=== PATIENT | female | born 1940 | race Caucasian/White ===

== ENCOUNTER 2020-07-13 06:10 | Emergency (ER) | payer MEDICARE, SELFPAY ==
[2020-07-13] VITALS (14 sets, daily range): BP systolic 132–178; BP diastolic 62–83; PULSE 82–100; RESP 15–18; TEMP 37.4; O2SAT 83–99; BMI 30.2
--- NOTE | 2020-07-13 06:12 | ED.FALL ---
HPI - Fall <Anibal Black DO - Last Filed: 07/13/20 21:46> General Chief Complaint: Fall Stated Complaint: GLF Time Seen by Provider: 07/13/20 06:16 Source: patient and EMS Mode of arrival: EMS Limitations: no limitations History of Present Illness HPI Narrative: 79-year-old female nonsmoker and frequent drinker presents by EMS for evaluation of a ground level fall with head, face and hip injury. Patient takes no blood thinners, denies loss of consciousness, has full recall and has had no vomiting. She states she had had some wine this evening and was ambulating with her walker when she leaned over to grab something and toppled over striking her face. She denies any blurred vision or trouble with speech. She states she can breathe through both nostrils without difficulty. She denies any malocclusion or dental injury. She has no difficulty swallowing and denies chest pain, shortness of breath or abdominal pain. She has pain in her right hip, significant with any palpation or ambulation but denies any numbness, tingling or weakness. MD complaint: fall Onset (ago): hour(s) Fall from: standing Fall witnessed: yes, by family Place fall occurred: home Loss of consciousness: none Prolonged down time: no Symptoms prior to fall: none Context: tripped/slipped and alcohol use Location of injury: head and face Severity: moderate Quality: aching Associated symptoms (after fall): unable to walk Related Data Previous Rx's Medication Instructions Recorded tramadol 50 mg PO Q6H PRN #10 tab 07/13/20 Allergies Allergy/AdvReac Type Severity Reaction Status Date / Time No Known Drug Allergies Allergy Verified 07/13/20 06:24 Review of Systems <Anibal Black DO - Last Filed: 07/13/20 21:46> Constitutional Constitutional: Denies chills, Denies fatigue, Denies fever(s), Denies frequent falls, Denies lethargy and Denies weakness Eyes Eyes: Denies change in vision, Denies eye discharge, Denies irritation and Denies loss of vision ENT Ears, Nose, Mouth, and Throat: Denies change in voice, Denies dizziness, Denies neck pain, Denies sore throat and Denies throat swelling Cardiovascular Cardiovascular: Denies chest pain, Denies irregular heart rhythm, Denies lightheadedness, Denies palpitations, Denies dyspnea, Denies dyspnea on exertion and Denies orthopnea Respiratory Respiratory: Denies cough, Denies dyspnea, Denies dyspnea on exertion and Denies wheezing Gastrointestinal Gastrointestinal: Denies abdominal pain, Denies change in bowel habits, Denies diarrhea, Denies nausea and Denies vomiting Musculoskeletal Musculoskeletal: Reports arthralgias, Denies neck pain and Denies numbness Integumentary/Breasts Skin/Breast: Denies pruritus, Denies erythema, Denies rash, Reports unusual bruising and Reports wounds Neurologic Neurologic: Denies behavioral changes, Denies confusion, Denies dizziness, Denies frequent falls, Denies loss of vision, Denies numbness and Denies weakness Psychiatric Psychiatric: Denies anxiety, Denies behavioral changes, Denies confusion, Denies depression, Denies homicidal ideation and Denies suicidal ideation Endocrine Endocrine: Denies fatigue, Denies flushing and Denies palpitations Hematologic/Lymphatic Hematologic/Lymphatic: Denies easy bruising Allergic/Immunologic Allergic/Immunologic: Denies urticaria, Denies throat swelling and Denies wheezing Patient History <Anibal Black DO - Last Filed: 07/13/20 21:46> Social History Smoking Status: Never smoker Smoking Status: Never smoker alcohol intake frequency: 3 or more drinks per day Exam <Anibal Black DO - Last Filed: 07/13/20 21:46> Narrative Exam Narrative: GENERAL: [79] year old patient appears stated age. Well-nourished, well-developed patient, in mild distress. GCS 15 HEAD: Bruising of right forehead and right cheek. 2 cm crescent-shaped laceration on right forehead with dried blood, no active bleeding. No evidence of depressed skull fracture EYES: Pupils equal round and reactive. No hyphema Extraocular motions intact. No scleral icterus. No injection or drainage. ENT: Nose without bleeding, purulent drainage. No nasal septal hematoma. Throat without erythema, tonsillar hypertrophy or exudate. Airway patent. Nor malocclusion NECK: Trachea midline. Non tender CARDIOVASCULAR: Regular rate and rhythm without murmurs, gallops, or rubs. RESPIRATORY: Clear to auscultation. Breath sounds equal bilaterally. No wheezes, rales, or rhonchi. GASTROINTESTINAL: Abdomen soft, non-tender, nondistended. EXTREMITIES: Right hip tender to palpate, no obvious shortening or external rotation. Close, isolated and neurovascularly intact BACK: Nontender without deformity or crepitance. No flank tenderness. NEURO: AOx3. SKIN: No rash or erythema of visible areas Initial Vital Signs Initial Vital Signs: Vital Signs Temperature 99.4 F 07/13/20 06:18 Pulse Rate 98 H 07/13/20 06:18 Respiratory Rate 18 07/13/20 06:18 Blood Pressure 178/80 H 07/13/20 06:18 Pulse Oximetry 95 07/13/20 06:18 <Flakito Britton DO - Last Filed: 07/13/20 09:45> Initial Vital Signs Initial Vital Signs: Vital Signs Temperature 99.4 F 07/13/20 06:18 Pulse Rate 98 H 07/13/20 06:18 Respiratory Rate 18 07/13/20 06:18 Blood Pressure 178/80 H 07/13/20 06:18 Pulse Oximetry 95 07/13/20 06:18 Procedures <Anibal Black DO - Last Filed: 07/13/20 21:46> Laceration Repair Laceration 1: Site: face Side (If applicable): right Size (cm): 3 Description: stellate Depth: simple, single layer Local Anesthetic: lidocaine 1% and with epi Pre-repair: wound explored and irrigated extensively Skin layer closed with: nylon Size (cm): 5-0 Number of sutures: 5 Technique: simple, interrupted Course <DO Sadi Cao Last Filed: 07/13/20 21:46> Orders Ordered: Discontinued Medications Hydrocodone Bitart/Acetaminophen (Hydrocodone/Acet 5/325 Tablet) 1 tab PO NOW ONE Stop: 07/13/20 08:47 Last Admin: 07/13/20 08:56 Dose: 1 tab Documented by: DIONNE Lidocaine/Epinephrine (Lidocaine 1% W/Epi) 1 ml SUBCUT NOW ONE Stop: 07/13/20 06:17 Last Admin: 07/13/20 06:54 Dose: 1 ml Documented by: ZACHARY Ondansetron HCl (Ondansetron 4 Mg/2 Ml Inj) 4 mg IV NOW ONE Stop: 07/13/20 06:54 Last Admin: 07/13/20 06:57 Dose: Not Given Documented by: ZACHARY Vital Signs Vital signs: Vital Signs - 8 hr 07/13/20 06:18 07/13/20 06:21 07/13/20 06:30 Temperature 99.4 F Pulse Rate 98 H 99 H 98 H Respiratory Rate 18 Blood Pressure 178/80 H 148/72 H Pulse Oximetry 95 93 93 07/13/20 06:56 07/13/20 07:00 07/13/20 07:30 Temperature Pulse Rate 98 H 100 H 96 H Respiratory Rate Blood Pressure 148/72 H 145/67 H 153/67 H Pulse Oximetry 92 91 91 07/13/20 08:00 07/13/20 08:01 07/13/20 08:21 Temperature Pulse Rate 96 H 97 H 97 H Respiratory Rate Blood Pressure 144/62 H 163/71 H Pulse Oximetry 92 92 92 07/13/20 08:30 Temperature Pulse Rate 94 H Respiratory Rate Blood Pressure 132/66 Pulse Oximetry 93 <Flakito Britton DO - Last Filed: 07/13/20 09:45> Orders Ordered: Discontinued Medications Hydrocodone Bitart/Acetaminophen (Hydrocodone/Acet 5/325 Tablet) 1 tab PO NOW ONE Stop: 07/13/20 08:47 Last Admin: 07/13/20 08:56 Dose: 1 tab Documented by: DIONNE Lidocaine/Epinephrine (Lidocaine 1% W/Epi) 1 ml SUBCUT NOW ONE Stop: 07/13/20 06:17 Last Admin: 07/13/20 06:54 Dose: 1 ml Documented by: ZACHARY Ondansetron HCl (Ondansetron 4 Mg/2 Ml Inj) 4 mg IV NOW ONE Stop: 07/13/20 06:54 Last Admin: 07/13/20 06:57 Dose: Not Given Documented by: ZACHARY Vital Signs Vital signs: Vital Signs - 8 hr 07/13/20 06:18 07/13/20 06:21 07/13/20 06:30 Temperature 99.4 F Pulse Rate 98 H 99 H 98 H Respiratory Rate 18 Blood Pressure 178/80 H 148/72 H Pulse Oximetry 95 93 93 07/13/20 06:56 07/13/20 07:00 07/13/20 07:30 Temperature Pulse Rate 98 H 100 H 96 H Respiratory Rate Blood Pressure 148/72 H 145/67 H 153/67 H Pulse Oximetry 92 91 91 07/13/20 08:00 07/13/20 08:01 07/13/20 08:21 Temperature Pulse Rate 96 H 97 H 97 H Respiratory Rate Blood Pressure 144/62 H 163/71 H Pulse Oximetry 92 92 92 07/13/20 08:30 Temperature Pulse Rate 94 H Respiratory Rate Blood Pressure 132/66 Pulse Oximetry 93 MDM - Fall <Anibal Black DO - Last Filed: 07/13/20 21:46> Lab Data Result diagrams: 07/13/20 06:30 07/13/20 06:30 Labs: Lab Results 07/13/20 07/13/20 07/13/20 Range/Units 06:30 06:30 06:30 WBC 10.7 (4.5-11.0) X10^3/uL RBC 4.40 (4.0-5.2) X10^6/uL Hgb 13.9 (12.0-16.0) g/dL Hct 40.7 (36-46) % MCV 92.3 (80-100) fL MCH 31.5 (26-34) PG MCHC 34.1 (30-36) % RDW 12.9 (11.6-14.8) % Plt Count 201 (150-400) X10^3/uL Neut % (Auto) 83.5 H (50-75) % Lymph % (Auto) 8.3 L (25-40) % Elliott % (Auto) 7.9 (3-14) % Eos % (Auto) 0.1 L (2-4) % Baso % (Auto) 0.2 (0-2) % Neut # (Auto) 8900 H (9676-2112) /uL Lymph # (Auto) 900 L (8518-7088) /uL Elliott # (Auto) 800 (0-900) /uL Eos # (Auto) 0 (0-450) /uL Baso # (Auto) 0 (0-100) /uL Sodium 133 L (137-145) mmol/L Potassium 4.3 (3.4-5.1) mmol/L Chloride 98 (98-107) mmol/L Carbon Dioxide 23 (22-32) mmol/L BUN 13 (7-17) mg/dL Creatinine 0.62 (0.52-1.04) mg/dL Estimated GFR > 60.0 (>60) mL/min BUN/Creatinine Ratio 21.0 (6-22) Glucose 113 H (80-110) mg/dL Calcium 9.6 (8.4-10.2) mg/dL Ethyl Alcohol < 10 ( - 10) mg/dL <Flakito Britton, DO - Last Filed: 07/13/20 09:45> Lab Data Labs: Lab Results 07/13/20 07/13/20 07/13/20 Range/Units 06:30 06:30 06:30 WBC 10.7 (4.5-11.0) X10^3/uL RBC 4.40 (4.0-5.2) X10^6/uL Hgb 13.9 (12.0-16.0) g/dL Hct 40.7 (36-46) % MCV 92.3 (80-100) fL MCH 31.5 (26-34) PG MCHC 34.1 (30-36) % RDW 12.9 (11.6-14.8) % Plt Count 201 (150-400) X10^3/uL Neut % (Auto) 83.5 H (50-75) % Lymph % (Auto) 8.3 L (25-40) % Elliott % (Auto) 7.9 (3-14) % Eos % (Auto) 0.1 L (2-4) % Baso % (Auto) 0.2 (0-2) % Neut # (Auto) 8900 H (0525-5321) /uL Lymph # (Auto) 900 L (7154-4540) /uL Elliott # (Auto) 800 (0-900) /uL Eos # (Auto) 0 (0-450) /uL Baso # (Auto) 0 (0-100) /uL Sodium 133 L (137-145) mmol/L Potassium 4.3 (3.4-5.1) mmol/L Chloride 98 (98-107) mmol/L Carbon Dioxide 23 (22-32) mmol/L BUN 13 (7-17) mg/dL Creatinine 0.62 (0.52-1.04) mg/dL Estimated GFR > 60.0 (>60) mL/min BUN/Creatinine Ratio 21.0 (6-22) Glucose 113 H (80-110) mg/dL Calcium 9.6 (8.4-10.2) mg/dL Ethyl Alcohol < 10 ( - 10) mg/dL Imaging Data CT scan - head: Radiologist's Impression: [address] [id number] Scan ReportSigned Patient: Milka Ramirez SMR#: [id number]: 9Acct:[id number]/Sex: 79 / FDate of Service: 07/13/20Loc: EDAccession Number: [id number] Procedure: CT head/brain wo con Ordering Provider: Anibal Black D.O. PROCEDURE: CT HEAD/BRAIN WO CON INDICATIONS: fall with head injury TECHNIQUE: Noncontrast 4.5 mm thick angled axial sections acquired from the foramen magnum to the vertex, with coronal and sagittal reformats. For radiation dose reduction, the following was used: automated exposure control, adjustment of mA and/or kV according to patient size. COMPARISON: None. FINDINGS: Image quality: Degraded by patient motion artifact. CSF spaces: Basal cisterns are patent. No extra-axial fluid collections. The ventricles are symmetric in size and shape. Brain: No intracranial bleeds or masses. There is cerebral volume loss for age, with resultant ventricular and sulcal prominence. There are periventricular and deep white matter chronic small vessel ischemic changes. There is intracranial internal carotid artery and vertebral artery atherosclerosis. Skull and face: Calvarium and visualized facial bones appear intact, without suspicious lesions. Small right frontal scalp hematoma. Sinuses: Visualized sinuses and mastoids are clear. IMPRESSION: No acute intracranial disease process. Dictated by: Brittney Fitzpatrick MD, PhD on 07/13/2020 at 7:43 Approved by: Brittney Fitzpatrick MD, PhD on 07/13/2020 at 7:44 CT - cervical spine: Radiologist's Impression: Motion artifact versus odontoid fracture needs repeat study Straightening of the cervical lordotic curve. 4 mm listhesis C5-C6. Discogenic changes C5-C6 level. Extensive degenerative spondylosis CT pelvis: Radiologist's Impression: Bilateral hip joints are congruent. Anterior and posterior acetabular martinez were limited in their evaluation due to motion artifact. Suspect motion artifact since findings are bilateral and symmetric. Anterior and posterior columns preserved No evidence of avulsion injury. Old healed inferior pubic ramus fracture CT maxillofacial: Radiologist's Impression: No intraorbital injury or order fractures. No fractures of the facial bones identified. Fractures of the mandible frontal calvarium Tomeka Brewer cribriform plate could not be assessed due to motion artifact repeated buys Deformity of the nasal bones felt to be from remote injury repeat CT c spine: Radiologist's Impression: [address] [id number] Scan ReportSigned Patient: Milka Ramirez [facility]#: [id number]: [id number]:[id number]/Sex: 79 / FDate of Service: 07/13/20Loc: EDAccession Number: [id number] Procedure: CT cervical spine wo con Ordering Provider: Flakito Britton D.O. PROCEDURE: CT CERVICAL SPINE WO CON INDICATIONS: Trauma TECHNIQUE: Noncontrast 3 mm thick sections acquired from the skull base to the T4 level. Sagittal and coronal reformats were then constructed. For radiation dose reduction, the following was used: automated exposure control, adjustment of mA and/or kV according to patient size. COMPARISON: [facility], CT, CT HEAD/BRAIN WO CON, 07/13/2020, 6:22. [facility], CT, CT FACIAL BONES WO CON, 07/13/2020, 6:22. [facility], CT, CT CERVICAL SPINE WO CON, 07/13/2020, 6:22. FINDINGS: Image quality: Excellent. Bones: Previously question fracture at the base of the dens posteriorly is no longer demonstrated, consistent with motion artifact on the prior study. No fractures or dislocations. Visualized superior ribs are intact. Soft tissues: Prevertebral soft tissues are normal in thickness. No paravertebral hematomas. No apical pneumothoraces. IMPRESSION: No cervical spine fracture. Previously question abnormality at the base of the dens is no longer demonstrated, representing motion artifact on the prior examination. Dictated by: Christopher Fermin M.D. on 07/13/2020 at 8:26 Approved by: Christopher Fermin M.D. on 07/13/2020 at 8:29 MDM Narrative Medical decision making narrative: Dr britton: Received turned over from Dr. Black. Patient has had laceration has already been repaired. I discussed the care instructions and follow-up instructions regard to this. She does have a right-sided facial contusion we also discussed care instructions for this. Her initial CT scans are somewhat degraded secondary to motion artifact. The CT scan of her face does not show any defined fractures although it is degraded however the head CT does not show any associated fractures in these areas. CT scan of her pelvis does not show any fractures. She did have some difficulty standing but was able to stand and take 1 step with some discomfort. I informed her that she is going to be sore however because there were no fractures she can walk as tolerated. The CT scan of her neck initially was concerning for an odontoid fracture however repeat scan does not show this. Her cervical collar was removed. Had a discussion with her and her daughter at bedside regarding her injuries. Informed her that she is going to be sore for the next several days. They were given a health resource is coordinator card in order for the patient to find a primary provider. They were given return precautions and follow-up instructions. The both expressed understanding and agreement. Discharge Plan Departure Patient Disposition: Home Clinical Impression: Contusion of face, Acute right hip pain, Fall, Forehead laceration Instructions: DI for Eye Contusion, How to Prevent Falls Activity Restrictions/Additional Instructions: Your CT scans here in the emergency department do not show any acute fractures. The stitches that were placed in your forehead do need to be removed in 7-10 days. You can contact your primary provider or the walk-in clinic for this. I do recommend that you place ice over the right side of her face as this may help with some of the swelling. There were no fractures noted on the CT scan of your hip so you can walk with your walker as tolerated. Return to the emergency department for any new or worsening symptoms Prescriptions: New tramadol 50 mg tablet 50 mg PO Q6H PRN (Reason: pain) Qty: 10 RF: 0
--- NOTE | 2020-07-13 06:14 | DI.CT.S_ITS ---
PROCEDURE: CT PEL WO CON INDICATIONS: fall with severe pain TECHNIQUE: Noncontrast 3 mm axial sections acquired through the bony pelvis, with coronal and sagittal reformatting. COMPARISON: None. FINDINGS: Image quality: Diagnostic. Bones: Imaging of the pelvis and right hip demonstrate no evidence of acute fracture or dislocation. There are old fractures of left superior and inferior pubic bones. Soft tissues: Sigmoid diverticulosis without evidence of diverticulitis. Vascular calcifications. IMPRESSION: 1. No evidence of acute bony abnormality of the pelvis and right hip. 2. Old left pubic bone fractures. Comment: Final report is concordant with preliminary interpretation provided by [facility]. Dictated by: Roni Prince M.D. on 07/13/2020 at 8:54 Approved by: Roni Prince M.D. on 07/13/2020 at 10:03
--- NOTE | 2020-07-13 06:14 | DI.CT.S_ITS ---
PROCEDURE: CT FACIAL BONES WO CON INDICATIONS: fall with injury TECHNIQUE: Noncontrast 2.5 mm thick axial images acquired from the mandible through the frontal sinuses, with coronal and sagittal reformatting. For radiation dose reduction, the following was used: automated exposure control, adjustment of mA and/or kV according to patient size. COMPARISON: None. FINDINGS: Image quality: Patient motion artifact. Bones and teeth: Orbital martinez are intact. Sinus martinez show no fracture or deformity. Nasal bones and septum are intact. Visualized portions of the mandible demonstrate no fractures or subluxation. Zygomatic arches are intact. Pterygoid plates are intact. Visualized portions of the skull base and auditory canals are intact. Sinuses: Paranasal sinuses are aerated, without fluid levels, mucosal thickening, or mucoceles. Mastoid air cells are aerated. Soft tissues: No edema, masses, or fluid collections. No enlarged lymph nodes. No soft tissue lacerations or debris. Vascular: Visualized vascular structures appear normal in the absence of contrast. Bony vascular foramina and canals are intact. IMPRESSION: Allowing for the amount of patient motion artifact present, no displaced facial bone fractures or mandibular fractures are identified. However, if continue to have significant suspicion of fracture, consider repeat imaging. Comment: Final report is concordant with preliminary interpretation provided by [facility]. Dictated by: Roni Prince M.D. on 07/13/2020 at 10:03 Approved by: Roni Prince M.D. on 07/13/2020 at 10:05
--- NOTE | 2020-07-13 06:15 | DI.CT.S_ITS ---
PROCEDURE: CT HEAD/BRAIN WO CON INDICATIONS: fall with head injury TECHNIQUE: Noncontrast 4.5 mm thick angled axial sections acquired from the foramen magnum to the vertex, with coronal and sagittal reformats. For radiation dose reduction, the following was used: automated exposure control, adjustment of mA and/or kV according to patient size. COMPARISON: None. FINDINGS: Image quality: Degraded by patient motion artifact. CSF spaces: Basal cisterns are patent. No extra-axial fluid collections. The ventricles are symmetric in size and shape. Brain: No intracranial bleeds or masses. There is cerebral volume loss for age, with resultant ventricular and sulcal prominence. There are periventricular and deep white matter chronic small vessel ischemic changes. There is intracranial internal carotid artery and vertebral artery atherosclerosis. Skull and face: Calvarium and visualized facial bones appear intact, without suspicious lesions. Small right frontal scalp hematoma. Sinuses: Visualized sinuses and mastoids are clear. IMPRESSION: No acute intracranial disease process. Dictated by: Brittney Fitzpatrick MD, PhD on 07/13/2020 at 7:43 Approved by: Brittney Fitzpatrick MD, PhD on 07/13/2020 at 7:44
[2020-07-13 06:40] LABS: Add Manual Diff / Slide Review NO; Basophils Absolute Auto 0 /uL (0-100); Basophils Percent Auto 0.2 % (0-2); Eosinophils Absolute Auto 0 /uL (0-450); Eosinophils Percent Auto 0.1 % (2-4); Hematocrit 40.7 % (36-46); Hemoglobin 13.9 g/dL (12.0-16.0); Lymphocytes Absolute Auto 900 /uL (1100-4500); Lymphocytes Percent Auto 8.3 % (25-40); Mean Corpuscular HGB Conc 34.1 % (30-36); Mean Corpuscular Hemoglobin 31.5 PG (26-34); Mean Corpuscular Volume 92.3 fL (80-100); Monocytes Absolute Auto 800 /uL (0-900); Monocytes Percent Auto 7.9 % (3-14); Neutrophils Absolute Auto 8900 /uL (1500-7000); Neutrophils Percent Auto 83.5 % (50-75); Platelet Count 201 X10^3/uL (150-400); Red Cell Distribution Width 12.9 % (11.6-14.8); White Blood Cell Count 10.7 X10^3/uL (4.5-11.0)
--- NOTE | 2020-07-13 06:42 | DI.CT.S_ITS ---
PROCEDURE: CT CERVICAL SPINE WO CON INDICATIONS: fall with injury TECHNIQUE: Noncontrast 3 mm thick sections acquired from the skull base to the T4 level. Sagittal and coronal reformats were then constructed. For radiation dose reduction, the following was used: automated exposure control, adjustment of mA and/or kV according to patient size. COMPARISON: [facility], CT, CT CERVICAL SPINE WO CON, 07/13/2020, 8:10. FINDINGS: Image quality: Patient motion introduced significant artifact involving the C2 level. Therefore, patient returned for additional imaging. Bones: When comparing the study dated 07/13/2020 at 0622 hours to a subsequent study from 0810 hours, no acute fracture or dislocation is identified. The C2 level is cleared on the 2nd imaging set. There is severe cervical spondylitic change. There is degenerative anterolisthesis of C6 on C7 measuring 3 mm. Degenerative retrolisthesis of C5 on C6 measures 5 mm. Degenerative anterolisthesis of C4 on C5 measures 2 mm. There is multilevel cervical facet arthropathy. There are uncovertebral joint osteophytes at C3-C4, C4-C5, and C5-C6. This results in bony foraminal narrowing predominantly at C5-C6 and C4-C5. There is likely chronic canal stenosis at C5-C6. Visualized superior ribs are intact. Soft tissues: Prevertebral soft tissues are normal in thickness. No paravertebral hematomas. No apical pneumothoraces. IMPRESSION: 1. Patient motion artifact resulted in the need for additional imaging which was subsequently obtained, resulting in clearing of the C2 vertebral body for fracture. 2. No evidence of acute fracture or dislocation. 3. Severe cervical spondylitic change. Comment: Final report is concordant with preliminary interpretation provided by [facility]. Dictated by: Roni Prince M.D. on 07/13/2020 at 8:48 Approved by: Roni Prince M.D. on 07/13/2020 at 8:53
[2020-07-13 06:48] LABS: Blood Urea Nitrogen 13 mg/dL (7-17); Calcium 9.6 mg/dL (8.4-10.2); Carbon Dioxide 23 mmol/L (22-32); Chloride 98 mmol/L (98-107); Estimated Glomerular Filt Rate > 60.0 mL/min (>60); Glucose 113 mg/dL (80-110); Potassium 4.3 mmol/L (3.4-5.1); Sodium 133 mmol/L (137-145)
[2020-07-13 06:52] LABS: HEMOLYSIS 55 (0-50)
[2020-07-13] MEDS: LIDOCAINE 1% W/EPI 1 ML SUBCUT (06:54)
[2020-07-13] MEDS: ONDANSETRON 4 MG/2 ML INJ (06:55)
--- NOTE | 2020-07-13 06:59 | PC.NURSE ---
Pt c/o nausea and then vomited, remains in C-collar. Dr Black notified, pt medicated with 4mg zofran per verbal order. Suction available at bedside. Dr Black now at bedside repairing lac to forehead.
[2020-07-13 07:03] LABS: Ethanol (ETOH) < 10 mg/dL
--- NOTE | 2020-07-13 07:59 | DI.CT.S_ITS ---
PROCEDURE: CT CERVICAL SPINE WO CON INDICATIONS: Trauma TECHNIQUE: Noncontrast 3 mm thick sections acquired from the skull base to the T4 level. Sagittal and coronal reformats were then constructed. For radiation dose reduction, the following was used: automated exposure control, adjustment of mA and/or kV according to patient size. COMPARISON: [facility], CT, CT HEAD/BRAIN WO CON, 07/13/2020, 6:22. [facility], CT, CT FACIAL BONES WO CON, 07/13/2020, 6:22. [facility], CT, CT CERVICAL SPINE WO CON, 07/13/2020, 6:22. FINDINGS: Image quality: Excellent. Bones: Previously question fracture at the base of the dens posteriorly is no longer demonstrated, consistent with motion artifact on the prior study. No fractures or dislocations. Visualized superior ribs are intact. Soft tissues: Prevertebral soft tissues are normal in thickness. No paravertebral hematomas. No apical pneumothoraces. IMPRESSION: No cervical spine fracture. Previously question abnormality at the base of the dens is no longer demonstrated, representing motion artifact on the prior examination. Dictated by: Christopher Fermin M.D. on 07/13/2020 at 8:26 Approved by: Christopher Fermin M.D. on 07/13/2020 at 8:29
[2020-07-13] MEDS: HYDROCODONE/ACET 5/325 TABLET 1 TAB PO (08:56)
--- NOTE | 2020-07-13 10:02 | PC.NURSE ---
transfered self to commode and back with no difficulties using facility provided walker. states she has a walker at home.
== END 2020-07-13 10:04 | disposition home or self-care (01) ==
PROVIDERS: Emergency Medicine; Emergency Provider Emergency Medicine
DX: S01.81XA Laceration without foreign body of other part of head, initial encounter (principal); M25.551 Pain in right hip; W19.XXXA Unspecified fall, initial encounter
CPT/HCPCS: 12013; 36415; 70450; 70486; 72125; 72192; 80048; 80320; 85025; 99285; J2405

== ENCOUNTER 2020-07-14 16:42 | Observation (INO) | payer MEDICARE, SELFPAY ==
[2020-07-14] VITALS (7 sets, daily range): BP systolic 138–183; BP diastolic 70–95; PULSE 86–93; RESP 12–24; TEMP 36.8; O2SAT 91–98; BMI 28.3
[2020-07-14 18:36] LABS: Add Manual Diff / Slide Review NO; Basophils Absolute Auto 0 /uL (0-100); Basophils Percent Auto 0.3 % (0-2); Eosinophils Absolute Auto 0 /uL (0-450); Hematocrit 42.8 % (36-46); Hemoglobin 14.5 g/dL (12.0-16.0); Lymphocytes Absolute Auto 700 /uL (1100-4500); Lymphocytes Percent Auto 7.3 % (25-40); Mean Corpuscular Hemoglobin 31.8 PG (26-34); Mean Corpuscular Volume 93.8 fL (80-100); Monocytes Absolute Auto 1100 /uL (0-900); Monocytes Percent Auto 10.7 % (3-14); Neutrophils Absolute Auto 8400 /uL (1500-7000); Neutrophils Percent Auto 81.7 % (50-75); Platelet Count 175 X10^3/uL (150-400); Red Blood Cell Count 4.56 X10^6/uL (4.0-5.2); Red Cell Distribution Width 13.1 % (11.6-14.8); White Blood Cell Count 10.3 X10^3/uL (4.5-11.0)
[2020-07-14 18:48] LABS: Prothrombin Time 11.9 SECONDS (10.1-12.7)
[2020-07-14 18:50] LABS: PTT Partial Thromboplastin Tim 29 SECONDS (26.4-36.2)
--- NOTE | 2020-07-14 19:03 | ED_ITS ---
HPI - Nausea/Vomiting/Diarrhea General Chief complaint: Nausea/Vomiting/Diarrhea Stated complaint: unable to bear wt, not eating or drinking Time Seen by Provider: 07/14/20 17:56 Source: patient and EMS Mode of arrival: EMS Limitations: no limitations History of Present Illness HPI Narrative: 79-year-old female returns for evaluation of right hip. She was here few days ago after she is suffering facial injury and right hip injury after a ground level fall. She had been walking with her walker in bent forward to pick something up when she fell forward, striking her head on the ground and resulting in significant right hip pain. She had head CT, facial bones as well as a CT of the pelvis which showed no fracture. She had a forehead laceration which was repaired and she was sent home. She does live at home alone and has been unable to ambulate due to the pain. She states that the pain has become so significant that she is unable to move whatsoever. Additionally she has been having nausea and vomiting as and due to her pain she has not been eating or drinking. She is weak and fatigued and does not have support at home. Related Data Previous Rx's Medication Instructions Recorded tramadol 50 mg PO Q6H PRN #10 tab 07/13/20 Allergies Allergy/AdvReac Type Severity Reaction Status Date / Time No Known Drug Allergies Allergy Verified 07/13/20 06:24 Review of Systems Constitutional Constitutional: Denies chills, Denies fatigue, Denies fever(s), Denies frequent falls, Denies lethargy and Reports weakness Eyes Eyes: Denies change in vision, Denies eye discharge, Denies irritation and Denies loss of vision ENT Ears, Nose, Mouth, and Throat: Denies change in voice, Denies dizziness, Denies neck pain, Denies sore throat and Denies throat swelling Cardiovascular Cardiovascular: Denies chest pain, Denies irregular heart rhythm, Denies lightheadedness, Denies palpitations, Denies dyspnea, Denies dyspnea on exertion and Denies orthopnea Respiratory Respiratory: Denies cough, Denies dyspnea, Denies dyspnea on exertion and Denies wheezing Gastrointestinal Gastrointestinal: Denies abdominal pain, Denies change in bowel habits, Denies diarrhea, Reports nausea and Reports vomiting Musculoskeletal Musculoskeletal: Reports arthralgias, Denies neck pain and Denies numbness Integumentary/Breasts Skin/Breast: Denies pruritus, Denies erythema, Denies rash and Denies wounds Neurologic Neurologic: Denies behavioral changes, Denies confusion, Denies dizziness, Denies frequent falls, Denies loss of vision, Denies numbness and Reports weakness Psychiatric Psychiatric: Denies anxiety, Denies behavioral changes, Denies confusion, Denies depression, Denies homicidal ideation and Denies suicidal ideation Endocrine Endocrine: Denies fatigue, Denies flushing and Denies palpitations Hematologic/Lymphatic Hematologic/Lymphatic: Denies easy bruising Allergic/Immunologic Allergic/Immunologic: Denies urticaria, Denies throat swelling and Denies wheezing Patient History Medical History No significant past medical history Surgical History History of History of knee surgery Family History Father Stroke Mother Diabetes mellitus Heart attack Social History Smoking Status: Never smoker Smoking Status: Never smoker alcohol intake frequency: 3 or more drinks per day Alcohol type: wine Substance Use Type: does not use Exam Narrative Exam Narrative: GENERAL: [79] year old patient appears stated age. Well- nourished, well-developed patient, in mild distress. GCS 15 HEAD: Atraumatic. Normocephalic. Aging bruising on right forehead with intact laceration, wound healing appropriately. EYES: Pupils equal round and reactive. Extraocular motions intact. No scleral icterus. No injection or drainage. ENT: Dry mucous membranes Nose without bleeding, purulent drainage. Throat without erythema, tonsillar hypertrophy or exudate. Airway patent. NECK: Trachea midline. Non tender CARDIOVASCULAR: Regular rate and rhythm without murmurs, gallops, or rubs. RESPIRATORY: Clear to auscultation. Breath sounds equal bilaterally. No wheezes, rales, or rhonchi. GASTROINTESTINAL: Abdomen soft, non-tender, nondistended. EXTREMITIES: Painful passive and active range of motion of the right hip without shortening, rotation, this is closed, isolated and neurovascularly intact BACK: Nontender without deformity or crepitance. No flank tenderness. NEURO: AOx3. SKIN: Poor skin turgor No rash or erythema of visible areas Initial Vital Signs Initial Vital Signs: Vital Signs Temperature 98.2 F 07/14/20 16:48 Pulse Rate 86 07/14/20 16:48 Respiratory Rate 20 07/14/20 16:48 Blood Pressure 180/81 H 07/14/20 16:48 Pulse Oximetry 92 07/14/20 16:48 Course Orders Ordered: ED Orders 07/14/20 18:00 EKG-12 Lead Stat 07/14/20 18:22 COVID19 - ADMIT ([employer] swab/PCR) Stat Complete Blood Count AUTO DIFF Stat Partial Thromboplastin Time Stat Prothrombin Time INR Stat 07/14/20 19:09 CT head/brain wo con Stat 07/14/20 19:16 Comprehensive Metabolic Panel Stat Lipase Stat Acetaminophen (Acetaminophen 325 Mg Tablet) 975 mg PO Q8H [facility] Last Admin: 07/14/20 22:54 Dose: 975 mg Documented by: CULLEN Al Hydrox/Mg Hydrox/Simethicone (Mag Hydrox/Alum/Simeth 30 Ml Udc) 30 ml PO Q6HR PRN PRN Reason: Dyspepsia Bisacodyl (Bisacodyl 10 Mg Supp) 10 mg TX DAILY PRN PRN Reason: Constipation Calcium Carbonate (Calcium Carbonate 500 Mg Tab) 1,000 mg PO Q4HR PRN PRN Reason: Dyspepsia Docusate Sodium (Docusate 100 Mg Capsule) 100 mg PO BID [facility] Last Admin: 07/14/20 22:57 Dose: 100 mg Documented by: CULLEN Enoxaparin Sodium (Enoxaparin 40 Mg/0.4 Ml Syringe) 40 mg SUBCUT DAILY [facility] Sodium Chloride (Normal Saline 0.9%) 1,000 mls @ 100 mls/hr IV CONT [facility] Last Admin: 07/14/20 22:15 Dose: 100 mls/hr Documented by: CULLEN Ceftriaxone Sodium/Dextrose (Rocephin) 1 gm in 50 mls @ 100 mls/hr IV Q24H [facility] Last Admin: 07/15/20 00:51 Dose: 100 mls/hr Documented by: [email or web address] Meloxicam (Meloxicam 7.5 Mg Tablet) 7.5 mg PO 0800 [facility] Methocarbamol (Methocarbamol 500 Mg Tablet) 500 mg PO TID PRN PRN Reason: Muscle Spasm Naloxone HCl (Naloxone 0.4 Mg/Ml Vial) 0.2 mg IV Q2MIN PRN PRN Reason: Opiate Reversal Ondansetron HCl (Ondansetron 4 Mg/2 Ml Inj) 4 mg IV Q6HR PRN PRN Reason: Nausea And Vomiting Last Admin: 07/14/20 22:28 Dose: 4 mg Documented by: CULLEN Oxycodone HCl (Oxycodone Ir 5 Mg Tablet) 5 mg PO Q6HR PRN PRN Reason: Pain, Moderate (4-6) Last Admin: 07/14/20 22:54 Dose: 5 mg Documented by: CULLEN Discontinued Medications Pantoprazole Sodium (Pantoprazole 40 Mg Vial) 40 mg IV NOW ONE Stop: 07/14/20 22:07 Last Admin: 07/14/20 22:28 Dose: 40 mg Documented by: CULLEN Vital Signs Vital signs: Vital Signs - 8 hr 07/14/20 18:12 07/14/20 19:18 07/14/20 20:00 Pulse Rate 93 H 92 H 89 Respiratory Rate 12 18 Blood Pressure 181/95 H 146/88 H 145/76 H Pulse Oximetry 94 98 91 07/14/20 20:30 07/14/20 20:34 Pulse Rate 86 86 Respiratory Rate 24 24 Blood Pressure 143/70 H 138/76 Pulse Oximetry 92 92 MDM - Nausea/Vomiting/Diarrhea Lab Data Result diagrams: 07/14/20 18:22 07/14/20 19:16 Labs: Lab Results 07/14/20 07/14/20 07/14/20 Range/Units 18:22 18:22 18:22 WBC 10.3 (4.5-11.0) X10^3/uL RBC 4.56 (4.0-5.2) X10^6/uL Hgb 14.5 (12.0-16.0) g/dL Hct 42.8 (36-46) % MCV 93.8 (80-100) fL MCH 31.8 (26-34) PG MCHC 34.0 (30-36) % RDW 13.1 (11.6-14.8) % Plt Count 175 (150-400) X10^3/uL Neut % (Auto) 81.7 H (50-75) % Lymph % (Auto) 7.3 L (25-40) % [place] % (Auto) 10.7 (3-14) % Eos % (Auto) 0.0 L (2-4) % Baso % (Auto) 0.3 (0-2) % Neut # (Auto) 8400 H (3886-6066) /uL Lymph # (Auto) 700 L (1912-9564) /uL [place] # (Auto) 1100 H (0-900) /uL Eos # (Auto) 0 (0-450) /uL Baso # (Auto) 0 (0-100) /uL PT 11.9 (10.1-12.7) SECONDS INR 1.0 (0.9-1.3) APTT 29 (26.4-36.2) SECONDS Sodium (137-145) mmol/L Potassium (3.4-5.1) mmol/L Chloride (98-107) mmol/L Carbon Dioxide (22-32) mmol/L BUN (7-17) mg/dL Creatinine (0.52-1.04) mg/dL Estimated GFR (>60) mL/min BUN/Creatinine Ratio (6-22) Glucose (80-110) mg/dL Calcium (8.4-10.2) mg/dL Magnesium (1.6-2.3) mg/dL Total Bilirubin (0.2-1.3) mg/dL AST (14-36) IU/L ALT (<35) IU/L Alkaline Phosphatase (38-126) U/L Total Protein (6.3-8.2) g/dL Albumin (3.5-5.0) g/dL Globulin (1.7-4.1) g/dL Albumin/Globulin Ratio (1.0-2.8) Lipase (23-300) U/L SARS-CoV-2 (PCR) Negative (Negative) 07/14/20 07/14/20 Range/Units 19:16 19:16 WBC (4.5-11.0) X10^3/uL RBC (4.0-5.2) X10^6/uL Hgb (12.0-16.0) g/dL Hct (36-46) % MCV (80-100) fL MCH (26-34) PG MCHC (30-36) % RDW (11.6-14.8) % Plt Count (150-400) X10^3/uL Neut % (Auto) (50-75) % Lymph % (Auto) (25-40) % [place] % (Auto) (3-14) % Eos % (Auto) (2-4) % Baso % (Auto) (0-2) % Neut # (Auto) (5704-4243) /uL Lymph # (Auto) (5513-2659) /uL [place] # (Auto) (0-900) /uL Eos # (Auto) (0-450) /uL Baso # (Auto) (0-100) /uL PT (10.1-12.7) SECONDS INR (0.9-1.3) APTT (26.4-36.2) SECONDS Sodium 132 L (137-145) mmol/L Potassium 3.9 (3.4-5.1) mmol/L Chloride 95 L (98-107) mmol/L Carbon Dioxide 26 (22-32) mmol/L BUN 17 (7-17) mg/dL Creatinine 0.72 (0.52-1.04) mg/dL Estimated GFR > 60.0 (>60) mL/min BUN/Creatinine Ratio 23.6 H (6-22) Glucose 89 (80-110) mg/dL Calcium 9.7 (8.4-10.2) mg/dL Magnesium 2.0 (1.6-2.3) mg/dL Total Bilirubin 1.0 (0.2-1.3) mg/dL AST 41 H (14-36) IU/L ALT 39 H (<35) IU/L Alkaline Phosphatase 65 (38-126) U/L Total Protein 7.6 (6.3-8.2) g/dL Albumin 4.3 (3.5-5.0) g/dL Globulin 3.3 (1.7-4.1) g/dL Albumin/Globulin Ratio 1.3 (1.0-2.8) Lipase 35 (23-300) U/L SARS-CoV-2 (PCR) (Negative) Imaging Data CT scan - head: Radiologist's Impression: Milka Ramirez 79 F [address] [id number] Scan ReportSigned Patient: Milka Ramirez [facility]#: [id number]: 9Acct:[id number]/Sex: 79 / FDate of Service: 07/14/20Loc: EDAccession Number: [id number] Procedure: CT head/brain wo con Ordering Provider: Anibal Black D.O. PROCEDURE: CT HEAD/BRAIN WO CON INDICATIONS: recent fall, persistent vomiting TECHNIQUE: Noncontrast 4.5 mm thick angled axial sections acquired from the foramen magnum to the vertex, with coronal and sagittal reformats. For radiation dose reduction, the following was used: automated exposure control, adjustment of mA and/or kV according to patient size. COMPARISON: [facility], CT, CT HEAD/BRAIN WO CON, 07/13/2020, 6:22. FINDINGS: Image quality: Excellent. CSF spaces: Basal cisterns are patent. No extra-axial fluid collections. The ventricles are symmetric in size and shape. Brain: No intracranial bleeds or masses. There is cerebral volume loss for age, with resultant ventricular and sulcal prominence. There are periventricular and deep white matter chronic small vessel ischemic changes. There is intracranial internal carotid artery atherosclerosis. Skull and face: Calvarium and visualized facial bones appear intact, without suspicious lesions. Sinuses: Visualized sinuses and mastoids are clear. IMPRESSION: No acute intracranial process. Dictated by: Kenneth Longo M.D. on 07/14/2020 at 20:00 Approved by: Kenneth Longo M.D. on 07/14/2020 at 20:02 [facility] Narrative Medical decision making narrative: Patient returns with poor appetite, no oral intake, dry mucous membranes and poor skin turgor, significant right hip pain and inability to ambulate. Imaging demonstrates no fracture of the hip or pelvis. A repeat CT of her head to rule out possible delayed subdural or other intracranial abnormality is unremarkable. Patient requires hospitalization as she lives at home alone, is unable to ambulate due to pain and failing to thrive under her current living situation. Discharge Plan Departure Patient Disposition: Admitted as Observation Clinical Impression: Acute right hip pain, Adult failure to thrive Admit Date/Time: 07/14/20 20:53 Admit Provider: Raffi Cruz
--- NOTE | 2020-07-14 19:09 | DI.CT.S_ITS ---
PROCEDURE: CT HEAD/BRAIN WO CON INDICATIONS: recent fall, persistent vomiting TECHNIQUE: Noncontrast 4.5 mm thick angled axial sections acquired from the foramen magnum to the vertex, with coronal and sagittal reformats. For radiation dose reduction, the following was used: automated exposure control, adjustment of mA and/or kV according to patient size. COMPARISON: [facility], CT, CT HEAD/BRAIN WO CON, 07/13/2020, 6:22. FINDINGS: Image quality: Excellent. CSF spaces: Basal cisterns are patent. No extra-axial fluid collections. The ventricles are symmetric in size and shape. Brain: No intracranial bleeds or masses. There is cerebral volume loss for age, with resultant ventricular and sulcal prominence. There are periventricular and deep white matter chronic small vessel ischemic changes. There is intracranial internal carotid artery atherosclerosis. Skull and face: Calvarium and visualized facial bones appear intact, without suspicious lesions. Sinuses: Visualized sinuses and mastoids are clear. IMPRESSION: No acute intracranial process. Dictated by: Kenneth Longo M.D. on 07/14/2020 at 20:00 Approved by: Kenneth Longo M.D. on 07/14/2020 at 20:02
[2020-07-14 19:26] LABS: COVID19 - ADMIT (NP swab/PCR) Negative (Negative)
[2020-07-14 19:46] LABS: Alanine Aminotransferase 39 IU/L (<35); Albumin 4.3 g/dL (3.5-5.0); Albumin Globulin Ratio 1.3 (1.0-2.8); Alkaline Phosphatase 65 U/L (38-126); Aspartate Aminotransferase 41 IU/L (14-36); BUN Creatinine Ratio 23.6 (6-22); Blood Urea Nitrogen 17 mg/dL (7-17); Calcium 9.7 mg/dL (8.4-10.2); Carbon Dioxide 26 mmol/L (22-32); Chloride 95 mmol/L (98-107); Estimated Glomerular Filt Rate > 60.0 mL/min (>60); Globulin 3.3 g/dL (1.7-4.1); Glucose 89 mg/dL (80-110); HEMOLYSIS < 15 (0-50); Lipase 35 U/L (23-300); Potassium 3.9 mmol/L (3.4-5.1); Sodium 132 mmol/L (137-145); Total Protein 7.6 g/dL (6.3-8.2)
--- NOTE | 2020-07-14 22:08 | P.HP_ITS ---
History of Present Illness History of Present Illness Date Patient Seen: 07/14/20 Time Patient Seen: 23:08 Chief complaint: unable to bear wt, not eating or drinking Narrative: Ms. Son is an 79-year-old female with no significant past medical history in currently resides in independent living at the [facility] in [place]. The patient presents to the ER today for inability bear weight related to right hip pain. Patient has been taking tramadol for pain which has been making her nauseated. The patient has sustained a ground level fall and was seen in the emergency department on 07/13/2020 at which time she had sustained head face and right hip injuries. The patient sustained laceration and contusion to her right face which was sutured and radiographs taken at that time found no indication of fracture. The patient was discharged to home with abe blount. The patient endorses not being able to eat or drink related to her nausea secondary to her pain medication. She reports no other complaints of systemic systems of fevers or chills, headaches or dizziness, visual changes, nasal congestion or sore throat. She denies chest or chest wall pain and has had no palpitations. She denies shortness of breath cough or wheezing. She denies epigastric or abdominal pain and has had no difficulties with bowel or bladder though does have mild suprapubic discomfort. At baseline the patient ambulates with a walker. The patient does consume wine and had 1 prior to her fall. She received her 2nd COVID vaccine on 04/22/2020. Upon arrival to the ER the patient has a temperature 98.2?, heart rate of 86, blood pressure 180/81, respirations 20 saturating 92% air. A CT of the head was obtain finding no acute intracranial processes. CT of the pelvis was obtained on 07/13 following fall which found old left pubic bone fracture and sigmoid diverticulosis without diverticulitis. On lab analysis she has white count of 10.3 with elevated neutrophils at 8400 monocytes 1100. Hemoglobin is 14.5 hematocrit is 42.8. Her coagulation is within normal range. She is mildly hyponatremic with a sodium 132 and other electrolytes within normal range. She has a BUN 17 and creatinine 0.72. Her nonfasting glucose is 89. Her her transaminases are elevated with an AST of 41 ALT of 39. No interventions were undertaken while in the ER the patient is admitted to the hospitalist service for right hip pain, inability to ambulate and return to her home setting. Patient History Medical History No significant past medical history Surgical History History of History of knee surgery Family & Social History Family History Father Stroke Mother Diabetes mellitus Heart attack Tobacco & Substance use: Smoking Status Never smoker alcohol intake frequency 3 or more drinks per day Substance Use Type does not use Meds Home Medications and Allergies Home Medications Medication Instructions Recorded Confirmed Type tramadol 50 mg PO Q6H PRN #10 tab 07/13/20 07/14/20 Rx Allergies Allergy/AdvReac Type Severity Reaction Status Date / Time No Known Drug Allergies Allergy Verified 07/13/20 06:24 Review of Systems Review of Systems ROS: Yes All systems reviewed with the patient and are negative except as otherwise documented Exam Vital Signs (past 8 hours): - 07/14/20 16:48 07/14/20 18:12 07/14/20 19:18 Temperature 98.2 F Pulse Rate 86 93 H 92 H Respiratory Rate 20 12 Blood Pressure 180/81 H 181/95 H 146/88 H Pulse Oximetry 92 94 98 07/14/20 20:00 07/14/20 20:30 07/14/20 20:34 Temperature Pulse Rate 89 86 86 Respiratory Rate 18 24 24 Blood Pressure 145/76 H 143/70 H 138/76 Pulse Oximetry 91 92 92 Oxygen Delivery Method Room Air Narrative Exam Narrative: GENERAL APPEARANCE: well developed, adequately nourished elderly female in no acute distress. HEENT: Sutured laceration right forehead, right facial ecchymosis with drooping right eyelid, PERRLA, conjunctiva clear, EOMs intact without nystagmus, no zygomatic pain on palpation, no epistaxis or rhinorrhea, no malocclusion, mucous membranes are moist and pink. NECK/THYROID: neck supple, nontender to palpation, no step-offs,, no JVD, no thyromegaly, trachea midline. LYMPH NODES: no cervical or supraclavicular lymphadenopathy. SKIN: [place], warm and dry HEART: regular rate and rhythm, S1-S2, no murmur, no rubs or gallops, brisk, 1+ dorsalis pedis pulses, no edema LUNGS: clear to auscultation bilaterally, no coarseness crackles or wheezing, no cough present CHEST: Symmetrical movement, no accessory muscle use, good tidal volume, no pain on AP and lateral compression. ABDOMEN: Soft, no distention, no abdominal tenderness, no guarding or peritoneal signs, no organomegaly, suprapubic tenderness, active bowel tones. BACK: Nontender to palpation EXTREMITIES: Pain on palpation anterior right hip, Flexion to 90? on passive range of motion, mild pain on internal or external rotation, right groin pain on straight leg raise with quadriceps activation. NEUROLOGIC: AAO x4, no focal neurologic deficits, cranial nerves II-XII grossly intact, sensation intact to light touch, hearing grossly normal to speech. PSYCH: Mildly anxious, good eye contact, is cooperative with stable behavior. Objective Labs Result Diagrams: 07/14/20 18:22 07/15/20 04:40 Labs: Laboratory Results - last 24 hr 07/14/20 07/14/20 07/14/20 18:22 18:22 18:22 WBC 10.3 RBC 4.56 Hgb 14.5 Hct 42.8 MCV 93.8 MCH 31.8 MCHC 34.0 RDW 13.1 Plt Count 175 Neut % (Auto) 81.7 H Lymph % (Auto) 7.3 L [place] % (Auto) 10.7 Eos % (Auto) 0.0 L Baso % (Auto) 0.3 Neut # (Auto) 8400 H Lymph # (Auto) 700 L Cook # (Auto) 1100 H Eos # (Auto) 0 Baso # (Auto) 0 PT 11.9 INR 1.0 APTT 29 Sodium Potassium Chloride Carbon Dioxide BUN Creatinine Estimated GFR BUN/Creatinine Ratio Glucose Calcium Total Bilirubin AST ALT Alkaline Phosphatase Total Protein Albumin Globulin Albumin/Globulin Ratio Lipase SARS-CoV-2 (PCR) Negative 07/14/20 19:16 WBC RBC Hgb Hct MCV MCH MCHC RDW Plt Count Neut % (Auto) Lymph % (Auto) [place] % (Auto) Eos % (Auto) Baso % (Auto) Neut # (Auto) Lymph # (Auto) Cook # (Auto) Eos # (Auto) Baso # (Auto) PT INR APTT Sodium 132 L Potassium 3.9 Chloride 95 L Carbon Dioxide 26 BUN 17 Creatinine 0.72 Estimated GFR > 60.0 BUN/Creatinine Ratio 23.6 H Glucose 89 Calcium 9.7 Total Bilirubin 1.0 AST 41 H ALT 39 H Alkaline Phosphatase 65 Total Protein 7.6 Albumin 4.3 Globulin 3.3 Albumin/Globulin Ratio 1.3 Lipase 35 SARS-CoV-2 (PCR) Assessment & Plan Assessment & Plan narrative: This is an 79-year-old female patient with no significant prior medical history who sustained a fall on 07/13/2020 at which time she sustained head facial and right hip injuries. Imaging his found no intracranial pathology or bony fractures. The patient returns to the ER today for inability to ambulate related to severe pain treated with tramadol which made her nauseated. 1. Right groin pain, acute strain injury, present on admission, active -patient with preserved passive range of motion with minimal pain, marked pain with active movement and quadriceps activation. -ordered Tylenol 975 mg every 8 hours -ordered meloxicam 7.5 mg daily. -ordered methocarbamol 500 mg 3 times daily as needed for muscle spasms. -requested PT and OT to consult, evaluate and treat. 2. Acute dehydration, present on admission, active -patient reports nausea from tramadol and inability to eat or drink. -mild hyponatremia with increased BUN creatinine ratio of 23.6. Urine positive for 2+ ketones. -ordered normal saline 100 cc/hour. -ordered Protonix 40 mg IV x1 3. Acute cystitis, present on admission, active -patient with suprapubic discomfort on palpation. -urinalysis is positive 2+ blood, positive for nitrate and leukocyte esterases, wbc's and many bacteria. -ordered Rocephin 1 g IV daily. VTE prophylaxis: Enoxaparin IV fluid: Normal saline 100 cc/hour Diet: Clear liquid advanced as tolerated Code status: Full code, the patient designates her daughter Gricelda to be her surrogate decision maker. The patient is admitted to the hospital due to the inability to return to her home setting safely. The patient requires pain management rehydration and is admitted as observation status with expected length of stay to be less than 2 midnights. COVID-19 COVID-19 status: Negative Result date/Date tested (Pos, Neg/Pending): 07/14/20 Scores GCS [place] coma scale eye opening: Spontaneous [place] coma scale verbal response: Orientated [place] coma scale motor response: Obey commands [place] coma scale total score: 15 Quality MIPS - Admit I confirm the patient?s Advance Care Plan is present, Code status is documented, Surrogate decision maker is in patient?s record [If Yes, STOP here]: Yes
[2020-07-14] MEDS: SODIUM CHLORIDE 0.9% 1,000 ML 100 ML IV (22:15)
[2020-07-14] MEDS: ONDANSETRON 4 MG/2 ML INJ IV (22:28)
[2020-07-14] MEDS: PANTOPRAZOLE 40 MG VIAL IV (22:28)
[2020-07-14 22:40] LABS: Bilirubin Urine UA NEGATIVE (NEGATIVE); Color Urine UA YELLOW; Glucose Urine UA NEGATIVE (Negative); Ketones Urine UA 2+ (NEGATIVE); Leukocyte Esterase Urine UA 2+ (NEGATIVE); Nitrite Urine UA POSITIVE (Negative); Occult Blood Urine UA 2+ (Negative); Protein Urine UA TRACE (Negative); RBC Urine None Seen (0-5/HPF); Specific Gravity Urine UA 1.025 (1.000-1.035); Urobilinogen Urine UA 0.2 E.U./dL (0.2)
[2020-07-14 22:46] LABS: Appearance Urine UA Cloudy; pH Urine UA 5.5 (4.5-8.0)
[2020-07-14] MEDS: ACETAMINOPHEN 325 MG TABLET 975 MG PO (22:54)
[2020-07-14] MEDS: OXYCODONE IR 5 MG TABLET PO (22:54)
[2020-07-14 22:57] LABS: Bacteria Urine Many (>30); Culture Indicated Urine Specimen Cultured; Squamous Epithelial Cell Urine 1-5 /HPF (0-5/HPF); WBC Urine 30-100/HPF (0-5/HPF)
[2020-07-14] MEDS: DOCUSATE 100 MG CAPSULE PO (22:57)
[2020-07-15] MEDS: CEFTRIAXONE 1 GM/50 ML FROZ.PIGGY IV (00:51)
[2020-07-15 03:00] VITALS: BP 146/66; PULSE 78; RESP 24; TEMP 36.6; O2SAT 96
[2020-07-15 05:04] LABS: Alanine Aminotransferase 31 IU/L (<35); Albumin 3.5 g/dL (3.5-5.0); Albumin Globulin Ratio 1.3 (1.0-2.8); Alkaline Phosphatase 51 U/L (38-126); Aspartate Aminotransferase 36 IU/L (14-36); Bilirubin Total 0.7 mg/dL (0.2-1.3); Blood Urea Nitrogen 17 mg/dL (7-17); Calcium 8.8 mg/dL (8.4-10.2); Carbon Dioxide 27 mmol/L (22-32); Chloride 99 mmol/L (98-107); Estimated Glomerular Filt Rate > 60.0 mL/min (>60); Globulin 2.7 g/dL (1.7-4.1); Glucose 73 mg/dL (80-110); HEMOLYSIS 20 (0-50); Potassium 4.2 mmol/L (3.4-5.1); Sodium 133 mmol/L (137-145); Total Protein 6.2 g/dL (6.3-8.2)
[2020-07-15] MEDS: ACETAMINOPHEN 325 MG TABLET 975 MG PO ×2 (05:58→14:10)
[2020-07-15 07:20] VITALS: BP 142/70; PULSE 70; RESP 24; TEMP 37.2; O2SAT 98
[2020-07-15 07:24] VITALS: O2SAT 91; O2SAT 93
[2020-07-15 08:37] VITALS: BP 132/63; PULSE 70; RESP 24; TEMP 37.2; O2SAT 97
[2020-07-15] MEDS: ENOXAPARIN 40 MG/0.4 ML SYRINGE SUBCUT (09:16)
[2020-07-15] MEDS: DOCUSATE 100 MG CAPSULE PO (09:16)
[2020-07-15] MEDS: MELOXICAM 7.5 MG TABLET PO (09:17)
--- NOTE | 2020-07-15 09:28 | PC.NURSE ---
Pt. woke up pleasant. She asked for toast for breakfast. Diet was changed to advance as tolerated. She ate half of her wheat toast with delight.
--- NOTE | 2020-07-15 10:39 | CM.DANOTE ---
Addendum entered by SHANNA Tripp 07/15/20 12:38: ADD: SW met with pt's Dtr outside the room while OT completed the SLUMS assessment and discussed her concerns with pt's need for increased assist due to memory issues, anxiety, and some alcohol use. Dtr states that pt is fiercely independent and resistant to switching apts to Assisted side of [facility] or allowing caregiver assist. Discussed the possibility of home to Dtr's house with [facility] referral and discussed the services and frequency and Dtr very agreeable with HH but also sees the need for more LTC planning. Dtr states that pt has good LTC insurance and SW strongly encouraged her to call the LTC insurance and determine coverage for Respite stay at [facility] and/or CG in the home for additional assist. SW also encouraged Dtr to call [facility] themselves to determine if they have any options/openings for Respite etc.. Dtr very agreeable and plans to call today to gather this information and aware that these things could take days to weeks to set up and is agreeable with likely plan of d/c to her [facility] with [facility] while she is continuing to work on LTC plan. OT completed SLUMS and pt scored and met with SW and Dtr and explained the concerns with driving and memory issues. PT to eval pt after lunch today. Dtr has been calling to set pt up with either Dr. Sherman or Dr. Rivera and plans to call today to get an establish care appointment set up as SW explained the need for PCP for HH to work with pt after d/c. Dtr will call today. Plan: SW to follow after PT eval towards determining pt needs at d/c with likely plan of d/c to Dtr's house and [facility] referral while Dtr is working on LTC plan with [facility]. SHANNA Tripp Original Note: Patient is an 79 year old female who was readmit on 07/14/20 for Weakness, no appetite. Pt has MCR and AARP for insurance and her PCP is not listed. EMR was reviewed. Per MD, pt was recently at [facility] after GLF and hip pain. No fx noted on imaging and large bruising on pt's face but no surgical intervention needed and pt was able to d/c home to Dtr's house on 07/13/20. PT ordered and pending. SW met beside with pt and MD and explained role and pt confirms that she lives at [facility] and has lived there about 3-4 years since moving up from [place] to be closer to her Dtr/DPOA Gricelda in [place]. Pt denies any hx of HH but went to SNF in [place] a few years ago after a patella fx but no hx of SNF in [facility]. Pt quite independent and still drives sometimes and Dtr lives a few minutes away from [facility] and they visit often. Pt did d/c to [facility] a couple days ago and plan is to d/c to [facility] again for a few days for additional support prior to returning to her apt at [facility]. Dtr to be bedside around 1200 to help determine after PT eval and then further discussion with MD to determine if pt stable for d/c to [facility] today or tomorrow. Pt requesting SW to set up HH for discharge to increase her mobility since her fall with her FWW. SW provided the HH Choice List and no preference so [facility] referral made based on Vendor Calendar. Pt also inquiring about a list of PCP options on [facility] and unclear if pt currently established with PCP but wanting to change. If no current PCP, HH may need to start after d/c once PCP established. SW to follow up with Dtr today bedside regarding PCP needs. Plan: SW to follow after PT eval and Dtr arrival bedside towards determining if pt stable for d/c to [facility] today vs tomorrow and finalizing [facility] at d/c based on PCP needs. F2F completed but needs MD sig and [facility] referral made. SHANNA Tripp Discharge Planning/Care Management CM Discharge Assessment Start: 07/15/20 10:33 Freq: Status: Active Protocol: Document 07/15/20 10:33 BF (Rec: 07/15/20 10:39 BF [id number]) Discharge Planning Assessment Assigned Sterilization Technician SHANNA Perrin DPMAR/Assigned Designee Name Dtzachary Malone Contact Information [phone] Advance Directives? No Advance Directives on File No History Provided By Patient,Family Member,Medical Record Has Patient been admitted in last 30 Yes days? Comment Recent GLF and d/c to Dtr's house on 07/13/20 Prior Living Arrangements [facility]isted [facility] Household Members none Type of transporation used prior to Drives own vehicle admit Comment Pt still drives herself places Facility Name Admitted From: [facility] Willing to Return to Facility? Yes Independent with ADL's Yes Is patient alert and oriented? Yes Needs Assistance With Home Chores / Shopping Caregiver for Another No DME Already Rented / Owned FWW / Walker Patient/Family Preference Home with Home Health Barriers to Discharge No Discharge Plan Home with Home Health Transportation Arrangement Dtr Gricelda will be bedside later today and is available to transport at d/c Referrals Initiated Home Health If patient plan is home with home health Yes : Has signed face to face form been completed? Medicare Choice List Provided Yes SNF/HH Preference No preference, utilized Vendor Calendar Review Status In Process Please Provide Date Initial DC 07/15/20 Assessment Was Performed Next Review Type Continued Stay Review
--- NOTE | 2020-07-15 11:36 | CM.DPNOTE ---
Faxed referral packet to [facility] on 07/15/20 and received fax confirmation. Margarita Mayer CM Asst.
--- NOTE | 2020-07-15 12:27 | OT.IP.EVAL ---
Past Medical History (Last Reviewed 07/15/20 @ 02:11 by Anibal Black DO) No significant past medical history Surgical History (Last Reviewed 07/15/20 @ 02:11 by Anibal Black DO) History of History of knee surgery Occupational Therapy Inpatient Evaluation/Re-Eval M1 PT/OT-IP Prior Functional Status Start: 07/15/20 13:42 Freq: NEEDED Status: Active Protocol: Document 07/15/20 13:43 [facility] (Rec: 07/15/20 14:09 [facility] [id number]) Medical Review Prior Functional Status Communication Independent Mobility and Gait Pt states does not use a 4ww in her condo, but uses the 4WW when out. Activities of Daily Living and IADL's Pt states she is completely independent with all he ADl's, IADL's, and drives short distances to [employer]. Social History Household Members none Living Arrangements Apartment/Condo Number of Floors (Floors) One Floor Number of Stairs To Enter/Railing? No steps from the garage. Home Environment Standard Height Toilet,Walk in Shower Home Equipment Four Wheel Walker,Straight Cane,Manual Wheelchair,Grab Bars In Shower Additional Social History Comment Pt's daughter lives close by and willing to take pt home temporarily if needed. Per pt's daughter has been trying to have her mother follow through with eye appointments, getting a primary care doctor and to follow up to see physical therapy. Pt's daughter Gricelda states that pt is very independent and not wanting her to assist with her mother's needs. M2 OT-IP Current Condition Start: 07/15/20 13:42 Freq: Status: Active Protocol: Document 07/15/20 13:43 [facility] (Rec: 07/15/20 14:09 [facility] [id number]) Occupational Therapy Current Condition Current Condition Evaluation Date 07/15/20 Treatment Diagnosis GLF, decreased mobility M3 OT- IP Subjective and Pain Start: 07/15/20 13:42 Freq: Status: Active Protocol: Document 07/15/20 13:43 [facility] (Rec: 07/15/20 14:09 [facility] [id number]) OT- Subjective Occupational Therapy Visit Type Type Initial Evaluation Visit Start Time 11:25 Visit Stop Time 12:27 Total Visit Minutes 62 Occupational Therapy Visit Comments Patient Comments Pt willing to do OT eval and pt's daughter present for part of the session. Dr. Chisholm and case operator also present for part of OT session. Patient/Caregiver Goals To go home. OT Pain Assessment Pain When Pain Assessed During Mobility Pain Present Pain Present Pain Reported Location Right Groin Intensity 5 Scale Used Numeric (0 - 10) M4 OT- IP ADL's Start: 07/15/20 13:42 Freq: Status: Active Protocol: Document 07/15/20 13:43 [facility] (Rec: 07/15/20 14:09 [facility] [id number]) OT [id number] Comments OT Self-Feeding Comments NOt at meal time. OT ADL-Grooming General Evaluation Grooming Ability Standby Assistance Areas Needing Assistance Retrieving/Set-up of Grooming Items OT ADL-Oral Care General Eval Oral Care Ability Standby Assistance Areas of Assistance Retrieving/Set-Up of Items OT ADL-Dressing General Eval Lower Body Dressing Ability Standby Assistance Comments OT Dressing Comments SBA while seated at the edge of the bed. OT ADL-Toileting Comments OT Toileting Comments Pt states used the BSC earlier . OT ADL-Bathing Comments OT Bathing Comments Attempted to try to shower pt but BP increased at 199/84 while seated, nursing and doctor notified. M5 OT- IP IADL's Start: 07/15/20 13:42 Freq: Status: Active Protocol: Document 07/15/20 13:43 [facility] (Rec: 07/15/20 14:09 [facility] [id number]) OT-Instrumental Activities of Daily Living Home Safety Awareness Awareness of Need for Assistance at Home Decreased Awareness Ability to Problem Solve Emergency Able to Problem Solve Situations Home Safety Comments Pt able to answer all home safety situations with good accuracy. Medication Management Medication Management Comments Pt has decreased short term memory and would benefit from supervision. Money Management Money Management Comments Pt has decreased short term memory and would benefit from supervision. Driving Driving Concerns Identified Regarding Safety M6 OT- IP Functional Cognition Start: 07/15/20 13:42 Freq: Status: Active Protocol: Document 07/15/20 13:43 [facility] (Rec: 07/15/20 14:09 [facility] [id number]) Cognitive Factors Limiting Selfcare Function Cognitive Ability Level of Alertness Alert Patient Orientation Name,Age,Birthday,Month,Date, Year,Day of Week,Place, Situation Attention Span Ability Capable of Focused Attention, Capable of Sustained Attention Ability to Follow Commands Able to Follow Multi-Step Commands Memory Description Short Term Impaired,Working Impaired Safety Awareness Underestimates Need for Assistance Executive Function Ability Unable to Filter Distractions, Unable to Remember Details Cognitive Tests SLUMS Pt scored 17/30 on [facility] Mental Status which implies dementia. Pt not able to do 3 digit subtraction problem, not able to recall any of the 5 objects after time passed, not able to write in the numbers of the clock in correct spacing or draw the hours hands accurately after time given, and able to answer 3/4 questions right after paragraph read. Not sure if this is pt's baseline or if the GLF -laceration/ bruising on the right side of her face may also be affecting her score. Cognitive Comments Cognitive Assessment Comments Pt scored 105 seconds on Mountain Making Part B and needing 2 cues to complete the task implies moderate impairments for visual attention, task switching, speed of processing , mental flexibility, and executive functioning. It is suggested that pt does not drive at this time. OT- Vision and Hearing OT- Vision Assessment Vision History Macular Degeneration Occular Pursuits WFL Visual Convergence WFL Visual Roberts WFL Visual Spacial Neglect Right Vision Assessment Comments Pt states glasses are broken but able to see well enough to read the clock and do the Mountain Making Assessment. M7 OT- IP Mobility and Balance Start: 07/15/20 13:42 Freq: Status: Active Protocol: Document 07/15/20 13:43 [facility] (Rec: 07/15/20 14:09 [facility] [id number]) OT- Bed Mobility Assessment Rolling Type of Rolling Roll to Left Supine to Sit Supine to Sit Assist Standby Assistance Sit to Supine Sit to Supine Assist Standby Assistance OT-Transfer Assessment Sit to and From Stand Sit to and from Stand Standby Assistance Transfers Transfer Ability Standby Assistance,Contact Guard Assistance Technique Transfer Destination Bed Devices Transfer Assistive Devices Gait Belt,Front Wheeled Walker Comments Mobility Comments CGA to close SBA with FWW. Pt has heavy use of arm on the FWW. Pt a little unsteady on her feet and tends to flavor use of left leg due to pain with right hip. OT- Gait Assessment Comments Gait Ability Comments CGA to close SBA with FWW in the room. OT- Balance Assessment Sitting Balance and Reactions Static Sitting Balance Ability Normal Dynamic Sitting Balance Ability Good Standing Balance and Reactions Static Standing Balance Ability Good M8 OT- IP Objective Assessments Start: 07/15/20 13:42 Freq: Status: Active Protocol: Document 07/15/20 13:43 [facility] (Rec: 07/15/20 14:09 [facility] [id number]) OT Gross Range of Motion Upper Extremity Range of Motion Assessment Within Functional Limits OT Strength Upper Extremity Strength Assessment Within Functional Limits OT- Coordination Assessment Upper Extremity Finger to Nose Test Within Functional Limits OT-Muscle Tone Assessment Muscle Tone WNL Yes M9 OT- IP Assessment and Plan Start: 07/15/20 13:42 Freq: Status: Active Protocol: Document 07/15/20 13:43 [facility] (Rec: 07/15/20 14:09 [facility] [id number]) OT Summary Assessment and Plan Potential Rehabilitation Potential Good Analytic Complexity at Evaluation Low Summary OT Impairments Pain,Balance,Functional Mobility,Grooming,Dressing, Toileting,Bathing,Toilet Transfers,Shower Transfers, Activity Tolerance Progress Towards Goals Slow Progress due to Pain,Slow Progress due to Medical Issues,Slow Progress due to Cognition Assessment Summary Pt low complexity and here due to recent GLF. Pt main barriers are decreased short term memory, dynamic balance, and pain. Pt has decreased insight to her needs and does not feel that she has any issues with her memory. Per daughter this is pt's 3 major fall. Pt would benefit from assist at home and home health. Goals Grooming Goal Independent Dressing Goal Independent Toileting Goal Independent Bathing Goal Independent Toilet Transfer Goal Independent Shower Transfer Goal Independent Days to Meet Goals 7 Frequency of Treatment Frequency Of Treatment Once a Day Treatment Plan OT Treatment Plan ADL Training,Functional Cognition Training,Functional Mobility,Patient/Family Education,Discharge Planning Other Treatment Recommendations and Next Go over memory strategies with Treatment Focus pt. Discharge Recommendations OT Discharge Recommendations Home with Assistance,Home Health Home Equipment Needs Pt's daughter states has a shower chair for pt. Transportation Needs at Discharge Private Vehicle
--- NOTE | 2020-07-15 12:49 | PT-IP ANOTE ---
checked on pt x 2 attempts for PT eval but pt is still working with OT on both time and not available for PT eval.
[2020-07-15 12:50] VITALS: BP 183/81; PULSE 81; RESP 20; TEMP 36.6; O2SAT 93
--- NOTE | 2020-07-15 13:35 | PC.NURSE ---
Patient is alert and oriented x3, she denies pain and states that she is feeling better. Daughter is in room and they are discussing where patient will be going after getting out of the hospital. Plan sounds like she will be going to stay at her daughters house for a few days and then maybe go [facility] to [facility], which is independent living. Patient noted to have some short term memory loss. She states that she is not forgetful at all. Jodi whole left side of face is purple and bruised. She has a laceration by her forehead, and eye that is sutured. To give tylenol in about 20 minutes when she is due. Appetite is decent, patient is on ivf and tolerating well.
--- NOTE | 2020-07-15 14:29 | PT.IIE ---
Surgical History (Last Reviewed 07/15/20 @ 02:11 by Anibal Black DO) History of History of knee surgery Medical History (Last Reviewed 07/15/20 @ 02:11 by Anibal Black DO) No significant past medical history Physical Therapy Inpatient Evaluation/Re-Eval M1 PT/OT-IP Prior Functional Status Start: 07/15/20 13:42 Freq: NEEDED Status: Active Protocol: Document 07/15/20 13:43 [facility] (Rec: 07/15/20 14:09 [facility] [id number]) Medical Review Prior Functional Status Communication Independent Mobility and Gait Pt states does not use a 4ww in her condo, but uses the 4WW when out. Activities of Daily Living and IADL's Pt states she is completely independnet with all he ADl's, IADL's, and drives short distances to [place]. Social History Household Members none Living Arrangements Apartment/Condo Number of Floors (Floors) One Floor Number of Stairs To Enter/Railing? No steps form the garage. Home Environment Standard Height Toilet,Walk in Shower Home Equipment Four Wheel Walker,Straight Cane,Manual Wheelchair,Grab Bars In Shower Additional Social History Comment Pt's daughter lives close by and willing to take pt home temporarily if needed. Per daughter has been trying to have her mother follow through with eye apppointments, getting a primary care doctor and to follow up to see physical therapy. Pt's garfield [place] states that pt is very independent and not wanting her to assist her with her needs. M1 PT/OT-IP Prior Functional Status Start: 07/15/20 16:42 Freq: NEEDED Status: Active Protocol: Document 07/15/20 14:29 AB (Rec: 07/15/20 17:04 AB [email or web address]) Medical Review Prior Functional Status Medical History Reviewed Yes Communication able to make needs known Mobility and Gait pt stated that she is independent with all mobilities and ambulation without AD in her apartment and for short distance ambulation but uses a 4WW/SPC for outdoor long distance ambulation. daughter stated that they have a w/c that pt uses for really long distance mobility Activities of Daily Living and IADL's per OT notes: Pt states she is completely independnet with all he ADl's, IADL's, and drives short distances to [place]. Social History Household Members none Living Arrangements Apartment/Condo Number of Floors (Floors) One Floor Number of Stairs To Enter/Railing? pt lives at [facility] no steps to enter Home Environment Standard Height Toilet,Walk in Shower Home Equipment Four Wheel Walker,Straight Cane,Manual Wheelchair,Shower Seat with Backrest,Hand Held Shower,Grab Bars Near Toilet, Grab Bars In Shower Additional Social History Comment daughter stated that pt can stay with her for a few days but she has to go back to work ; daughter is looking into an [facility] respite care as well daughter stated that they have a standard walker M2 PT-IP Current Condition Start: 07/15/20 16:42 Freq: NEEDED Status: Active Protocol: Document 07/15/20 14:29 AB (Rec: 07/15/20 17:04 AB [email or web address]) Physical Therapy Current Condition Current Condition Evaluation Date 07/15/20 Treatment Diagnosis adult failure to thrive; weakness Onset Date 07/14/20 Precautions Other Precautions falls M3 PT-IP Subjective Start: 07/15/20 16:42 Freq: NEEDED Status: Active Protocol: Document 07/15/20 14:29 AB (Rec: 07/15/20 17:04 AB [email or web address]) Subjective Physical Therapy Visit Type Type Initial Evaluation Visit Start Time 14:29 Visit Stop Time 15:22 Total Visit Minutes 53 Number of FRUIT PITTER Visits 0 Physical Therapy Visit Comments Patient Comments pt is agreeable to do PT; daughter in room with pt Therapy Pain Assessment Pain When Pain Assessed During Mobility Pain Present Pain Present Pain Reported Location Right Groin Scale Used pain scale not stated Pain Management Techniques Elevation,Modification of Treatment,Re-positioning, Timing of Activity with Medications M4 PT-IP Mobility and Gait Start: 07/15/20 16:42 Freq: NEEDED Status: Active Protocol: Document 07/15/20 14:29 AB (Rec: 07/15/20 17:04 AB [email or web address]) PT-Bed Mobility Assessment Supine to Sit Supine to Sit Standby Assistance Sit to Supine Sit to Supine Standby Assistance PT-Transfer Assessment Sit to and From Stand Sit to and from Stand Contact Guard Assistance,1 Person Assistance,Use of Upper Extremities Equipment Transfer Assistive Device Gait Belt,Front Wheeled Walker Comments Mobility Comments pt completed supine to sit SBA and was able to sit on EOB SBA. completed sit to stand CGA and ambulated in room using FWW 45 ft with initial CGA but after a few feet, pt was only requiring SBA. pt with initial dragging gait on RLE but after 2-3 steps, was able to lift RLE up forward. pt with heavy use of UE on FWW for support. pt requested to go back to bed after ambulation and completed sit to supine SBA. positioned pt in bed. call light and table placed within reach. educated pt regarding safety. informed pt and daughter regarding equipement needs. recommending use of FWW at this time. pt and daughter agreed and stated that she will buy one from [employer]. stated that she prefers to buy than insurance to cover it at this time. recommending use of bedside commode for night time use for safety as well. daughter stated that she has several options: taking pt back home with her and do HHPT but she will not be able to be with pt for a long time since she has to go back to work; daughter is considering going to [facility] for respite care and have have PT in there; also is thinking of arranging a temporary being on the Assisted level at [facility] as a transition prior to going back to the independent section and also have HHPT. Daughter stated that they will set up a ramp for pt to use if she goes home with her and pt already has a w/c. Informed daughter that pt is ok with any of the above, as long as pt has assistance available and can call for assistance when needed and will need further PT. Daughter is in touch with nurse case manager for finalizing their options. Left pt with her daughter and Dr. Chisholm taking with the doctor. Gait Assessment Gait Gait Assistance Required: Standby Assistance,Contact Guard Assist,1 Person Assist Distance (Feet) 45 Able to Maintain Weight Bearing Status Yes During Gait Assistive Devices Assistive Device Gait Belt,Front Wheeled Walker Orthotic/Prosthetic Devices or Brace: No Gait Deviations General Gait Pattern Antalgic,Decreased Stride Length,Decreased Feet Clearance Factors Limiting Gait Function Factors Limiting Gait Function Decreased Activity Tolerance, Decreased Strength,Difficulty Following Directions,Limited Range of Motion,Pain,Poor Balance,Poor Safety Awareness PT-Balance Assessment Sitting Balance and Reactions Static Sitting Balance Ability Good Dynamic Sitting Balance Ability Good Standing Balance and Reactions Static Standing Balance Ability Fair Dynamic Standing Balance Ability Fair Device Used FWW M5 PT-IP Objective Assessments Start: 07/15/20 16:42 Freq: NEEDED Status: Active Protocol: Document 07/15/20 14:29 AB (Rec: 07/15/20 17:04 AB [email or web address]) Orientation Orientation/Cognition Level of Alertness Alert Orientation Name Language Function Ability No Deficits Noted Safety Awareness Decreased Safety Awareness Memory Description Short Term Impaired Gross Range of Motion Lower Extremity ROM Assessment Within Functional Limits Strength Lower Extremity Strength Assessment Right Impaired Hip 3+/5 Knee 4-/5 Coordination Assessment Gross Coordination Gross Coordination WNL Sensation Assessment Sensation Gross Sensation WNL Muscle Tone Muscle Tone WNL Yes M6 PT-IP Treatment Start: 07/15/20 16:42 Freq: NEEDED Status: Active Protocol: Document 07/15/20 14:29 AB (Rec: 07/15/20 17:04 AB [email or web address]) Physical Therapy Treatment Education Education Provided Safety M7 PT-IP Assessment and Plan Start: 07/15/20 16:42 Freq: NEEDED Status: Active Protocol: Document 07/15/20 14:29 AB (Rec: 07/15/20 17:04 AB [email or web address]) PT Summary Assessment and Plan Potential Rehabilitation Potential Good Status of Condition at Evaluation Stable Summary Impairments Pain,ROM,Strength,Balance, Coordination,Sensation,Tone, Cognition,Bed Mobility, Transfers,Gait,Activity Tolerance Assessment Summary pt requiring SBA to CGA with mobility using FWW. pt's daughter is very involved with pt's d/c plan and is open to all recommendations. pt and daughter are aware of safety needs and recommendations. pt will need assistance and use of FWW at this time. will also need further PT for strengthening and balance to improve mobility independence. Recommending 24/7 assist availability for safety due to pt's decrease safety awareness and will need HHPT. Goals Bed Mobility Goal Independent Transfer Goal Independent,Front Wheeled Walker Gait Goal Independent,Front Wheel Walker Gait Distance 100 Days to Meet Goals 5 Frequency of Treatment Frequency Of Treatment Once a Day Treatment Plan Physical Therapy Treatment Plan Bed Mobility Training,Transfer Training,Gait Training, Therapeutic Exercise,Balance Retraining,Discharge Planning, Hot or Cold Pack,Neuromuscular Re-ed,Coordination Retraining ,Manual Therapy Precautions Other Precautions falls Recommendations To Nursing Amount of Assist Needed 1 Person Assist Discharge Recommendations PT Discharge Recommendations Home with 24/7 Assist Available,Home Health Transportation Needs at Discharge Private Vehicle
--- NOTE | 2020-07-15 14:59 | CM.DPC ---
DCP Cont: Met with patient and patient's daughter, Gricelda. Patient most likely is to discharge home with daughter today. Daughter had various questions. Patient is [place] [facility] Secondary to falls, patient has been staying with daughter due to concerns of safety. She is currently working on increased care for patient to go over to assisted living. Discussed skilled rehab, as patient is observation, she does have the option of private pay. Cost is 12.000 up front, and 400.00 a day. She would get some P.T. through her Medicare B. Also, [facility] offers lower rate of 300.00 a day, approximately 9000 a month. Gave patient's daughter Suzanne's phone number at [facility], as well as . Daughter will be taking her mother home with her, but may be pursuing [facility]. Let her know that [facility] does have P.T. that they use on the same campus as [facility], but she would not get daily P.T. Daughter also has [facility] information as well. P: Patient most likely will DC today home with daughter, and daughter will be working on getting patient increased care through assisted living as stated above. Alia Morrow RN/Curb Attendant
[2020-07-15 16:03] VITALS: BP 167/72; PULSE 82; RESP 15; TEMP 36.2; O2SAT 93
--- NOTE | 2020-07-15 16:33 | CM.DPNOTE ---
Addendum entered by Margarita Mayer 07/15/20 17:27: Faxed order to [facility] and received fax confirmation. Margarita Mayer CM Asst. Original Note: Made appt. to establish care with [facility] for pt. on Tuesday, July 28, 2020 at 10:[address] Chisholm. I gave daughter the information on paper asking her to bring the completed new pt forms; med list or medication bottles; insurance card; and photo ID to this appt. Faxed home health referral to [facility] per [facility] on 07/15/20. Received fax confirmation. Scanned face to face to chart. Will fax order as soon a completed. Margarita Mayer CM Asst.
--- NOTE | 2020-07-15 17:33 | PC.NURSE ---
[address] Chisholm, discharge instructions reviewed with pt and daughter. Pt dressed, all belongings with daughter, VSS, PIV removed with catheter intact, pt escorted via wheelchair to private vehicle and assisted into vehicle. No further patient contact at this time
--- NOTE | 2020-07-15 18:29 | PM.DS.1 ---
History of Present Illness History of Present Illness Date Patient Seen: 07/15/20 Chief complaint: unable to bear wt, not eating or drinking Narrative: Ms. Son is an 79-year-old female with no significant past medical history in currently resides in independent living at the [facility]. The patient presents to the ER today for inability bear weight related to right hip pain. Patient has been taking tramadol for pain which has been making her nauseated. The patient has sustained a ground level fall and was seen in the emergency department on 07/13/2020 at which time she had sustained head face and right hip injuries. The patient sustained laceration and contusion to her right face which was sutured and radiographs taken at that time found no indication of fracture. The patient was discharged to home with family. The patient endorses not being able to eat or drink related to her nausea secondary to her pain medication. She reports no other complaints of systemic systems of fevers or chills, headaches or dizziness, visual changes, nasal congestion or sore throat. She denies chest or chest wall pain and has had no palpitations. She denies shortness of breath cough or wheezing. She denies epigastric or abdominal pain and has had no difficulties with bowel or bladder though does have mild suprapubic discomfort. At baseline the patient ambulates with a walker. The patient does consume wine and had 1 prior to her fall. She received her 2nd COVID vaccine on 04/22/2020. Upon arrival to the ER the patient has a temperature 98.2?, heart rate of 86, blood pressure 180/81, respirations 20 saturating 92% air. A CT of the head was obtain finding no acute intracranial processes. CT of the pelvis was obtained on 07/13 following fall which found old left pubic bone fracture and sigmoid diverticulosis without diverticulitis. On lab analysis she has white count of 10.3 with elevated neutrophils at 8400 monocytes 1100. Hemoglobin is 14.5 hematocrit is 42.8. Her coagulation is within normal range. She is mildly hyponatremic with a sodium 132 and other electrolytes within normal range. She has a BUN 17 and creatinine 0.72. Her nonfasting glucose is 89. Her her transaminases are elevated with an AST of 41 ALT of 39. No interventions were undertaken while in the ER the patient is admitted to the hospitalist service for right hip pain, inability to ambulate and return to her home setting. Discharge Providers Provider Date of admission: 07/14/20 20:53 Discharge Date: 07/15/20 Consults: 07/14/20 22:04 Consult to Occupational Therapy Evaluate & Treat Comment: Ground level fall, right hip pain Physician Instructions: Evaluate and treat Consult to Physical Therapy Evaluate & Treat Comment: Ground level fall, right hip pain Physician Instructions: Evaluate and Treat Discharge provider: Michelle Chisholm MD Summary Hospital Course Discharge Diagnosis: 1. Status post fall with right groin pain 2. Cognitive impairment 3. Acute cystitis 4. Dehydration Hospital Course: Patient was admitted to the hospital following a fall. She initially had some significant groin pain Will and was unable to ambulate. However the patient was able to get up with physical therapy and was deemed safe to go home. She was given IV hydration. She did have some pain and this was treated as well. Her daughter Gricelda who is her surrogate decision maker was in the hospital and met with both myself and case management to discuss options at discharge. The patient will be discharged home with her daughter with plans to follow-up with [facility] for a new patient appointment. Home health was written for her for outpatient PT and OT. They were given options to include assisted living at [facility] across the street. Patient was significantly improved and deemed appropriate for discharge home. Patient had no further complaints of cystitis antibiotics were discontinued and she was discharged home Exam Vital Signs (past 8 hours): - 07/15/20 12:50 07/15/20 16:03 Temperature 97.8 F 97.2 F L Pulse Rate 81 82 Respiratory Rate 20 15 Blood Pressure 183/81 H 167/72 H Pulse Oximetry 93 93 Oxygen Delivery Method Room Air Oxygen Flow Rate 0 Narrative Exam Narrative: Pleasant elderly female HEENT: Normocephalic, bruising along the right side of the face and jaw, no exudate, there is a suture in the right eye Lungs: Clear to auscultation Cardiac exam: Regular rate and rhythm normal S1 and Abdomen: Soft nontender nondistended Extremities: No edema Objective Labs Result Diagrams: 07/14/20 18:22 07/15/20 04:40 Labs: Laboratory Results - last 24 hr 07/14/20 07/14/20 07/14/20 18:22 18:22 18:22 WBC 10.3 RBC 4.56 Hgb 14.5 Hct 42.8 MCV 93.8 MCH 31.8 MCHC 34.0 RDW 13.1 Plt Count 175 Neut % (Auto) 81.7 H Lymph % (Auto) 7.3 L [place] % (Auto) 10.7 Eos % (Auto) 0.0 L Baso % (Auto) 0.3 Neut # (Auto) 8400 H Lymph # (Auto) 700 L [place] # (Auto) 1100 H Eos # (Auto) 0 Baso # (Auto) 0 PT 11.9 INR 1.0 APTT 29 Sodium Potassium Chloride Carbon Dioxide BUN Creatinine Estimated GFR BUN/Creatinine Ratio Glucose Calcium Magnesium Total Bilirubin AST ALT Alkaline Phosphatase Total Protein Albumin Globulin Albumin/Globulin Ratio Lipase Urine Color Urine Appearance Urine pH Ur Specific [place] Urine Protein Urine Glucose (UA) Urine Ketones Urine Occult Blood Urine Nitrate Urine Bilirubin Urine Urobilinogen Ur Leukocyte Esterase Urine RBC Urine WBC Ur Squamous Epith Cells Urine Bacteria Ur Culture Indicated? Nasal Screen MRSA (PCR) SARS-CoV-2 (PCR) Negative 07/14/20 07/14/20 07/14/20 19:16 19:16 22:37 WBC RBC Hgb Hct MCV MCH MCHC RDW Plt Count Neut % (Auto) Lymph % (Auto) [place] % (Auto) Eos % (Auto) Baso % (Auto) Neut # (Auto) Lymph # (Auto) [place] # (Auto) Eos # (Auto) Baso # (Auto) PT INR APTT Sodium 132 L Potassium 3.9 Chloride 95 L Carbon Dioxide 26 BUN 17 Creatinine 0.72 Estimated GFR > 60.0 BUN/Creatinine Ratio 23.6 H Glucose 89 Calcium 9.7 Magnesium 2.0 Total Bilirubin 1.0 AST 41 H ALT 39 H Alkaline Phosphatase 65 Total Protein 7.6 Albumin 4.3 Globulin 3.3 Albumin/Globulin Ratio 1.3 Lipase 35 Urine Color Yellow Urine Appearance Cloudy Urine pH 5.5 Ur Specific [place] 1.025 Urine Protein Trace H Urine Glucose (UA) Negative Urine Ketones 2+ H Urine Occult Blood 2+ H Urine Nitrate Positive H Urine Bilirubin Negative Urine Urobilinogen 0.2 Ur Leukocyte Esterase 2+ H Urine RBC None seen Urine WBC 30-100/hpf H Ur Squamous Epith Cells 1-5 /hpf Urine Bacteria Many (>30) H Ur Culture Indicated? Specimen cultured Nasal Screen MRSA (PCR) SARS-CoV-2 (PCR) 07/14/20 07/15/20 22:39 04:40 WBC RBC Hgb Hct MCV MCH MCHC RDW Plt Count Neut % (Auto) Lymph % (Auto) [place] % (Auto) Eos % (Auto) Baso % (Auto) Neut # (Auto) Lymph # (Auto) [place] # (Auto) Eos # (Auto) Baso # (Auto) PT INR APTT Sodium 133 L Potassium 4.2 Chloride 99 Carbon Dioxide 27 BUN 17 Creatinine 0.68 Estimated GFR > 60.0 BUN/Creatinine Ratio 25.0 H Glucose 73 L Calcium 8.8 Magnesium Total Bilirubin 0.7 AST 36 ALT 31 Alkaline Phosphatase 51 Total Protein 6.2 L Albumin 3.5 Globulin 2.7 Albumin/Globulin Ratio 1.3 Lipase Urine Color Urine Appearance Urine pH Ur Specific [place] Urine Protein Urine Glucose (UA) Urine Ketones Urine Occult Blood Urine Nitrate Urine Bilirubin Urine Urobilinogen Ur Leukocyte Esterase Urine RBC Urine WBC Ur Squamous Epith Cells Urine Bacteria Ur Culture Indicated? Nasal Screen MRSA (PCR) Negative for mrsa SARS-CoV-2 (PCR) PFSH Medical History No significant past medical history Surgical History History of History of knee surgery Family History Father Stroke Mother Diabetes mellitus Heart attack Social History household members: none Smoking Status: Never smoker Discharge Assessment & Plan Assessment and Plan Assessment: Status post fall Right going pain resolved Dehydration resolved Bacteria, doubt infection, no evidence of UTI Plan of Treatment: Discharge home with home Discharge Plan Discharge Plan Patient Disposition: Home Health Service Transfer to: [facility] Discharge orders & Medications Prescriptions: New acetaminophen 325 mg Tablet 975 mg PO Q8H Qty: 30 RF: 0 oxycodone 5 mg Tablet 5 mg PO Q6HR PRN (Reason: Pain, Moderate (4-6)) Qty: 15 RF: 0 lisinopril 5 mg tablet 5 mg PO DAILY Qty: 30 RF: 0 levofloxacin 250 mg tablet 250 mg PO DAILY Qty: 3 RF: 0 Continued tramadol 50 mg tablet 50 mg PO Q6H PRN (Reason: pain) Qty: 10 RF: 0 Diet/Activity/Treatments Diet: Diet as Tolerated Discharge Data Attending Provider: Raffi Cruz
--- NOTE | 2020-07-17 11:43 | PC.NURSE ---
Late entry; NS infusion initiated 07/14 at 2215, complete at 0846.
== END 2020-07-15 17:00 | disposition home health service (06) ==
LOC: ED 17:56 → AC 20:53 → ICU 22:16
PROVIDERS: Admitting Provider Nurse Practitioner Adult Health; Emergency Provider Emergency Medicine; Visit Provider Nurse Practitioner Adult Health
DX: M25.551 Pain in right hip (principal); R10.31 Right lower quadrant pain; G31.84 Mild cognitive impairment of uncertain or unknown etiology; N30.00 Acute cystitis without hematuria; E86.0 Dehydration; Z20.822 Contact with and (suspected) exposure to COVID-19; W18.30XA Fall on same level, unspecified, initial encounter
CPT/HCPCS: 36415; 36592; 70450; 80053; 81001; 83690; 83735; 85025; 85610; 85730; 87077; 87086; 87186; 87635; 87797; 93005; 94762; 96361; 96365; 96366; 96372; 96375; 97161; 97165; 97530; 99284; C9803; G0378; C9113; J1650; J2405

== ENCOUNTER 2021-09-19 16:27 | Emergency (ER) | payer MEDICARE, SELFPAY ==
[2020-07-14 21:36] VITALS: BMI 28.3
[2021-09-19] VITALS (9 sets, daily range): BP systolic 144–172; BP diastolic 71–84; PULSE 84–107; RESP 18–32; TEMP 36.3; O2SAT 94–98; BMI 22.0
--- NOTE | 2021-09-19 16:44 | ED.FALL ---
HPI - Fall General Chief Complaint: Weakness Stated Complaint: Unsteady on feet. GLF twice yesterday Time Seen by Provider: 09/19/21 16:33 Source: patient and family (Daughter) Mode of arrival: Ambulatory Limitations: no limitations History of Present Illness HPI Narrative: 81-year-old female who was brought in by her daughter for evaluation of 2 falls over the past 24 hours. Patient does live in an assisted living facility. She does have a walker that she uses however does not use it very often in her house. The patient's daughter received a call from the living facility stating that the patient called them 2 times over the past 24 hours because of falls. Patient states the 1st 1 was when she was standing up after using the restroom. She did not hit her head. There was no loss of consciousness. She reports no injury from the event. She had no chest pain no shortness of breath or palpitations nor headache or vision changes either before or after the event. Apparently the 2nd event was when she was standing up from her chair. She caught herself on her coffee table. Daughter states that when she came over to the patient's house today it appears that she is had some urinary incontinence and also stool incontinence during this time. Here in the emergency department patient states she feels fine. She is no specific complaints. Related Data Home Medications Medication Instructions Recorded Confirmed atorvastatin 10 mg tablet 10 tab PO DAILY 09/19/21 09/19/21 fluoxetine 20 mg capsule 20 cap PO DAILY 09/19/21 09/19/21 lorazepam 0.5 mg tablet 0.5 tab PO PRN PRN Anxiety 09/19/21 09/19/21 nortriptyline 10 mg capsule 10 cap PO DAILY 09/19/21 09/19/21 venlafaxine 37.5 mg 37.5 cap PO DAILY depression 09/19/21 09/19/21 capsule,extended release 24 hr Previous Rx's Medication Instructions Recorded acetaminophen 325 mg tablet 975 mg PO Q8H #30 tabs 07/15/20 lisinopril 5 mg tablet 5 mg PO DAILY #30 tabs 07/15/20 Allergies Allergy/AdvReac Type Severity Reaction Status Date / Time No Known Drug Allergies Allergy Verified 09/19/21 16:41 Review of Systems Review of Systems ROS Unobtainable: All systems reviewed & are unremarkable except as noted in HPI and below Patient History Medical History No significant past medical history Surgical History History of History of knee surgery Family History Father Stroke Mother Diabetes mellitus Heart attack Social History household members: none Smoking Status: Never smoker Smoking Status: Never smoker alcohol intake frequency: a few times a week Alcohol type: wine Substance Use Type: does not use Exam Initial Vital Signs Initial Vital Signs: Vital Signs Blood Pressure 172/77 H 09/19/21 16:36 Const General: cooperative and comfortable HENMT Head: normal to inspection and normocephalic Resp Effort & Inspection: normal respiratory effort Auscultation: clear to auscultation bilaterally Cardio Rate: regular rate Rhythm: regular rhythm GI Inspection: normal to inspection Skin General: no rashes or lesions noted Neuro General: patient alert, patient awake, patient oriented x3 and moves all extremities Speech: speech normal Motor: muscle tone normal throughout Sensory Exam: no sensory deficits noted Other: Patient was able to stand at bedside however with walking was very unsteady. Extrem Other: Full range of motion. No gross deformities. No discomfort with movement Psych Appearance: grossly normal and well kempt Scores GCS [place] coma scale eye opening: Spontaneous [place] coma scale verbal response: Orientated [place] coma scale motor response: Obey commands [place] coma scale total score: 15 Course Orders Ordered: ED Orders 09/19/21 16:42 Complete Blood Count AUTO DIFF Stat Comprehensive Metabolic Panel Stat Ethanol (ETOH) Stat Lipase Stat Troponin & CK Cardiac Panel Stat 09/19/21 16:47 Urinalysis and Microscopic Stat EKG-12 Lead Stat Sodium Chloride (Normal Saline 0.9%) 1,000 mls @ 500 mls/hr IV BOLUS ONE Stop: 09/19/21 19:34 Last Admin: 09/19/21 17:51 Dose: 500 mls/hr Documented By: JENN Vital Signs Vital signs: Vital Signs - 8 hr 09/19/21 16:41 09/19/21 16:36 09/19/21 16:37 Temperature 97.4 F L Pulse Rate 99 H 107 H Respiratory Rate 18 Blood Pressure 172/77 H 172/77 H Pulse Oximetry 97 97 Oxygen Delivery Method Room Air 09/19/21 17:00 09/19/21 17:34 Temperature Pulse Rate 101 H 99 H Respiratory Rate 27 H 21 Blood Pressure Pulse Oximetry 94 94 Oxygen Delivery Method MDM - Fall Lab Data Attestation: I reviewed the patient's lab results. Result diagrams: 09/19/21 16:42 09/19/21 16:42 Labs: Lab Results 09/19/21 09/19/21 Range/Units 16:42 16:42 WBC 7.7 (4.5-11.0) X10^3/uL RBC 4.41 (4.0-5.2) X10^6/uL Hgb 13.6 (12.0-16.0) g/dL Hct 39.7 (36-46) % MCV 89.9 (80-100) fL MCH 30.7 (26-34) PG MCHC 34.2 (30-36) % RDW 12.8 (11.6-14.8) % Plt Count 282 (150-400) X10^3/uL Neut % (Auto) 67.9 (50-75) % Lymph % (Auto) 13.4 L (25-40) % [place] % (Auto) 17.8 H (3-14) % Eos % (Auto) 0.5 L (2-4) % Baso % (Auto) 0.4 (0-2) % Neut # (Auto) 5200 (6710-6462) /uL Lymph # (Auto) 1000 L (6814-0621) /uL [place] # (Auto) 1400 H (0-900) /uL Eos # (Auto) 0 (0-450) /uL Baso # (Auto) 0 (0-100) /uL Sodium 129 L (137-145) mmol/L Potassium 4.5 (3.4-5.1) mmol/L Chloride 94 L (98-107) mmol/L Carbon Dioxide 26 (22-32) mmol/L BUN 14 (7-17) mg/dL Creatinine 0.94 (0.52-1.04) mg/dL Estimated GFR > 60 (>60) mL/min BUN/Creatinine Ratio 14.9 (6-22) Glucose 101 (80-110) mg/dL Calcium 9.2 (8.4-10.2) mg/dL Total Bilirubin 1.3 (0.2-1.3) mg/dL AST 34 (14-36) IU/L ALT 18 (<35) IU/L Alkaline Phosphatase 109 (38-126) U/L Total Creatine Kinase 187 H (30-135) U/L CK-MB (CK-2) 2.00 (<2.37) ng/mL CK-MB (CK-2) Rel Index 1.1 L (1.5-5.0) % Troponin I < 0.012 (0.01-0.034) ng/mL Total Protein 7.9 (6.3-8.2) g/dL Albumin 4.6 (3.5-5.0) g/dL Globulin 3.3 (1.7-4.1) g/dL Albumin/Globulin Ratio 1.4 (1.0-2.8) Lipase 138 (23-300) U/L Ethyl Alcohol < 10 ( - 10) mg/dL ECG Data Attestation: I personally reviewed and interpreted this ECG as follows: Interpretation: Sinus rhythm Ventricular rate 95 Normal axis Normal QRS Normal QTC No ST T wave changes MDM Narrative Medical decision making narrative: Patient is alert oriented x3. Has no localizing symptoms concerning for an acute CVA. She is no signs of trauma. Labs are unremarkable. Some concern about urinary tract infection. Care turned over to Dr. Black to follow-up with urinalysis and disposition. Discharge Plan Departure Prescriptions: No Action acetaminophen 325 mg Tablet 975 mg PO Q8H Qty: 30 0RF lisinopril 5 mg tablet 5 mg PO DAILY Qty: 30 0RF Rx Instructions: takes 10 mg daily. lorazepam 0.5 mg tablet 0.5 tab PO PRN PRN (Reason: Anxiety) Label Comments: TAKE 1 TABLET BY MOUTH EVERY 4 HOURS NEEDED FOR ANXIETY venlafaxine 37.5 mg capsule,extended release 24hr 37.5 cap PO DAILY Label Comments: TAKE 1 CAPSULE BY MOUTH ONCE DAILY nortriptyline 10 mg capsule 10 cap PO DAILY Label Comments: TAKE 1 CAPSULE BY MOUTH EVERY NIGHT AT BEDTIME atorvastatin 10 mg tablet 10 tab PO DAILY fluoxetine 20 mg capsule 20 cap PO DAILY
[2021-09-19 17:04] LABS: Add Manual Diff / Slide Review NO; Basophils Absolute Auto 0 /uL (0-100); Basophils Percent Auto 0.4 % (0-2); Eosinophils Absolute Auto 0 /uL (0-450); Eosinophils Percent Auto 0.5 % (2-4); Hematocrit 39.7 % (36-46); Hemoglobin 13.6 g/dL (12.0-16.0); Lymphocytes Absolute Auto 1000 /uL (1100-4500); Lymphocytes Percent Auto 13.4 % (25-40); Mean Corpuscular HGB Conc 34.2 % (30-36); Mean Corpuscular Hemoglobin 30.7 PG (26-34); Mean Corpuscular Volume 89.9 fL (80-100); Monocytes Absolute Auto 1400 /uL (0-900); Monocytes Percent Auto 17.8 % (3-14); Neutrophils Absolute Auto 5200 /uL (1500-7000); Neutrophils Percent Auto 67.9 % (50-75); Platelet Count 282 X10^3/uL (150-400); Red Blood Cell Count 4.41 X10^6/uL (4.0-5.2); Red Cell Distribution Width 12.8 % (11.6-14.8); White Blood Cell Count 7.7 X10^3/uL (4.5-11.0)
[2021-09-19 17:07] LABS: Alanine Aminotransferase 18 IU/L (<35); Albumin 4.6 g/dL (3.5-5.0); Albumin Globulin Ratio 1.4 (1.0-2.8); Alkaline Phosphatase 109 U/L (38-126); Aspartate Aminotransferase 34 IU/L (14-36); BUN Creatinine Ratio 14.9 (6-22); Bilirubin Total 1.3 mg/dL (0.2-1.3); Blood Urea Nitrogen 14 mg/dL (7-17); Calcium 9.2 mg/dL (8.4-10.2); Carbon Dioxide 26 mmol/L (22-32); Chloride 94 mmol/L (98-107); Creatine Kinase 187 U/L (30-135); Estimated Glomerular Filt Rate > 60 mL/min (>60); Ethanol (ETOH) < 10 mg/dL; Globulin 3.3 g/dL (1.7-4.1); Glucose 101 mg/dL (80-110); HEMOLYSIS < 15 (0-50); Lipase 138 U/L (23-300); Potassium 4.5 mmol/L (3.4-5.1); Sodium 129 mmol/L (137-145); Total Protein 7.9 g/dL (6.3-8.2)
[2021-09-19 17:18] LABS: Troponin I < 0.012 ng/mL (0.01-0.034)
[2021-09-19 17:22] LABS: CKMB % Relative Index 1.1 % (1.5-5.0)
[2021-09-19] MEDS: SODIUM CHLORIDE 0.9% 1,000 ML 500 ML IV (17:51)
[2021-09-19 18:29] LABS: Appearance Urine UA CLOUDY; Bilirubin Urine UA NEGATIVE (NEGATIVE); Color Urine UA YELLOW; Glucose Urine UA NEGATIVE (Negative); Ketones Urine UA NEGATIVE (NEGATIVE); Leukocyte Esterase Urine UA 3+ (NEGATIVE); Nitrite Urine UA POSITIVE (Negative); Occult Blood Urine UA 1+ (Negative); Protein Urine UA TRACE (Negative)
[2021-09-19 18:39] LABS: Amorphous Sediment Urine 1+; RBC Urine 1-5/HPF (0-5/HPF); Squamous Epithelial Cell Urine 0-1 /HPF (0-5/HPF); WBC Urine >100/HPF (0-5/HPF)
[2021-09-19 18:40] LABS: Bacteria Urine Many (>30); Culture Indicated Urine Specimen Cultured; Mucus Urine 1+ (Negative)
[2021-09-19] MEDS: cephALEXin 250 MG PREPACK 1 BOTTLE MISC (19:18)
== END 2021-09-19 20:30 | disposition home or self-care (01) ==
PROVIDERS: Emergency Medicine; Emergency Provider Emergency Medicine
DX: E86.0 Dehydration (principal); N39.0 Urinary tract infection, site not specified; R29.6 Repeated falls; R07.9 Chest pain, unspecified
CPT/HCPCS: 36415; 80053; 80320; 81001; 81003; 82550; 82553; 83690; 84484; 85025; 87077; 87086; 87186; 93005; 93010; 96360; 96361; 99284

== ENCOUNTER 2022-11-16 12:18 | Emergency (ER) | payer MEDICARE, SELFPAY ==
[2022-08-24 10:45] VITALS: BMI 28.3
[2022-11-16 12:26] VITALS: BP 125/65; PULSE 105; RESP 16; TEMP 36.8; O2SAT 97
[2022-11-16 13:18] LABS: Add Manual Diff / Slide Review NO; Basophils Absolute Auto 0 /uL (0-100); Basophils Percent Auto 0.3 % (0-2); Eosinophils Absolute Auto 100 /uL (0-450); Eosinophils Percent Auto 0.5 % (2-4); Hematocrit 35.5 % (36-46); Hemoglobin 11.6 g/dL (12.0-16.0); Lymphocytes Absolute Auto 500 /uL (1100-4500); Lymphocytes Percent Auto 4.5 % (25-40); Mean Corpuscular HGB Conc 32.6 % (30-36); Mean Corpuscular Hemoglobin 29.5 PG (26-34); Mean Corpuscular Volume 90.3 fL (80-100); Monocytes Absolute Auto 2300 /uL (0-900); Monocytes Percent Auto 19.2 % (3-14); Neutrophils Absolute Auto 9000 /uL (1500-7000); Neutrophils Percent Auto 75.5 % (50-75); Platelet Count 463 X10^3/uL (150-400); Red Blood Cell Count 3.93 X10^6/uL (4.0-5.2); Red Cell Distribution Width 13.2 % (11.6-14.8); White Blood Cell Count 11.9 X10^3/uL (4.5-11.0)
[2022-11-16 13:19] LABS: HEMOLYSIS < 15 (0-50)
[2022-11-16 13:26] LABS: Alanine Aminotransferase 13 IU/L (<35); Albumin 3.8 g/dL (3.5-5.0); Alkaline Phosphatase 122 U/L (38-126); Aspartate Aminotransferase 21 IU/L (14-36); BUN Creatinine Ratio 22.6 (6-22); Bilirubin Total 0.4 mg/dL (0.2-1.3); Blood Urea Nitrogen 21 mg/dL (7-17); Calcium 9.6 mg/dL (8.4-10.2); Carbon Dioxide 19 mmol/L (22-32); Chloride 97 mmol/L (98-107); Creatine Kinase 35 U/L (30-135); Estimated Glomerular Filt Rate > 60 mL/min (>60); Globulin 3.8 g/dL (1.7-4.1); Glucose 94 mg/dL (80-110); Lipase 274 U/L (23-300); Potassium 4.5 mmol/L (3.4-5.1); Sodium 131 mmol/L (137-145); Total Protein 7.6 g/dL (6.3-8.2)
--- NOTE | 2022-11-16 13:33 | ED_ITS ---
HPI - General Adult General Chief complaint: Weakness Stated complaint: disoriented/weakness/mouth pain Time Seen by Provider: 11/16/22 13:15 Source: patient and family Mode of arrival: Wheelchair History of Present Illness HPI narrative: Patient is a 82-year-old female. She lives at [facility]. She was brought in by family for initially what was described as mouth pain and weakness. When I evaluated the patient she states that last night she started have pain in her ears. A slight sore throat. No chest pain. No shortness of breath. No abdominal pain. No nausea vomiting. States she just generally does not feel very well. She does not describe any dental pain during my evaluation. No fevers. Related Data Home Medications Medication Instructions Recorded Confirmed vit C,O-Ck-krpjy-lutein-zeaxan PO 12/07/21 10/17/22 [PreserVision AREDS-2] HERB-SCIENCE B1 THAIMIN 1 drp PO QAM 08/24/22 10/17/22 Previous Rx's Medication Instructions Recorded acetaminophen 325 mg tablet 975 mg PO Q8H #30 tabs 07/15/20 lisinopril 10 mg tablet See Rx Instructions .Route 04/15/22 .COMPLEX #90 tabs venlafaxine 37.5 mg See Rx Instructions .Route 04/15/22 capsule,extended release 24 hr .COMPLEX #90 caps fluoxetine 20 mg capsule 20 mg PO DAILY #90 caps 08/22/22 nortriptyline 10 mg capsule 10 mg PO DAILY #90 caps 09/19/22 cephalexin 500 mg capsule 500 mg PO BID 7 days #14 caps 11/16/22 Allergies Allergy/AdvReac Type Severity Reaction Status Date / Time No Known Drug Allergies Allergy Verified 12/07/21 14:22 Review of Systems Constitutional Constitutional: Reports system reviewed and no additional complaints, except as documented ENT Ears, Nose, Mouth, and Throat: Reports system reviewed and no additional complaints, except as documented Cardiovascular Cardiovascular: Reports system reviewed and no additional complaints, except as documented Respiratory Respiratory: Reports system reviewed and no additional complaints, except as documented Gastrointestinal Gastrointestinal: Reports system reviewed and no additional complaints, except as documented Integumentary/Breasts Skin/Breast: Reports system reviewed and no additional complaints, except as documented Neurologic Neurologic: Reports system reviewed and no additional complaints, except as documented Hematologic/Lymphatic On Anticoagulants: No Patient History Medical History Cognitive changes No significant past medical history Surgical History History of History of knee surgery Family History Father Stroke Mother Diabetes mellitus Heart attack Social History household members: none Smoking Status: Former smoker Tobacco: How many years used: 20 alcohol intake: current substance use type: does not use Smoking Status: Former smoker tobacco type: cigarettes alcohol intake frequency: a few times a week Alcohol type: wine Substance Use Type: does not use Exam Initial Vital Signs Initial Vital Signs: Vital Signs Temperature 98.2 F 11/16/22 12:26 Pulse Rate 105 H 11/16/22 12:26 Respiratory Rate 16 11/16/22 12:26 Blood Pressure 125/65 11/16/22 12:26 Pulse Oximetry 97 11/16/22 12:26 Oxygen Delivery Method Room Air 11/16/22 12:26 Const General: cooperative, comfortable and No ill appearing HENMT Head: normal to inspection and normocephalic Ears: TM's normal bilaterally Mouth: oral mucosae normal Teeth and gingiva: dentition normal and other (No dental pain) Resp Effort & Inspection: normal respiratory effort Auscultation: clear to auscultation bilaterally Cardio Rate: regular rate Rhythm: regular rhythm GI Inspection: normal to inspection Skin General: no rashes or lesions noted Neuro General: patient alert, patient awake and moves all extremities Course Orders Ordered: ED Orders 11/16/22 12:43 EKG-12 Lead Stat 11/16/22 13:02 Complete Blood Count AUTO DIFF Stat Comprehensive Metabolic Panel Stat Lipase Stat Troponin & CK Cardiac Panel Stat 11/16/22 13:16 Covid-19 + FLU A/B + RSV - PCR Stat Strep Grp A by PCR Rapid Stat 11/16/22 14:40 Urine Culture Stat Urine Microscopic Stat Discontinued Medications Ondansetron HCl (Ondansetron 4 Mg Odt) 4 mg PO NOW PRN PRN Reason: Nausea And Vomiting Ondansetron HCl (Ondansetron 4 Mg/2 Ml Inj) 4 mg IV NOW PRN PRN Reason: Nausea And Vomiting Vital Signs Vital signs: Vital Signs - 8 hr 11/16/22 12:26 11/16/22 15:46 11/16/22 15:47 Temperature 98.2 F Pulse Rate 105 H 92 H Respiratory Rate 16 Blood Pressure 125/65 Pulse Oximetry 97 92 98 Oxygen Delivery Method Room Air 11/16/22 15:47 Temperature Pulse Rate Respiratory Rate Blood Pressure 107/64 Pulse Oximetry Oxygen Delivery Method Medical Decision Making Lab Data 11/16/22 13:02 11/16/22 13:02 Labs: Lab Results 11/16/22 11/16/22 11/16/22 Range/Units 13:02 13:02 13:16 WBC 11.9 H (4.5-11.0) X10^3/uL RBC 3.93 L (4.0-5.2) X10^6/uL Hgb 11.6 L (12.0-16.0) g/dL Hct 35.5 L (36-46) % MCV 90.3 (80-100) fL MCH 29.5 (26-34) PG MCHC 32.6 (30-36) % RDW 13.2 (11.6-14.8) % Plt Count 463 H (150-400) X10^3/uL Neut % (Auto) 75.5 H (50-75) % Lymph % (Auto) 4.5 L (25-40) % [place] % (Auto) 19.2 H (3-14) % Eos % (Auto) 0.5 L (2-4) % Baso % (Auto) 0.3 (0-2) % Neut # (Auto) 9000 H (3043-5912) /uL Lymph # (Auto) 500 L (8407-3860) /uL [place] # (Auto) 2300 H (0-900) /uL Eos # (Auto) 100 (0-450) /uL Baso # (Auto) 0 (0-100) /uL Sodium 131 L (137-145) mmol/L Potassium 4.5 (3.4-5.1) mmol/L Chloride 97 L (98-107) mmol/L Carbon Dioxide 19 L (22-32) mmol/L BUN 21 H (7-17) mg/dL Creatinine 0.93 (0.52-1.04) mg/dL Estimated GFR > 60 (>60) mL/min BUN/Creatinine Ratio 22.6 H (6-22) Glucose 94 (80-110) mg/dL Calcium 9.6 (8.4-10.2) mg/dL Total Bilirubin 0.4 (0.2-1.3) mg/dL AST 21 (14-36) IU/L ALT 13 (<35) IU/L Alkaline Phosphatase 122 (38-126) U/L Total Creatine Kinase 35 (30-135) U/L Troponin I < 0.012 (0.01-0.034) ng/mL Total Protein 7.6 (6.3-8.2) g/dL Albumin 3.8 (3.5-5.0) g/dL Globulin 3.8 (1.7-4.1) g/dL Albumin/Globulin Ratio 1.0 (1.0-2.8) Lipase 274 (23-300) U/L Urine RBC (0-5/HPF) Urine WBC (0-5/HPF) Ur Squamous Epith Cells (0-5/HPF) Urine Bacteria (None) Ur Culture Indicated? SARS-CoV-2 (PCR) (Negative) Influenza A (RT-PCR) (NEGATIVE) Influenza B (RT-PCR) (NEGATIVE) RSV (PCR) (Negative) Group A Strep (PCR) Negative (Negative) 11/16/22 11/16/22 Range/Units 13:16 14:40 WBC (4.5-11.0) X10^3/uL RBC (4.0-5.2) X10^6/uL Hgb (12.0-16.0) g/dL Hct (36-46) % MCV (80-100) fL MCH (26-34) PG MCHC (30-36) % RDW (11.6-14.8) % Plt Count (150-400) X10^3/uL Neut % (Auto) (50-75) % Lymph % (Auto) (25-40) % [place] % (Auto) (3-14) % Eos % (Auto) (2-4) % Baso % (Auto) (0-2) % Neut # (Auto) (4887-9393) /uL Lymph # (Auto) (5933-0028) /uL [place] # (Auto) (0-900) /uL Eos # (Auto) (0-450) /uL Baso # (Auto) (0-100) /uL Sodium (137-145) mmol/L Potassium (3.4-5.1) mmol/L Chloride (98-107) mmol/L Carbon Dioxide (22-32) mmol/L BUN (7-17) mg/dL Creatinine (0.52-1.04) mg/dL Estimated GFR (>60) mL/min BUN/Creatinine Ratio (6-22) Glucose (80-110) mg/dL Calcium (8.4-10.2) mg/dL Total Bilirubin (0.2-1.3) mg/dL AST (14-36) IU/L ALT (<35) IU/L Alkaline Phosphatase (38-126) U/L Total Creatine Kinase (30-135) U/L Troponin I (0.01-0.034) ng/mL Total Protein (6.3-8.2) g/dL Albumin (3.5-5.0) g/dL Globulin (1.7-4.1) g/dL Albumin/Globulin Ratio (1.0-2.8) Lipase (23-300) U/L Urine RBC 1-5/hpf (0-5/HPF) Urine WBC 10-30/hpf H (0-5/HPF) Ur Squamous Epith Cells 5-10 /hpf H (0-5/HPF) Urine Bacteria Moderate (10-30) H (None) Ur Culture Indicated? Cult not indicated SARS-CoV-2 (PCR) Negative (Negative) Influenza A (RT-PCR) Flu a negative (NEGATIVE) Influenza B (RT-PCR) Flu b negative (NEGATIVE) RSV (PCR) Negative (Negative) Group A Strep (PCR) (Negative) Urine Dip Bedside Urine Glucose Negative Bedside Urine Bilirubin - Negative Bedside Urine Ketone +++ 80 Urine Specific [place] 1.030 Bedside Urine Occult Blood +++ Bedside Urine pH 6 Bedside Urine Protein + 30 Bedside Urine Urobilinogen - Negative Bedside Urine Nitrite - Negative Bedside Urine Leukocytes ++ 125 Esterase Point of care testing: Urine Dip Bedside Urine Glucose Negative Bedside Urine Bilirubin - Negative Bedside Urine Ketone +++ 80 Urine Specific [place] 1.030 Bedside Urine Occult Blood +++ Bedside Urine pH 6 Bedside Urine Protein + 30 Bedside Urine Urobilinogen - Negative Bedside Urine Nitrite - Negative Bedside Urine Leukocytes ++ 125 Esterase MDM Narrative Medical decision making narrative: Workup here in the emergency department is very reassuring. Her family stated that initially this morning she was complaining of some dental pain but she is no dental pain on my exam today. Her COVID is negative. Her urinalysis does have bacteria and white blood cells and also leukocyte esterase and she is having some urinary frequency. She very well could be having a urinary tract infection. We will treat her with antibiotics. Urine culture is pending at the time of her discharge. No other source of infection found. No indication for admission to the hospital. Will discharge patient home with return precautions. Both patient and family expressed understanding and agreement with plan. Discharge Plan Departure Patient Disposition: Home Clinical Impression: Acute UTI Instructions: DI for Urinary Tract Infection (UTI) Activity Restrictions/Additional Instructions: I recommend you continue to take all of your medications as directed. Take the antibiotics as directed as well. Contact your primary doctor for a follow-up. Return to the emergency department for new or worsening symptoms. Prescriptions: New cephalexin 500 mg capsule 500 mg PO BID 7 Days Qty: 14 0RF No Action venlafaxine 37.5 mg capsule,extended release 24hr See Rx Instructions .ROUTE .COMPLEX Qty: 90 2RF Dose Instruction: GIVE 1 CAPSULE ORALLY ONCE A DAY (DEPRESSION) Rx Instructions: GIVE 1 CAPSULE ORALLY ONCE A DAY (DEPRESSION) lisinopril 10 mg tablet See Rx Instructions .ROUTE .COMPLEX Qty: 90 2RF Dose Instruction: GIVE 1 TABLET ORALLY ONCE A DAY Rx Instructions: GIVE 1 TABLET ORALLY ONCE A DAY fluoxetine 20 mg capsule 20 mg PO DAILY Qty: 90 1RF nortriptyline 10 mg capsule 10 mg PO DAILY Qty: 90 0RF vit C,T-Tu-wiymv-lutein-zeaxan [PreserVision AREDS-2] PO Patient Comments: provided by family otc Rx Instructions: take 1 bid HERB-SCIENCE B1 THAIMIN 6 mg drops 1 drp PO QAM Rx Instructions: 1 DROPPER (6MG) DAILY. CAN DIULE WITH WATER OR CORONA WITH PREFERRED BEVERAGE. acetaminophen 325 mg Tablet 975 mg PO Q8H Qty: 30 0RF Referrals: Angie Armas DO [Primary Care Provider] - Stand Alone Forms: Patient Portal/API
[2022-11-16 13:37] LABS: Strep Grp A by PCR Rapid Negative (Negative)
[2022-11-16 13:39] LABS: Troponin I < 0.012 ng/mL (0.01-0.034)
[2022-11-16 14:00] LABS: Influenza A - CEPHEID Flu A NEGATIVE (NEGATIVE); Influenza B - CEPHEID Flu B NEGATIVE (NEGATIVE); Respiratory Syncytial Virus Negative (Negative)
[2022-11-16 14:01] LABS: COVID-19 CEPHEID 4-PLEX PCR Negative (Negative)
[2022-11-16 15:17] LABS: Bacteria Urine Moderate (10-30); RBC Urine 1-5/HPF (0-5/HPF); Squamous Epithelial Cell Urine 5-10 /HPF (0-5/HPF); WBC Urine 10-30/HPF (0-5/HPF)
[2022-11-16 15:18] LABS: Culture Indicated Urine Cult Not Indicated
[2022-11-16 15:46] VITALS: O2SAT 92
[2022-11-16 15:47] VITALS: BP 107/64; PULSE 92; O2SAT 98
== END 2022-11-16 15:56 | disposition home or self-care (01) ==
PROVIDERS: Emergency Provider Emergency Medicine; PCP Family Medicine
DX: N39.0 Urinary tract infection, site not specified (principal); J02.9 Acute pharyngitis, unspecified; Z20.822 Contact with and (suspected) exposure to COVID-19
CPT/HCPCS: 0241U; 36415; 80053; 81003; 81015; 82550; 83690; 84484; 85025; 87077; 87086; 87186; 87651; 99283

== ENCOUNTER 2022-11-24 18:21 | Observation (INO) | payer MEDICARE, SELFPAY ==
[2022-08-24 10:45] VITALS: BMI 28.3
[2022-11-24] VITALS (15 sets, daily range): BP systolic 85–153; BP diastolic 56–71; PULSE 83–102; RESP 16–23; TEMP 36.2; O2SAT 94–98; BMI 22.1
--- NOTE | 2022-11-24 19:06 | PC.NURSE ---
Assisted pt to restroom with walker
[2022-11-24 20:03] LABS: Add Manual Diff / Slide Review NO; BUN Creatinine Ratio 21.3 (6-22); Basophils Absolute Auto 0 /uL (0-100); Basophils Percent Auto 0.3 % (0-2); Blood Urea Nitrogen 17 mg/dL (7-17); Calcium 9.7 mg/dL (8.4-10.2); Carbon Dioxide 19 mmol/L (22-32); Chloride 98 mmol/L (98-107); Eosinophils Absolute Auto 100 /uL (0-450); Eosinophils Percent Auto 0.5 % (2-4); Estimated Glomerular Filt Rate > 60 mL/min (>60); Glucose 89 mg/dL (80-110); Hematocrit 35.1 % (36-46); Hemoglobin 11.6 g/dL (12.0-16.0); Lymphocytes Absolute Auto 1000 /uL (1100-4500); Lymphocytes Percent Auto 7.4 % (25-40); Mean Corpuscular Hemoglobin 29.5 PG (26-34); Mean Corpuscular Volume 89.2 fL (80-100); Monocytes Absolute Auto 1700 /uL (0-900); Monocytes Percent Auto 11.7 % (3-14); Neutrophils Absolute Auto 11400 /uL (1500-7000); Neutrophils Percent Auto 80.1 % (50-75); Platelet Count 479 X10^3/uL (150-400); Potassium 4.6 mmol/L (3.4-5.1); Red Blood Cell Count 3.93 X10^6/uL (4.0-5.2); Red Cell Distribution Width 13.4 % (11.6-14.8); Sodium 131 mmol/L (137-145); White Blood Cell Count 14.2 X10^3/uL (4.5-11.0)
[2022-11-24 20:05] LABS: HEMOLYSIS 55 (0-50)
[2022-11-24 20:15] LABS: Troponin I < 0.012 ng/mL (0.01-0.034)
[2022-11-24] MEDS: SODIUM CHLORIDE 0.9% 1,000 ML 1000 ML IV (20:20)
--- NOTE | 2022-11-24 20:56 | ED.GENADULT ---
HPI - General Adult General Chief complaint: Weakness Stated complaint: UTI, Poss sepsis Time Seen by Provider: 11/24/22 20:46 Source: patient and family Mode of arrival: Wheelchair Limitations: no limitations History of Present Illness HPI narrative: Patient is an 82-year-old female. She was seen here in the emergency department a couple weeks ago. Was diagnosed with a urinary tract infection. Was started on Keflex. She completed the course of this medication earlier this week. Family at bedside states that she actually improved after being on that antibiotic however since she is completed the course she is become more weak at home. She normally uses a cane or a walker to get around and now she is having to use a wheelchair. They also think that she is been more confused than normal. They state that the confusion occurs more at night time and not so much during the day however today, the family states that she was having a very difficult time charging her phone which she normally is able to do. It sounds like she is very independent at baseline. During the time of my evaluation the patient states that she has no specific complaints. No abdominal pain, nausea vomiting, headache, fevers, sore throat, chest pain or shortness of breath. Related Data Home Medications Medication Instructions Recorded Confirmed vit C,T-Yn-ecoqm-lutein-zeaxan PO 12/07/21 10/17/22 [PreserVision AREDS-2] HERB-SCIENCE B1 THAIMIN 1 drp PO QAM 08/24/22 10/17/22 Previous Rx's Medication Instructions Recorded acetaminophen 325 mg tablet 975 mg PO Q8H #30 tabs 07/15/20 lisinopril 10 mg tablet See Rx Instructions .Route 04/15/22 .COMPLEX #90 tabs venlafaxine 37.5 mg See Rx Instructions .Route 04/15/22 capsule,extended release 24 hr .COMPLEX #90 caps fluoxetine 20 mg capsule 20 mg PO DAILY #90 caps 08/22/22 nortriptyline 10 mg capsule 10 mg PO DAILY #90 caps 09/19/22 Allergies Allergy/AdvReac Type Severity Reaction Status Date / Time No Known Drug Allergies Allergy Verified 11/24/22 18:33 Review of Systems Review of Systems ROS Unobtainable: All systems reviewed & are unremarkable except as noted in HPI and below Constitutional Constitutional: Reports system reviewed and no additional complaints, except as documented Patient History Medical History Cognitive changes No significant past medical history Surgical History History of History of knee surgery Family History Father Stroke Mother Diabetes mellitus Heart attack Social History household members: none Smoking Status: Former smoker Tobacco: How many years used: 20 alcohol intake: current substance use type: does not use Smoking Status: Former smoker tobacco type: cigarettes alcohol intake frequency: a few times a week Alcohol type: wine Substance Use Type: does not use Exam Initial Vital Signs Initial Vital Signs: Vital Signs Temperature 97.1 F L 11/24/22 18:30 Pulse Rate 102 H 11/24/22 18:30 Respiratory Rate 16 11/24/22 18:30 Blood Pressure 117/56 L 11/24/22 18:30 Pulse Oximetry 97 11/24/22 18:30 Oxygen Delivery Method Room Air 11/24/22 18:30 Const General: cooperative and No ill appearing HENMT Head: normal to inspection and normocephalic Resp Effort & Inspection: normal respiratory effort Auscultation: clear to auscultation bilaterally Cardio Rate: regular rate Rhythm: regular rhythm GI Inspection: normal to inspection Skin General: no rashes or lesions noted Neuro General: patient alert, patient awake and moves all extremities Speech: speech normal Extrem Other: No gross deformities Scores GCS [place] coma scale eye opening: Spontaneous [place] coma scale verbal response: Orientated [place] coma scale motor response: Obey commands [place] coma scale total score: 15 Course Orders Ordered: ED Orders 11/24/22 19:24 Basic Metabolic Panel Stat Complete Blood Count AUTO DIFF Stat Lactate (Lactic Acid) Stat Troponin I Stat 11/24/22 19:48 EKG-12 Lead Stat 11/24/22 20:15 Blood Culture Stat 11/24/22 21:14 Urinalysis and Microscopic Stat Urine Culture Stat 11/24/22 21:19 Covid-19 + FLU A/B + RSV - PCR Stat Acetaminophen (Acetaminophen 325 Mg Tablet) 650 mg PO Q6H PRN PRN Reason: Fever/Mild Pain (1-3) Al Hydrox/Mg Hydrox/Simethicone (Mag Hydrox/Alum/Simeth 30 Ml Udc) 30 ml PO Q6HR PRN PRN Reason: Dyspepsia Enoxaparin Sodium (Enoxaparin 40 Mg/0.4 Ml Syringe) 40 mg SUBCUT DAILY TAYLOR Fluoxetine HCl (Fluoxetine 20 Mg Capsule) 20 mg PO DAILY TAYLOR Sodium Chloride (Normal Saline 0.9%) 1,000 mls @ 125 mls/hr IV CONT TAYLOR Ceftriaxone Sodium 1,000 mg/ (Sodium Chloride) 100 mls @ 200 mls/hr IV Q24H TAYLOR Lisinopril (Lisinopril 10 Mg Tablet) 10 mg PO DAILY TAYLOR Naloxone HCl (Naloxone 0.4 Mg/Ml Vial) 0.2 mg IV Q2MIN PRN PRN Reason: Opiate Reversal Nortriptyline HCl (Nortriptyline 10 Mg Capsule) 10 mg PO DAILY TAYLOR Ondansetron HCl (Ondansetron 4 Mg Odt) 4 mg PO Q8HR PRN PRN Reason: Nausea And Vomiting Sennosides (Sennosides 8.6 Mg Tablet) 17.2 mg PO BEDTIME TAYLOR Venlafaxine HCl (Venlafaxine Er 37.5 Mg Cap) 37.5 mg PO DAILY TAYLOR Discontinued Medications Sodium Chloride (Normal Saline 0.9%) 1,000 mls @ 1,000 mls/hr IV BOLUS ONE Stop: 11/24/22 20:47 Last Infusion: 11/24/22 21:09 Dose: 0 mls/hr Documented By: Admin: 11/24/22 20:20 Dose: 1,000 mls/hr Documented By: SAUNDRA Ceftriaxone Sodium 1,000 mg/ (Sodium Chloride) 100 mls @ 200 mls/hr IV NOW ONE Stop: 11/24/22 22:38 Last Infusion: 11/24/22 23:29 Dose: 0 mls/hr Documented By: Admin: 11/24/22 22:52 Dose: 200 mls/hr Documented By: SAUNDRA Ceftriaxone Sodium 1,000 mg/ (Sodium Chloride) 100 mls @ 200 mls/hr IV Q24H TAYLOR Lisinopril (Lisinopril 10 Mg Tablet) 0 mg PO .COMPLEX TAYLOR Vital Signs Vital signs: Vital Signs - 8 hr 11/24/22 18:30 11/24/22 19:26 11/24/22 19:27 Temperature 97.1 F L Pulse Rate 102 H 95 H Respiratory Rate 16 Blood Pressure 117/56 L 120/57 L Pulse Oximetry 97 98 Oxygen Delivery Method Room Air Room Air 11/24/22 19:27 11/24/22 19:30 11/24/22 19:30 Temperature Pulse Rate 94 H 93 H Respiratory Rate Blood Pressure 133/64 Pulse Oximetry 98 98 Oxygen Delivery Method Room Air Room Air 11/24/22 20:02 11/24/22 20:26 11/24/22 20:26 Temperature Pulse Rate 89 Respiratory Rate Blood Pressure 113/59 L Pulse Oximetry 95 98 Oxygen Delivery Method Room Air Room Air 11/24/22 20:30 11/24/22 20:30 11/24/22 21:18 Temperature Pulse Rate 92 H Respiratory Rate Blood Pressure 120/64 Pulse Oximetry 98 97 Oxygen Delivery Method Room Air Room Air 11/24/22 21:20 11/24/22 21:20 11/24/22 21:30 Temperature Pulse Rate 101 H Respiratory Rate 22 Blood Pressure 153/71 H 122/56 L Pulse Oximetry 97 Oxygen Delivery Method Room Air 11/24/22 21:30 11/24/22 22:00 11/24/22 22:00 Temperature Pulse Rate 87 86 Respiratory Rate 22 23 Blood Pressure 110/57 L Pulse Oximetry 97 95 Oxygen Delivery Method Room Air Room Air 11/24/22 22:30 11/24/22 22:30 11/24/22 23:00 Temperature Pulse Rate 83 Respiratory Rate 19 Blood Pressure 99/58 L 85/61 L Pulse Oximetry 94 Oxygen Delivery Method Room Air 11/24/22 23:00 11/24/22 23:03 11/24/22 23:03 Temperature Pulse Rate 87 85 Respiratory Rate 20 22 Blood Pressure 116/56 L Pulse Oximetry 98 97 Oxygen Delivery Method Room Air Room Air Medical Decision Making Medical Records Medical records reviewed: Yes I reviewed the patient's medical records. Lab Data Lab results reviewed: Yes I reviewed the patient's lab results. 11/24/22 19:24 11/24/22 19:24 Labs: Lab Results 11/24/22 11/24/22 11/24/22 Range/Units 19:24 19:24 19:24 WBC 14.2 H (4.5-11.0) X10^3/uL RBC 3.93 L (4.0-5.2) X10^6/uL Hgb 11.6 L (12.0-16.0) g/dL Hct 35.1 L (36-46) % MCV 89.2 (80-100) fL MCH 29.5 (26-34) PG MCHC 33.0 (30-36) % RDW 13.4 (11.6-14.8) % Plt Count 479 H (150-400) X10^3/uL Neut % (Auto) 80.1 H (50-75) % Lymph % (Auto) 7.4 L (25-40) % [place] % (Auto) 11.7 (3-14) % Eos % (Auto) 0.5 L (2-4) % Baso % (Auto) 0.3 (0-2) % Neut # (Auto) 95483 H (0773-7635) /uL Lymph # (Auto) 1000 L (2702-2098) /uL [place] # (Auto) 1700 H (0-900) /uL Eos # (Auto) 100 (0-450) /uL Baso # (Auto) 0 (0-100) /uL Sodium 131 L (137-145) mmol/L Potassium 4.6 (3.4-5.1) mmol/L Chloride 98 (98-107) mmol/L Carbon Dioxide 19 L (22-32) mmol/L BUN 17 (7-17) mg/dL Creatinine 0.80 (0.52-1.04) mg/dL Estimated GFR > 60 (>60) mL/min BUN/Creatinine Ratio 21.3 (6-22) Glucose 89 (80-110) mg/dL Lactate 2.2 H (0.7-2.1) mmol/L Calcium 9.7 (8.4-10.2) mg/dL Troponin I < 0.012 (0.01-0.034) ng/mL Urine Color Urine Appearance Urine pH (4.5-8.0) Ur Specific [place] (1.000-1.035) Urine Protein (Negative) Urine Glucose (UA) (Negative) g/dL Urine Ketones (NEGATIVE) Urine Occult Blood (Negative) Urine Nitrate (Negative) Urine Bilirubin (NEGATIVE) Urine Urobilinogen (0.2) E.U./dL Ur Leukocyte Esterase (NEGATIVE) Urine RBC (0-5/HPF) Urine WBC (0-5/HPF) Ur Squamous Epith Cells (0-5/HPF) Urine Bacteria (None) Micro UA Comment SARS-CoV-2 (PCR) (Negative) Influenza A (RT-PCR) (NEGATIVE) Influenza B (RT-PCR) (NEGATIVE) RSV (PCR) (Negative) 11/24/22 11/24/22 11/24/22 Range/Units 21:14 21:19 22:51 WBC (4.5-11.0) X10^3/uL RBC (4.0-5.2) X10^6/uL Hgb (12.0-16.0) g/dL Hct (36-46) % MCV (80-100) fL MCH (26-34) PG MCHC (30-36) % RDW (11.6-14.8) % Plt Count (150-400) X10^3/uL Neut % (Auto) (50-75) % Lymph % (Auto) (25-40) % [place] % (Auto) (3-14) % Eos % (Auto) (2-4) % Baso % (Auto) (0-2) % Neut # (Auto) (3234-0729) /uL Lymph # (Auto) (8170-3767) /uL [place] # (Auto) (0-900) /uL Eos # (Auto) (0-450) /uL Baso # (Auto) (0-100) /uL Sodium (137-145) mmol/L Potassium (3.4-5.1) mmol/L Chloride (98-107) mmol/L Carbon Dioxide (22-32) mmol/L BUN (7-17) mg/dL Creatinine (0.52-1.04) mg/dL Estimated GFR (>60) mL/min BUN/Creatinine Ratio (6-22) Glucose (80-110) mg/dL Lactate 0.7 (0.7-2.1) mmol/L Calcium (8.4-10.2) mg/dL Troponin I (0.01-0.034) ng/mL Urine Color Yellow Urine Appearance Clear Urine pH 5.0 (4.5-8.0) Ur Specific [place] 1.010 (1.000-1.035) Urine Protein Negative (Negative) Urine Glucose (UA) Negative (Negative) g/dL Urine Ketones 1+ H (NEGATIVE) Urine Occult Blood Trace-intact (Negative) Urine Nitrate Negative (Negative) Urine Bilirubin Negative (NEGATIVE) Urine Urobilinogen 1.0 (0.2) E.U./dL Ur Leukocyte Esterase 1+ H (NEGATIVE) Urine RBC 0-1/hpf (0-5/HPF) Urine WBC 10-30/hpf H (0-5/HPF) Ur Squamous Epith Cells 1-5 /hpf (0-5/HPF) Urine Bacteria Few (2-10) H (None) Micro UA Comment * SARS-CoV-2 (PCR) Negative (Negative) Influenza A (RT-PCR) Flu a negative (NEGATIVE) Influenza B (RT-PCR) Flu b negative (NEGATIVE) RSV (PCR) Negative (Negative) ECG Data Attestation: I personally reviewed and interpreted this ECG as follows: Interpretation: Sinus rhythm Ventricular rate 92 Normal axis Normal QRS Normal QTC No ST T wave changes MDM Narrative Medical decision making narrative: Patient is not hypotensive. She does have dry mucous membranes. No fevers. Afebrile but does have leukocytosis. Urinalysis today does not have nitrite however does have bacteria and white blood cells. Review of her medical records does show that her prior urine cultures were pansensitive E coli. Patient is alert oriented x3 however it appears that earlier in the day she was somewhat confused. This is different from her baseline. She was given antibiotics. Cultures were obtained. Discussed the case with Dr Casey hospitalist on-call who will admit for further evaluation and treatment. Discussed the need for admission with the patient and family. They expressed understanding and agreement as well. Discharge Plan Departure Patient Disposition: Admitted As Inpatient Clinical Impression: Acute UTI, Acute confusion Admit Date/Time: 11/24/22 23:10 Admit Provider: Kervin Chaudhari
[2022-11-24 21:04] LABS: Lactate (Lactic Acid) 2.2 mmol/L (0.7-2.1)
[2022-11-24 21:28] LABS: Appearance Urine UA CLEAR; Bilirubin Urine UA NEGATIVE (NEGATIVE); Color Urine UA YELLOW; Glucose Urine UA NEGATIVE (Negative); Ketones Urine UA 1+ (NEGATIVE); Leukocyte Esterase Urine UA 1+ (NEGATIVE); Nitrite Urine UA NEGATIVE (Negative); Occult Blood Urine UA TRACE-INTACT (Negative); Protein Urine UA NEGATIVE (Negative)
[2022-11-24 22:07] LABS: Bacteria Urine Few (2-10); RBC Urine 0-1/HPF (0-5/HPF); Squamous Epithelial Cell Urine 1-5 /HPF (0-5/HPF); WBC Urine 10-30/HPF (0-5/HPF)
[2022-11-24 22:51] LABS: Influenza A - CEPHEID Flu A NEGATIVE (NEGATIVE); Influenza B - CEPHEID Flu B NEGATIVE (NEGATIVE); Respiratory Syncytial Virus Negative (Negative)
[2022-11-24] MEDS: cefTRIAXone 1,000 MG in SODIUM CHLORIDE 0.9% 100 ML 200 MG IV (22:52)
[2022-11-24 22:56] LABS: Reflexed Lactate in 2 Hours Y
[2022-11-24 23:01] LABS: COVID-19 CEPHEID 4-PLEX PCR Negative (Negative)
[2022-11-24 23:11] LABS: Lactate 2HR (Lactic Acid Rflx) 0.7 mmol/L (0.7-2.1)
--- NOTE | 2022-11-24 23:36 | PM.HP.1 ---
History of Present Illness History of Present Illness Date Patient Seen: 11/25/22 Chief complaint: UTI, Poss sepsis Narrative: 82 y/o with recent PMHx of recurrent UTIs, 2 visits to ED, in October and September. A day after she finished Keflex, prescribed for pansensitive E Coli 1-2 weeks ago, presented from home weak and confused. She was unable to ambulate with a cane and was in the wheelchair. No reported fever or chills, hematuria, or abdominal or flank pain. [facility] Medical History (Updated 11/25/22 @ 00:23 by Kervin Chaudhari MD) Cognitive changes Depression No significant past medical history Surgical History History of History of knee surgery Family History Father Stroke Mother Diabetes mellitus Heart attack Social History household members: none Smoking Status: Former smoker Tobacco: How many years used: 20 alcohol intake: current substance use type: does not use Meds Home Medications and Allergies Home Medications Medication Instructions Recorded Confirmed Type vit C,I-Lo-uuqxf-lutein-zeaxan 1 cap PO BID 12/07/21 11/25/22 History [PreserVision AREDS-2] lisinopril 10 mg tablet See Rx Instructions .Route 04/15/22 11/25/22 Rx .COMPLEX #90 tabs venlafaxine 37.5 mg See Rx Instructions .Route 04/15/22 11/25/22 Rx capsule,extended release 24 hr .COMPLEX #90 caps fluoxetine 20 mg capsule 20 mg PO DAILY #90 caps 08/22/22 11/25/22 Rx HERB-SCIENCE B1 THAIMIN 1 drp PO QAM 08/24/22 11/25/22 History nortriptyline 10 mg capsule 10 mg PO DAILY #90 caps 09/19/22 11/25/22 Rx Allergies Allergy/AdvReac Type Severity Reaction Status Date / Time No Known Drug Allergies Allergy Verified 11/24/22 18:33 Review of Systems Constitutional Comments: w/o fever or chills Cardiovascular Comments: w/o palpitations or chest pain Respiratory Comments: w/o shortness of breath or cough Gastrointestinal Comments: w/o abdominal or flank pain Genitourinary Comments: w/o henaturia. She denied history of incontinence until her daughter reminded her of it, apparently long-standing, requiring depends Psychiatric Comments: forgetful, confused Hematologic/Lymphatic Comments: w/o bleeding or bruising Exam Vital Signs (past 8 hours): - 11/24/22 18:30 11/24/22 19:26 11/24/22 19:27 Temperature 97.1 F L Pulse Rate 102 H 95 H Respiratory Rate 16 Blood Pressure 117/56 L 120/57 L Pulse Oximetry 97 98 Oxygen Delivery Method Room Air Room Air 11/24/22 19:27 11/24/22 19:30 11/24/22 19:30 Temperature Pulse Rate 94 H 93 H Respiratory Rate Blood Pressure 133/64 Pulse Oximetry 98 98 Oxygen Delivery Method Room Air Room Air 11/24/22 20:02 11/24/22 20:26 11/24/22 20:26 Temperature Pulse Rate 89 Respiratory Rate Blood Pressure 113/59 L Pulse Oximetry 95 98 Oxygen Delivery Method Room Air Room Air 11/24/22 20:30 11/24/22 20:30 11/24/22 21:18 Temperature Pulse Rate 92 H Respiratory Rate Blood Pressure 120/64 Pulse Oximetry 98 97 Oxygen Delivery Method Room Air Room Air 11/24/22 21:20 11/24/22 21:20 Temperature Pulse Rate 101 H Respiratory Rate 22 Blood Pressure 153/71 H Pulse Oximetry 97 Oxygen Delivery Method Room Air Oxygen Delivery Method Room Air Const Other: laying in bed in no distress, comfortable Eyes Other: prasanth, eomi Neck Other: supple, w/o swelling Resp Other: Normal respiratopry effort Cardio Other: RRR GI Other: abdomen not distended or tender Neuro Other: mild confusion, forgetfulness Psych Other: flat affect Objective Labs 11/24/22 19:24 11/24/22 19:24 Labs: Laboratory Results - last 24 hr 11/24/22 11/24/22 11/24/22 19:24 19:24 19:24 WBC 14.2 H RBC 3.93 L Hgb 11.6 L Hct 35.1 L MCV 89.2 MCH 29.5 MCHC 33.0 RDW 13.4 Plt Count 479 H Neut % (Auto) 80.1 H Lymph % (Auto) 7.4 L [place] % (Auto) 11.7 Eos % (Auto) 0.5 L Baso % (Auto) 0.3 Neut # (Auto) 38547 H Lymph # (Auto) 1000 L [place] # (Auto) 1700 H Eos # (Auto) 100 Baso # (Auto) 0 Sodium 131 L Potassium 4.6 Chloride 98 Carbon Dioxide 19 L BUN 17 Creatinine 0.80 Estimated GFR > 60 BUN/Creatinine Ratio 21.3 Glucose 89 Lactate 2.2 H Calcium 9.7 Troponin I < 0.012 Urine Color Urine Appearance Urine pH Ur Specific [place] Urine Protein Urine Glucose (UA) Urine Ketones Urine Occult Blood Urine Nitrate Urine Bilirubin Urine Urobilinogen Ur Leukocyte Esterase Urine RBC Urine WBC Ur Squamous Epith Cells Urine Bacteria Micro UA Comment SARS-CoV-2 (PCR) Influenza A (RT-PCR) Influenza B (RT-PCR) RSV (PCR) 11/24/22 11/24/22 11/24/22 21:14 21:19 22:51 WBC RBC Hgb Hct MCV MCH MCHC RDW Plt Count Neut % (Auto) Lymph % (Auto) [place] % (Auto) Eos % (Auto) Baso % (Auto) Neut # (Auto) Lymph # (Auto) [place] # (Auto) Eos # (Auto) Baso # (Auto) Sodium Potassium Chloride Carbon Dioxide BUN Creatinine Estimated GFR BUN/Creatinine Ratio Glucose Lactate 0.7 Calcium Troponin I Urine Color Yellow Urine Appearance Clear Urine pH 5.0 Ur Specific [place] 1.010 Urine Protein Negative Urine Glucose (UA) Negative Urine Ketones 1+ H Urine Occult Blood Trace-intact Urine Nitrate Negative Urine Bilirubin Negative Urine Urobilinogen 1.0 Ur Leukocyte Esterase 1+ H Urine RBC 0-1/hpf Urine WBC 10-30/hpf H Ur Squamous Epith Cells 1-5 /hpf Urine Bacteria Few (2-10) H Micro UA Comment * SARS-CoV-2 (PCR) Negative Influenza A (RT-PCR) Flu a negative Influenza B (RT-PCR) Flu b negative RSV (PCR) Negative Assessment & Plan Assessment and plan (1) Acute UTI: Status: Acute (2) Acute metabolic encephalopathy: Status: Acute (3) Hypertension: Qualifiers: Hypertension type: unspecified Qualified Code(s): I10 - Essential (primary) hypertension Status: Acute (4) Depression: Qualifiers: Active/Remission status: in full remission Depression Type: major depressive disorder Major depression recurrence: recurrent Qualified Code(s): F33.42 - Major depressive disorder, recurrent, in full remission Status: Acute Plan 1. UTI - UC pending although on abx up until 24 h ago - empiric Rocephin 2. Acute Metabolic Encephalopathy / Generalized Weakness - UTI - related 3. HTN - Lisinopril 10 mg daily 4. Depresion - Prozac 20 mg daily, Nortriptyline 10 mg daily, Effexor ER 37.5 mg daily
[2022-11-25 00:44] VITALS: BP 133/73; PULSE 81; RESP 19; TEMP 36.1; O2SAT 99
[2022-11-25 01:15] VITALS: BMI 22.1
[2022-11-25] MEDS: SODIUM CHLORIDE 0.9% 500 ML 125 ML IV (01:30)
[2022-11-25] MEDS: SODIUM CHLORIDE 0.9% 1,000 ML 125 ML IV ×2 (01:33→09:19)
[2022-11-25 04:00] VITALS: BP 114/58; PULSE 80; RESP 17; TEMP 36.1; O2SAT 97
[2022-11-25 05:16] LABS: Add Manual Diff / Slide Review NO; Basophils Absolute Auto 0 /uL (0-100); Basophils Percent Auto 0.5 % (0-2); Eosinophils Absolute Auto 100 /uL (0-450); Hematocrit 29.2 % (36-46); Hemoglobin 9.6 g/dL (12.0-16.0); Lymphocytes Absolute Auto 700 /uL (1100-4500); Lymphocytes Percent Auto 8.5 % (25-40); Mean Corpuscular HGB Conc 32.7 % (30-36); Mean Corpuscular Hemoglobin 29.4 PG (26-34); Mean Corpuscular Volume 89.8 fL (80-100); Monocytes Absolute Auto 1000 /uL (0-900); Monocytes Percent Auto 11.7 % (3-14); Neutrophils Absolute Auto 6800 /uL (1500-7000); Neutrophils Percent Auto 78.3 % (50-75); Platelet Count 368 X10^3/uL (150-400); Red Blood Cell Count 3.26 X10^6/uL (4.0-5.2); Red Cell Distribution Width 13.2 % (11.6-14.8); White Blood Cell Count 8.7 X10^3/uL (4.5-11.0)
[2022-11-25 05:19] LABS: Chloride 104 mmol/L (98-107)
[2022-11-25 05:22] LABS: BUN Creatinine Ratio 20.9 (6-22); Blood Urea Nitrogen 14 mg/dL (7-17); Calcium 7.8 mg/dL (8.4-10.2); Carbon Dioxide 21 mmol/L (22-32); Estimated Glomerular Filt Rate > 60 mL/min (>60); Glucose 76 mg/dL (80-110); HEMOLYSIS < 15 (0-50); Potassium 3.8 mmol/L (3.4-5.1); Sodium 133 mmol/L (137-145)
--- NOTE | 2022-11-25 07:37 | DI.US.S_ITS ---
PROCEDURE: US RENAL COMPLETE INDICATIONS: RECURRENT UTI TECHNIQUE: Real-time scanning was performed of the kidneys and bladder, with image documentation. COMPARISON: None. FINDINGS: Kidneys: Kidneys are normal in size. Right kidney measures 9.4 cm long; left kidney measures 8.2 cm long. Right renal cortical thickness is 1.8 cm; left renal cortical thickness is 1.9 cm. Renal cortical echotexture is normal. No hydronephrosis or nephrolithiasis. No suspicious solid mass lesions. Bladder: Pre-void bladder volume is 200 mL. Post-void residual is 116 mL. Pre-void images demonstrate no intraluminal masses or stones. On pre-void images, left ureteral jet is noted with color Doppler interrogation. Right ureteral jet is not seen. (Of note, ureteral jets may not be detectable in up to 25% of cases due to insufficient differences in specific gravity between ureteral and bladder urine). Miscellaneous: No free pelvic fluid. IMPRESSION: 1. No hydronephrosis. 2. Postvoid residual 116 cc. Dictated by: Gelacio Marcus M.D. on 11/25/2022 at 9:07 Approved by: Gelacio Marcus M.D. on 11/25/2022 at 9:09
[2022-11-25 07:57] LABS: Alanine Aminotransferase 14 IU/L (<35); Albumin 2.7 g/dL (3.5-5.0); Albumin Globulin Ratio 0.8 (1.0-2.8); Alkaline Phosphatase 82 U/L (38-126); Aspartate Aminotransferase 29 IU/L (14-36); Bilirubin Total 0.3 mg/dL (0.2-1.3); Globulin 3.2 g/dL (1.7-4.1); HEMOLYSIS < 15 (0-50); Total Protein 5.9 g/dL (6.3-8.2)
[2022-11-25 08:00] VITALS: BP 120/71; RESP 18; TEMP 37.2; O2SAT 97
[2022-11-25] MEDS: MULTIVITAMIN 1 TABLET 1 TAB PO (09:05)
[2022-11-25] MEDS: ENOXAPARIN 40 MG/0.4 ML SYRINGE SUBCUT (09:05)
[2022-11-25] MEDS: VENLAFAXINE ER 37.5 MG CAP PO (09:05)
[2022-11-25] MEDS: FOLIC ACID 1 MG TABLET PO (09:05)
[2022-11-25] MEDS: FLUoxetine 20 MG CAPSULE PO (09:05)
[2022-11-25 09:06] VITALS: BP 120/71; PULSE 94
[2022-11-25] MEDS: lisinopriL 10 MG TABLET PO (09:06)
[2022-11-25] MEDS: NORTRIPTYLINE 10 MG CAPSULE PO (09:08)
[2022-11-25] MEDS: THIAMINE 100 MG TABLET PO (09:08)
--- NOTE | 2022-11-25 09:38 | PM.HP.1 ---
History of Present Illness History of Present Illness Date Patient Seen: 11/25/22 Time Patient Seen: 09:38 Chief complaint: UTI, Poss sepsis Narrative: This is an 82 year old female, resident of [facility], with PMH of HTN, cognitive impairment, recurrent UTI, and alcohol use, recent UTI 1 week ago treated with cephalexin who presented to the ER today with confusion. She was admitted by overnight provider for acute encephalopathy. Urine showed some WBC, overall improved from previous, but admitted for antibiotics for possible recurrent infection. She has improved this morning. She reports to me that her last drink of alcohol was over 6 weeks ago now. She denies fever, chills, abdominal pain, nausea, vomiting. She has no dysuria or urinary frequency. In review of her chart, she was diagnosed with cognitive impairment by psychologist, complicated by continue EtOH use at the time. [facility] Medical History Cognitive changes Depression No significant past medical history Surgical History History of History of knee surgery Family History Father Stroke Mother Diabetes mellitus Heart attack Social History household members: none Smoking Status: Former smoker Tobacco: How many years used: 20 alcohol intake: current substance use type: does not use Meds Home Medications and Allergies Home Medications Medication Instructions Recorded Confirmed Type vit C,O-Mc-avngm-lutein-zeaxan 1 cap PO BID 12/07/21 11/25/22 History [PreserVision AREDS-2] lisinopril 10 mg tablet See Rx Instructions .Route 04/15/22 11/25/22 Rx .COMPLEX #90 tabs venlafaxine 37.5 mg See Rx Instructions .Route 04/15/22 11/25/22 Rx capsule,extended release 24 hr .COMPLEX #90 caps fluoxetine 20 mg capsule 20 mg PO DAILY #90 caps 08/22/22 11/25/22 Rx HERB-SCIENCE B1 THAIMIN 1 drp PO QAM 08/24/22 11/25/22 History nortriptyline 10 mg capsule 10 mg PO DAILY #90 caps 09/19/22 11/25/22 Rx latanoprost 0.005 % eye drops 1 drp ophthalmic (eye) BEDTIME 11/25/22 11/25/22 History Glaucoma Allergies Allergy/AdvReac Type Severity Reaction Status Date / Time No Known Drug Allergies Allergy Verified 11/24/22 18:33 Review of Systems Review of Systems Narrative: All other systems reviewed with the patient and are negative unless otherwise stated. Exam Vital Signs (past 8 hours): - 11/25/22 04:00 11/25/22 09:06 Temperature 96.9 F L Pulse Rate 80 94 H Respiratory Rate 17 Blood Pressure 114/58 L 120/71 Pulse Oximetry 97 Oxygen Flow Rate 0 Oxygen Delivery Method Room Air Oxygen Flow Rate 0 Narrative Exam Narrative: General:? Patient is well developed and well nourished, in no distress at this time. Chest:? Normal AP diameter and contour without kyphoscoliosis, no tachypnea, equal chest rise bilaterally. Lungs:? CTA b/l no wheezing rhonchi or rales. Cardio:?RRR no m/r/g. Abdomen: S NT ND. Musculoskeletal:? Muscle strength and tone are equal within normal limits, no deformity. Extremities: No edema or joint effusions. No cyanosis or clubbing. Skin:? Pale,? Warm to touch,dry and intact without rashes, ulcerations or petechiae.? Neuro:? Alert and orientated x3,? sensation to touch intact in all extremities, no gross deficits noted of cranial nerves. Psych:? Patient has a well-kept appearance, appropriate affect, mental status attitude thought context and judgment are appropriate for age. 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 Labs 11/25/22 04:52 11/25/22 04:52 Labs: Laboratory Results - last 24 hr 11/24/22 11/24/22 11/24/22 19:24 19:24 19:24 WBC 14.2 H RBC 3.93 L Hgb 11.6 L Hct 35.1 L MCV 89.2 MCH 29.5 MCHC 33.0 RDW 13.4 Plt Count 479 H Neut % (Auto) 80.1 H Lymph % (Auto) 7.4 L [place] % (Auto) 11.7 Eos % (Auto) 0.5 L Baso % (Auto) 0.3 Neut # (Auto) 73118 H Lymph # (Auto) 1000 L [place] # (Auto) 1700 H Eos # (Auto) 100 Baso # (Auto) 0 Sodium 131 L Potassium 4.6 Chloride 98 Carbon Dioxide 19 L BUN 17 Creatinine 0.80 Estimated GFR > 60 BUN/Creatinine Ratio 21.3 Glucose 89 Lactate 2.2 H Calcium 9.7 Total Bilirubin Conjugated Bilirubin Unconjugated Bilirubin AST ALT Alkaline Phosphatase Troponin I < 0.012 Total Protein Albumin Globulin Albumin/Globulin Ratio Urine Color Urine Appearance Urine pH Ur Specific Mason Urine Protein Urine Glucose (UA) Urine Ketones Urine Occult Blood Urine Nitrate Urine Bilirubin Urine Urobilinogen Ur Leukocyte Esterase Urine RBC Urine WBC Ur Squamous Epith Cells Urine Bacteria Micro UA Comment SARS-CoV-2 (PCR) Influenza A (RT-PCR) Influenza B (RT-PCR) RSV (PCR) 11/24/22 11/24/22 11/24/22 21:14 21:19 22:51 WBC RBC Hgb Hct MCV MCH MCHC RDW Plt Count Neut % (Auto) Lymph % (Auto) [place] % (Auto) Eos % (Auto) Baso % (Auto) Neut # (Auto) Lymph # (Auto) [place] # (Auto) Eos # (Auto) Baso # (Auto) Sodium Potassium Chloride Carbon Dioxide BUN Creatinine Estimated GFR BUN/Creatinine Ratio Glucose Lactate 0.7 Calcium Total Bilirubin Conjugated Bilirubin Unconjugated Bilirubin AST ALT Alkaline Phosphatase Troponin I Total Protein Albumin Globulin Albumin/Globulin Ratio Urine Color Yellow Urine Appearance Clear Urine pH 5.0 Ur Specific Mason 1.010 Urine Protein Negative Urine Glucose (UA) Negative Urine Ketones 1+ H Urine Occult Blood Trace-intact Urine Nitrate Negative Urine Bilirubin Negative Urine Urobilinogen 1.0 Ur Leukocyte Esterase 1+ H Urine RBC 0-1/hpf Urine WBC 10-30/hpf H Ur Squamous Epith Cells 1-5 /hpf Urine Bacteria Few (2-10) H Micro UA Comment * SARS-CoV-2 (PCR) Negative Influenza A (RT-PCR) Flu a negative Influenza B (RT-PCR) Flu b negative RSV (PCR) Negative 11/25/22 11/25/22 11/25/22 04:52 04:52 04:52 WBC 8.7 RBC 3.26 L Hgb 9.6 L Hct 29.2 L MCV 89.8 MCH 29.4 MCHC 32.7 RDW 13.2 Plt Count 368 Neut % (Auto) 78.3 H Lymph % (Auto) 8.5 L [place] % (Auto) 11.7 Eos % (Auto) 1.0 L Baso % (Auto) 0.5 Neut # (Auto) 6800 Lymph # (Auto) 700 L [place] # (Auto) 1000 H Eos # (Auto) 100 Baso # (Auto) 0 Sodium 133 L Potassium 3.8 Chloride 104 Carbon Dioxide 21 L BUN 14 Creatinine 0.67 Estimated GFR > 60 BUN/Creatinine Ratio 20.9 Glucose 76 L Lactate Calcium 7.8 L Total Bilirubin 0.3 Conjugated Bilirubin 0.0 Unconjugated Bilirubin 0.0 AST 29 ALT 14 Alkaline Phosphatase 82 Troponin I Total Protein 5.9 L Albumin 2.7 L Globulin 3.2 Albumin/Globulin Ratio 0.8 L Urine Color Urine Appearance Urine pH Ur Specific Mason Urine Protein Urine Glucose (UA) Urine Ketones Urine Occult Blood Urine Nitrate Urine Bilirubin Urine Urobilinogen Ur Leukocyte Esterase Urine RBC Urine WBC Ur Squamous Epith Cells Urine Bacteria Micro UA Comment SARS-CoV-2 (PCR) Influenza A (RT-PCR) Influenza B (RT-PCR) RSV (PCR) Assessment & Plan Assessment & Plan narrative: 1.Acute cystitis, possibly on chronic cystitis - started on empiric rocephin - with recurrent UTI ultrasound ordered which showed no renal pathology - If improved, consider discharge on 5 days of nitrofurantoin. Previous cephalexin should have worked. Consider evaluation for chronic cystitis with Primary care as an outpatient. With frequency of UTI, also consider chronic prophylaxis with primary care provider. 2. Acute Metabolic Encephalopathy / Generalized Weakness - likely due to UTI - Assess with PT / OT. 3. HTN - Continue Lisinopril 10 mg daily 4. Depresion - Prozac 20 mg daily, Nortriptyline 10 mg daily, Effexor ER 37.5 mg daily. Discussed with pharmacist today, and recommend medication reconciliation with PCP as she takes this chronically to see if adjustments can be made to lower risk profile with this combination. Though for this patient benefits may indeed outweigh her risk. Code: Full, surrogate is patient's daughter DVT: lovenox I have utilized all available immediate resources to obtain, update, or review the patient's current medications. Dispo: possible discharge home today if doing well with PT/OT assessments. Additional history obtained from overnight provider, case management staff. I have reviewed patient's outpatient documentation to add to her presenting history, reviewed labs, EKG and relevant imaging personally.
--- NOTE | 2022-11-25 11:36 | OT.IP.EVAL ---
Current Diagnoses Major depressive disorder, recurrent, in full remission (11/24/22) Metabolic encephalopathy (11/24/22) Essential (primary) hypertension (11/24/22) Urinary tract infection, site not specified (11/24/22) Past Medical History (Last Reviewed 11/25/22 @ 12:21 by Raffi Amor DO) Cognitive changes Depression No significant past medical history Surgical History (Last Reviewed 11/25/22 @ 12:21 by Raffi Amor DO) History of History of knee surgery Occupational Therapy Inpatient Evaluation/Re-Eval M1 PT/OT-IP Prior Functional Status Start: 11/25/22 12:13 Freq: NEEDED Status: Active Protocol: Document 11/25/22 12:13 [facility] (Rec: 11/25/22 12:46 [facility] [id number]) Medical Review Prior Functional Status Communication Independent Mobility and Gait Pt states furniture cruises in her apartment and use of 4ww when out. Activities of Daily Living and IADL's Pt states able to do all ADL's on her own and laundry per pt . Pt states has meals provided in addition to medications. Prior Functional Level (Other details) Pt now living at [facility]. Social History Household Members none Living Arrangements Assisted Living Home Equipment Front Wheel Walker,Straight Cane,Grab Bars Near Toilet, Grab Bars In Shower M2 OT-IP Current Condition Start: 11/25/22 12:13 Freq: Status: Active Protocol: Document 11/25/22 12:13 [facility] (Rec: 11/25/22 12:46 [facility] [id number]) Occupational Therapy Current Condition Current Condition Evaluation Date 11/25/22 Treatment Diagnosis UTI, acute encephalopathy Diagnosis Onset Date 11/24/22 M3 OT- IP Subjective and Pain Start: 11/25/22 12:13 Freq: Status: Active Protocol: Document 11/25/22 12:13 [facility] (Rec: 11/25/22 12:46 [facility] [id number]) OT- Subjective Occupational Therapy Visit Type Type Initial Evaluation Visit Start Time 11:36 Visit Stop Time 12:20 Total Visit Minutes 46 Occupational Therapy Visit Comments Patient Comments Pt agreed to get up. OT Pain Assessment Pain When Pain Assessed At Rest Pain Present Pain Present Reassessed M4 OT- IP ADL's Start: 11/25/22 12:13 Freq: Status: Active Protocol: Document 11/25/22 12:13 [facility] (Rec: 11/25/22 12:46 [facility] [id number]) OT [id number] General Evaluation Self-Feeding Ability Independent OT ADL-Grooming Comments OT Grooming Comments Not performed. OT ADL-Oral Care Comments Oral Care Comments Not performed OT ADL-Dressing General Eval Lower Body Dressing Ability Independent Comments OT Dressing Comments Pt able to independently kailash/ doff her socks. OT ADL-Toileting Comments OT Toileting Comments Pt states used the toilet earlier with nursing. Pt aware to be sure to wipe from front to back. Pt state aware when she needs to change out her brief if wet to help with hygiene needs. OT ADL-Bathing Comments OT Bathing Comments Pt states has a shower chair at home. M5 OT- IP IADL's Start: 11/25/22 12:13 Freq: Status: Active Protocol: Document 11/25/22 12:13 [facility] (Rec: 11/25/22 12:46 [facility] [id number]) OT-Instrumental Activities of Daily Living Deficits IADL Deficits Identified Deficits Home Safety Awareness Ability to Problem Solve Emergency Able to Problem Solve Situations Home Safety Comments Pt has a Life Alert at Home. Pt is very independent and does not like to ask for assistance. Medication Management Medication Management Caregiver Administers Money Management Money Management Comments Pt states does her own. Meal Preparation Meal Preparation Caregiver Provides Assist Case Picker Case Picker Comments Pt states has been doing her own laundry and has the 4ww to assist her with it. Driving Driving Comments Pt states drives to the grocery store on occasion.Suggested pt have assist for driving needs. M6 OT- IP Functional Cognition Start: 11/25/22 12:13 Freq: Status: Active Protocol: Document 11/25/22 12:13 [facility] (Rec: 11/25/22 12:46 [facility] [id number]) Cognitive Factors Limiting Selfcare Function Cognitive Ability Level of Alertness Alert Patient Orientation Name,Age,Birthday,Month,Date, Year,Day of Week,Place, Situation Attention Span Ability Capable of Focused Attention, Capable of Sustained Attention Ability to Follow Commands Able to Follow Multi-Step Commands Memory Description Short Term Impaired Problem Solving Ability No deficits Noted Cognitive Tests SLUMS Pt scored 17/30 on 07/15/20 and today scored 25/30 which implies mild cognitive deficits. Pt able to recall 2/ 5 objects after time passed and able to answer 3/4 questions right after paragraph read. Pt mainly having difficulty with her short term memory. Cognitive Comments Cognitive Assessment Comments Pt able to follow directions and at times a little forgetful. Pt not remembering that he talked to the hospitalist earlier. OT- Vision and Hearing OT- Hearing Assessment OT- Hearing Assessment WFL OT- Vision Assessment Vision History Macular Degeneration M7 OT- IP Mobility and Balance Start: 11/25/22 12:13 Freq: Status: Active Protocol: Document 11/25/22 12:13 [facility] (Rec: 11/25/22 12:46 [facility] [id number]) OT- Bed Mobility Assessment Supine to Sit Supine to Sit Assist Independent Sit to Supine Sit to Supine Assist Independent OT-Transfer Assessment Sit to and From Stand Sit to and from Stand Independent Transfers Transfer Ability Standby Assistance Technique Transfer Destination Bed,Chair Devices Transfer Assistive Devices Gait Belt,Front Wheeled Walker Comments Mobility Comments Pt is independent with her bed mobility needs and distant SBA with FWW , mainly just needing assist to help manage the IV pole. OT- Balance Assessment Sitting Balance and Reactions Static Sitting Balance Ability Normal Dynamic Sitting Balance Ability Good Standing Balance and Reactions Static Standing Balance Ability Good Dynamic Standing Balance Ability Good M8 OT- IP Objective Assessments Start: 11/25/22 12:13 Freq: Status: Active Protocol: Document 11/25/22 12:13 [facility] (Rec: 11/25/22 12:46 [facility] [id number]) OT Gross Range of Motion Upper Extremity Range of Motion Assessment Within Functional Limits OT Strength Upper Extremity Strength Assessment Within Functional Limits OT-Muscle Tone Assessment Muscle Tone WNL Yes M9 OT- IP Assessment and Plan Start: 11/25/22 12:13 Freq: Status: Active Protocol: Document 11/25/22 12:13 [facility] (Rec: 11/25/22 12:46 [facility] [id number]) OT Summary Assessment and Plan Potential Rehabilitation Potential Good Analytic Complexity at Evaluation Moderate Summary OT Impairments Balance,Functional Mobility, Bathing Progress Towards Goals Progressing Toward Goals Assessment Summary Pt MOD complexity and main barriers are decreased activity tolerance and dynamic balance. Pt scored 25/30 on the SLUMS which implies mild cognitive deficits, mainly trouble with her short term memory. Pt looking to go home with assist.when medically stable. Goals Self-Feeding Goal Independent Grooming Goal Independent Dressing Goal Independent Toileting Goal Independent Bathing Goal Independent Toilet Transfer Goal Independent Shower Transfer Goal Independent Days to Meet Goals 2 Frequency of Treatment Frequency Of Treatment Once a Day Treatment Plan OT Treatment Plan ADL Training,Functional Mobility,Patient/Family Education,Discharge Planning Discharge Recommendations OT Discharge Recommendations Home with Assistance Transportation Needs at Discharge Private Vehicle
[2022-11-25 12:00] VITALS: BP 133/64; PULSE 94; RESP 16; TEMP 37.2; O2SAT 97
--- NOTE | 2022-11-25 13:30 | PT.IIE ---
Current Diagnoses Major depressive disorder, recurrent, in full remission (11/24/22) Metabolic encephalopathy (11/24/22) Essential (primary) hypertension (11/24/22) Urinary tract infection, site not specified (11/24/22) Surgical History (Last Reviewed 11/25/22 @ 12:21 by Raffi Amor DO) History of History of knee surgery Medical History (Last Reviewed 11/25/22 @ 12:21 by Raffi Amor DO) Cognitive changes Depression No significant past medical history Physical Therapy Inpatient Evaluation/Re-Eval M1 PT/OT-IP Prior Functional Status Start: 11/25/22 15:51 Freq: NEEDED Status: Active Protocol: Document 11/25/22 13:30 AB (Rec: 11/25/22 16:00 [email or web address] Medical Review Prior Functional Status Medical History Reviewed Yes Communication able to make needs known Mobility and Gait pt stated that she is modified independent with all mobilities and ambulation without AD inside her apartment but uses a FWW when going out Activities of Daily Living and IADL's per OT note: Pt states able to do all ADL's on her own and laundry per pt . Pt states has meals provided in addition to medications. Social History Household Members none Living Arrangements Assisted Living Number of Stairs To Enter/Railing? pt lives at [facility] Home Environment Standard Height Toilet,Walk in Shower Home Equipment Front Wheel Walker,Shower Seat with Backrest,Hand Held Shower,Grab Bars Near Toilet, Grab Bars In Shower M2 PT-IP Current Condition Start: 11/25/22 15:51 Freq: NEEDED Status: Active Protocol: Document 11/25/22 13:30 AB (Rec: 11/25/22 16:00 AB [id number]) Physical Therapy Current Condition Current Condition Evaluation Date 11/25/22 Treatment Diagnosis UTI; difficulty in walking Onset Date 11/24/22 M3 PT-IP Subjective Start: 11/25/22 15:51 Freq: NEEDED Status: Active Protocol: Document 11/25/22 13:30 AB (Rec: 11/25/22 16:00 AB [id number]) Subjective Physical Therapy Visit Type Type Initial Evaluation Visit Start Time 13:30 Visit Stop Time 13:45 Total Visit Minutes 15 Number of TELEPHONE MAINTAINER Visits 0 Physical Therapy Visit Comments Patient Comments agreeable to do PT; stated that she is tired M4 PT-IP Mobility and Gait Start: 11/25/22 15:51 Freq: NEEDED Status: Active Protocol: Document 11/25/22 13:30 AB (Rec: 11/25/22 16:00 AB [id number]) PT-Bed Mobility Assessment Supine to Sit Supine to Sit Standby Assistance Sit to Supine Sit to Supine Standby Assistance PT-Transfer Assessment Sit to and From Stand Sit to and from Stand Standby Assistance Equipment Transfer Assistive Device Gait Belt,Front Wheeled Walker Orthotic/Prosthetic Devices or Brace: No Comments Mobility Comments pt supine in bed and stated that she is tired. agreed to do PT but wants to go back to bed afterwards. completed supine to sit SBA. able to sit on EOB SBA. completed sit to stand SBA and ambulated in room using FWW SBA ~ 40 ft. presents with slow paced gait. pt requested to go back to bed. completed sit to supine SBA. positioned pt in bed. call light and table placed within reach. Gait Assessment Gait Gait Assistance Required: Standby Assistance,1 Person Assist Distance (Feet) 40 Able to Maintain Weight Bearing Status Yes During Gait Assistive Devices Assistive Device Gait Belt,Front Wheeled Walker Orthotic/Prosthetic Devices or Brace: No Gait Deviations General Gait Pattern Decreased Stride Length, Decreased Feet Clearance Factors Limiting Gait Function Factors Limiting Gait Function Decreased Activity Tolerance, Decreased Strength,Poor Balance,Poor Safety Awareness PT-Balance Assessment Sitting Balance and Reactions Static Sitting Balance Ability Normal Dynamic Sitting Balance Ability Normal Standing Balance and Reactions Static Standing Balance Ability Good Dynamic Standing Balance Ability Fair Device Used FWW M5 PT-IP Objective Assessments Start: 11/25/22 15:51 Freq: NEEDED Status: Active Protocol: Document 11/25/22 13:30 AB (Rec: 11/25/22 16:00 AB [id number]) Orientation Orientation/Cognition Level of Alertness Alert Orientation Name,Place,Situation Language Function Ability No Deficits Noted Safety Awareness Decreased Safety Awareness Memory Description No Deficits Noted Gross Range of Motion Lower Extremity ROM Assessment Within Functional Limits Strength Lower Extremity Strength Assessment Within Functional Limits Muscle Tone Muscle Tone WNL Yes M6 PT-IP Treatment Start: 11/25/22 15:51 Freq: NEEDED Status: Active Protocol: Document 11/25/22 13:30 AB (Rec: 11/25/22 16:00 AB [id number]) Physical Therapy Treatment Education Education Provided Safety M7 PT-IP Assessment and Plan Start: 11/25/22 15:51 Freq: NEEDED Status: Active Protocol: Document 11/25/22 13:30 AB (Rec: 11/25/22 16:00 AB [id number]) PT Summary Assessment and Plan Potential Rehabilitation Potential Good Status of Condition at Evaluation Stable Summary Impairments Pain,ROM,Strength,Balance, Coordination,Sensation,Tone, Cognition,Bed Mobility, Transfers,Gait,Activity Tolerance Assessment Summary pt is an 82 y/o female and admitted for UTI. pt lives at [facility] and was independent with all mobilities prior to admission without AD inside her apartment but uses a FWW when going out. pt requiring SBA with mobility using FWW but presents with decrease activity tolerance. pt will likely progress during hospital stay and may go back to [facility] but will benefit from HHPT vs outpt PT. Goals Bed Mobility Goal Independent Transfer Goal Independent,Front Wheeled Walker Gait Goal Independent,Front Wheel Walker Gait Distance 300 Other Goals improve ambulation without AD 100 ft SBA Days to Meet Goals 10 Frequency of Treatment Frequency Of Treatment Once a Day Treatment Plan Physical Therapy Treatment Plan Bed Mobility Training,Transfer Training,Gait Training, Therapeutic Exercise,Balance Retraining,Discharge Planning, Hot or Cold Pack,Neuromuscular Re-ed,Coordination Retraining Recommendations To Nursing Amount of Assist Needed 1 Person Assist Discharge Recommendations PT Discharge Recommendations Home with Assistance,Home Health,Outpatient PT Transportation Needs at Discharge Private Vehicle
--- NOTE | 2022-11-25 14:44 | CM.DANOTE ---
Addendum entered by SHANNA Banks 11/25/22 15:09: ADD: [facility] accepts and can start care 11.29.22 Original Note: Initial DCP Assessment Note Pt is an 82 yo female, resident at [facility] in [place] , admitted by overnight provider for acute encephalopathy Dr Amor indicates in his H+P: In review of her chart, she was diagnosed with cognitive impairment by psychologist, complicated by continue EtOH use at the time. This information confirmed by daughter Gricelda during phone conversation PCP: Angie Armas Payer: [facility] MCR/[employer] Spoke w/patient briefly this morning to introduce self and role. Patient pleasant, tells this APPEALS SPECIALIST she lives at [facility] and pays for medication assistance, says she receives no help with any other ADL. Patient expects to return to [facility] with transport via daughter Gricelda Spoke then w/daughter and had lengthy conversation. Gricelda reports she has been trying to get patient to accept additional assistance and she has been resistant. Gricelda would like patient to remain at [facility] for as long as she is able. Discussed HH services, in home care services, provided Senior Resource Guide and reviewed [facility] choice list of HH agencies. Patient and daughter have no agency preference In addition, daughter explains a neuro-psychologist recent diagnosed patient with cognitive impairment with no known etiology; suspicion is alcohol related Patient denies current ETOH use, daughter says she has found empty alcohol bottles in her apt, patient is very defense when approached about this. 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 No Advance Directives on File No History Provided By Patient,Family Member,Medical Record Prior Living Arrangements Assisted Living Household Members none Type of transporation used prior to Relies on Others admit Facility Name Admitted From: [facility] Willing to Return to Facility? Yes Independent with ADL's Yes Is patient alert and oriented? No: Short term memory loss Needs Assistance With Meal Prep,Managing Medications ,Home Chores / Shopping Comment Patient requiring addtl assistance per daughter but has been resistant to accepting help Patient/Family Preference Home with Home Health Barriers to Discharge No Discharge Plan Home with Home Health Transportation Arrangement Dtr Gricelda will be bedside later today and is available to transport at d/c Referrals Initiated Home Health If patient plan is home with home health Yes : Has signed face to face form been completed? Medicare Choice List Provided Yes SNF/HH Preference None, [facility] per calendar rotation
--- NOTE | 2022-11-25 16:05 | P.DS_ITS ---
History of Present Illness History of Present Illness Date Patient Seen: 11/25/22 Time Patient Seen: 16:05 Chief complaint: UTI, Poss sepsis Narrative: This is an 82 year old female, resident of [facility], with PMH of HTN, cognitive impairment, recurrent UTI, and alcohol use, recent UTI 1 week ago treated with cephalexin who presented to the ER today with confusion. She was admitted by overnight provider for acute encephalopathy. Urine showed some WBC, overall improved from previous, but admitted for antibiotics for possible recurrent infection. She has improved this morning. She reports to me that her last drink of alcohol was over 6 weeks ago now. She denies fever, chills, abdominal pain, nausea, vomiting. She has no dysuria or urinary frequency. In review of her chart, she was diagnosed with cognitive impairment by psychologist, complicated by continue EtOH use at the time. Discharge Providers Provider Date of admission: 11/24/22 23:10 Discharge Date: 11/25/22 Primary care physician: Angie Armas DO Consults: 11/24/22 23:31 Consult to Physical Therapy Evaluate & Treat Comment: Physician Instructions: Evaluate and Treat 11/25/22 09:25 Consult to Occupational Therapy Evaluate & Treat Comment: Physician Instructions: Evaluate and treat 11/25/22 12:12 Consult to Home Health Routine Comment: Reason For Exam: Home health upon discharge Discharge provider: Raffi Amor DO Summary Hospital Course Discharge Diagnosis: 1.Acute cystitis, possibly on chronic cystitis 2. Acute Metabolic Encephalopathy / Generalized Weakness 3. HTN 4. Depression 5. Mild cognitive impairment Hospital Course: his is an 82 year old female, resident of [facility], with PMH of HTN, cognitive impairment, recurrent UTI, and alcohol use, recent UTI 1 week ago treated with cephalexin who presented to the ER today with confusion. She was admitted by overnight provider for acute encephalopathy. Urine showed some WBC, overall improved from previous, but admitted for antibiotics for possible recur rent infection. Shortly after admission she returned to her baseline mentation. She was evaluated by physical and occupational therapy and was deemend appropriate for return to [facility]. Her SLUMS score was improved from her last admission, now at 25 indicating a mild cognitive impairment (previous admission was 17). Patient reported last drink was 6 weeks ago. Renal ultrasound was obtained for recurrent UTIs but no structural etiology was found. Outpatient follow up with primary care is recommended. She may have a component of chronic cystitis, but given her rapid improvement with ceftriaxone is it possible her encephalopathy is due to another UTI. She had just completed her course of antibiotics, so another 5 days of augmentin will be sent on discharge to complete additional antibiotics at home. After discussion with pharmacists here, I also recommend reconcilliation with primary care provider for further discussion of risks and benefits of her current antidepressants (fluoxetine, venlafaxine, and notriptyline combined). Time Spent with Patient Time spent: Greater than 30 minutes Exam Vital Signs (past 8 hours): - 11/25/22 09:06 Pulse Rate 94 H Blood Pressure 120/71 Oxygen Delivery Method Room Air Oxygen Flow Rate 0 Narrative Exam Narrative: General:? Patient is well developed and well nourished, in no distress at this time. Chest:? Normal AP diameter and contour without kyphoscoliosis, no tachypnea, equal chest rise bilaterally. Lungs:? CTA b/l no wheezing rhonchi or rales. Cardio:?RRR no m/r/g. Abdomen: S NT ND. Musculoskeletal:? Muscle strength and tone are equal within normal limits, no deformity. Extremities: No edema or joint effusions. No cyanosis or clubbing. Skin:? Pale,? Warm to touch,dry and intact without rashes, ulcerations or petechiae.? Neuro:? Alert and orientated x3,? sensation to touch intact in all extremities, no gross deficits noted of cranial nerves. Psych:? Patient has a well-kept appearance, appropriate affect, mental status attitude thought context and judgment are appropriate for age. Objective Labs 11/25/22 04:52 11/25/22 04:52 Labs: Laboratory Results - last 24 hr 11/24/22 11/24/22 11/24/22 19:24 19:24 19:24 WBC 14.2 H RBC 3.93 L Hgb 11.6 L Hct 35.1 L MCV 89.2 MCH 29.5 MCHC 33.0 RDW 13.4 Plt Count 479 H Neut % (Auto) 80.1 H Lymph % (Auto) 7.4 L Taney % (Auto) 11.7 Eos % (Auto) 0.5 L Baso % (Auto) 0.3 Neut # (Auto) 85346 H Lymph # (Auto) 1000 L Taney # (Auto) 1700 H Eos # (Auto) 100 Baso # (Auto) 0 Sodium 131 L Potassium 4.6 Chloride 98 Carbon Dioxide 19 L BUN 17 Creatinine 0.80 Estimated GFR > 60 BUN/Creatinine Ratio 21.3 Glucose 89 Lactate 2.2 H Calcium 9.7 Total Bilirubin Conjugated Bilirubin Unconjugated Bilirubin AST ALT Alkaline Phosphatase Troponin I < 0.012 Total Protein Albumin Globulin Albumin/Globulin Ratio Urine Color Urine Appearance Urine pH Ur Specific [place] Urine Protein Urine Glucose (UA) Urine Ketones Urine Occult Blood Urine Nitrate Urine Bilirubin Urine Urobilinogen Ur Leukocyte Esterase Urine RBC Urine WBC Ur Squamous Epith Cells Urine Bacteria Micro UA Comment SARS-CoV-2 (PCR) Influenza A (RT-PCR) Influenza B (RT-PCR) RSV (PCR) 11/24/22 11/24/22 11/24/22 21:14 21:19 22:51 WBC RBC Hgb Hct MCV MCH MCHC RDW Plt Count Neut % (Auto) Lymph % (Auto) Taney % (Auto) Eos % (Auto) Baso % (Auto) Neut # (Auto) Lymph # (Auto) Taney # (Auto) Eos # (Auto) Baso # (Auto) Sodium Potassium Chloride Carbon Dioxide BUN Creatinine Estimated GFR BUN/Creatinine Ratio Glucose Lactate 0.7 Calcium Total Bilirubin Conjugated Bilirubin Unconjugated Bilirubin AST ALT Alkaline Phosphatase Troponin I Total Protein Albumin Globulin Albumin/Globulin Ratio Urine Color Yellow Urine Appearance Clear Urine pH 5.0 Ur Specific [place] 1.010 Urine Protein Negative Urine Glucose (UA) Negative Urine Ketones 1+ H Urine Occult Blood Trace-intact Urine Nitrate Negative Urine Bilirubin Negative Urine Urobilinogen 1.0 Ur Leukocyte Esterase 1+ H Urine RBC 0-1/hpf Urine WBC 10-30/hpf H Ur Squamous Epith Cells 1-5 /hpf Urine Bacteria Few (2-10) H Micro UA Comment * SARS-CoV-2 (PCR) Negative Influenza A (RT-PCR) Flu a negative Influenza B (RT-PCR) Flu b negative RSV (PCR) Negative 11/25/22 11/25/22 11/25/22 04:52 04:52 04:52 WBC 8.7 RBC 3.26 L Hgb 9.6 L Hct 29.2 L MCV 89.8 MCH 29.4 MCHC 32.7 RDW 13.2 Plt Count 368 Neut % (Auto) 78.3 H Lymph % (Auto) 8.5 L Taney % (Auto) 11.7 Eos % (Auto) 1.0 L Baso % (Auto) 0.5 Neut # (Auto) 6800 Lymph # (Auto) 700 L Taney # (Auto) 1000 H Eos # (Auto) 100 Baso # (Auto) 0 Sodium 133 L Potassium 3.8 Chloride 104 Carbon Dioxide 21 L BUN 14 Creatinine 0.67 Estimated GFR > 60 BUN/Creatinine Ratio 20.9 Glucose 76 L Lactate Calcium 7.8 L Total Bilirubin 0.3 Conjugated Bilirubin 0.0 Unconjugated Bilirubin 0.0 AST 29 ALT 14 Alkaline Phosphatase 82 Troponin I Total Protein 5.9 L Albumin 2.7 L Globulin 3.2 Albumin/Globulin Ratio 0.8 L Urine Color Urine Appearance Urine pH Ur Specific [place] Urine Protein Urine Glucose (UA) Urine Ketones Urine Occult Blood Urine Nitrate Urine Bilirubin Urine Urobilinogen Ur Leukocyte Esterase Urine RBC Urine WBC Ur Squamous Epith Cells Urine Bacteria Micro UA Comment SARS-CoV-2 (PCR) Influenza A (RT-PCR) Influenza B (RT-PCR) RSV (PCR) PFSH Medical History Cognitive changes Depression No significant past medical history Surgical History History of History of knee surgery Family History Father Stroke Mother Diabetes mellitus Heart attack Social History household members: none Smoking Status: Former smoker Tobacco: How many years used: 20 alcohol intake: current substance use type: does not use Discharge Plan Discharge Plan Patient Disposition: Home Health Service Provider Discharge Comment: You were admitted to the hospital with possible UTI. Your antibiotic will be changed from last time but complete another 5 days at home. You're doing great with alcohol cessation, keep at it! Please follow up with your primary care provider to discuss recurrent UTIs, ultrasound so no structural cause for these here. Discharge orders & Medications Prescriptions: New amoxicillin-pot clavulanate 875-125 mg tablet 1 tab PO BID 5 Days Qty: 10 0RF Continued venlafaxine 37.5 mg capsule,extended release 24hr See Rx Instructions .ROUTE .COMPLEX Qty: 90 2RF Dose Instruction: GIVE 1 CAPSULE ORALLY ONCE A DAY (DEPRESSION) Rx Instructions: GIVE 1 CAPSULE ORALLY ONCE A DAY (DEPRESSION) lisinopril 10 mg tablet See Rx Instructions .ROUTE .COMPLEX Qty: 90 2RF Dose Instruction: GIVE 1 TABLET ORALLY ONCE A DAY Rx Instructions: GIVE 1 TABLET ORALLY ONCE A DAY fluoxetine 20 mg capsule 20 mg PO DAILY Qty: 90 1RF nortriptyline 10 mg capsule 10 mg PO DAILY Qty: 90 0RF vit C,M-Vi-gxxvw-lutein-zeaxan [PreserVision AREDS-2] 1 cap PO BID Patient Comments: provided by family otc Rx Instructions: take 1 bid HERB-SCIENCE B1 THAIMIN 6 mg drops 1 drp PO QAM Rx Instructions: 1 DROPPER (6MG) DAILY. CAN DIULE WITH WATER OR CORONA WITH PREFERRED BEVERAGE. latanoprost 0.005 % Drops 1 drp OPHTHALMIC (EYE) BEDTIME Follow up/Referrals: Angie Armas DO [Primary Care Provider] - Diet/Activity/Treatments Diet: Diet as Tolerated and Regular Activity: As tolerated no restrictions Visit Report/Discharge Packet Instructions: DI for Urinary Tract Infection (UTI), How to Prevent Falls Stand Alone Forms: Patient Portal/API, Stroke Signs & Symptoms Discharge Data Primary Care Provider: Angie Armas
--- NOTE | 2022-11-25 18:47 | PC.NURSE ---
Day shift: This RN received report from previous RN and assumed care at 1530. Pt A&Ox4. VS WNL. Pt OOB with FWW and SBA. Discharge orders obtained. This RN went over discharge instructions with patient and patient's daughter. Education on UTIs, medication, and fall prevention discussed. Patient and patient's daughter stated understanding and all questions answered. PIV and tele d/c'ed prior to discharge. Escorted patient via wheelchair to exit. Patient has all belongings and plans to return to [facility], her assisted living home, this evening. Let daughter know about SHANNA Hood's note saying [facility] accepted patient and will start 11/29.
--- NOTE | 2022-11-26 08:34 | CM.DPC ---
Discharge Home with HH Per MD, pt was stable for discharge back to [facility] last night after previous SW shift. Referral had previously been faxed to [facility] along with [facility] and orders. faxed signed discharge summary to [facility] this morning to review for start of care this week. SHANNA Tripp
== END 2022-11-25 19:00 | disposition home health service (06) | DRG 689 ==
LOC: ED 23:11 → AC 11-25 09:47
PROVIDERS: Internal Medicine; Admitting Provider Internal Medicine; Emergency Provider Emergency Medicine; PCP Family Medicine; Referring Provider Emergency Medicine; Visit Provider Internal Medicine
DX: N30.00 Acute cystitis without hematuria (principal); G93.41 Metabolic encephalopathy; Z87.891 Personal history of nicotine dependence; R32 Unspecified urinary incontinence; I10 Essential (primary) hypertension; F33.42 Major depressive disorder, recurrent, in full remission; G31.84 Mild cognitive impairment of uncertain or unknown etiology; N30.20 Other chronic cystitis without hematuria
CPT/HCPCS: 0241U; 36415; 76770; 80048; 80076; 81001; 83605; 84484; 85025; 87040; 87086; 93005; 93010; 96361; 96365; 97161; 97166; 97530; 99284; G0378; J0696; J1650

== ENCOUNTER → 2022-12-01 12:24 | Outpatient (CLI) | payer MEDICARE, SELFPAY ==
[2022-11-25 01:15] VITALS: BMI 22.1
[2022-12-01 13:07] LABS: Appearance Urine UA CLEAR; Bilirubin Urine UA NEGATIVE (NEGATIVE); Color Urine UA YELLOW; Glucose Urine UA NEGATIVE (Negative); Ketones Urine UA 1+ (NEGATIVE); Leukocyte Esterase Urine UA TRACE (NEGATIVE); Nitrite Urine UA NEGATIVE (Negative); Occult Blood Urine UA NEGATIVE (Negative); Protein Urine UA NEGATIVE (Negative)
[2022-12-01 13:18] LABS: pH Urine UA 5.5 (4.5-8.0)
[2022-12-01 13:32] LABS: Bacteria Urine None Seen; Culture Indicated Urine Specimen Cultured; Hyaline Casts Urine 1-5/LPF; RBC Urine 0-1/HPF (0-5/HPF); Squamous Epithelial Cell Urine 5-10 /HPF (0-5/HPF); WBC Urine 5-10/HPF (0-5/HPF)
== END ==
PROVIDERS: PCP Family Medicine; Referring Provider Family Medicine; Visit Provider Family Medicine
DX: N39.0 Urinary tract infection, site not specified (principal)
CPT/HCPCS: 81001; 87086

== ENCOUNTER 2022-12-01 18:13 | Emergency (ER) | payer MEDICARE, SELFPAY ==
[2022-12-01] VITALS (10 sets, daily range): BP systolic 134–147; BP diastolic 71–80; PULSE 80–101; RESP 16–18; TEMP 36.5–36.8; O2SAT 96–99; BMI 20.9
--- NOTE | 2022-12-01 21:26 | ED_ITS ---
HPI - Headache General Chief Complaint: Headache Stated Complaint: Head pain Time Seen by Provider: 12/01/22 18:32 Mode of arrival: Wheelchair History of Present Illness HPI Narrative: 82-year-old female former smoker with history of metabolic encephalopathy, depr ession, hypertension, alcohol use, neurocognitive disorder presents with family in the chief complaint of severe headache and neck pain. She has had frequent head and neck pain for many weeks and it seems to thus far be paging a rather unclear picture. She is had no trauma or injury, has had no fever or chills and has no altered mental status. At times the pain is on the right side of her neck and the right side of her head at other times it moves to the left side, sometimes it is frontal sometimes it as squeezing. Often times there is very little provocation or palliation. She denies any blurred vision or trouble with speech. She is had no focal neurologic complaints such as numbness, tingling or weakness. She has no chest pain or shortness of breath. She was seen by her primary care provider yesterday and was having right-sided head and neck pain and given its presentation and location there were some concern about the possibility of giant cell arteritis, she was started on prednisone and already has a follow-up appointment for tomorrow. Her pain was quite good this morning and gradually worsened to in the middle of the day and included bilateral neck and bilateral portions of her head again without obvious provocation, palliation or other radiation. At time of exam she is symptom free and resting comfortably without any intervention Related Data Home Medications Medication Instructions Recorded Confirmed vit C,S-Km-fppul-lutein-zeaxan 1 cap PO BID 12/07/21 11/25/22 [PreserVision AREDS-2] latanoprost 0.005 % eye drops 1 drp ophthalmic (eye) BEDTIME 11/25/22 11/30/22 Glaucoma Previous Rx's Medication Instructions Recorded lisinopril 10 mg tablet See Rx Instructions .Route 04/15/22 .COMPLEX #90 tabs venlafaxine 37.5 mg See Rx Instructions .Route 04/15/22 capsule,extended release 24 hr .COMPLEX #90 caps fluoxetine 20 mg capsule 20 mg PO DAILY #90 caps 08/22/22 nortriptyline 10 mg capsule 10 mg PO DAILY #90 caps 09/19/22 acetaminophen 500 mg tablet 1,000 mg PO TID PRN pain #540 tabs 11/30/22 (Tylenol Extra Strength) dimethicone 2 % topical cream 1 applic topical DAILY PRN skin 11/30/22 irritation #113 grams ibuprofen 200 mg tablet (Advil) See Rx Instructions PO Q6H PRN 11/30/22 pain #720 tabs prednisone 20 mg tablet 60 mg PO DAILY #20 tabs 11/30/22 prednisone 5 mg tablet 5 mg PO DAILY #7 tabs 11/30/22 Allergies Allergy/AdvReac Type Severity Reaction Status Date / Time No Known Drug Allergies Allergy Verified 11/30/22 10:15 Review of Systems Review of Systems Narrative: GENERAL: See HPI HEENT: Denies sinus pain, ear pain, sore throat, difficulty swallowing, dizziness. RESPIRATORY: Denies dyspnea, cough, wheezing, hemoptysis, sputum. CARDIOVASCULAR: Denies chest pain, palpitations, orthopnea, edema, GASTROINTESTINAL: Denies nausea, vomiting, abdominal pain, diarrhea, constipation, melena. : Denies dysuria, frequency, incontinence, hematuria, urinary retention. MUSCULOSKELETAL: denies weakness, joint pain, or bony pain SKIN: Denies rash, skin lesions, or other NEUROLOGIC: See HPI PSYCHIATRIC: No concerning psychosocial issues. 12 point review of systems is negative except for those stated above Patient History Medical History Cognitive changes Depression No significant past medical history Surgical History History of History of knee surgery Family History Father Stroke Mother Diabetes mellitus Heart attack Social History household members: none Smoking Status: Former smoker Tobacco: How many years used: 20 alcohol intake: current substance use type: does not use Smoking Status: Former smoker tobacco type: cigarettes alcohol intake frequency: a few times a week Alcohol type: wine Substance Use Type: does not use Exam Narrative Exam Narrative: GENERAL: [82] year old patient appears stated age. Thin, frail and elderly, alert and oriented HEAD: Atraumatic. Normocephalic. Temporal wasting, no reproducible temporal pain EYES: Pupils equal round and reactive. Extraocular motions intact. No scleral icterus. No injection or drainage. ENT: Dry mucous membrane Nose without bleeding, purulent drainage. Throat without erythema, tonsillar hypertrophy or exudate. Airway patent. NECK: Trachea midline. Non tender CARDIOVASCULAR: Regular rate and rhythm without murmurs, gallops, or rubs. RESPIRATORY: Clear to auscultation. Breath sounds equal bilaterally. No wheezes, rales, or rhonchi. GASTROINTESTINAL: Abdomen soft, non-tender, nondistended. EXTREMITIES: No edema or joint tenderness. BACK: Nontender without deformity or crepitance. No flank tenderness. NEURO: AOx3. SKIN: Poor skin turgor No rash or erythema of visible areas Initial Vital Signs Initial Vital Signs: Vital Signs Temperature 98.3 F 12/01/22 18:17 Pulse Rate 101 H 12/01/22 18:17 Respiratory Rate 18 12/01/22 18:17 Blood Pressure 134/76 12/01/22 18:17 Pulse Oximetry 98 12/01/22 18:17 Oxygen Delivery Method Room Air 12/01/22 18:17 Course Orders Ordered: ED Orders 12/01/22 21:43 CT angio head and neck Stat 12/01/22 21:44 CT head/brain wo con Stat 12/01/22 21:55 C-Reactive Protein Quant Stat Complete Blood Count AUTO DIFF Stat Comprehensive Metabolic Panel Stat Erythrocyte Sedimentation Rate Stat Magnesium Stat Discontinued Medications Sodium Chloride (Normal Saline 0.9%) 1,000 mls @ 1,000 mls/hr IV BOLUS ONE Stop: 12/01/22 22:42 Vital Signs Vital signs: Vital Signs - 8 hr 12/01/22 18:17 Temperature 98.3 F Pulse Rate 101 H Respiratory Rate 18 Blood Pressure 134/76 Pulse Oximetry 98 Oxygen Delivery Method Room Air MDM - Headache Lab Data 12/01/22 21:55 12/01/22 21:55 Labs: Lab Results 12/01/22 12/01/22 12/01/22 Range/Units 21:55 21:55 21:55 WBC 8.5 (4.5-11.0) X10^3/uL RBC 3.56 L (4.0-5.2) X10^6/uL Hgb 10.4 L (12.0-16.0) g/dL Hct 31.5 L (36-46) % MCV 88.6 (80-100) fL MCH 29.3 (26-34) PG MCHC 33.1 (30-36) % RDW 13.3 (11.6-14.8) % Plt Count 485 H (150-400) X10^3/uL Neut % (Auto) 91.0 H (50-75) % Lymph % (Auto) 4.8 L (25-40) % [place] % (Auto) 3.8 (3-14) % Eos % (Auto) 0.0 L (2-4) % Baso % (Auto) 0.4 (0-2) % Neut # (Auto) 7700 H (9563-0375) /uL Lymph # (Auto) 400 L (6326-3549) /uL [place] # (Auto) 300 (0-900) /uL Eos # (Auto) 0 (0-450) /uL Baso # (Auto) 0 (0-100) /uL ESR 87 H (0-20) MM/HR Sodium 129 L (137-145) mmol/L Potassium 3.6 (3.4-5.1) mmol/L Chloride 96 L (98-107) mmol/L Carbon Dioxide 23 (22-32) mmol/L BUN 24 H (7-17) mg/dL Creatinine 1.32 H (0.52-1.04) mg/dL Estimated GFR 40 L (>60) mL/min BUN/Creatinine Ratio 18.2 (6-22) Glucose 130 H (80-110) mg/dL Calcium 9.6 (8.4-10.2) mg/dL Magnesium (1.6-2.3) mg/dL Total Bilirubin 0.2 (0.2-1.3) mg/dL AST 23 (14-36) IU/L ALT 19 (<35) IU/L Alkaline Phosphatase 94 (38-126) U/L Total Protein 6.8 (6.3-8.2) g/dL Albumin 3.1 L (3.5-5.0) g/dL Globulin 3.7 (1.7-4.1) g/dL Albumin/Globulin Ratio 0.8 L (1.0-2.8) // Range/Units 21:55 WBC (4.5-11.0) X10^3/uL RBC (4.0-5.2) X10^6/uL Hgb (12.0-16.0) g/dL Hct (36-46) % MCV (80-100) fL MCH (26-34) PG MCHC (30-36) % RDW (11.6-14.8) % Plt Count (150-400) X10^3/uL Neut % (Auto) (50-75) % Lymph % (Auto) (25-40) % [place] % (Auto) (3-14) % Eos % (Auto) (2-4) % Baso % (Auto) (0-2) % Neut # (Auto) (4063-4460) /uL Lymph # (Auto) (3104-6315) /uL [place] # (Auto) (0-900) /uL Eos # (Auto) (0-450) /uL Baso # (Auto) (0-100) /uL ESR (0-20) MM/HR Sodium (137-145) mmol/L Potassium (3.4-5.1) mmol/L Chloride (98-107) mmol/L Carbon Dioxide (22-32) mmol/L BUN (7-17) mg/dL Creatinine (0.52-1.04) mg/dL Estimated GFR (>60) mL/min BUN/Creatinine Ratio (6-22) Glucose (80-110) mg/dL Calcium (8.4-10.2) mg/dL Magnesium 1.7 (1.6-2.3) mg/dL Total Bilirubin (0.2-1.3) mg/dL AST (14-36) IU/L ALT (<35) IU/L Alkaline Phosphatase (38-126) U/L Total Protein (6.3-8.2) g/dL Albumin (3.5-5.0) g/dL Globulin (1.7-4.1) g/dL Albumin/Globulin Ratio (1.0-2.8) MDM Narrative Medical decision making narrative: CC: 82-year-old female with increasing episodes of headache and neck pain Complicating co-morbidities: Age, prior encephalopathy, hypertension Data collected from: Patient Medical records reviewed: Prior notes reviewed in our EMR Differential considered, but not limited to: Intracranial hemorrhage versus dissection versus aneurysm versus giant cell arteritis versus meningitis versus dehydration versus tension headaches versus other Exam documented above, pertinent findings include: Alert and oriented, no current pain, no focal neurologic symptoms, no meningeal signs, no reproducible temporal pain. Dry mucous membranes and poor skin turgor Lab Test results independently reviewed as above. Pertinent findings: No leukocytosis or left shift, relative anemia but at her baseline, ESR elevated at 87, sodium 129, creatinine bumped at 1.32, most recent level at 0.67 Independently reviewed EKG as above Imaging studies independently reviewed: Head CT without obvious acute intracranial abnormality, CT angiogram without evidence of stenosis, occlusion of arteries, no dissection or aneurysm Treatments: IV fluids Re-evaluations: Patient feels significantly improved after fluids Discussion: Elderly female with increasing episodes and severity of head and neck pain with multiple diagnoses considered as noted above. Very reassuring history and physical exam and patient is actually asymptomatic on my exam which is obviously reassuring. Imaging is unremarkable and highly suggestive against aneurysm, intracranial hemorrhage, dissection, mass or other. She does have dry mucous membranes and poor skin turgor with a bump in creatinine in his given f luids. No evidence of an active urinary tract infection. No meningeal signs, no indication for lumbar puncture. Giant cell arteritis considered given her occasional unilateral headache but lack of ongoing symptoms, lack of visual change would suggest this is unlikely, the cause of her elevated ESR as unclear. Etiology of her head and neck pain at this time is unremarkable and unclear, she has an appointment tomorrow and it seems reasonable to follow that plan. Disposition: see below, along with detailed discharge instructions that have been reviewed with patient as well as indications for ED re-evaluation and additional outpatient follow up Discharge Plan Departure Patient Disposition: Home Clinical Impression: Acute dehydration, Headache Instructions: DI for Dehydration -- Adult, DI for Headache Activity Restrictions/Additional Instructions: *You have been diagnosed with [ Headache, likely at least in some part today to dehydration. As we discussed your labs and imaging are otherwise reassuring and there is no evidence of bleeding in your brain, aneurysm, mass, dissection or other severe diagnosis] *What to do: *Take medications as directed *Follow up with your primary care provider tomorrow as planned.. Let them know you were seen in the Emergency Department and that we ask that you be seen in follow up *Return to ER if you should have any new, worsening or concerning symptoms, such as [ fever > 101F, neck pain or stiffness, vomiting, confusion, seizure, focal weakness, vision change, speech deficit or other concerning symptoms ] Prescriptions: No Action venlafaxine 37.5 mg capsule,extended release 24hr See Rx Instructions .ROUTE .COMPLEX Qty: 90 2RF Dose Instruction: GIVE 1 CAPSULE ORALLY ONCE A DAY (DEPRESSION) Rx Instructions: GIVE 1 CAPSULE ORALLY ONCE A DAY (DEPRESSION) lisinopril 10 mg tablet See Rx Instructions .ROUTE .COMPLEX Qty: 90 2RF Dose Instruction: GIVE 1 TABLET ORALLY ONCE A DAY Rx Instructions: GIVE 1 TABLET ORALLY ONCE A DAY fluoxetine 20 mg capsule 20 mg PO DAILY Qty: 90 1RF nortriptyline 10 mg capsule 10 mg PO DAILY Qty: 90 0RF vit C,P-Ee-vbhkh-lutein-zeaxan [PreserVision AREDS-2] 1 cap PO BID Patient Comments: provided by family otc Rx Instructions: take 1 bid prednisone 20 mg tablet 60 mg PO DAILY Qty: 20 0RF Rx Instructions: 3 tabs for first 3 days, then 2 tabs next 3 days, then 1 tab next 3 days, then 1/2 tab 4 days then switch to 5mg rx prednisone 5 mg tablet 5 mg PO DAILY Qty: 7 0RF Rx Instructions: start after finishing 10mg (1/2 tab 20mg) end of taper acetaminophen [Tylenol Extra Strength] 500 mg tablet 1,000 mg PO TID MDD 6 PRN (Reason: pain) Qty: 540 0RF ibuprofen [Advil] 200 mg tablet See Rx Instructions PO Q6H PRN (Reason: pain) Qty: 720 0RF Rx Instructions: 1 to 2 tabs orally every 6 hours PRN; dimethicone 2 % cream 1 applic topical DAILY PRN (Reason: skin irritation) Qty: 113 0RF latanoprost 0.005 % Drops 1 drp OPHTHALMIC (EYE) BEDTIME Referrals: Angie Armas DO [Primary Care Provider] - Stand Alone Forms: Patient Portal/API
--- NOTE | 2022-12-01 21:43 | DI.CT.S_ITS ---
PROCEDURE: CT ANGIO HEAD AND NECK INDICATIONS: head, neck pain, dizziness TECHNIQUE: After the administration of intravenous contrast, 1 mm thick sections acquired from the aortic arch through the [place] of [place]. 3-dimensional psbtbeg-serqwppig-hwlpqwafvn (MIP) and/or volume rendering reformats were acquired of the central intracranial vasculature and neck separately. For radiation dose reduction, the following was used: automated exposure control, adjustment of mA and/or kV according to patient size. COMPARISON: [facility], CT, CT HEAD/BRAIN WO [facility], 12/01/2022, 21:56. FINDINGS: Image quality: Diagnostic. BRAIN: CSF spaces: Basal cisterns are patent. No extra-axial fluid collections. There is moderate cerebral volume loss, with resultant ventricular and sulcal prominence. Brain: No intracranial hematoma collections, mass, or mass effect. A small focal hypodensity in the right internal capsule is consistent with sequelae of a prior lacunar infarct. There are subcortical, periventricular and deep white matter hypodensities consistent with moderate chronic small vessel ischemic changes. The shoemaker-white matter junction appears preserved. Skull and face: Calvarium and facial bones appear intact, without suspicious lesions. Orbits appear normal. Sinuses: Sinuses and mastoids are clear. HEAD CT ANGIOGRAPHY: Anterior circulation: Intracranial internal carotid arteries are normal in size and appear patent bilaterally. There is mild atherosclerotic calcification along the cavernous segments of the internal carotid arteries. The paired anterior cerebral arteries appear patent bilaterally. The anterior communicating artery also appears patent. The middle cerebral arteries appear patent bilaterally. No high-grade stenosis, occlusion, or filling defects. No cerebral aneurysms identified. Posterior circulation: Visualized portions of the vertebral arteries demonstrate are patent and join to form a patent basilar artery. There is a short bifid segment of the distal left vertebral artery. The posterior cerebral arteries appears patent bilaterally. No high-grade stenosis, occlusion, or filling defects. No cerebral aneurysms identified. NECK CT ANGIOGRAPHY: Carotid system: The great vessels demonstrate a conventional anatomy as they arise from the aortic arch. The origins of the common carotid arteries appear patent. The common carotid arteries demonstrate normal caliber and courses. The bifurcation regions are both widely patent. The internal carotid arteries demonstrate normal calibers and courses. Posterior circulation: The origins of the vertebral arteries both appear patent. The more superior extracranial portions of both vertebral arteries also demonstrate normal courses and calibers. They join to form a patent basilar artery. Soft tissues: Visualized neck soft tissues demonstrate no suspicious abnormalities. Bones: No suspicious bony lesions. Visualized cervical spine demonstrates straightening of the cervical lordosis. There is mild retrolisthesis at C5-C6 and mild anterolisthesis at C6-C7. Minimal anterolisthesis also demonstrated at C7-T1. There is multilevel degenerative disc disease and facet joint arthropathy. IMPRESSION: 1. No high-grade stenosis or occlusion of the central intracranial arteries. 2. No high-grade stenosis or occlusion of the head and neck arteries. Any quantitative measurements of stenosis were performed using NASCET criteria. Dictated by: Braydon Olmos M.D. on 12/01/2022 at 22:43 Approved by: Braydon Olmos M.D. on 12/01/2022 at 22:48
--- NOTE | 2022-12-01 21:44 | DI.CT.S_ITS ---
PROCEDURE: CT HEAD/BRAIN WO CON INDICATIONS: headache, neck pain, dizziness TECHNIQUE: Noncontrast 4.5 mm thick angled axial sections acquired from the foramen magnum to the vertex, with coronal and sagittal reformats. For radiation dose reduction, the following was used: automated exposure control, adjustment of mA and/or kV according to patient size. COMPARISON: [facility], CT, CT HEAD/BRAIN WO CON, 07/14/2020, 19:20. FINDINGS: Image quality: There is mild motion artifact. CSF spaces: Basal cisterns are patent. There is a small left choroidal fissure cyst. There is moderate cerebral volume loss, with resultant ventricular and sulcal prominence. Brain: No definite intracranial hemorrhage, mass, or mass effect. There is a hypodensity redemonstrated within the right caudate head consistent with sequelae of a prior lacunar infarct. There are subcortical, periventricular and deep white matter hypodensities consistent with moderate chronic small vessel ischemic changes. The sheomaker-white matter junction appears preserved. There is intracranial internal carotid artery atherosclerosis. Skull and face: Calvarium and visualized facial bones appear intact, without suspicious lesions. Sinuses: Visualized sinuses and mastoids are clear. IMPRESSION: 1. No definite acute intracranial abnormality. 2. Moderate chronic white matter small vessel ischemic changes and cerebral volume loss. 3. 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 Dictated by: Braydon Olmos M.D. on 12/01/2022 at 22:22 Approved by: Braydon Olmos M.D. on 12/01/2022 at 22:24
[2022-12-01] MEDS: SODIUM CHLORIDE 0.9% 1,000 ML 1000 ML IV (22:05)
[2022-12-01 22:11] LABS: Add Manual Diff / Slide Review NO; Basophils Absolute Auto 0 /uL (0-100); Basophils Percent Auto 0.4 % (0-2); Eosinophils Absolute Auto 0 /uL (0-450); Hematocrit 31.5 % (36-46); Hemoglobin 10.4 g/dL (12.0-16.0); Lymphocytes Absolute Auto 400 /uL (1100-4500); Lymphocytes Percent Auto 4.8 % (25-40); Mean Corpuscular HGB Conc 33.1 % (30-36); Mean Corpuscular Hemoglobin 29.3 PG (26-34); Mean Corpuscular Volume 88.6 fL (80-100); Monocytes Absolute Auto 300 /uL (0-900); Monocytes Percent Auto 3.8 % (3-14); Neutrophils Absolute Auto 7700 /uL (1500-7000); Platelet Count 485 X10^3/uL (150-400); Red Blood Cell Count 3.56 X10^6/uL (4.0-5.2); Red Cell Distribution Width 13.3 % (11.6-14.8); White Blood Cell Count 8.5 X10^3/uL (4.5-11.0)
[2022-12-01 22:17] LABS: Alanine Aminotransferase 19 IU/L (<35); Albumin 3.1 g/dL (3.5-5.0); Albumin Globulin Ratio 0.8 (1.0-2.8); Alkaline Phosphatase 94 U/L (38-126); Aspartate Aminotransferase 23 IU/L (14-36); BUN Creatinine Ratio 18.2 (6-22); Bilirubin Total 0.2 mg/dL (0.2-1.3); Blood Urea Nitrogen 24 mg/dL (7-17); Calcium 9.6 mg/dL (8.4-10.2); Carbon Dioxide 23 mmol/L (22-32); Chloride 96 mmol/L (98-107); Estimated Glomerular Filt Rate 40 mL/min (>60); Globulin 3.7 g/dL (1.7-4.1); Glucose 130 mg/dL (80-110); HEMOLYSIS < 15 (0-50); Magnesium 1.7 mg/dL (1.6-2.3); Potassium 3.6 mmol/L (3.4-5.1); Sodium 129 mmol/L (137-145); Total Protein 6.8 g/dL (6.3-8.2)
[2022-12-01 22:29] LABS: Erythrocyte Sedimentation Rate 87 MM/HR (0-20)
== END 2022-12-01 23:27 | disposition home or self-care (01) ==
PROVIDERS: Emergency Provider Emergency Medicine; PCP Family Medicine
DX: E86.0 Dehydration (principal); R51.9 Headache, unspecified; M54.2 Cervicalgia; N39.0 Urinary tract infection, site not specified
CPT/HCPCS: 36415; 70450; 70496; 70498; 80053; 81001; 83735; 85025; 85651; 86140; 87077; 87086; 87186; 96360; 99284; Q9967

== ENCOUNTER 2022-12-19 11:52 | Emergency (ER) | payer MEDICARE, SELFPAY ==
[2022-12-19] VITALS (16 sets, daily range): BP systolic 106–165; BP diastolic 58–76; PULSE 87–110; RESP 22–42; TEMP 36.6; O2SAT 97–100; BMI 19.1
--- NOTE | 2022-12-19 12:19 | DI.RAD.S_ITS ---
PROCEDURE: XR CHEST 1V INDICATIONS: suspected sepsis TECHNIQUE: One view of the chest was acquired. COMPARISON: None. FINDINGS: Surgical changes and devices: None. Lungs and pleura: Bibasilar atelectasis.. No pleural effusions or pneumothorax. Mediastinum: Mediastinal contours appear normal. Eventration of the right hemidiaphragm. Heart size is normal. Bones and chest wall: No suspicious bony lesions. Overlying soft tissues appear unremarkable. IMPRESSION: Bibasilar atelectasis versus consolidation. Otherwise, the lungs are clear. Dictated by: Yonatan Gallego M.D. on 12/19/2022 at 14:54 Approved by: Yonatan Gallego M.D. on 12/19/2022 at 14:55
--- NOTE | 2022-12-19 13:05 | DI.CT.S_ITS ---
PROCEDURE: CT HEAD/BRAIN WO CON INDICATIONS: Altered mental status TECHNIQUE: Noncontrast 4.5 mm thick angled axial sections acquired from the foramen magnum to the vertex, with coronal and sagittal reformats. For radiation dose reduction, the following was used: automated exposure control, adjustment of mA and/or kV according to patient size. COMPARISON: [facility], CT, CT HEAD/BRAIN WO CON, 12/01/2022, 21:56. FINDINGS: Image quality: This examination is limited by involuntary motion artifact. CSF spaces: Basal cisterns are patent. No extra-axial fluid collections. The ventricles are symmetric in size and shape. Brain: No intracranial bleeds or masses. There is cerebral volume loss for age, with resultant ventricular and sulcal prominence. There are periventricular and deep white matter chronic small vessel ischemic changes. Lacunar infarctions are seen, including involving the right head of the caudate nucleus. There is intracranial internal carotid artery atherosclerosis. Skull and face: Calvarium and visualized facial bones appear intact, without suspicious lesions. Sinuses: Visualized sinuses and mastoids are clear. IMPRESSION: Motion limited study, without an acute intracranial abnormality identified. Dictated by: Arnaud Gloria M.D. on 12/19/2022 at 12:40 Approved by: Arnaud Gloria M.D. on 12/19/2022 at 12:41
--- NOTE | 2022-12-19 13:05 | ED.GENADULT ---
HPI - General Adult General Chief complaint: Weakness Stated complaint: SOB/weakness/confusion/sent from MD Time Seen by Provider: 12/19/22 12:35 Source: patient and family Mode of arrival: Ambulatory History of Present Illness HPI narrative: Patient is an 82-year-old female. She is here with family who provided some of the HPI and review of systems. She was sent to the emergency department by her primary doctor's office for evaluation of altered mental status and weakness. Over the past several months the patient has had multiple issues with urinary tract infections. Has been treated multiple times with different types of antibiotics. He also recently had a workup and concern for giant cell arteritis. Was on prednisone for period of time. She followed up with the neuro certified social workers in health care. 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 She is currently on prednisone. She is not currently on antibiotics. Family at bedside states the last time that they talked with her was on Monday of last week. They did notice that this morning she was more weak and somewhat more confused than her baseline. Patient states she is having some blurry vision but denies headache chest pain shortness of breath abdominal pain nausea vomiting. No numbness or tingling in her upper and lower extremities. No fevers. She is not had her prednisone today. She had a routine follow-up with her primary doctor today who sent her to the emergency department. Related Data Home Medications Medication Instructions Recorded Confirmed vit C,Y-Zk-gyvtf-lutein-zeaxan 1 cap PO BID 12/07/21 12/19/22 [PreserVision AREDS-2] latanoprost 0.005 % eye drops 1 drp ophthalmic (eye) BEDTIME 11/25/22 12/19/22 Glaucoma Previous Rx's Medication Instructions Recorded lisinopril 10 mg tablet See Rx Instructions .Route 04/15/22 .COMPLEX #90 tabs venlafaxine 37.5 mg See Rx Instructions .Route 04/15/22 capsule,extended release 24 hr .COMPLEX #90 caps fluoxetine 20 mg capsule 20 mg PO DAILY #90 caps 08/22/22 acetaminophen 500 mg tablet 1,000 mg PO TID PRN pain #540 tabs 11/30/22 (Tylenol Extra Strength) dimethicone 2 % topical cream 1 applic topical DAILY PRN skin 11/30/22 irritation #113 grams ibuprofen 200 mg tablet (Advil) See Rx Instructions PO Q6H PRN 11/30/22 pain #720 tabs prednisone 5 mg tablet 5 mg PO DAILY #7 tabs 11/30/22 Magnesium Citrate (CALM) 117.5 mg PO DAILY PRN headache #16 12/02/22 oz nortriptyline 10 mg capsule 10 mg PO DAILY #90 caps 12/07/22 prednisone 20 mg tablet 60 mg PO DAILY 30 days #90 tabs 12/19/22 Allergies Allergy/AdvReac Type Severity Reaction Status Date / Time No Known Drug Allergies Allergy Verified 12/19/22 12:10 Review of Systems Review of Systems ROS Unobtainable: All systems reviewed & are unremarkable except as noted in HPI and below Patient History Medical History Cognitive changes Depression No significant past medical history Surgical History History of History of knee surgery Family History Father Stroke Mother Diabetes mellitus Heart attack Social History household members: none Smoking Status: Former smoker Tobacco: How many years used: 20 alcohol intake: current substance use type: does not use Smoking Status: Former smoker tobacco type: cigarettes alcohol intake frequency: a few times a week Alcohol type: wine Substance Use Type: does not use Exam Initial Vital Signs Initial Vital Signs: Vital Signs Temperature 97.8 F 12/19/22 12:01 Pulse Rate 107 H 12/19/22 12:01 Respiratory Rate 22 12/19/22 12:01 Blood Pressure 106/59 L 12/19/22 12:01 Pulse Oximetry 100 12/19/22 12:01 Oxygen Delivery Method Room Air 12/19/22 12:01 Const General: cooperative, comfortable and No ill appearing HENMT Head: normal to inspection Chest Chest: normal inspection of the chest Resp Effort & Inspection: normal respiratory effort Cardio Rate: regular rate Rhythm: regular rhythm GI Inspection: normal to inspection Palpation: soft Skin Other: Surgical incisions bilateral temples consistent with her biopsy. They appear well Neuro General: patient alert, patient awake, patient oriented x3 and moves all extremities Speech: speech normal Sensory Exam: no sensory deficits noted Extrem Other: No gross deformities Course Orders Ordered: ED Orders 12/19/22 12:19 XR chest 1V Stat EKG-12 Lead Stat RT Consult Eval and Treat NOW 12/19/22 12:35 Urine Culture Stat Urine Microscopic Stat 12/19/22 13:05 CT head/brain wo con Stat 12/19/22 13:15 Complete Blood Count AUTO DIFF Stat Comprehensive Metabolic Panel Stat Lactate (Lactic Acid) Stat Lipase Stat PTT Partial Thromboplastin Jose Stat Procalcitonin Stat Prothrombin Time INR Stat 12/19/22 13:40 Respiratory Panel (Film Array) Stat 12/19/22 13:52 Blood Culture Stat Ondansetron HCl (Ondansetron 4 Mg/2 Ml Inj) 4 mg IV NOW PRN PRN Reason: Nausea And Vomiting Ondansetron HCl (Ondansetron 4 Mg Odt) 4 mg SL NOW PRN PRN Reason: Nausea And Vomiting Discontinued Medications Sodium Chloride (Normal Saline 0.9%) 1,000 mls @ 500 mls/hr IV BOLUS ONE Stop: 12/19/22 15:04 Last Admin: 12/19/22 13:42 Dose: 500 mls/hr Documented By: AURELIA Vital Signs Vital signs: Vital Signs - 8 hr 12/19/22 12:01 12/19/22 12:51 12/19/22 12:51 Temperature 97.8 F Pulse Rate 107 H 102 H Respiratory Rate 22 Blood Pressure 106/59 L 106/62 Pulse Oximetry 100 98 Oxygen Delivery Method Room Air 12/19/22 13:30 12/19/22 13:31 12/19/22 13:31 Temperature Pulse Rate 101 H 102 H Respiratory Rate Blood Pressure 107/58 L Pulse Oximetry 98 98 Oxygen Delivery Method Medical Decision Making Medical Records Medical records reviewed: Yes I reviewed the patient's medical records. Lab Data Lab results reviewed: Yes I reviewed the patient's lab results. 12/19/22 13:15 12/19/22 13:15 Labs: Lab Results 12/19/22 12/19/22 12/19/22 Range/Units 12:35 13:15 13:15 WBC 10.9 (4.5-11.0) X10^3/uL RBC 3.86 L (4.0-5.2) X10^6/uL Hgb 11.3 L (12.0-16.0) g/dL Hct 34.4 L (36-46) % MCV 89.2 (80-100) fL MCH 29.2 (26-34) PG MCHC 32.7 (30-36) % RDW 14.5 (11.6-14.8) % Plt Count 294 (150-400) X10^3/uL Neut % (Auto) 78.9 H (50-75) % Lymph % (Auto) 11.1 L (25-40) % [place] % (Auto) 8.2 (3-14) % Eos % (Auto) 0.7 L (2-4) % Baso % (Auto) 1.1 (0-2) % Neut # (Auto) 8600 H (9565-3524) /uL Lymph # (Auto) 1200 (5805-2597) /uL [place] # (Auto) 900 (0-900) /uL Eos # (Auto) 100 (0-450) /uL Baso # (Auto) 100 (0-100) /uL PT 13.7 H (10.1-12.7) SECONDS INR 1.2 (0.9-1.3) APTT 32 (26-36) SECONDS Sodium (137-145) mmol/L Potassium (3.4-5.1) mmol/L Chloride (98-107) mmol/L Carbon Dioxide (22-32) mmol/L BUN (7-17) mg/dL Creatinine (0.52-1.04) mg/dL Estimated GFR (>60) mL/min BUN/Creatinine Ratio (6-22) Glucose (80-110) mg/dL Lactate (0.7-2.1) mmol/L Calcium (8.4-10.2) mg/dL Total Bilirubin (0.2-1.3) mg/dL AST (14-36) IU/L ALT (<35) IU/L Alkaline Phosphatase (38-126) U/L Total Protein (6.3-8.2) g/dL Albumin (3.5-5.0) g/dL Globulin (1.7-4.1) g/dL Albumin/Globulin Ratio (1.0-2.8) Lipase (23-300) U/L Procalcitonin (<0.5) ng/mL Urine RBC 5-10/hpf H (0-5/HPF) Urine WBC 10-30/hpf H (0-5/HPF) Ur Squamous Epith Cells 1-5 /hpf (0-5/HPF) Urine Bacteria Many (>30) H (None) Ur Culture Indicated? Specimen cultured Chlamy pneumoniae PCR (Not Detect) Adenovirus (PCR) (Not Detect) B. pertussis DNA (PCR) (Not Detecte) B.parapertussis DNA PCR (Not Detecte) Coronavirus OC43 (PCR) (Not Detect) Coronavirus HKU1 (PCR) (Not Detect) Coronavirus 229E (PCR) (Not Detect) SARS-CoV-2 (PCR) (Not Detecte) Coronavirus NL63 (PCR) (Not Detect) Human Metapneumovir PCR (Not Detect) Influenza Type A (PCR) (Not Detect) Influenza Type B (PCR) (Not Detect) M. pneumoniae (PCR) (Not Detect) Parainfluenza 1 (PCR) (Not Detect) Parainfluenza 2 (PCR) (Not Detect) Parainfluenza 3 (PCR) (Not Detect) Parainfluenza 4 (PCR) (Not Detect) RSV (PCR) (Not Detect) Entero/Rhino (PCR) (Not Detect) 12/19/22 12/19/22 12/19/22 Range/Units 13:15 13:15 13:40 WBC (4.5-11.0) X10^3/uL RBC (4.0-5.2) X10^6/uL Hgb (12.0-16.0) g/dL Hct (36-46) % MCV (80-100) fL MCH (26-34) PG MCHC (30-36) % RDW (11.6-14.8) % Plt Count (150-400) X10^3/uL Neut % (Auto) (50-75) % Lymph % (Auto) (25-40) % [place] % (Auto) (3-14) % Eos % (Auto) (2-4) % Baso % (Auto) (0-2) % Neut # (Auto) (1251-2499) /uL Lymph # (Auto) (4160-4541) /uL [place] # (Auto) (0-900) /uL Eos # (Auto) (0-450) /uL Baso # (Auto) (0-100) /uL PT (10.1-12.7) SECONDS INR (0.9-1.3) APTT (26-36) SECONDS Sodium 134 L (137-145) mmol/L Potassium 3.7 (3.4-5.1) mmol/L Chloride 101 (98-107) mmol/L Carbon Dioxide 24 (22-32) mmol/L BUN 20 H (7-17) mg/dL Creatinine 0.87 (0.52-1.04) mg/dL Estimated GFR > 60 (>60) mL/min BUN/Creatinine Ratio 23.0 H (6-22) Glucose 103 (80-110) mg/dL Lactate 2.3 H (0.7-2.1) mmol/L Calcium 9.7 (8.4-10.2) mg/dL Total Bilirubin 0.8 (0.2-1.3) mg/dL AST 20 (14-36) IU/L ALT 18 (<35) IU/L Alkaline Phosphatase 92 (38-126) U/L Total Protein 6.9 (6.3-8.2) g/dL Albumin 3.7 (3.5-5.0) g/dL Globulin 3.2 (1.7-4.1) g/dL Albumin/Globulin Ratio 1.2 (1.0-2.8) Lipase 254 (23-300) U/L Procalcitonin 0.10 (<0.5) ng/mL Urine RBC (0-5/HPF) Urine WBC (0-5/HPF) Ur Squamous Epith Cells (0-5/HPF) Urine Bacteria (None) Ur Culture Indicated? Chlamy pneumoniae PCR Not detected (Not Detect) Adenovirus (PCR) Not detected (Not Detect) B. pertussis DNA (PCR) Not detected (Not Detecte) B.parapertussis DNA PCR Not detected (Not Detecte) Coronavirus OC43 (PCR) Not detected (Not Detect) Coronavirus HKU1 (PCR) Not detected (Not Detect) Coronavirus 229E (PCR) Not detected (Not Detect) SARS-CoV-2 (PCR) Not detected (Not Detecte) Coronavirus NL63 (PCR) Not detected (Not Detect) Human Metapneumovir PCR Not detected (Not Detect) Influenza Type A (PCR) Not detected (Not Detect) Influenza Type B (PCR) Not detected (Not Detect) M. pneumoniae (PCR) Not detected (Not Detect) Parainfluenza 1 (PCR) Not detected (Not Detect) Parainfluenza 2 (PCR) Not detected (Not Detect) Parainfluenza 3 (PCR) Not detected (Not Detect) Parainfluenza 4 (PCR) Not detected (Not Detect) RSV (PCR) Not detected (Not Detect) Entero/Rhino (PCR) Not detected (Not Detect) Urine Dip Bedside Urine Glucose Negative Bedside Urine Bilirubin - Negative Bedside Urine Ketone ++ 40 Urine Specific [place] 1.015 Bedside Urine Occult Blood +++ Bedside Urine pH 6.5 Bedside Urine Protein + 30 Bedside Urine Urobilinogen - Negative Bedside Urine Nitrite - Negative Bedside Urine Leukocytes +++ 500 Esterase Point of care testing: Urine Dip Bedside Urine Glucose Negative Bedside Urine Bilirubin - Negative Bedside Urine Ketone ++ 40 Urine Specific [place] 1.015 Bedside Urine Occult Blood +++ Bedside Urine pH 6.5 Bedside Urine Protein + 30 Bedside Urine Urobilinogen - Negative Bedside Urine Nitrite - Negative Bedside Urine Leukocytes +++ [address] scan - head: Radiologist's Impression: PROCEDURE:? CT HEAD/BRAIN WO CON ? INDICATIONS:? Altered mental status ? TECHNIQUE:? Noncontrast 4.5 mm thick angled axial sections acquired from the foramen magnum to the vertex, with coronal and sagittal reformats.? For radiation dose reduction, the following was used:? automated exposure control, adjustment of mA and/or kV according to patient size.? ? COMPARISON:? [facility], CT, CT HEAD/BRAIN WO CON, 12/01/2022, 21:56. ? FINDINGS:? Image quality:? This examination is limited by involuntary motion artifact.? ? CSF spaces:? Basal cisterns are patent.? No extra-axial fluid collections.? The ventricles are symmetric in size and shape.? ? Brain:? No intracranial bleeds or masses.? There is cerebral volume loss for age, with resultant ventricular and sulcal prominence.? There are periventricular and deep white matter chronic small vessel ischemic changes.? Lacunar infarctions are seen, including involving the right head of the caudate nucleus. ? There is intracranial internal carotid artery atherosclerosis.? ? Skull and face:? Calvarium and visualized facial bones appear intact, without suspicious lesions.? ? Sinuses:? Visualized sinuses and mastoids are clear.? IMPRESSION:? Motion limited study, without an acute intracranial abnormality identified. Chest x-ray: Radiologist's Impression: PROCEDURE:? XR CHEST 1V ? INDICATIONS:? suspected sepsis ? TECHNIQUE:? One view of the chest was acquired.? ? COMPARISON:? None. ? FINDINGS:? ? Surgical changes and devices:? None.? ? Lungs and pleura:? Bibasilar atelectasis..? No pleural effusions or pneumothorax.? ? Mediastinum:? Mediastinal contours appear normal.? Eventration of the right hemidiaphragm.? Heart size is normal.? ? Bones and chest wall:? No suspicious bony lesions.? Overlying soft tissues appear unremarkable.? ? ? IMPRESSION:? Bibasilar atelectasis versus consolidation.? Otherwise, the lungs are clear. ECG Data Interpretation: Sinus rhythm Ventricular rate 99 Normal axis Normal QRS Normal QTC No ST T wave changes MDM Narrative Medical decision making narrative: Her workup here in the emergency department is very reassuring. She does have some indication of a potential urinary tract infection but no overt symptoms today. Given the amount of time that she is been on antibiotics over the past several weeks I feel prudent that we should hold on treating with antibiotics and wait for the urine culture to result. This is an an effort to try to avoid unnecessary or inappropriate antibiotics. I have low suspicion for ACS or CVA. She did feel somewhat better after fluids and she was able to walk up and down the hallway with her walker. She states that she felt fine. Her family at bedside states this is much different than what it was this morning. I do have some concern that maybe the patient has not spent a whole lot of time walking around the facility where she lives. She has her food deliver to her room. I advised her that she should try to get out more and try to get more exercise. There is no easily identifiable reversible cause of her presentation today. Will discharge patient home with return precautions. With the patient and family expressed understanding and agreement. Discharge Plan Departure Patient Disposition: Home Clinical Impression: Fatigue Instructions: DI for Fatigue Activity Restrictions/Additional Instructions: I do recommend that you continue to take all of your medications as directed. A urine culture was pending at the time of your discharge and we will contact you if we need to start any antibiotics based on this. Recommend that you keep all of your scheduled medical appointments. It is important that your up and moving around at home. Return to the emergency department for new or worsening symptoms. Prescriptions: No Action venlafaxine 37.5 mg capsule,extended release 24hr See Rx Instructions .ROUTE .COMPLEX Qty: 90 2RF Dose Instruction: GIVE 1 CAPSULE ORALLY ONCE A DAY (DEPRESSION) Rx Instructions: GIVE 1 CAPSULE ORALLY ONCE A DAY (DEPRESSION) lisinopril 10 mg tablet See Rx Instructions .ROUTE .COMPLEX Qty: 90 2RF Dose Instruction: GIVE 1 TABLET ORALLY ONCE A DAY Rx Instructions: GIVE 1 TABLET ORALLY ONCE A DAY fluoxetine 20 mg capsule 20 mg PO DAILY Qty: 90 1RF nortriptyline 10 mg capsule 10 mg PO DAILY Qty: 90 0RF vit C,T-Vo-naghz-lutein-zeaxan [PreserVision AREDS-2] 1 cap PO BID Patient Comments: provided by family otc Rx Instructions: take 1 bid prednisone 5 mg tablet 5 mg PO DAILY Qty: 7 0RF Rx Instructions: start after finishing 10mg (1/2 tab 20mg) end of taper acetaminophen [Tylenol Extra Strength] 500 mg tablet 1,000 mg PO TID MDD 6 PRN (Reason: pain) Qty: 540 0RF ibuprofen [Advil] 200 mg tablet See Rx Instructions PO Q6H PRN (Reason: pain) Qty: 720 0RF Rx Instructions: 1 to 2 tabs orally every 6 hours PRN; dimethicone 2 % cream 1 applic topical DAILY PRN (Reason: skin irritation) Qty: 113 0RF prednisone 20 mg tablet 60 mg PO DAILY 30 Days Qty: 90 2RF Magnesium Citrate (CALM) 235 mg powder 117.5 mg PO DAILY MDD 3 doses PRN (Reason: headache) Qty: 16 11RF Rx Instructions: take 1/2 scoop (117.5mg) magnesium citrate daily as needed for headache. Can repeat two more times in 24 hour period if symptoms do not resolve in 1 hour. latanoprost 0.005 % Drops 1 drp OPHTHALMIC (EYE) BEDTIME Referrals: Angie Armas DO [Primary Care Provider] - Stand Alone Forms: Patient Portal/API
[2022-12-19 13:18] LABS: Bacteria Urine Many (>30); Culture Indicated Urine Specimen Cultured; RBC Urine 5-10/HPF (0-5/HPF); Squamous Epithelial Cell Urine 1-5 /HPF (0-5/HPF); WBC Urine 10-30/HPF (0-5/HPF)
[2022-12-19 13:38] LABS: Add Manual Diff / Slide Review NO; Basophils Absolute Auto 100 /uL (0-100); Basophils Percent Auto 1.1 % (0-2); Eosinophils Absolute Auto 100 /uL (0-450); Eosinophils Percent Auto 0.7 % (2-4); Hematocrit 34.4 % (36-46); Hemoglobin 11.3 g/dL (12.0-16.0); Lymphocytes Absolute Auto 1200 /uL (1100-4500); Lymphocytes Percent Auto 11.1 % (25-40); Mean Corpuscular HGB Conc 32.7 % (30-36); Mean Corpuscular Hemoglobin 29.2 PG (26-34); Mean Corpuscular Volume 89.2 fL (80-100); Monocytes Absolute Auto 900 /uL (0-900); Monocytes Percent Auto 8.2 % (3-14); Neutrophils Absolute Auto 8600 /uL (1500-7000); Neutrophils Percent Auto 78.9 % (50-75); Platelet Count 294 X10^3/uL (150-400); Red Blood Cell Count 3.86 X10^6/uL (4.0-5.2); Red Cell Distribution Width 14.5 % (11.6-14.8); White Blood Cell Count 10.9 X10^3/uL (4.5-11.0)
[2022-12-19] MEDS: SODIUM CHLORIDE 0.9% 1,000 ML 500 ML IV (13:42)
[2022-12-19 13:51] LABS: INR 1.2 (0.9-1.3); Prothrombin Time 13.7 SECONDS (10.1-12.7)
[2022-12-19 13:53] LABS: PTT Partial Thromboplastin Tim 32 SECONDS (26-36)
[2022-12-19 13:55] LABS: Lactate (Lactic Acid) 2.3 mmol/L (0.7-2.1)
[2022-12-19 13:56] LABS: Alanine Aminotransferase 18 IU/L (<35); Albumin 3.7 g/dL (3.5-5.0); Albumin Globulin Ratio 1.2 (1.0-2.8); Alkaline Phosphatase 92 U/L (38-126); Aspartate Aminotransferase 20 IU/L (14-36); Bilirubin Total 0.8 mg/dL (0.2-1.3); Blood Urea Nitrogen 20 mg/dL (7-17); Calcium 9.7 mg/dL (8.4-10.2); Carbon Dioxide 24 mmol/L (22-32); Chloride 101 mmol/L (98-107); Estimated Glomerular Filt Rate > 60 mL/min (>60); Globulin 3.2 g/dL (1.7-4.1); Glucose 103 mg/dL (80-110); HEMOLYSIS < 15 (0-50); Lipase 254 U/L (23-300); Potassium 3.7 mmol/L (3.4-5.1); Sodium 134 mmol/L (137-145); Total Protein 6.9 g/dL (6.3-8.2)
[2022-12-19 14:38] LABS: Adenovirus Not Detected (Not Detect); B. parapertussis Not Detected (Not Detecte); Bordetella pertussis Not Detected (Not Detecte); Chlamydophila pneumoniae Not Detected (Not Detect); Coronavirus 229E Not Detected (Not Detect); Coronavirus HKU1 Not Detected (Not Detect); Coronavirus NL 63 Not Detected (Not Detect); Coronavirus OC43 Not Detected (Not Detect); Human Metapneumovirus Not Detected (Not Detect); Human Rhinovirus/Enterovirus Not Detected (Not Detect); Influenza A Not Detected (Not Detect); Influenza B Not Detected (Not Detect); Mycoplasma pneumoniae Not Detected (Not Detect); Parainfluenza Virus 1 Not Detected (Not Detect); Parainfluenza Virus 2 Not Detected (Not Detect); Parainfluenza Virus 3 Not Detected (Not Detect); Parainfluenza Virus 4 Not Detected (Not Detect); Respiratory Syncytial Virus Not Detected (Not Detect); SARS- CoV-2 Not Detected (Not Detecte)
[2022-12-19 15:32] LABS: Reflexed Lactate in 2 Hours Y
--- NOTE | 2022-12-19 15:34 | PC.NURSE ---
PIT CLERK Note - Patient ambulated with the assistance of a walker, and with no complaints of weakness, nausea, lightheadedness, and no shortness of breathe.
== END 2022-12-19 16:29 | disposition home or self-care (01) ==
PROVIDERS: Emergency Provider Emergency Medicine; PCP Family Medicine
DX: N39.0 Urinary tract infection, site not specified (principal); B96.20 Unspecified Escherichia coli [E. coli] as the cause of diseases classified elsewhere; R06.02 Shortness of breath; Z79.899 Other long term (current) drug therapy
CPT/HCPCS: 36415; 70450; 71045; 80053; 81003; 81015; 83605; 83690; 84145; 85025; 85610; 85730; 87040; 87077; 87086; 87186; 87633; 93005; 99284

== ENCOUNTER → 2022-12-27 10:02 | Outpatient (CLI) | payer MEDICARE, SELFPAY | PROVIDERS: PCP Family Medicine; Visit Provider Family Medicine | DX: N39.0 Urinary tract infection, site not specified (principal); H40.9 Unspecified glaucoma | CPT/HCPCS: 87086 ==

== ENCOUNTER → 2023-04-12 13:19 | Outpatient (CLI) | payer MEDICARE, SELFPAY ==
[2023-04-12 13:25] LABS: Urine Volume 10mL (spun)
[2023-04-12 14:38] LABS: Appearance Urine UA CLOUDY; Bilirubin Urine UA NEGATIVE (NEGATIVE); Color Urine UA YELLOW; Glucose Urine UA NEGATIVE (Negative); Ketones Urine UA NEGATIVE (NEGATIVE); Leukocyte Esterase Urine UA 3+ (NEGATIVE); Nitrite Urine UA NEGATIVE (Negative); Occult Blood Urine UA TRACE-INTACT (Negative); Protein Urine UA NEGATIVE (Negative); Urobilinogen Urine UA 0.2 E.U./dL (0.2)
[2023-04-12 14:50] LABS: RBC Urine None Seen (0-5/HPF)
[2023-04-12 14:51] LABS: Bacteria Urine Many (>30); Culture Indicated Urine Specimen Cultured; Squamous Epithelial Cell Urine 1-5 /HPF (0-5/HPF); WBC Urine 30-100/HPF (0-5/HPF)
== END ==
PROVIDERS: PCP Family Medicine; Referring Provider Family Medicine; Visit Provider Family Medicine
DX: N39.0 Urinary tract infection, site not specified (principal)
CPT/HCPCS: 81001; 87077; 87086; 87186

== ENCOUNTER → 2023-04-21 11:30 | Outpatient (CLI) | payer MEDICARE, SELFPAY ==
[2023-04-21 13:19] LABS: Appearance Urine UA CLEAR; Bilirubin Urine UA NEGATIVE (NEGATIVE); Color Urine UA YELLOW; Glucose Urine UA NEGATIVE (Negative); Ketones Urine UA TRACE (NEGATIVE); Leukocyte Esterase Urine UA NEGATIVE (NEGATIVE); Nitrite Urine UA NEGATIVE (Negative); Occult Blood Urine UA NEGATIVE (Negative); Protein Urine UA TRACE (Negative); Specific Gravity Urine UA 1.025 (1.000-1.035); Urobilinogen Urine UA 0.2 E.U./dL (0.2)
[2023-04-21 13:39] LABS: Bacteria Urine Occasional (0-1); Culture Indicated Urine Cult Not Indicated; Mucus Urine 1+ (Negative); RBC Urine 0-1/HPF (0-5/HPF); Squamous Epithelial Cell Urine 10-30 /HPF (0-5/HPF); Urine Volume 10mL (spun); WBC Urine 0-1/HPF (0-5/HPF)
== END ==
PROVIDERS: PCP Family Medicine; Referring Provider Family Medicine; Visit Provider Family Medicine
DX: N39.0 Urinary tract infection, site not specified (principal)
CPT/HCPCS: 81001

== ENCOUNTER → 2023-05-22 17:29 | Outpatient (CLI) | payer MEDICARE, SELFPAY ==
[2023-05-22 18:19] LABS: C-Reactive Protein Quant 0.6 mg/dL (<1.0)
[2023-05-22 18:21] LABS: Erythrocyte Sedimentation Rate 17 MM/HR (0-20)
== END ==
PROVIDERS: PCP Family Medicine; Referring Provider Internal Medicine Rheumatology; Visit Provider Internal Medicine Rheumatology
DX: M31.6 Other giant cell arteritis (principal); Z79.899 Other long term (current) drug therapy
CPT/HCPCS: 36415; 85651; 86140

== ENCOUNTER 2023-06-04 15:29 | Emergency (ER) | payer MEDICARE, SELFPAY ==
[2023-06-04 15:39] VITALS: BP 142/70; PULSE 114; RESP 20; TEMP 37; O2SAT 98; BMI 22.5
--- NOTE | 2023-06-04 15:56 | DI.RAD.S_ITS ---
PROCEDURE: XR CHEST 1V INDICATIONS: chest pain TECHNIQUE: One view of the chest was acquired. COMPARISON: [facility], CR, XR CHEST 1V, 12/19/2022, 12:35. FINDINGS: Surgical changes and devices: None. Lungs and pleura: Low lung volumes, but otherwise lungs are clear. No pleural effusions or pneumothorax. Mediastinum: Mediastinal contours appear normal. Heart size is normal. Bones and chest wall: No suspicious bony lesions. Overlying soft tissues appear unremarkable. IMPRESSION: Low lung volumes, but otherwise lungs are clear. Approved by: Eugenia Kessler M.D. on 06/04/2023 at 15:40
--- NOTE | 2023-06-04 16:09 | DI.CT.S_ITS ---
PROCEDURE: CT ANGIO HEAD AND NECK INDICATIONS: h/o giant cell artiritis, new headache TECHNIQUE: After the administration of intravenous contrast, 1 mm thick sections acquired from the aortic arch through the [place] of [place]. 3-dimensional iqndpgw-ojfqbaeil-qkmekeiqhl (MIP) and/or volume rendering reformats were acquired of the central intracranial vasculature and neck separately. For radiation dose reduction, the following was used: automated exposure control, adjustment of mA and/or kV according to patient size. COMPARISON: [facility], CT, CT ANGIO HEAD AND NECK, 12/01/2022, 21:56. FINDINGS: Image quality: Diagnostic. BRAIN: The ventricular system and cortical sulci demonstrate atrophy, consistent for the patient's stated age. There are areas of hypodensity within the periventricular and subcortical white matter. There is no acute intra-or extra axial fluid collection. No acute hemorrhage, mass lesion or midline shift. Brainstem is unremarkable. Globes are symmetrical. Sinuses are aerated. Osseous structures are intact. HEAD CT ANGIOGRAPHY: Anterior circulation: Intracranial internal carotid arteries are normal in size and flow. The flow within the paired anterior cerebral arteries is normal and symmetric. The flow within the middle cerebral arteries is normal and symmetric. The anterior communicating artery is seen. No aneurysms are seen. Posterior circulation: Slight right vertebral artery dominance. Visualized portions of the vertebral arteries demonstrate normal caliber, and join to form a normal appearing basilar artery. Flow within the posterior cerebral arteries is normal and symmetric. No aneurysms are seen. 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 The origins of the common carotid arteries appear patent. The common carotid arteries demonstrate normal caliber and courses. The bifurcation regions are both widely patent. The internal carotid arteries demonstrate normal calibers and courses. Posterior circulation: The origins of the vertebral arteries both appear widely patent. The more superior extracranial portions of both vertebral arteries also demonstrate normal courses and calibers. They join to form a normal appearing basilar artery. Soft tissues: Visualized neck soft tissues demonstrate no suspicious abnormalities. Bones: No suspicious bony lesions. Visualized cervical spine appears normally aligned. IMPRESSION: 1. No acute intracranial process. 2. Moderate atrophy and chronic microvascular ischemic changes. 3. No areas of hemodynamically significant stenosis, vascular occlusion or aneurysmal dilation within the anterior circulation. 4. No areas of hemodynamically significant stenosis, vascular occlusion or aneurysmal dilation within the neck vasculature. Any quantitative measurements of stenosis were performed using NASCET criteria. Dictated by: Jena Babin M.D. on 06/04/2023 at 17:06 Approved by: Jena Babin M.D. on 06/04/2023 at 17:11
--- NOTE | 2023-06-04 16:14 | ED_ITS ---
HPI - Neck Pain/Injury General Chief Complaint: Neck Pain/Injury Stated Complaint: states giant cell artiritis/headache/post surg Time Seen by Provider: 06/04/23 15:47 Mode of arrival: Ambulatory History of Present Illness HPI Narrative: 82-year-old female with history of giant cell arteritis on prednisone presents from her assisted living facility for right-sided neck pain. Patient states she was recently diagnosed with breast cancer and is planning to undergo surgery in 4 days. She has been tapering from her daily 40 mg of prednisone in his currently on 10 mg prednisone daily. She states that she has gradually over the last week had worsening pain in her right neck and head. She states that these with the exact same symptoms that she experienced when she was 1st diagnosed with giant cell arteritis. 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 Pain not relieved with tramadol. Related Data Home Medications Medication Instructions Recorded Confirmed prednisone 10 mg tablet 10 mg PO DAILY 06/07/23 06/09/23 Previous Rx's Medication Instructions Recorded acetaminophen 500 mg tablet 1,000 mg (2 x 500 mg) PO TID PRN 11/30/22 (Tylenol Extra Strength) pain #540 tabs ibuprofen 200 mg tablet (Advil) See Rx Instructions PO Q6H PRN 11/30/22 pain #720 tabs Magnesium Citrate (CALM) 117.5 mg PO DAILY PRN headache #16 12/02/22 oz lisinopril 10 mg tablet See Rx Instructions .Route 01/10/23 .COMPLEX #90 tabs venlafaxine 37.5 mg See Rx Instructions .Route 01/10/23 capsule,extended release 24 hr .COMPLEX #90 caps fluoxetine 20 mg capsule 20 mg PO DAILY #90 caps 02/21/23 lidocaine 5 % topical ointment 1 applic topical DAILY PRN pain 04/21/23 #30 grams latanoprost 0.005 % eye drops 1 drp EYE-BOTH QPM #7.5 mL 05/03/23 methenamine hippurate 1 gram 1 g PO BID #180 tabs 05/17/23 tablet (Hiprex) nortriptyline 10 mg capsule 10 mg PO DAILY #90 caps 06/07/23 vit C 250 mg-vit E 90 mg-zinc 40 1 cap PO BID #60 caps 06/07/23 mg-copper 1 hh-wswqrq-ycbhlv capsule (PreserVision AREDS-2) tramadol 50 mg tablet 50 mg PO Q6H PRN pain #5 tabs 06/08/23 Allergies Allergy/AdvReac Type Severity Reaction Status Date / Time No Known Drug Allergies Allergy Verified 06/09/23 12:59 Review of Systems Review of Systems Narrative: Negative except as noted above Patient History Medical History On prednisone therapy Depression Cognitive changes No significant past medical history Surgical History History of knee surgery History of Family History Father Stroke Mother Diabetes mellitus Heart attack Social History marital status: unknown household members: none housing: assisted living facility occupational status: previously employed Smoking Status: Former smoker Tobacco: How many years used: 20 alcohol intake: former substance use type: does not use Smoking Status: Former smoker tobacco type: cigarettes alcohol intake frequency: a few times a week Alcohol type: wine Substance Use Type: does not use Exam Initial Vital Signs Initial Vital Signs: Vital Signs Temperature 98.6 F 06/04/23 15:39 Pulse Rate 114 H 06/04/23 15:39 Respiratory Rate 20 06/04/23 15:39 Blood Pressure 142/70 H 06/04/23 15:39 Pulse Oximetry 98 06/04/23 15:39 Oxygen Delivery Method Room Air 06/04/23 15:39 Const: Awake, alert, no acute distress, nontoxic appearing Cardiac: regular rate, regular rhythm RESP: unlabored, clear bilaterally, no wheezing GI: Soft, nontender, nondistended, no rebound, no guarding MSK: Atraumatic, full range of motion, pulses equal Skin: Warm, Dry, intact, no rashes Neuro: AO x3, CN II-XII grossly intact, moves all extremities Course Orders Ordered: Discontinued Medications Etomidate (Etomidate 2 Mg/Ml 10 Ml Vial) 10 mg IV NOW ONE Stop: 06/04/23 17:18 Last Admin: 06/04/23 17:03 Dose: Not Given Documented By: FRANK Prednisone (Prednisone 20 Mg Tablet) 40 mg PO NOW ONE Stop: 06/04/23 17:23 Last Admin: 06/04/23 17:32 Dose: Not Given Documented By: SB Prednisone (Prednisone 20 Mg Tablet) 30 mg PO NOW ONE Stop: 06/04/23 17:31 Last Admin: 06/04/23 17:39 Dose: 30 mg Documented By: TC Vital Signs Vital signs: Vital Signs - 8 hr 06/04/23 15:39 Temperature 98.6 F Pulse Rate 114 H Respiratory Rate 20 Blood Pressure 142/70 H Pulse Oximetry 98 Oxygen Delivery Method Room Air MDM - Neck Pain/Injury Lab Data 06/04/23 16:06 06/04/23 16:06 Labs: Lab Results 06/04/23 Range/Units 16:06 WBC 8.5 (4.5-11.0) X10^3/uL RBC 3.99 L (4.0-5.2) X10^6/uL Hgb 11.9 L (12.0-16.0) g/dL Hct 35.8 L (36-46) % MCV 89.9 (80-100) fL MCH 29.9 (26-34) PG MCHC 33.3 (30-36) % RDW 16.2 H (11.6-14.8) % Plt Count 238 (150-400) X10^3/uL Neut % (Auto) 84.3 H (50-75) % Lymph % (Auto) 6.8 L (25-40) % Grimes % (Auto) 8.6 (3-14) % Eos % (Auto) 0.1 L (2-4) % Baso % (Auto) 0.2 (0-2) % Neut # (Auto) 7200 H (5120-1255) /uL Lymph # (Auto) 600 L (8415-4285) /uL Grimes # (Auto) 700 (0-900) /uL Eos # (Auto) 0 (0-450) /uL Baso # (Auto) 0 (0-100) /uL ESR 36 H (0-20) MM/HR PT 10.7 (9.4-12.5) SECONDS INR 0.9 (0.9-1.3) APTT 29 (25.1-36.5) SECONDS Sodium 135 L (137-145) mmol/L Potassium 4.8 (3.4-5.1) mmol/L Chloride 104 (98-107) mmol/L Carbon Dioxide 24 (22-32) mmol/L BUN 30 H (7-17) mg/dL Creatinine 0.93 (0.52-1.04) mg/dL Estimated GFR > 60 (>60) mL/min BUN/Creatinine Ratio 32.3 H (6-22) Glucose 124 H (80-110) mg/dL Calcium 9.4 (8.4-10.2) mg/dL Magnesium 1.9 (1.6-2.3) mg/dL Total Bilirubin 0.5 (0.2-1.3) mg/dL AST 25 (14-36) IU/L ALT 26 (<35) IU/L Alkaline Phosphatase 94 (38-126) U/L Total Creatine Kinase < 20 L (30-135) U/L Troponin I < 0.012 (0.01-0.034) ng/mL C-Reactive Protein 0.7 (<1.0) mg/dL Total Protein 7.0 (6.3-8.2) g/dL Albumin 4.1 (3.5-5.0) g/dL Globulin 2.9 (1.7-4.1) g/dL Albumin/Globulin Ratio 1.4 (1.0-2.8) Lipase 287 (23-300) U/L Imaging Data CT scan - head: Radiologist's Impression: PROCEDURE: CT ANGIO HEAD AND NECK INDICATIONS: h/o giant cell artiritis, new headache TECHNIQUE: After the administration of intravenous contrast, 1 mm thick sections acquired from the aortic arch through the [place] of [place]. 3-dimensional oygcyfh-uefiroyqg-arhyxlhpjg (MIP) and/or volume rendering reformats were acquired of the central intracranial vasculature and neck separately. For radiation dose reduction, the following was used: automated exposure control, adjustment of mA and/or kV according to patient size. COMPARISON: [facility], CT, CT ANGIO HEAD AND NECK, 12/01/2022, 21:56. FINDINGS: Image quality: Diagnostic. BRAIN: The ventricular system and cortical sulci demonstrate atrophy, consistent for the patient's stated age. There are areas of hypodensity within the periventricular and subcortical white matter. There is no acute intra-or extra axial fluid collection. No acute hemorrhage, mass lesion or midline shift. Brainstem is unremarkable. Globes are symmetrical. Sinuses are aerated. Osseous structures are intact. HEAD CT ANGIOGRAPHY: Anterior circulation: Intracranial internal carotid arteries are normal in size and flow. The flow within the paired anterior cerebral arteries is normal and symmetric. The flow within the middle cerebral arteries is normal and symmetric. The anterior communicating artery is seen. No aneurysms are seen. Posterior circulation: Slight right vertebral artery dominance. Visualized portions of the vertebral arteries demonstrate normal caliber, and join to form a normal appearing basilar artery. Flow within the posterior cerebral arteries is normal and symmetric. No aneurysms are seen. 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 The origins of the common carotid arteries appear patent. The common carotid arteries demonstrate normal caliber and courses. The bifurcation regions are both widely patent. The internal carotid arteries demonstrate normal calibers and courses. Posterior circulation: The origins of the vertebral arteries both appear widely patent. The more superior extracranial portions of both vertebral arteries also demonstrate normal courses and calibers. They join to form a normal appearing basilar artery. Soft tissues: Visualized neck soft tissues demonstrate no suspicious abnormalities. Bones: No suspicious bony lesions. Visualized cervical spine appears normally aligned. IMPRESSION: 1. No acute intracranial process. 2. Moderate atrophy and chronic microvascular ischemic changes. 3. No areas of hemodynamically significant stenosis, vascular occlusion or aneurysmal dilation within the anterior circulation. 4. No areas of hemodynamically significant stenosis, vascular occlusion or aneurysmal dilation within the neck vasculature. Any quantitative measurements of stenosis were performed using NASCET criteria. Dictated by: Jena Babin M.D. on 06/04/2023 at 17:06 Approved by: Jena Babin M.D. on 06/04/2023 at 17:11 [facility] Narrative Medical decision making narrative: Patient presenting for right-sided neck pain similar to when she was diagnosed with giant cell arteritis and lost vision in her right eye. CT angio of the head and neck reviewed, no significant stenosis seen. Laboratory work reviewed. Discussed case with on-call retail assistant store manager at patient's [facility] Dr. Harding, who recommended increasing the prednisone up from 10 mg daily to 40 mg daily and following up within the week for evaluation in person. I discussed recommendations with family at bedside and also recommended notifying the surgeon who is going to perform her mastectomy of her increase in prednisone. Family states that they will make sure to contact the rheumatology clinic tomorrow for their follow up appointment. Patient has received 10 mg of prednisone today, 30 mg additional prednisone provided here in the emergency department so that patient's total dose today is 40 mg. ED return precautions discussed at bedside. Patient expressed understanding of the plan and is in agreement at this time. All questions answered at the time of discharge. Discharge Plan Departure Patient Disposition: Home Clinical Impression: Giant cell arteritis Instructions: Giant Cell Arteritis Activity Restrictions/Additional Instructions: After discussion with your retail assistant store manager today they recommend that you go back to 40 mg of prednisone today and tomorrow (06/05/23). Your 40 mg dose of prednisone was given today in the emergency department. After tomorrow please call the rheumatology office to let them know your symptoms and to see if you need to continue on 40 mg daily or if you may start to taper your dose again. Call your surgeon's office and let him know that you are having to go back up on the prednisone. Prescriptions: No Action venlafaxine 37.5 mg capsule,extended release 24hr See Rx Instructions .ROUTE .COMPLEX Qty: 90 2RF Dose Instruction: GIVE 1 CAPSULE ORALLY ONCE A DAY (DEPRESSION) Rx Instructions: GIVE 1 CAPSULE ORALLY ONCE A DAY (DEPRESSION) lisinopril 10 mg tablet See Rx Instructions .ROUTE .COMPLEX Qty: 90 2RF Dose Instruction: GIVE 1 TABLET ORALLY ONCE A DAY Rx Instructions: GIVE 1 TABLET ORALLY ONCE A DAY fluoxetine 20 mg capsule 20 mg PO DAILY Qty: 90 1RF latanoprost 0.005 % drops 1 drp EYE-BOTH QPM Qty: 7.5 3RF methenamine hippurate [Hiprex] 1 gram tablet 1 g PO BID Qty: 180 0RF PreserVision AREDS-2 250-90-40-1 mg capsule 1 cap PO BID Qty: 60 5RF nortriptyline 10 mg capsule 10 mg PO DAILY Qty: 90 0RF acetaminophen [Tylenol Extra Strength] 500 mg tablet 1,000 mg PO TID MDD 6 PRN (Reason: pain) Qty: 540 0RF ibuprofen [Advil] 200 mg tablet See Rx Instructions PO Q6H PRN (Reason: pain) Qty: 720 0RF Rx Instructions: 1 to 2 tabs orally every 6 hours PRN; lidocaine 5 % ointment 1 applic topical DAILY PRN (Reason: pain) Qty: 30 0RF Rx Instructions: use at least 10 minutes prior to biopsy Magnesium Citrate (CALM) 235 mg powder 117.5 mg PO DAILY MDD 3 doses PRN (Reason: headache) Qty: 16 11RF Rx Instructions: take 1/2 scoop (117.5mg) magnesium citrate daily as needed for headache. Can repeat two more times in 24 hour period if symptoms do not resolve in 1 hour. prednisone 10 mg tablet 10 mg PO DAILY tramadol 50 mg tablet 50 mg PO Q6H PRN (Reason: pain) Qty: 5 0RF Referrals: Chucho Pardo MD [Physician] - Angie Armas DO [Primary Care Provider] - Stand Alone Forms: Patient Portal/API
[2023-06-04 16:22] LABS: INR 0.9 (0.9-1.3); Prothrombin Time 10.7 SECONDS (9.4-12.5)
[2023-06-04 16:25] LABS: PTT Partial Thromboplastin Tim 29 SECONDS (25.1-36.5)
[2023-06-04 16:31] LABS: Alanine Aminotransferase 26 IU/L (<35); Albumin 4.1 g/dL (3.5-5.0); Albumin Globulin Ratio 1.4 (1.0-2.8); Alkaline Phosphatase 94 U/L (38-126); Aspartate Aminotransferase 25 IU/L (14-36); BUN Creatinine Ratio 32.3 (6-22); Bilirubin Total 0.5 mg/dL (0.2-1.3); Blood Urea Nitrogen 30 mg/dL (7-17); Calcium 9.4 mg/dL (8.4-10.2); Carbon Dioxide 24 mmol/L (22-32); Chloride 104 mmol/L (98-107); Creatine Kinase < 20 U/L (30-135); Estimated Glomerular Filt Rate > 60 mL/min (>60); Globulin 2.9 g/dL (1.7-4.1); Glucose 124 mg/dL (80-110); HEMOLYSIS < 15 (0-50); Lipase 287 U/L (23-300); Magnesium 1.9 mg/dL (1.6-2.3); Potassium 4.8 mmol/L (3.4-5.1); Sodium 135 mmol/L (137-145)
[2023-06-04 16:32] LABS: C-Reactive Protein Quant 0.7 mg/dL (<1.0)
[2023-06-04 16:37] LABS: Add Manual Diff / Slide Review NO; Basophils Absolute Auto 0 /uL (0-100); Basophils Percent Auto 0.2 % (0-2); Eosinophils Absolute Auto 0 /uL (0-450); Eosinophils Percent Auto 0.1 % (2-4); Hematocrit 35.8 % (36-46); Hemoglobin 11.9 g/dL (12.0-16.0); Lymphocytes Absolute Auto 600 /uL (1100-4500); Lymphocytes Percent Auto 6.8 % (25-40); Mean Corpuscular HGB Conc 33.3 % (30-36); Mean Corpuscular Hemoglobin 29.9 PG (26-34); Mean Corpuscular Volume 89.9 fL (80-100); Monocytes Absolute Auto 700 /uL (0-900); Monocytes Percent Auto 8.6 % (3-14); Neutrophils Absolute Auto 7200 /uL (1500-7000); Neutrophils Percent Auto 84.3 % (50-75); Platelet Count 238 X10^3/uL (150-400); Red Blood Cell Count 3.99 X10^6/uL (4.0-5.2); Red Cell Distribution Width 16.2 % (11.6-14.8); White Blood Cell Count 8.5 X10^3/uL (4.5-11.0)
[2023-06-04 16:40] VITALS: PULSE 107; RESP 34
[2023-06-04 16:41] LABS: Troponin I < 0.012 ng/mL (0.01-0.034)
[2023-06-04 16:42] VITALS: BP 122/56; PULSE 106; RESP 23; O2SAT 95
[2023-06-04 16:55] LABS: Erythrocyte Sedimentation Rate 36 MM/HR (0-20)
[2023-06-04 17:00] VITALS: BP 134/68; PULSE 106; RESP 23; O2SAT 94
[2023-06-04 17:30] VITALS: BP 131/63; PULSE 102; RESP 20; O2SAT 95
[2023-06-04] MEDS: predniSONE 20 MG TABLET 30 MG PO (17:39)
[2023-06-04 17:48] VITALS: BP 131/63; PULSE 105; RESP 25; TEMP 36.9; O2SAT 96
== END 2023-06-04 17:50 | disposition home or self-care (01) ==
PROVIDERS: Emergency Provider Emergency Medicine; PCP Family Medicine
DX: M31.6 Other giant cell arteritis (principal); R07.9 Chest pain, unspecified; R51.9 Headache, unspecified
CPT/HCPCS: 36415; 70496; 70498; 71045; 80053; 82550; 83690; 83735; 84484; 85025; 85610; 85651; 85730; 86140; 99284; Q9967

== ENCOUNTER 2023-06-07 07:28 | Day surgery (SDC) | payer MEDICARE, SELFPAY ==
[2023-06-06 08:51] VITALS: BMI 23.2
--- NOTE | 2023-06-06 15:25 | PM.PREOP ---
Pre-operative Note Interval Note History & Physical reviewed/Exam performed by Physician: Yes Changes to H&P: No H&P completed within 30 days and has changed as indicated here:: 82F with breast cancer here for left mastectomy
[2023-06-07] VITALS (19 sets, daily range): BP systolic 90–132; BP diastolic 46–81; PULSE 100–122; RESP 15–23; TEMP 36–36.9; O2SAT 94–98; BMI 21.9
--- NOTE | 2023-06-07 | PATH_ITS ---
[facility] Accession Number: [id number] No. of containers..01 Tissue . 01 Material submitted: . breast - LEFT BREAST . 01 Diagnosis: A. LEFT BREAST, SIMPLE MASTECTOMY: Invasive mucinous carcinoma, grade 2 of 3 (Emilee combined histologic grade, total score 6/9), with the following features: 1. Tumor size (invasive component): 1.8 cm by microscopic measurement. 2. Nuclear pleomorphism: Intermediate. (2/3) 3. Mitotic rate: Low. (1/3) 4. Tubular differentiation: Little or none. (3/3) 5. Ductal carcinoma in situ: Not definitively identified. 6. Calcifications: Present in association with benign ducts and media of blood vessels. 7. Lymphatic invasion: Not identified. 8. Resection margins: - Invasive carcinoma: Negative, more than 2 mm from all margins. 9. Prognostic markers (performed on prior biopsy specimen, [address], case #[id number], collection date: 05/03/2023), and reported as follows: - Estrogen receptor: Positive. - Progesterone receptor: Positive. - HER2 by FISH studies: Negative for gene amplification. 10. Regional lymph nodes: Not performed or identified within the specimen. 11. Additional findings: - Skin and nipple are evaluated and are within normal limits. - Skeletal muscle and/or chest wall are not present. - Biopsy clip/biopsy site changes are present. 12. Preoperative therapy: None known. 13. If additional ancillary studies are required, the optimal tissue block of tumor is A9. 14. Pathologic stage: pT1c pNX MRV 06/14/2023 1625 Local . 01 Electronically signed: . Maria E Chirinos MD, Pathologist NPI- [id number] . 01 Gross description: . Received: In formalin, labeled with the patient's name, , and left breast mastectomy. Specimen: An oriented left simple mastectomy. Weight: 761 grams. Measurement: 13.1 cm from superior to inferior; 24.6 cm from medial to lateral; and 4.2 cm from anterior to posterior. Skin ellipse: Present. A painter to erythematous ellipse of skin measuring 20.2 x 12.7 cm. Nipple/areola: A 0.9 x 0.8 cm diameter everted nipple within a 2.4 x 1.8 cm diameter areola. A slightly pale, wrinkled, curvilinear presumed scar measures 3.5 cm in length located 1.3 cm inferomedial to the nipple and 2.6 cm from the nearest inferior skin margin. Axillary tail: Not identified. Margins: The skin ellipse is oriented by the surgeon with a short suture superior and a long suture lateral, per the requisition, and the posterior surface is covered by fascia. The anterior soft tissue margins are grossly unremarkable. The anterior superior margin is inked blue, the anterior inferior margin is inked green, and the posterior margin is inked black. Sliced: From medial to lateral into 27 slices. Lesion: One lesion identified. Description: An ill-defined, firm to gelatinous, hemorrhagic mass. Size: 2.5 x 2.1 x 1.5 cm. A coil biopsy clip was found within gel within slice 9. Slices involved: 9-10, upper inner quadrant. Distance to margins: 1.8 cm from the anterior superior margin and greater than 3 cm from all remaining margins. Other: Possible additional biopsy site changes are identified centrally and retroareolar; however, no mass is identified. The remaining cut surfaces are yellow to white fibroadipose tissue with dense white fibrous tissue occupying approximately 10% of the cut surface with no additional lesions identified. Fixation: The specimen was removed on 06/07/2023, time not provided. Cold ischemic time cannot be calculated. Total fixation time is approximately 65 hours. [employer]fed Press Operator sections are submitted as follows: A1: Nipple. A2: Presumed scar adjacent to areola. A3: Slice 7, no lesion. A4: Slice 8, no lesion. A5: Slice 9, biopsy site and lesion to anterior superior margin. A6: Posterior margin from slice 9 nearest the lesion. A7: Anterior superior and superior skin margins nearest the lesion. A8-A9: Composite entire lesion slice 10. A10: Rep slice 10 to include area adjacent to lesion, as well as blue and black-inked margins. A11: Slice 11 to include parenchyma and rep blue and black margins. A12: Slice 12, possible retroareolar biopsy site changes. A13: Rep lower inner quadrant. A14: Rep lower outer quadrant. A15: Rep upper outer quadrant. ([id number]) Additional sections are submitted as follows: A16-A17: Additional rep slice 8, no lesion. A18-A19: Additional rep slice 9, with possible lesion or biopsy site changes. A20-A21: Additional slice 9, no identified lesion. A22-A23: Additional slice 11, no lesion. ([id number]) /MRV 06/13/2023 1558 Local . 01 Pathologist provided ICD-10: C50.812 . 01 CPT . 917791 Specimen Comment: A courtesy copy of this report has been sent to [phone] Performed at: 01 [facility] [address] [place] [address], [place], [place] [id number] MD Braydon Acevedo MD Phone: [phone]
--- NOTE | 2023-06-07 | DI.MG.S_ITS ---
SPECIMEN: 06/07/2023 CLINICAL: Left breast specimen. No prior exams were available for correlation. Left breast lumpectomy specimen contains the two biopsy clips. IMPRESSION: SPECIMEN Left breast lumpectomy specimen contains the two biopsy clips. This exam was interpreted at Station ID: [id number]. Gelacio Marcus M.D. slc/:06/07/2023 09:59:38
[2023-06-07] MEDS: LACTATED RINGERS 1,000 ML 21 ML IV (08:01)
[2023-06-07] MEDS: HYDROCORTISONE 100 MG/2 ML VIAL IV (08:04)
[2023-06-07] MEDS: CEFAZOLIN 2 GM/100 ML PREMIX 100 ML IV (08:52)
[2023-06-07] MEDS: ACETAMINOPHEN IV 1,000 MG/100 ML VIAL 400 MG IV (09:05)
[2023-06-07] MEDS: BUPIVACAINE 0.25% (PF) 30 ML, EPINEPHrine 0.15 MG INJ (09:18)
--- NOTE | 2023-06-07 09:26 | SUR.OPER ---
Supine on padded OR bed, head on pillow, arms secured on padded arm boards at <90 degrees abduction, legs uncrossed,pillow under knees, safety belt at thighs.
--- NOTE | 2023-06-07 10:29 | PM.OP.1 ---
Operative Date/Time/Diagnoses Date of procedure: 06/07/23 Time of procedure: 10:29 Pre-op diagnosis: Left breast cancer Post-op diagnosis: same Procedure & Clinicians Procedure: Left simple mastectomy Same procedure as scheduled: Yes Indications: Milka Ramirez is an 82-year-old woman PMH giant cell arteritis on chronic corticosteroids with a 1.5 cm hormone receptor positive HER2 negative tumor intermediate grade and no pathological lymphadenopathy on exam. Following discussion with the patient and family she elects to proceed with a simple left mastectomy without sentinel lymph node biopsy Surgeon: Chucho aPrdo Casting Machine Service Operator: Maciel Cooley Anesthesia Type: General Operative Notes Findings: Clip within the specimen is noted on radiographic imaging per my read Specimen(s): other (Left breast) Estimated Blood Loss (mL): 50 Procedure in detail: Patient was brought to the operating room placed supine on the table. Bilateral lower extremity compression devices were applied. She received 2 g of Ancef prior to skin incision. She was intubated with an endotracheal tube. She was then prepped and draped in sterile fashion. Time-out was performed. An elliptical incision on the left breast around the nipple areola complex was made with the knife. The subcutaneous tissue was divided with electrocautery. Skin flaps were raised to separate the breast tissue from the skin along the subdermal plexus. The dissection was extended superior to the clavicle, medial to the sternum, inferior the the inframamary fold and lateral to the anterior border of the latisimus dorsi. Next the breast tissue was from the underlying pectoralis fascia. The breast was passed off the field marked short stitch superior long stitch lateral. The skin flaps were of adequate thickness and viable. A 19 Hungarian Patrick drain was placed into the cavity and secured. The wound was copiously irrigated and homeostasis was ensured. The mastectomy was closed with 2 0 Vicryl for the subcutaneous tissue and the skin was closed with 4 0 Monocryl followed by the application of Dermabond. Patient tolerated procedure well she emerged from anesthesia was extubated and transferred to recovery room in stable condition. Complications: none Post-operative Condition: stable Disposition: same day surgery
--- NOTE | 2023-06-07 11:37 | SUR.PHASEI ---
Pt transferred to floor by Berry CLEMENTS with belongings bag and walker.
[2023-06-07] MEDS: IBUPROFEN 600 MG TABLET PO (13:28)
[2023-06-07] MEDS: HYDROCORTISONE 100 MG/2 ML VIAL 50 MG IV ×2 (13:29→22:10)
--- NOTE | 2023-06-07 14:40 | PT.IIE ---
Current Diagnoses Malignant neoplasm of unspecified site of unspecified female breast (06/07/23) Surgery Performed Operation Date: 06/07/23 08:45 Actual Procedures p LEFT Mastectomy(Left) - Chucho Pardo MD Surgical History (Last Reviewed 05/18/23 @ 14:55 by Chucho Pardo MD) History of History of knee surgery Medical History (Last Updated 06/06/23 @ 08:52 by Sobeida Penny RN) Cognitive changes Depression No significant past medical history On prednisone therapy Physical Therapy Inpatient Evaluation/Re-Eval M1 PT/OT-IP Prior Functional Status Start: 06/07/23 15:59 Freq: NEEDED Status: Active Protocol: Document 06/07/23 14:40 AB (Rec: 06/07/23 16:14 AB [id number]) Medical Review Prior Functional Status Medical History Reviewed Yes Communication able to make needs known; DAVIE Mobility and Gait pt stated that she was modified independent with all mobilities and ambulation without AD when ambulate in the intermediate facility but uses her 4WW when she goes outdoors Social History Household Members none Living Arrangements Fpc Facility Number of Stairs To Enter/Railing? pt lives at [facility] and stated that she can ask for assistance if needed and that her daughter lives close by and can come in to assist her if needed. Home Environment Standard Height Toilet,Walk in Shower Home Equipment Four Wheel Walker,Shower Seat with Backrest,Hand Held Shower ,Grab Bars Near Toilet,Grab Bars In Shower M2 PT-IP Current Condition Start: 06/07/23 15:59 Freq: NEEDED Status: Active Protocol: Document 06/07/23 14:40 AB (Rec: 06/07/23 16:14 AB [id number]) Physical Therapy Current Condition Current Condition Evaluation Date 06/07/23 Treatment Diagnosis s/p L mastectomy; difficulty in walking Onset Date 06/06/23 M3 PT-IP Subjective Start: 06/07/23 15:59 Freq: NEEDED Status: Active Protocol: Document 06/07/23 14:40 AB (Rec: 06/07/23 16:14 AB [id number]) Subjective Physical Therapy Visit Type Type Initial Evaluation Visit Start Time 14:40 Visit Stop Time 15:20 Number of STATE SUPERINTENDENT OF SCHOOLS Visits 0 Physical Therapy Visit Comments Patient Comments agreeble to do PT Therapy Pain Assessment Pain When Pain Assessed At Rest Pain Present Pain Present Pain Reported Location Left Breast Intensity 7 Scale Used Numeric (0 - 10) Pain Management Techniques Distraction,Modification of Treatment,Re-positioning, Timing of Activity with Medications M4 PT-IP Mobility and Gait Start: 06/07/23 15:59 Freq: NEEDED Status: Active Protocol: Document 06/07/23 14:40 AB (Rec: 06/07/23 16:14 AB [id number]) PT-Bed Mobility Assessment Supine to Sit Supine to Sit Standby Assistance Sit to Supine Sit to Supine Minimal Assistance PT-Transfer Assessment Sit to and From Stand Sit to and from Stand Minimal Assistance,1 Person Assistance,Use of Upper Extremities Equipment Transfer Assistive Device Gait Belt Orthotic/Prosthetic Devices or Brace: No Transfer Ability Level of Assist Moderate Assistance,Maximum Assistance,1 Person Assistance ,Use of Upper Extremities Comments Mobility Comments pt supine in bed and agreeable to do PT. c/o nausea. BP in supine: 114/58. obtained PLOF and home set up from pt. educated pt regarding precautions s/p mastectomy. post-op handout provided. pt completed supine to sit SBA. able to sit on EOB SBA. c/o lightheadedness. BP: 124/61. pt stated that she does not think she will be able to walk but agreed to stand. completed sit to stand min A and instructed to take side steps towards HOB and completed ~ 4 steps mod to max A and max cues without AD. increase lateral trunk lean to the L. pt completed sit to supine min A and cues. positioned pt in bed. call light and table placed within reach. Gait Assessment Gait Gait Assistance Required: Moderate Assistance,Maximum Assistance,1 Person Assist Distance (Feet) 2 Able to Maintain Weight Bearing Status Yes During Gait Assistive Devices Assistive Device None,Gait Belt Orthotic/Prosthetic Devices or Brace: No Gait Deviations General Gait Pattern Lateral Trunk Lean Factors Limiting Gait Function Factors Limiting Gait Function Decreased Activity Tolerance, Decreased Strength,Difficulty Following Directions,Limited Range of Motion,Pain,Poor Balance,Poor Safety Awareness Comments Gait Comments able to take side steps towards HOB mod to max A without AD PT-Balance Assessment Sitting Balance and Reactions Static Sitting Balance Ability Good Dynamic Sitting Balance Ability Good Standing Balance and Reactions Static Standing Balance Ability Poor Dynamic Standing Balance Ability Poor Device Used without AD M5 PT-IP Objective Assessments Start: 06/07/23 15:59 Freq: NEEDED Status: Active Protocol: Document 06/07/23 14:40 AB (Rec: 06/07/23 16:14 AB [id number]) Orientation Orientation/Cognition Level of Alertness Alert Orientation Name,Place,Situation Language Function Ability Hard of Hearing Safety Awareness Decreased Safety Awareness Memory Description No Deficits Noted Gross Range of Motion Lower Extremity ROM Assessment Within Functional Limits Strength Lower Extremity Strength Assessment Within Functional Limits Muscle Tone Muscle Tone WNL Yes M6 PT-IP Treatment Start: 06/07/23 15:59 Freq: NEEDED Status: Active Protocol: Document 06/07/23 14:40 AB (Rec: 06/07/23 16:14 AB [id number]) Physical Therapy Treatment Education Education Provided Precautions,Weight Bearing Status,Post-Op Packet,Safety M7 PT-IP Assessment and Plan Start: 06/07/23 15:59 Freq: NEEDED Status: Active Protocol: Document 06/07/23 14:40 AB (Rec: 06/07/23 16:14 AB [id number]) PT Summary Assessment and Plan Potential Rehabilitation Potential Fair Status of Condition at Evaluation Evolving Summary Impairments Pain,ROM,Strength,Balance, Coordination,Sensation,Tone, Cognition,Bed Mobility, Transfers,Gait,Activity Tolerance Assessment Summary pt is an 82 y/o F s/p L mastectomy POD 0. pt unable to tolerate much activity with c /o nausea and lightheadedness. pt was only able to take side steps towards HOB mod to max A without AD. pt lives at [facility]. d/c plan depending on progress but at this time, pt will require 24/ 7 assist and may require SNF rehab. will continue to assess progress and determine safe d/c plan. Goals Bed Mobility Goal Independent Transfer Goal Independent,Front Wheeled Walker,Four Wheeled Walker Gait Goal Independent,Front Wheel Walker ,Four Wheel Walker Gait Distance 250 Other Goals improve transfers and ambulation without AD/LRAD 300 ft mod I Days to Meet Goals 10 Frequency of Treatment Frequency Of Treatment Once a Day Treatment Plan Physical Therapy Treatment Plan Bed Mobility Training,Transfer Training,Gait Training, Therapeutic Exercise,Balance Retraining,Post Op Education, Discharge Planning,Hot or Cold Pack,Neuromuscular Re-ed, Coordination Retraining,Manual Therapy Precautions Other Precautions s/p L sided mastectomy precautions Recommendations To Nursing Amount of Assist Needed 1 Person Assist Discharge Recommendations PT Discharge Recommendations Home with 24/7 Assist Available,Home Health,SNF Rehab,Home vs SNF Transportation Needs at Discharge Private Vehicle,Wheelchair/ Cabulance
--- NOTE | 2023-06-07 15:07 | PC.NURSE ---
Pt to room 215 via bed from PACU. Pt oriented to room, call light, bed controls, and tv controls. Pt up to br with sba to void. Denies pain, nausea, or shortness of breath. Pt agrees to call for assistance as needed and to not get up without help. SCD's on and running, bed alarm on for safety.
[2023-06-07] MEDS: OXYCODONE IR 5 MG TABLET PO (17:11)
[2023-06-07] MEDS: ACETAMINOPHEN 325 MG TABLET 650 MG PO (18:45)
--- NOTE | 2023-06-07 20:16 | PC.NURSE ---
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 RN called oncall provider Dr Estrella. New orders for 0.25 Dilaudid Q2 hr PRN, and continues pulse ox monitor. VS taken Pt was asymptomatic hypotensive 90/47 (61) HR 102. Dr Estrella notified, and new order to increase LR from 21 to 75 mls/hr continues.
[2023-06-07] MEDS: HYDROMORPHONE 0.5 MG INJ 0.25 MG IV (20:28)
[2023-06-08] VITALS (9 sets, daily range): BP systolic 100–121; BP diastolic 53–75; PULSE 63–90; RESP 16–18; TEMP 36.1–37; O2SAT 95–100
[2023-06-08] MEDS: HYDROCORTISONE 100 MG/2 ML VIAL 50 MG IV (06:08)
[2023-06-08] MEDS: ACETAMINOPHEN 325 MG TABLET 650 MG PO (07:54)
[2023-06-08] MEDS: IBUPROFEN 600 MG TABLET PO (07:55)
[2023-06-08] MEDS: NORTRIPTYLINE 10 MG CAPSULE PO (08:39)
[2023-06-08] MEDS: lisinopriL 10 MG TABLET PO (08:39)
[2023-06-08] MEDS: VENLAFAXINE ER 37.5 MG CAP PO (08:39)
[2023-06-08] MEDS: FLUoxetine 20 MG CAPSULE PO (08:39)
[2023-06-08] MEDS: ENOXAPARIN 40 MG/0.4 ML SYRINGE SUBCUT (08:40)
--- NOTE | 2023-06-08 09:34 | CM.DANOTE ---
Addendum entered by Talya Almeida RADIOLOGY TRANSCRIPTIONIST 06/08/23 14:50: From RN, concerned about pt being able to manage drain indep over weekend. RADIOLOGY TRANSCRIPTIONIST spoke with Claire at [facility]- do not have staff for over the weekend needs. Able to assist with drain Monday. RADIOLOGY TRANSCRIPTIONIST faxed dc packet/unsigned med list to Claire at [facility]. RADIOLOGY TRANSCRIPTIONIST coordinated with surgeon- placed unsigned copy of med list in folder outside of room. Surgeon agreed to sign after clinic so we can fax them to [facility] tomorrow. RADIOLOGY TRANSCRIPTIONIST spoke with Maci at [facility]. SOC is planned for tomorrow/Monday. Need a signed dc summary as well. RADIOLOGY TRANSCRIPTIONIST emailed available dc information. RADIOLOGY TRANSCRIPTIONIST met with pt and dtr in room. RADIOLOGY TRANSCRIPTIONIST answered questions about increasing exterminator care/that orders can be done with PCP. Dtr expressed worries considering pt has turned down assistance before. RADIOLOGY TRANSCRIPTIONIST highlighted that is her choice if she wishes we cannot make her accept services. Dtr expressed understanding. Pt/dtr report that pt's son will be here over the weekend to assist in managing the drain until it is removed Monday. Plan: pt to dc home to [facility] with dtr to support. Claire RN at [facility] will assist with drain management tomorrow. Pt son will assist with drain management over the weekend. [facility] will follow SOC Monday. CM team will send [facility] signed med list/dc summary tomorrow and will send [facility] dc summary tomorrow. SL Addendum entered by SHANNA Hernandez 06/08/23 11:04: BECKY Avila kindly agreed to send new ref. information to Maci at [facility]. No H&P currently, [place] [facility] [place] Surgery note from 2.29 to see if that would cover the necessary information in place of an H&P. Maci reports SOC could be Monday. RADIOLOGY TRANSCRIPTIONIST completed f2f and order. BECKY Avila scanned f2f into chart. RADIOLOGY TRANSCRIPTIONIST spoke with Claire at [facility]. Confirmed can take her back today, would need meds and dc sum information. RADIOLOGY TRANSCRIPTIONIST agreed to fax as soon as available (f [phone]) EJ Original Note: DCP Assessment Note Pt is an 82yo F here following left mastectomy with Dr. Pardo on 06.07.23. PCP Angie Armas. Payer [facility] and self pay RADIOLOGY TRANSCRIPTIONIST reviewed EMR. Per previous DCP Assessment in Nov 2022, pt lives in [facility] and is mostly indep with ADLs. Gets assistance with medication. Per chart review, previous concerns about alcohol use/memory loss. Per chart review, dc home with [facility]. Per surgeon, anticipate dc home today with HH. RADIOLOGY TRANSCRIPTIONIST lvm with Claire at [facility]. Per Maci at [facility], could accept pt back with their care. RADIOLOGY TRANSCRIPTIONIST met with pt in room. Pt resting in bed. A/O and chatty. Pt confirms living in [facility], mostly indep but occasionally gets meal prep/home chore assistance. Dtr/ELLY Gricelda lives in [place], plan for ride home. Reports things are going well at [facility]. Preference is to start up with [facility] again. Mobilizes without DME in home but has a walker for when leaves facility. Deny other CM needs. Plan: anticipate dc home today with dtr to transport and [facility] to follow for PT/RN. CM team will follow closely for additional CM needs. SHANNA Hernandez Discharge Planning/Care Management Advanced directive, confirm from FAMILY Start: 06/07/23 11:41 Freq: Q24H Status: Active Protocol: Document 06/07/23 11:52 CM (Rec: 06/07/23 12:31 CM [id number]) Co-signed By Landen Horner RN Advance Directive, confirm on record Time 12:30 Person contacted pt Copy received No CM Discharge Assessment Start: 06/08/23 09:31 Freq: Status: Active Protocol: Document 06/08/23 09:31 SL (Rec: 06/08/23 09:34 SL [id number]) Discharge Planning Assessment Assigned Reel Blade Bender Furnace Tender SHANNA Shin DPOA/Assigned Designee Name Gricelda, norbert Contact Information [phone] Advance Directives? Yes Advance Directives on File No History Provided By Patient,Family Member,Medical Record Prior Living Arrangements Residential Facility Comment [facility] Household Members none Facility Name Admitted From: [facility] Willing to Return to Facility? Yes Independent with ADL's Yes Is patient alert and oriented? Yes Needs Assistance With Meal Prep,Managing Medications ,Home Chores / Shopping Comment occationally get assistance with meal prep or home chores Patient/Family Preference Home with Home Health Comment Hx of [facility] Barriers to Discharge No Discharge Plan Home with Home Health Transportation Arrangement Dtr Gricelda will be bedside later today and is available to transport at d/c Referrals Initiated Home Health If patient plan is home with home health Yes : Has signed face to face form been completed? SNF/HH Preference [facility] Whiteboard Updated in Patient Room with Yes name and ext. # of Reel Blade Bender Furnace Tender Review Status In Process Next Review Type Continued Stay Review Pre-Anesthesia Assessment Start: 06/06/23 08:51 Freq: Status: Active Protocol: Document 06/06/23 08:51 CAB (Rec: 06/06/23 10:55 CAB [id number]) Pre-Anesthesia Assessment Patient Information Reviewed Via Chart Review Primary Care Provider Angie Armas Seen Specialist in Last 12 Months Yes Specialist Seen Other Comment [facility] -Perioperative instr r/t prednisone in chart Primary Language Singaporean Preferred Language Singaporean Med Specialist Required No Height 160.02 cm Weight 59.421 kg Body Mass Index (BMI) 23.2 Barriers to Learning Memory Anesthesia Review Requested Yes: PAC courtesy re: Rheumatology preoperative hyrdrocortisone recommendation 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 No Urinary Catheter Present No Hx Urinary Self Catheterization No Diabetes No Patient No Lactating No Received a COVID vaccine? Yes Marital Status Lives With none Current Living Arrangements Residential Facility Patient Discharge Plan Description Return Home Do You Have Any Spiritual Beliefs That No May Affect Your HC Choices? Do You Have Any Cultural Practices That No May Affect Your HC Choices? Emergency Contact Name Gricelda Malone Emergency Contact Advance Directives? No Advance Directives on File No Power of Nursing Home Manager Yes Power of Nursing Home Manager Name Gricelda Malone Power of Nursing Home Manager
--- NOTE | 2023-06-08 09:58 | PT-IP ANOTE ---
Pt refused to work with PT this morning due to feeling nauseous. PT will check on pt later this morning.
[2023-06-08] MEDS: ONDANSETRON 4 MG/2 ML INJ IV (10:10)
--- NOTE | 2023-06-08 12:38 | PT.IPTN ---
Current Diagnoses Malignant neoplasm of unspecified site of unspecified female breast (06/07/23) Surgery Performed Operation Date: 06/07/23 08:45 Actual Procedures p LEFT Mastectomy(Left) - Chucho Pardo MD Physical Therapy Treatment Note M2 PT-IP Current Condition Start: 06/07/23 15:59 Freq: NEEDED Status: Active Protocol: Document 06/07/23 14:40 AB (Rec: 06/07/23 16:14 AB [id number]) Physical Therapy Current Condition Current Condition Evaluation Date 06/07/23 Treatment Diagnosis s/p L mastectomy; difficulty in walking Onset Date 06/06/23 M3 PT-IP Subjective Start: 06/07/23 15:59 Freq: NEEDED Status: Active Protocol: Document 06/08/23 12:54 TS (Rec: 06/08/23 13:02 TS [id number]) Subjective Physical Therapy Visit Type Type Treatment Note Visit Start Time 12:38 Visit Stop Time 12:54 Number of CANE FEEDER Visits 1 Physical Therapy Visit Comments Patient Comments Pt found resting in bed, daughter in room, Pt reports pain in chest with mobility, is agreeable to PT. Therapy Pain Assessment Pain When Pain Assessed At Rest Pain Present Pain Present Pain Reported M4 PT-IP Mobility and Gait Start: 06/07/23 15:59 Freq: NEEDED Status: Active Protocol: Document 06/08/23 12:54 TS (Rec: 06/08/23 13:02 TS [id number]) PT-Bed Mobility Assessment Supine to Sit Supine to Sit Independent Sit to Supine Sit to Supine Independent Scooting Scooting to Edge of Bed Independent Scooting Up and Down in Bed Independent PT-Transfer Assessment Sit to and From Stand Sit to and from Stand Standby Assistance Equipment Transfer Assistive Device Gait Belt,4 Wheeled Walker Orthotic/Prosthetic Devices or Brace: No Comments Mobility Comments Supine to sit Ind with BUE support. STS with 4WW SBA, pt has good standing balance with no retorleaning. She ambulated ~100' SBA with 4WW, pain c/o pain in chest and requested back to bed. Sit to supine into bed Ind, pt scooted to HOB Ind with cues for sequencing. She performed SLR, Hip ABD and bridge x5. Pt was left in bed, all needs met. Gait Assessment Gait Gait Assistance Required: Standby Assistance Distance (Feet) 100 Able to Maintain Weight Bearing Status Yes During Gait Assistive Devices Assistive Device Gait Belt,4 Wheeled Walker Orthotic/Prosthetic Devices or Brace: No Factors Limiting Gait Function Factors Limiting Gait Function Decreased Activity Tolerance, Decreased Strength,Limited Range of Motion,Pain,Poor Balance,Poor Safety Awareness Comments Gait Comments See mobility comments PT-Balance Assessment Sitting Balance and Reactions Static Sitting Balance Ability Good Dynamic Sitting Balance Ability Good Standing Balance and Reactions Static Standing Balance Ability Good Dynamic Standing Balance Ability Good Device Used 4WW M5 PT-IP Objective Assessments Start: 06/07/23 15:59 Freq: NEEDED Status: Active Protocol: Document 06/07/23 14:40 AB (Rec: 06/07/23 16:14 AB [id number]) Orientation Orientation/Cognition Level of Alertness Alert Orientation Name,Place,Situation Language Function Ability Hard of Hearing Safety Awareness Decreased Safety Awareness Memory Description No Deficits Noted Gross Range of Motion Lower Extremity ROM Assessment Within Functional Limits Strength Lower Extremity Strength Assessment Within Functional Limits Muscle Tone Muscle Tone WNL Yes M6 PT-IP Treatment Start: 06/07/23 15:59 Freq: NEEDED Status: Active Protocol: Document 06/08/23 12:54 TS (Rec: 06/08/23 13:02 TS [id number]) Physical Therapy Treatment Education Education Provided Precautions,Weight Bearing Status,Post-Op Packet,Safety M7 PT-IP Assessment and Plan Start: 06/07/23 15:59 Freq: NEEDED Status: Active Protocol: Document 06/08/23 12:54 TS (Rec: 06/08/23 13:02 TS [id number]) PT Summary Assessment and Plan Potential Rehabilitation Potential Fair Summary Impairments Pain,ROM,Strength,Balance, Coordination,Sensation,Tone, Cognition,Bed Mobility, Transfers,Gait,Activity Tolerance Progress Towards Goals Progressing Toward Goals Assessment Summary Milka is making good progress with her mobility. She is Ind for all bed mobility. She progressed her gait to ~100' SBa with 4WW, due to chest pain she requested back to bed . She performed ther ex of SLR , Hip ABD and bridges x5, pt tolerated well. PT is recommending pt return home with assist and HHPT. Goals Bed Mobility Goal Independent Transfer Goal Independent,Front Wheeled Walker,Four Wheeled Walker Gait Goal Independent,Front Wheel Walker ,Four Wheel Walker Gait Distance 250 Other Goals improve transfers and ambulation without AD/LRAD 300 ft mod I Days to Meet Goals 10 Frequency of Treatment Frequency Of Treatment Once a Day Treatment Plan Physical Therapy Treatment Plan Bed Mobility Training,Transfer Training,Gait Training, Therapeutic Exercise,Balance Retraining,Post Op Education, Discharge Planning,Hot or Cold Pack,Neuromuscular Re-ed, Coordination Retraining,Manual Therapy Precautions Other Precautions s/p L sided mastectomy precautions Recommendations To Nursing Amount of Assist Needed Standby Assistance Discharge Recommendations PT Discharge Recommendations Home with Assistance,Home Health Transportation Needs at Discharge Private Vehicle
--- NOTE | 2023-06-08 12:42 | OT.IPNOTE ---
Attempted to see pt for OT services x3 today. Pt nauseated the first two attempts then eating at last attempt. Will hold today and continue to follow.
--- NOTE | 2023-06-08 13:39 | PC.NURSE ---
Pt is dressed and ready for discharge home with Daughter Gricelda. IV has been removed. Pt and daughter have been instructed in drain management and a handout was provided. Went over d/c instructions with Pt and Daughter-discussed d/c meds, time of last dose, reviewed stroke education, no lifting greater than 10 lbs for at least 6 weeks with her left arm, showering, s/s of infection, drinking plenty of fluids to prevent constipation or dehydration, taking it slow when getting up from bed or chair especially if taking narcotics, and follow up appointment. Pt and Daughter denied further questions and will be taken out via w/c by CHUTE TENDER to POV with Daughter and all belongings.
== END 2023-06-08 13:44 | disposition home or self-care (01) ==
LOC: OR 07:29 → AC 07:29
PROVIDERS: PCP Family Medicine; Referring Provider Surgery; Visit Provider Surgery
PROC: 0HTU0ZZ Resection of Left Breast, Open Approach (ICD-10-PCS; CPT 19303; principal; 2023-06-07 08:45)
DX: C50.212 Malignant neoplasm of upper-inner quadrant of left female breast (principal); Z17.0 Estrogen receptor positive status [ER+]
CPT/HCPCS: 19303; 76098; 82962; 94762; 97162; 97530; J0136; J0171; J0690; J1170; J1650; J1720; J2405; J2704; J3010

== ENCOUNTER 2023-06-09 12:38 | Inpatient (IN) | payer MEDICARE, SELFPAY ==
[2023-06-07 11:32] VITALS: BMI 21.9
[2023-06-09] VITALS (16 sets, daily range): BP systolic 98–155; BP diastolic 55–78; PULSE 97–123; RESP 20–34; TEMP 35.7–36.6; O2SAT 84–98; BMI 21.4; BMI 24.7
--- NOTE | 2023-06-09 13:15 | DI.RAD.S_ITS ---
PROCEDURE: XR CHEST 1V INDICATIONS: suspected sepsis TECHNIQUE: One view of the chest was acquired. COMPARISON: [facility], CR, XR CHEST 1V, 06/04/2023, 16:05. [facility], CR, XR CHEST 1V, 12/19/2022, 12:35. FINDINGS: Surgical changes and devices: Presume mastectomy changes and chest tube over the left lower lung.. Lungs and pleura: Lungs are normal considering reduced inspiratory volume. No pleural effusions or pneumothorax. Mediastinum: Mediastinal contours appear normal. Heart size is normal. Bones and chest wall: No suspicious bony lesions. Overlying soft tissues appear unremarkable. IMPRESSION: No acute cardiopulmonary abnormality is seen except for postoperative changes noted above.. Dictated by: Anthony Urbina M.D. on 06/09/2023 at 13:44 Approved by: Anthony Urbina M.D. on 06/09/2023 at 13:46
--- NOTE | 2023-06-09 13:31 | CM.DPNOTE ---
Addendum entered by SHANNA Tripp 06/09/23 15:51: ADD: SW spoke to Claire RN at [facility] and she confirms that pt technically is on the Assisted Living side but is quite independent at baseline and gets med assist and meals. They are not able to manage her drain and wound care which is why family and [facility] would be providing assist with this. BF Original Note: SW received a call from Surgeon Dr. Pardo as pt in his office for her post-op f/u appointment and she just discharged home to [facility] [place] yesterday 06/08/23 with [facility] referral made. Dr. Pardo has concerns that pt has decompensated in her mobility and weakness and family now feels that [facility] cannot currently manage her needs and interested in SNF. Dr. Pardo feels SNF placement needed and not medical need for admission to the hospital. JOLYNN reviewed pt's demographics and her [facility] MCR does not require 3 night qualifying stay as an Inpt Status at the hospital for SNF but would need to auth SNF after reviewing pt's medical information and PT/OT notes. Insurance will likely not give a response today and if family does not feel they can manage her at her independent apt then she may need to go to the ED for the ED ARMAMENT REPAIRER to assist with securing SNF. JOLYNN updated ED ARMAMENT REPAIRER and encouraged him to call [facility] admissions as they accept [facility] MCR and request they review her recent hospital admission yesterday towards determining if they would be willing to submit for [facility] auth as today is Monday before the weekend. If no medical reason to admit pt, then SNF can be worked on from the ED. JOLYNN updated Hospitalist. SHANNA Tripp
[2023-06-09 14:18] LABS: Add Manual Diff / Slide Review NO; Basophils Absolute Auto 100 /uL (0-100); Basophils Percent Auto 0.4 % (0-2); Eosinophils Absolute Auto 100 /uL (0-450); Eosinophils Percent Auto 0.4 % (2-4); Hematocrit 32.3 % (36-46); Hemoglobin 10.5 g/dL (12.0-16.0); Lymphocytes Absolute Auto 700 /uL (1100-4500); Lymphocytes Percent Auto 4.9 % (25-40); Mean Corpuscular HGB Conc 32.4 % (30-36); Mean Corpuscular Hemoglobin 29.7 PG (26-34); Mean Corpuscular Volume 91.6 fL (80-100); Monocytes Absolute Auto 1000 /uL (0-900); Monocytes Percent Auto 7.7 % (3-14); Neutrophils Absolute Auto 11500 /uL (1500-7000); Neutrophils Percent Auto 86.6 % (50-75); Platelet Count 207 X10^3/uL (150-400); Red Blood Cell Count 3.52 X10^6/uL (4.0-5.2); Red Cell Distribution Width 16.2 % (11.6-14.8); White Blood Cell Count 13.2 X10^3/uL (4.5-11.0)
[2023-06-09 14:29] LABS: INR 0.9 (0.9-1.3); Prothrombin Time 10.3 SECONDS (9.4-12.5)
--- NOTE | 2023-06-09 14:31 | CM.SWNOTE ---
ED SAWMILL RELIEF WORKER Note Pt is a 82 y/o female who presents to the ED at the recommendation of her surgeon. Pt was recently d/c from hospital after having a left mastectomy on 06/06. Pt presents w/ SOB and dizziness. This SAWMILL RELIEF WORKER was contacted by Care management to inform SAWMILL RELIEF WORKER about potential pt needing SNF. SAWMILL RELIEF WORKER contacted [facility] to start the process and have them review pt. SAWMILL RELIEF WORKER was informed that they would not have an answer until the morning from insurance. SAWMILL RELIEF WORKER was informed to wait and see if pt will be admitted before proceeding further. [facility] closes at 3 pm. SAWMILL RELIEF WORKER met w/ pt. Pt was lying in bed awake A/Ox4. Pt's daughter and daughters were both present at bedside. Pt's daughter informed SAWMILL RELIEF WORKER that her mom has short term memory loss and this increases w/ anxiety. Pt's son is flying into town and was planning to stay w/ pt while she recovers but will be staying locally to visit. Pt's family expressed concern over [facility] not having a nurse onsite during the weekends and that pt has had 5 UTI's since October. . [facility] is able to provide med management for pt as well as meal services. Pt reports that she is independent w/ ADLs at baseline. Pt reports that she has the option for help w/ showers but that she does not need the assistance. Pt reports that she uses a walker at baseline and was brought in by wheelchair today. Pt stated that she is able to drive. Pt's family corrected her stating that she has not drove in over a month but that she does still own a car. Pt's daughter has a medical POA but will be leaving to be w/ another family member who is ill. Pt would be okay w/ her son Amador taking over Medical POA duties. Pt does not have a DNR and would like full measures be taken to resuscitate if needed. Plan: Pt to be further evaluated by ED provider for possible admission. SHANNA Padilla
[2023-06-09 14:32] LABS: PTT Partial Thromboplastin Tim 25 SECONDS (25.1-36.5)
[2023-06-09 14:33] LABS: Lactate (Lactic Acid) 3.7 mmol/L (0.7-2.1)
[2023-06-09 14:34] LABS: Alanine Aminotransferase 19 IU/L (<35); Albumin 3.7 g/dL (3.5-5.0); Albumin Globulin Ratio 1.2 (1.0-2.8); Alkaline Phosphatase 88 U/L (38-126); Aspartate Aminotransferase 25 IU/L (14-36); BUN Creatinine Ratio 27.8 (6-22); Bilirubin Total 0.6 mg/dL (0.2-1.3); Blood Urea Nitrogen 30 mg/dL (7-17); Calcium 9.5 mg/dL (8.4-10.2); Carbon Dioxide 26 mmol/L (22-32); Chloride 106 mmol/L (98-107); Estimated Glomerular Filt Rate 51 mL/min (>60); Glucose 112 mg/dL (80-110); HEMOLYSIS 16 (0-50); Lipase 205 U/L (23-300); Potassium 4.9 mmol/L (3.4-5.1); Sodium 138 mmol/L (137-145); Total Protein 6.7 g/dL (6.3-8.2)
[2023-06-09] MEDS: TRAMADOL 50 MG TABLET PO ×2 (14:44→21:18)
[2023-06-09 14:46] LABS: NT-proBNP (BNP-Adult 18+) 503 pg/mL (<450); Troponin I < 0.012 ng/mL (0.01-0.034)
[2023-06-09 14:50] LABS: Procalcitonin 0.15 ng/mL (<0.5)
[2023-06-09] MEDS: SODIUM CHLORIDE 0.9% 1,000 ML 1000 ML IV (15:17)
--- NOTE | 2023-06-09 15:25 | ED_ITS ---
HPI - General Adult General Chief complaint: Weakness Stated complaint: post op problems, sob, weakness Time Seen by Provider: 06/09/23 14:17 Source: patient and family Mode of arrival: Wheelchair History of Present Illness HPI narrative: 82-year-old female with history of depression, hypertension, no cognitive disorder, prior alcohol use, giant cell arteritis, with invasive ductal carcinoma of the left breast with mastectomy on June 06. Patient reported feeling dizzy, short of breath and weak earlier today. She states she feels improved while seated in the bed. She did see Dr. Pardo her general surgeon who noted she would some issues with her sutures and had the area Re stapled, drain is still in place and was redressed. This was today. Patient was encouraged to come to ED to be evaluated. Has had persistent pain at the site of her mastectomy but states improved when she takes tramadol. Denies fevers or chills. Denies any right-sided chest pain, no shortness of breath currently. She denies any cough cold or congestion. No syncope or lightheadedness. Denies any nausea or vomiting, denies any diarrhea or constipation, denies any urinary symptoms. Denies any swelling in extremities. Patient former smoker, alcohol a few times monthly, no recreational drugs. Currently living in assisted living. Her primary care is Dr. Armas. Dr. Pardo is her general surgeon. She is accompanied by her son and [id number]. Related Data Home Medications Medication Instructions Recorded Confirmed prednisone 20 mg tablet 40 mg PO DAILY 04/21/23 06/09/23 prednisone 10 mg tablet 10 mg PO DAILY 06/07/23 06/09/23 Previous Rx's Medication Instructions Recorded acetaminophen 500 mg tablet 1,000 mg (2 x 500 mg) PO TID PRN 11/30/22 (Tylenol Extra Strength) pain #540 tabs dimethicone 2 % topical cream 1 applic topical DAILY PRN skin 11/30/22 irritation #113 grams ibuprofen 200 mg tablet (Advil) See Rx Instructions PO Q6H PRN 11/30/22 pain #720 tabs Magnesium Citrate (CALM) 117.5 mg PO DAILY PRN headache #16 12/02/22 oz lisinopril 10 mg tablet See Rx Instructions .Route 01/10/23 .COMPLEX #90 tabs venlafaxine 37.5 mg See Rx Instructions .Route 01/10/23 capsule,extended release 24 hr .COMPLEX #90 caps fluoxetine 20 mg capsule 20 mg PO DAILY #90 caps 02/21/23 lidocaine 5 % topical ointment 1 applic topical DAILY PRN pain 04/21/23 #30 grams latanoprost 0.005 % eye drops 1 drp EYE-BOTH QPM #7.5 mL 05/03/23 methenamine hippurate 1 gram 1 g PO BID #180 tabs 05/17/23 tablet (Hiprex) nortriptyline 10 mg capsule 10 mg PO DAILY #90 caps 06/07/23 vit C 250 mg-vit E 90 mg-zinc 40 1 cap PO BID #60 caps 06/07/23 mg-copper 1 [id number] capsule (PreserVision AREDS-2) tramadol 50 mg tablet 50 mg PO Q6H PRN pain #5 tabs 06/08/23 Allergies Allergy/AdvReac Type Severity Reaction Status Date / Time No Known Drug Allergies Allergy Verified 06/09/23 12:59 Review of Systems Review of Systems ROS Unobtainable: All systems reviewed & are unremarkable except as noted in HPI and below Patient History Medical History On prednisone therapy Depression Cognitive changes No significant past medical history Surgical History History of knee surgery History of Family History Father Stroke Mother Diabetes mellitus Heart attack Social History marital status: unknown household members: none housing: assisted living facility occupational status: previously employed Smoking Status: Former smoker Tobacco: How many years used: 20 alcohol intake: former substance use type: does not use Smoking Status: Former smoker tobacco type: cigarettes alcohol intake frequency: a few times a month Alcohol type: wine Substance Use Type: does not use Exam Narrative Exam Narrative: GENERAL: Alert and oriented x three, elderly appearing female in mild distress HEENT: Head normocephalic, atraumatic, EOMI, pupils reactive, face symmetric, moist mucous membranes NECK: Supple, full range of motion CARDIOVASCULAR: Regular rate and rhythm without murmurs, rubs or gallops. No edema bilateral lower extremities. No JVD. RESPIRATORY: Breath sounds equal bilaterally, no wheezes rales or rhonchi. No tachypnea or accessory muscle use. ABDOMEN: Soft, nontender. Normoactive bowel sounds all 4 quadrants. No guarding or rebound, rigidity, no mass : No CVA tenderness EXTREMITIES: Normal range of motion, no clubbing or edema. Neurovascularly intact NEUROLOGICAL: Cranial nerves II through XII grossly intact. Moving all extremities SKIN: Warm, dry, no petechiae, patient has drain on the left lower chest draining serosanguineous fluid without any erythema. Patient has a recent dressing placed just today by her surgeon after having her wound Re stapled and was asked not to have it removed. There is no surrounding erythema or swelling. There is a small amount of ecchymosis about 3 cm below but without any fullness or signs of hematoma. Patient's pain is well-controlled with palpation. Initial Vital Signs Initial Vital Signs: Vital Signs Temperature 96.9 F L 06/09/23 12:51 Pulse Rate 109 H 06/09/23 12:51 Respiratory Rate 20 06/09/23 12:51 Blood Pressure 108/59 L 06/09/23 12:51 Pulse Oximetry 96 06/09/23 12:51 Oxygen Delivery Method Room Air 06/09/23 12:51 Course Orders Ordered: ED Orders 06/09/23 13:15 XR chest 1V Stat RT Consult Eval and Treat NOW 06/09/23 14:06 Complete Blood Count AUTO DIFF Stat Comprehensive Metabolic Panel Stat Lactate (Lactic Acid) Stat Lipase Stat NT-proBNP (BNP-Adult 18+) Stat PTT Partial Thromboplastin Jose Stat Procalcitonin Stat Prothrombin Time INR Stat Troponin I Stat 06/09/23 14:11 Consult to FOOTWEAR SALES LEADER - [employer] Stat 06/09/23 14:40 Blood Culture Stat 06/09/23 15:33 CT angio chest PE protocol Stat 06/09/23 15:37 EKG-12 Lead Stat Acetaminophen (Acetaminophen 325 Mg Tablet) 650 mg PO Q6H PRN PRN Reason: Fever/Mild Pain (1-3) Albuterol/Ipratropium (Albuterol/Ipratropium 3 Ml Ampul) 3 ml INH [id number] PRN PRN Reason: shortness of breath/wheezing Fluoxetine HCl (Fluoxetine 20 Mg Capsule) 20 mg PO DAILY [facility] Heparin Sodium (Porcine) (Heparin 5,000 Unit/Ml Vial) 5,000 unit SUBCUT BID [facility] Lisinopril (Lisinopril 10 Mg Tablet) 10 mg PO DAILY [facility] Melatonin (Melatonin 3 Mg Tablet) 6 mg PO BEDTIME PRN PRN Reason: Insomnia Naloxone HCl (Naloxone 0.4 Mg/Ml Vial) 0.2 mg IV Q2MIN PRN PRN Reason: Opiate Reversal Nortriptyline HCl (Nortriptyline 10 Mg Capsule) 10 mg PO DAILY [facility] Ondansetron HCl (Ondansetron 4 Mg/2 Ml Inj) 4 mg IV NOW PRN PRN Reason: Nausea And Vomiting Ondansetron HCl (Ondansetron 4 Mg Odt) 4 mg SL NOW PRN PRN Reason: Nausea And Vomiting Ondansetron HCl (Ondansetron 4 Mg/2 Ml Inj) 4 mg IV Q4HR PRN PRN Reason: Nausea And Vomiting Polyethylene Glycol (Polyethylene Glycol 3350 17 Gm Powd.Pack) 17 gm PO DAILY PRN PRN Reason: Constipation Prednisone (Prednisone 20 Mg Tablet) 40 mg PO DAILY [facility] Stop: 06/13/23 09:01 Last Admin: 06/09/23 18:34 Dose: 40 mg Documented By: ABRAM Sennosides (Sennosides 8.6 Mg Tablet) 8.6 mg PO BID PRN PRN Reason: Constipation Tramadol HCl (Tramadol 50 Mg Tablet) 50 mg PO Q6H PRN PRN Reason: pain Venlafaxine HCl (Venlafaxine Er 37.5 Mg Cap) 37.5 mg PO DAILY [facility] Discontinued Medications Sodium Chloride (Normal Saline 0.9%) 1,000 mls @ 1,000 mls/hr IV BOLUS ONE Stop: 06/09/23 16:09 Last Admin: 06/09/23 15:17 Dose: 1,000 mls/hr Documented By: FRANK Oxycodone HCl (Oxycodone Ir 5 Mg Tablet) 5 mg PO Q4HR PRN PRN Reason: Pain, Moderate (4-6) Tramadol HCl (Tramadol 50 Mg Tablet) 50 mg PO NOW ONE Stop: 06/09/23 14:18 Last Admin: 06/09/23 14:44 Dose: 50 mg Documented By: SHEELA Vital Signs Vital signs: Vital Signs - 8 hr 06/09/23 12:51 06/09/23 13:50 06/09/23 13:57 Temperature 96.9 F L Pulse Rate 109 H 114 H 111 H Respiratory Rate 20 32 H 26 H Blood Pressure 108/59 L Pulse Oximetry 96 88 L 94 Oxygen Delivery Method Room Air Room Air Oxygen Flow Rate 06/09/23 14:00 06/09/23 14:00 06/09/23 14:30 Temperature Pulse Rate 107 H 101 H Respiratory Rate 24 24 Blood Pressure 129/70 Pulse Oximetry 95 94 Oxygen Delivery Method Oxygen Flow Rate 06/09/23 14:30 06/09/23 15:00 06/09/23 15:00 Temperature Pulse Rate 102 H Respiratory Rate 33 H Blood Pressure 118/65 112/65 Pulse Oximetry 92 Oxygen Delivery Method Room Air Oxygen Flow Rate 06/09/23 15:30 06/09/23 15:30 06/09/23 15:41 Temperature 97.9 F Pulse Rate 101 H 108 H Respiratory Rate 24 Blood Pressure 114/63 155/78 H Pulse Oximetry 94 98 Oxygen Delivery Method Oxygen Flow Rate 0 06/09/23 16:00 06/09/23 16:00 06/09/23 16:50 Temperature Pulse Rate 97 H 123 H Respiratory Rate Blood Pressure 121/58 L Pulse Oximetry 95 84 L Oxygen Delivery Method Oxygen Flow Rate 06/09/23 17:00 06/09/23 17:00 Temperature Pulse Rate 104 H Respiratory Rate 25 H Blood Pressure 98/60 Pulse Oximetry 92 Oxygen Delivery Method Room Air Oxygen Flow Rate Medical Decision Making Lab Data 06/09/23 14:06 06/09/23 14:06 Labs: Lab Results 06/09/23 06/09/23 Range/Units 14:06 16:07 WBC 13.2 H (4.5-11.0) X10^3/uL RBC 3.52 L (4.0-5.2) X10^6/uL Hgb 10.5 L (12.0-16.0) g/dL Hct 32.3 L (36-46) % MCV 91.6 (80-100) fL MCH 29.7 (26-34) PG MCHC 32.4 (30-36) % RDW 16.2 H (11.6-14.8) % Plt Count 207 (150-400) X10^3/uL Neut % (Auto) 86.6 H (50-75) % Lymph % (Auto) 4.9 L (25-40) % [place] % (Auto) 7.7 (3-14) % Eos % (Auto) 0.4 L (2-4) % Baso % (Auto) 0.4 (0-2) % Neut # (Auto) 59486 H (5967-7285) /uL Lymph # (Auto) 700 L (8809-6314) /uL [place] # (Auto) 1000 H (0-900) /uL Eos # (Auto) 100 (0-450) /uL Baso # (Auto) 100 (0-100) /uL PT 10.3 (9.4-12.5) SECONDS INR 0.9 (0.9-1.3) APTT 25 L (25.1-36.5) SECONDS Sodium 138 (137-145) mmol/L Potassium 4.9 (3.4-5.1) mmol/L Chloride 106 (98-107) mmol/L Carbon Dioxide 26 (22-32) mmol/L BUN 30 H (7-17) mg/dL Creatinine 1.08 H (0.52-1.04) mg/dL Estimated GFR 51 L (>60) mL/min BUN/Creatinine Ratio 27.8 H (6-22) Glucose 112 H (80-110) mg/dL Lactate 3.7 H 3.2 H (0.7-2.1) mmol/L Calcium 9.5 (8.4-10.2) mg/dL Total Bilirubin 0.6 (0.2-1.3) mg/dL AST 25 (14-36) IU/L ALT 19 (<35) IU/L Alkaline Phosphatase 88 (38-126) U/L Troponin I < 0.012 (0.01-0.034) ng/mL NT-Pro-B Natriuret Pep 503 H (<450) pg/mL Total Protein 6.7 (6.3-8.2) g/dL Albumin 3.7 (3.5-5.0) g/dL Globulin 3.0 (1.7-4.1) g/dL Albumin/Globulin Ratio 1.2 (1.0-2.8) Lipase 205 (23-300) U/L Procalcitonin 0.15 (<0.5) ng/mL Urine Dip Bedside Urine Glucose Negative Bedside Urine Bilirubin - Negative Bedside Urine Ketone - Negative Urine Specific [place] 1.025 Bedside Urine Occult Blood - Negative Bedside Urine pH 5.5 Bedside Urine Protein - Negative Bedside Urine Urobilinogen - Negative Bedside Urine Nitrite - Negative Bedside Urine Leukocytes - Negative Esterase Point of care testing: Urine Dip Bedside Urine Glucose Negative Bedside Urine Bilirubin - Negative Bedside Urine Ketone - Negative Urine Specific [place] 1.025 Bedside Urine Occult Blood - Negative Bedside Urine pH 5.5 Bedside Urine Protein - Negative Bedside Urine Urobilinogen - Negative Bedside Urine Nitrite - Negative Bedside Urine Leukocytes - Negative Esterase Imaging Data Chest x-ray: Radiologist's Impression: [address] [id number] XRay Report Signed Patient: Milak Ramirez MR#: [id number] : 1940 Acct:[id number] Age/Sex: 82 / F Date of Service: 06/09/23 Loc: ED Accession Number: [id number] Procedure: XR chest 1V Ordering Provider: Karla Quan D.O. PROCEDURE: XR CHEST 1V INDICATIONS: suspected sepsis TECHNIQUE: One view of the chest was acquired. COMPARISON: [facility], CR, XR CHEST 1V, 06/04/2023, 16:05. [facility], CR, XR CHEST 1V, 12/19/2022, 12:35. FINDINGS: Surgical changes and devices: Presume mastectomy changes and chest tube over the left lower lung.. Lungs and pleura: Lungs are normal considering reduced inspiratory volume. No pleural effusions or pneumothorax. Mediastinum: Mediastinal contours appear normal. Heart size is normal. Bones and chest wall: No suspicious bony lesions. Overlying soft tissues appear unremarkable. IMPRESSION: No acute cardiopulmonary abnormality is seen except for postoperative changes noted above.. Dictated by: Anthony Urbina M.D. on 06/09/2023 at 13:44 Approved by: Anthony Urbina M.D. on 06/09/2023 at 13:46 CT scan - chest: Radiologist's Impression: [address] [address] [address] Scan Report Signed Patient: Milka Ramirez MR#: [id number] : 1940 Acct:[id number] Age/Sex: 82 / F Date of Service: 06/09/23 Loc: ED Accession Number: [id number] Procedure: CT angio chest PE protocol Ordering Provider: Karla Quan D.O. PROCEDURE: CT ANGIO CHEST PE PROTOCOL INDICATIONS: s/p mastectomy 06/06, felt short of breath TECHNIQUE: After the administration of intravenous contrast, 2 mm thick sections acquired from the pulmonary apices to the posterior costophrenic angles. 3-dimensional maximum intensity projection (MIP) coronal and sagittal reformats were then acquired through the thorax. For radiation dose reduction, the following was used: automated exposure control, adjustment of mA and/or kV according to patient size. COMPARISON: [facility], CR, XR CHEST 1V, 12/19/2022, 12:35. [facility], CR, XR CHEST 1V, 06/04/2023, 16:05. FINDINGS: Image quality: Diagnostic. Pulmonary arteries: Pulmonary arteries are normal in size, and demonstrate no intraluminal filling defects to suggest central pulmonary embolism. Lower Neck: No enlarged lymph nodes. Thyroid: No thyroid nodules which require sonographic follow up, per consensus guidelines. Axillae: No enlarged lymph nodes. Chest Wall: Recent left mastectomy with subcutaneous gas. Bones: Increased sclerosis of the T10 vertebral body, with vertebral body height loss. Lungs and Pleura: No pneumothorax or pleural effusions. A few solid pulmonary micro nodules. Heart: Heart size is enlarged. No pericardial effusion. Mild coronary calcifications for age. Thoracic Vessels: No aortic aneurysm. Mediastinum and Kayla: No enlarged lymph nodes. Esophagus: No wall thickening. No hiatal hernia. Upper Abdomen: Visualized upper abdomen solid organs and bowel loops appear normal. IMPRESSION: No pulmonary embolus. No acute cardiopulmonary process. Increased sclerosis of the T10 vertebral body, with vertebral body height loss. Findings are concerning for pathologic fracture versus subacute compression deformity. Recent mastectomy with subcutaneous gas, as expected. Dictated by: Henry Valdovinos M.D. on 06/09/2023 at 16:06 Approved by: Henry Valdovinos M.D. on 06/09/2023 at 16:10 ECG Data Attestation: I personally reviewed and interpreted this ECG as follows: Prior ECG tracings: available for review Interpretation: Sinus rhythm rate of 100 NM 126 QRS is 64 QTC of 420. No acute ST elevation or depression. Patient has priors from 12/19/22 which appear similar. MDM Narrative Medical decision making narrative: This is an 82-year-old female who presents with complaint of feeling short of breath and weak 2 days postoperative from left mastectomy for invasive ductal carcinoma. Patient slightly tachycardic hypotensive temp 96.9?, respirations in the 20s 96% room air. Patient is alert, appropriate overall well-appearing. She had have a dose of tramadol here in the department she states that was very helpful. She also saw surgery today had her alexandra redone in her left chest and has a bandage over this but has a only a small hematoma underneath. No signs of infection at the site. Drainage is with serosanguineous fluid. Labs white count of 13.2, hemoglobin 10, platelets of 207, predominance of neutrophils. Coags are negative at 0.9 creatinine is 1.08 was 0.93 on June 03, sodium 138 potassium of 4 9, chloride of 106 CO2 of 26 with a BUN of 30, lactate 3.7 with a troponin of less than 0.012, BNP of 503 and a protocol of 0.15. Chest x-ray is negative for acute change EKG shows sinus rhythm without any acute changes. Patient has blood cultures pending. She is slightly tachycardic Typically hypoxic but complaining of shortness of breath with recent surgery CT angio obtained shows no pulmonary emboli or acute cardiopulmonary process increased sclerosis T10 vertebral body with height loss findings concerning for pathologic fracture versus subacute compression deformity. Recent mastectomy with subcutaneous gas as expected. Patient was ambulated here in the department, patient states that she felt well but dropped to 84% room air and heart rate went to the 120s, patient was able to ambulate to the bathroom. No obvious clear source of her symptoms. She has not wheezy, she does not have significant respiratory distress. PE scan is negative. You appear to have pneumonia or infection at this time. She is anemic but not significantly changed from priors. She does not appear to be fluid overloaded by labs, imaging or exam Dr. Salgado hospitalist who accepts for observation. Discharge Plan Departure Patient Disposition: Admitted as Observation Clinical Impression: Hypoxia Admit Date/Time: 06/09/23 17:00 Admit Provider: Dameon Salgado
--- NOTE | 2023-06-09 15:33 | DI.CT.S_ITS ---
PROCEDURE: CT ANGIO CHEST PE PROTOCOL INDICATIONS: s/p mastectomy 06/06, felt short of breath TECHNIQUE: After the administration of intravenous contrast, 2 mm thick sections acquired from the pulmonary apices to the posterior costophrenic angles. 3-dimensional maximum intensity projection (MIP) coronal and sagittal reformats were then acquired through the thorax. For radiation dose reduction, the following was used: automated exposure control, adjustment of mA and/or kV according to patient size. COMPARISON: [facility], CR, XR CHEST 1V, 12/19/2022, 12:35. [facility], CR, XR CHEST 1V, 06/04/2023, 16:05. FINDINGS: Image quality: Diagnostic. Pulmonary arteries: Pulmonary arteries are normal in size, and demonstrate no intraluminal filling defects to suggest central pulmonary embolism. Lower Neck: No enlarged lymph nodes. Thyroid: No thyroid nodules which require sonographic follow up, per consensus guidelines. Axillae: No enlarged lymph nodes. Chest Wall: Recent left mastectomy with subcutaneous gas. Bones: Increased sclerosis of the T10 vertebral body, with vertebral body height loss. Lungs and Pleura: No pneumothorax or pleural effusions. A few solid pulmonary micro nodules. Heart: Heart size is enlarged. No pericardial effusion. Mild coronary calcifications for age. Thoracic Vessels: No aortic aneurysm. Mediastinum and Kayla: No enlarged lymph nodes. Esophagus: No wall thickening. No hiatal hernia. Upper Abdomen: Visualized upper abdomen solid organs and bowel loops appear normal. IMPRESSION: No pulmonary embolus. No acute cardiopulmonary process. Increased sclerosis of the T10 vertebral body, with vertebral body height loss. Findings are concerning for pathologic fracture versus subacute compression deformity. Recent mastectomy with subcutaneous gas, as expected. Dictated by: Henry Valdovinos M.D. on 06/09/2023 at 16:06 Approved by: Henry Valdovinos M.D. on 06/09/2023 at 16:10
[2023-06-09 15:49] LABS: Reflexed Lactate in 2 Hours Y
[2023-06-09 16:29] LABS: Lactate 2HR (Lactic Acid Rflx) 3.2 mmol/L (0.7-2.1)
--- NOTE | 2023-06-09 17:11 | PC.NURSE ---
water provided, family updated. IVF reattached and bolus continued
[2023-06-09] MEDS: predniSONE 20 MG TABLET 40 MG PO (18:34)
--- NOTE | 2023-06-09 18:49 | PM.HP.1 ---
History of Present Illness History of Present Illness Date Patient Seen: 06/09/23 Chief complaint: post op problems, sob, weakness Narrative: Milka Ramirez is an 82yo F with PMH of invasive ductal carcinoma s/p L mastectomy on 06/06, giant cell arteritis on chronic prednisone, former smoker, depression, and HTN who presents with weakness and SOB. Patient just was discharged from [facility] on 06/06 after her mastectomy, then developed worsening weakness, dyspnea and wheezing. She is a former smoker but has no history of COPD. In the ED patient found to be hypoxic with exertion to 84% so put on 2L O2. CTA chest and CXR were normal. Patient states she is not sure why she is hypoxic. She did smoke for 20 years but quit several years ago. She denies SOB at rest. No CP, NV, abd pain or diarrhea. PFSH Medical History On prednisone therapy Depression Cognitive changes No significant past medical history Surgical History History of knee surgery History of Family History Father Stroke Mother Diabetes mellitus Heart attack Social History marital status: unknown household members: none housing: assisted living facility occupational status: previously employed Smoking Status: Former smoker Tobacco: How many years used: 20 alcohol intake: former substance use type: does not use Meds Home Medications and Allergies Home Medications Medication Instructions Recorded Confirmed Type acetaminophen 500 mg tablet 1,000 mg (2 x 500 mg) PO TID PRN 11/30/22 06/09/23 Rx (Tylenol Extra Strength) pain #540 tabs dimethicone 2 % topical cream 1 applic topical DAILY PRN skin 11/30/22 06/09/23 Rx irritation #113 grams ibuprofen 200 mg tablet (Advil) See Rx Instructions PO Q6H PRN 11/30/22 06/09/23 Rx pain #720 tabs Magnesium Citrate (CALM) 117.5 mg PO DAILY PRN headache #16 12/02/22 06/09/23 Rx oz lisinopril 10 mg tablet See Rx Instructions .Route 01/10/23 06/09/23 Rx .COMPLEX #90 tabs venlafaxine 37.5 mg See Rx Instructions .Route 01/10/23 06/09/23 Rx capsule,extended release 24 hr .COMPLEX #90 caps fluoxetine 20 mg capsule 20 mg PO DAILY #90 caps 02/21/23 06/09/23 Rx lidocaine 5 % topical ointment 1 applic topical DAILY PRN pain 04/21/23 06/09/23 Rx #30 grams prednisone 20 mg tablet 40 mg PO DAILY 04/21/23 06/09/23 History latanoprost 0.005 % eye drops 1 drp EYE-BOTH QPM #7.5 mL 05/03/23 06/09/23 Rx methenamine hippurate 1 gram 1 g PO BID #180 tabs 05/17/23 06/09/23 Rx tablet (Hiprex) nortriptyline 10 mg capsule 10 mg PO DAILY #90 caps 06/07/23 06/09/23 Rx prednisone 10 mg tablet 10 mg PO DAILY 06/07/23 06/09/23 History vit C 250 mg-vit E 90 mg-zinc 40 1 cap PO BID #60 caps 06/07/23 06/09/23 Rx mg-copper 1 [id number] capsule (PreserVision AREDS-2) tramadol 50 mg tablet 50 mg PO Q6H PRN pain #5 tabs 06/08/23 06/09/23 Rx Allergies Allergy/AdvReac Type Severity Reaction Status Date / Time No Known Drug Allergies Allergy Verified 06/09/23 12:59 Review of Systems Review of Systems Narrative: All other systems reviewed with the patient and are negative unless otherwise stated. Exam Vital Signs (past 8 hours): - 06/09/23 12:51 06/09/23 13:50 06/09/23 13:57 Temperature 96.9 F L Pulse Rate 109 H 114 H 111 H Respiratory Rate 20 32 H 26 H Blood Pressure 108/59 L Pulse Oximetry 96 88 L 94 Oxygen Delivery Method Room Air Room Air Oxygen Flow Rate 06/09/23 14:00 06/09/23 14:00 06/09/23 14:30 Temperature Pulse Rate 107 H 101 H Respiratory Rate 24 24 Blood Pressure 129/70 Pulse Oximetry 95 94 Oxygen Delivery Method Oxygen Flow Rate 06/09/23 14:30 06/09/23 15:00 06/09/23 15:00 Temperature Pulse Rate 102 H Respiratory Rate 33 H Blood Pressure 118/65 112/65 Pulse Oximetry 92 Oxygen Delivery Method Room Air Oxygen Flow Rate 06/09/23 15:30 06/09/23 15:30 06/09/23 15:41 Temperature 97.9 F Pulse Rate 101 H 108 H Respiratory Rate 24 Blood Pressure 114/63 155/78 H Pulse Oximetry 94 98 Oxygen Delivery Method Oxygen Flow Rate 0 06/09/23 16:00 06/09/23 16:00 06/09/23 16:50 Temperature Pulse Rate 97 H 123 H Respiratory Rate Blood Pressure 121/58 L Pulse Oximetry 95 84 L Oxygen Delivery Method Oxygen Flow Rate 06/09/23 17:00 06/09/23 17:00 06/09/23 17:30 Temperature Pulse Rate 104 H 102 H Respiratory Rate 25 H 34 H Blood Pressure 98/60 Pulse Oximetry 92 Oxygen Delivery Method Room Air Oxygen Flow Rate 06/09/23 18:00 06/09/23 18:06 06/09/23 18:07 Temperature Pulse Rate 105 H 102 H Respiratory Rate 28 H 34 H Blood Pressure 119/65 Pulse Oximetry Oxygen Delivery Method Oxygen Flow Rate Oxygen Delivery Method Room Air Oxygen Flow Rate 0 Narrative Exam Narrative: GEN: no acute distress HEENT: moist mucous membranes, PERRL NECK: trachea midline, no JVD CV: regular rate and rhythm, no murmurs PULM: faint wheeze, minimal crackles at bases ABD: soft, nontender, nondistended, no organomegaly EXT: warm and well perfused with no edema NEURO: awake, alert, oriented, no focal deficits Objective Labs 06/09/23 14:06 06/09/23 14:06 Labs: Laboratory Results - last 24 hr 06/09/23 06/09/23 14:06 16:07 WBC 13.2 H RBC 3.52 L Hgb 10.5 L Hct 32.3 L MCV 91.6 MCH 29.7 MCHC 32.4 RDW 16.2 H Plt Count 207 Neut % (Auto) 86.6 H Lymph % (Auto) 4.9 L [place] % (Auto) 7.7 Eos % (Auto) 0.4 L Baso % (Auto) 0.4 Neut # (Auto) 09483 H Lymph # (Auto) 700 L [place] # (Auto) 1000 H Eos # (Auto) 100 Baso # (Auto) 100 PT 10.3 INR 0.9 APTT 25 L Sodium 138 Potassium 4.9 Chloride 106 Carbon Dioxide 26 BUN 30 H Creatinine 1.08 H Estimated GFR 51 L BUN/Creatinine Ratio 27.8 H Glucose 112 H Lactate 3.7 H 3.2 H Calcium 9.5 Total Bilirubin 0.6 AST 25 ALT 19 Alkaline Phosphatase 88 Troponin I < 0.012 NT-Pro-B Natriuret Pep 503 H Total Protein 6.7 Albumin 3.7 Globulin 3.0 Albumin/Globulin Ratio 1.2 Lipase 205 Procalcitonin 0.15 Assessment & Plan Assessment & Plan narrative: # acute hypoxic respiratory failure -no evidence of pneumonia, pulmonary embolism or pulmonary edema on chest x-ray and CTA chest -suspect possible COPD exacerbation as patient is a former smoker (20 years) and per daughter she had some wheezing -continue prednisone 40 mg daily -duo nebs as needed -check viral panel -check echo to look for pulm HTN as possible cause of hypoxia -home O2 eval as patient will likely need oxygen with exertion # lactic acidemia -LA 3.2 on admission -IVF and trend # breast invasive ductal carcinoma s/p mastectomy -underwent mastectomy on 06/[address] Pardo -tramadol PRN # giant cell arteritis -continue prednisone, was weaning down slowly # HTN -continue lisinopril # depression -continue prozac and effexor Code status is full code. DVT prophylaxis with heparin subcutaneous. Proxy is daughter Gricelda. I have reviewed home meds and used all available resources to reconcile the home meds. Case discussed with ED physician/APC and patient will be admitted to the hospitalist service for further workup and management. This patient will be admitted as observation and will require less than 2 midnights of hospital time to treat hypoxia.
--- NOTE | 2023-06-09 18:51 | PC.NURSE ---
Patient arrives from ED at 1815 this evening. She is A&OX4, ambulates to the BR to void with FWW and SBA, noted SOB but at rest 98% on RA RR 24, and HR 108. SBP slightly hypertensive, she denies pain. FINA to L chest draining moderate clear serosanguineous fluid. She denies any open sores other than her incision which is c/d/i to L chest. She is placed on continuous pulse ox, bed alarm, call light in reach, admission assessment completed. Continuous monitoring. She is able to eat 75% of dinner. Her skin is very thin and fragile, dry and peeling, with multiple bruises scattered.
[2023-06-09 20:03] LABS: Influenza A - CEPHEID Flu A NEGATIVE (NEGATIVE); Influenza B - CEPHEID Flu B NEGATIVE (NEGATIVE); Respiratory Syncytial Virus Negative (Negative)
[2023-06-09 20:07] LABS: COVID-19 CEPHEID 4-PLEX PCR Negative (Negative)
[2023-06-09] MEDS: HEPARIN 5,000 UNIT/ML VIAL 5000 UNIT SUBCUT (21:18)
[2023-06-10] VITALS (10 sets, daily range): BP systolic 96–131; BP diastolic 52–76; PULSE 84–101; RESP 17–20; TEMP 35.9–36.4; O2SAT 93–98
[2023-06-10 05:33] LABS: Add Manual Diff / Slide Review NO; Basophils Absolute Auto 0 /uL (0-100); Basophils Percent Auto 0.2 % (0-2); Eosinophils Absolute Auto 0 /uL (0-450); Hemoglobin 8.6 g/dL (12.0-16.0); Lymphocytes Absolute Auto 300 /uL (1100-4500); Mean Corpuscular HGB Conc 32.9 % (30-36); Mean Corpuscular Hemoglobin 29.9 PG (26-34); Mean Corpuscular Volume 90.7 fL (80-100); Monocytes Absolute Auto 200 /uL (0-900); Monocytes Percent Auto 3.6 % (3-14); Neutrophils Absolute Auto 5400 /uL (1500-7000); Neutrophils Percent Auto 91.2 % (50-75); Platelet Count 163 X10^3/uL (150-400); Red Blood Cell Count 2.87 X10^6/uL (4.0-5.2); Red Cell Distribution Width 16.2 % (11.6-14.8)
[2023-06-10 05:50] LABS: Blood Urea Nitrogen 24 mg/dL (7-17); Calcium 8.5 mg/dL (8.4-10.2); Carbon Dioxide 29 mmol/L (22-32); Chloride 105 mmol/L (98-107); Estimated Glomerular Filt Rate > 60 mL/min (>60); Glucose 128 mg/dL (80-110); HEMOLYSIS < 15 (0-50); Potassium 5.3 mmol/L (3.4-5.1); Sodium 134 mmol/L (137-145)
--- NOTE | 2023-06-10 08:48 | DI.ECHO.S_ITS ---
[place] +---------+ [facility] +---------+ : : [address] : : : : [id number] : : : : Phone: [phone]+ Echocardiogram Report + + :Name: IRENE GALDAMEZ Study Date: 06/10/2023 Height: 62 in : :[facility] ReadingLocation: Weight: 117 lb : : Gender: Female BSA: 1.5 m2 : :: 1940 Age: 82 yrs BP: 131/76 mmHg: :Reason For Study: SOB : : Performed By: Hiwot Myrick : :Referring: ALVARADO BUTLER A : + + Interpretation Summary 1. This is a technically difficult study secondary to limited views. 2. In limited views, the left ventricular contractility appears to be grossly normal. Estimated ejection fraction is greater than 55%. No obvious segmental wall motion abnormalities are appreciated. 3. In limited views, the right ventricular contractility appears to be grossly normal. 4. There is suggestion that the right ventricle may be mildly enlarged. All other cardiac chambers appears to be grossly normal in size. 5. No obvious valvular abnormalities are appreciated in limited views. Limited color-flow Doppler had no obvious regurgitation. 6. No obvious intracardiac masses nor thrombi appreciated. 7. No obvious intracardiac shunts noted. 8. There appears to be a circumferential pericardial effusion without obvious signs of tamponade on 2D imaging. No Doppler interrogation was performed at the tricuspid nor mitral inflows. Procedure: A two-dimensional transthoracic echocardiogram with color flow and Doppler was performed. The study quality was technically limited. There is no prior echocardiogram noted for this patient. The heart rate ranged between 102-104 bpm during the study. Left Ventricle: The left ventricle is grossly normal size. The left ventricular ejection fraction is grossly normal. Diastolic function could not be accurately assessed due to unobtainable data. Right Ventricle: Borderline right ventricular enlargement. Atria: The left atrial size is normal. Right atrial size is normal. The interatrial septum grossly appears intact with no obvious evidence for an atrial septal defect. Mitral Valve: The mitral valve is grossly normal. Aortic Valve: The aortic valve is not well visualized. The aortic valve is grossly normal. Tricuspid Valve: The tricuspid valve is not well visualized, but is grossly normal. Pulmonic Valve: The pulmonic valve is not well visualized. Pericardium/ Pleura Pericardial effusion versus pericardial fat pad. There is no pleural effusion. MMode/2D Measurements & Calculations LVIDd: 3.2 cm LVIDs: 1.5 cm FS: 53.6 % LV fernandez. diameter/BSA (cm/m^2): 2.1 LV sys. diameter/BSA (cm/m^2): 0.99 Reading Physician:
[2023-06-10] MEDS: predniSONE 20 MG TABLET 40 MG PO (09:34)
[2023-06-10] MEDS: NORTRIPTYLINE 10 MG CAPSULE PO (09:34)
[2023-06-10] MEDS: HEPARIN 5,000 UNIT/ML VIAL 5000 UNIT SUBCUT ×2 (09:34→20:18)
[2023-06-10] MEDS: FLUoxetine 20 MG CAPSULE PO (09:35)
[2023-06-10] MEDS: lisinopriL 10 MG TABLET PO (09:35)
[2023-06-10] MEDS: VENLAFAXINE ER 37.5 MG CAP PO (09:35)
--- NOTE | 2023-06-10 10:50 | PT.IIE ---
Surgical History (Last Reviewed 06/10/23 @ 13:59 by Be Romero MD) History of History of knee surgery Medical History (Last Reviewed 06/10/23 @ 13:59 by Be Romero MD) Cognitive changes Depression No significant past medical history On prednisone therapy Physical Therapy Inpatient Evaluation/Re-Eval M1 PT/OT-IP Prior Functional Status Start: 06/10/23 14:05 Freq: NEEDED Status: Active Protocol: Document 06/10/23 10:50 AB (Rec: 06/10/23 14:30 AB [id number]) Medical Review Prior Functional Status Medical History Reviewed Yes Communication able to make needs known; with slight confusion Mobility and Gait pt stated that she was modified independent with all mobilities and ambulates without AD indoors but uses a 4WW outdoors Social History Household Members none Living Arrangements Assisted Living Number of Stairs To Enter/Railing? pt lives at [facility] Environment Standard Height Toilet,Walk in Shower Home Equipment Four Wheel Walker,Shower Seat with Backrest,Hand Held Shower ,Grab Bars Near Toilet,Grab Bars In Shower Additional Social History Comment pt stated that she has access to a call button for assistance; also stated that her daughter comes in to assist her if needed M2 PT-IP Current Condition Start: 06/10/23 14:05 Freq: NEEDED Status: Active Protocol: Document 06/10/23 10:50 AB (Rec: 06/10/23 14:30 AB [id number]) Physical Therapy Current Condition Current Condition Evaluation Date 06/10/23 Treatment Diagnosis hypoxia; difficulty in walking Onset Date 06/09/23 M3 PT-IP Subjective Start: 06/10/23 14:05 Freq: NEEDED Status: Active Protocol: Document 06/10/23 10:50 AB (Rec: 06/10/23 14:30 AB [id number]) Subjective Physical Therapy Visit Type Type Initial Evaluation Visit Start Time 10:50 Visit Stop Time 11:35 Number of LIGHT RAIL SIGNAL TECHNICIAN Visits 45 Physical Therapy Visit Comments Patient Comments agreeable to do PT Therapy Pain Assessment Pain Present Pain Present Denied Pain M4 PT-IP Mobility and Gait Start: 06/10/23 14:05 Freq: NEEDED Status: Active Protocol: Document 06/10/23 10:50 AB (Rec: 06/10/23 14:30 AB [id number]) PT-Bed Mobility Assessment Supine to Sit Supine to Sit Standby Assistance PT-Transfer Assessment Sit to and From Stand Sit to and from Stand Contact Guard Assistance,1 Person Assistance,Use of Upper Extremities Equipment Transfer Assistive Device Small Based Quad Cane,Front Wheeled Walker,4 Wheeled Walker Orthotic/Prosthetic Devices or Brace: No Transfers Transfer Destination Chair Transfer Technique ambulated Transfer Ability Level of Assist Contact Guard Assistance,1 Person Assistance,Use of Upper Extremities Comments Mobility Comments pt supine in bed. agreeable to do PT. obtained PLOF and home set from pt. pt was just admtted 06/07/23 s/p L mastectomy and d/c'd back to [facility] 06/08/23. reviewed precautions with pt and pt understood. O2 sat with .5L/min O2 98-99% but decrease to ~ 90-91% at RA. pt completed supine to sit SBA but requiring several attempts and needing increase time to complete. pt able to sit on EOB SBA. O2 sat wtih activity with .5L/min O2 decreases to 88% but recovered to 92-93% in ~ 10 sec. cued for deep breathing. pt able to sit on EOB SBA. completed sit to stand CGA and ambulated in room using FWW CGA ~ 20 ft . pt sat on the chair. Assessed ambulation using 4WW and completed ~ 30 ft CGA. pt agreed to stay up on the chair. positioned pt on the chair. call light and table placed within reach. Gait Assessment Gait Gait Assistance Required: Contact Guard Assist Distance (Feet) 30 Able to Maintain Weight Bearing Status Yes During Gait Assistive Devices Assistive Device Gait Belt,Front Wheeled Walker ,4 Wheeled Walker Orthotic/Prosthetic Devices or Brace: No Gait Deviations General Gait Pattern Decreased Stride Length, Decreased Feet Clearance Factors Limiting Gait Function Factors Limiting Gait Function Decreased Activity Tolerance, Decreased Strength,Difficulty Following Directions,Poor Balance,Poor Safety Awareness PT-Balance Assessment Sitting Balance and Reactions Static Sitting Balance Ability Normal Dynamic Sitting Balance Ability Good Standing Balance and Reactions Static Standing Balance Ability Good Dynamic Standing Balance Ability Fair Device Used 4WW M5 PT-IP Objective Assessments Start: 06/10/23 14:05 Freq: NEEDED Status: Active Protocol: Document 06/10/23 10:50 AB (Rec: 06/10/23 14:30 AB [id number]) Orientation Orientation/Cognition Level of Alertness Alert Language Function Ability Hard of Hearing Safety Awareness Decreased Safety Awareness Memory Description No Deficits Noted Comments with slight confusion Gross Range of Motion Lower Extremity ROM Assessment Within Functional Limits Strength Lower Extremity Strength Assessment Within Functional Limits Coordination Assessment Gross Coordination Gross Coordination WNL Muscle Tone Muscle Tone WNL Yes M6 PT-IP Treatment Start: 06/10/23 14:05 Freq: NEEDED Status: Active Protocol: Document 06/10/23 10:50 AB (Rec: 06/10/23 14:30 AB [id number]) Physical Therapy Treatment Education Education Provided Safety M7 PT-IP Assessment and Plan Start: 06/10/23 14:05 Freq: NEEDED Status: Active Protocol: Document 06/10/23 10:50 AB (Rec: 06/10/23 14:30 AB [id number]) PT Summary Assessment and Plan Potential Rehabilitation Potential Fair Status of Condition at Evaluation Evolving Summary Impairments Pain,ROM,Strength,Balance, Coordination,Cognition,Bed Mobility,Transfers,Gait, Activity Tolerance Assessment Summary pt is an 82 y/o F who presented to the ED with c/o dyspnea and weakness. pt was just admitted 06/07/23- here in the hospital for L mastectomy. pt admitted for hypoxia. pt requiring CGA with mobility using 4WW. pt with slight confusion and will need assistance at home. pt lives at [facility] and pt stated that she can ask for assistance if needed and family can be available to assist. pt will benefit from HHPT. Goals Bed Mobility Goal Independent Transfer Goal Independent,Four Wheeled Walker Gait Goal Independent,Four Wheel Walker Gait Distance 200 Other Goals improve ambulation without AD 300 ft mod I Days to Meet Goals 10 Frequency of Treatment Frequency Of Treatment Once a Day Treatment Plan Physical Therapy Treatment Plan Bed Mobility Training,Transfer Training,Gait Training, Therapeutic Exercise,Balance Retraining,Post Op Education, Discharge Planning,Hot or Cold Pack,Neuromuscular Re-ed, Coordination Retraining,Manual Therapy Precautions Other Precautions L mastectomy precaution Recommendations To Nursing Amount of Assist Needed 1 Person Assist Discharge Recommendations PT Discharge Recommendations Home with Assistance,Home Health Transportation Needs at Discharge Private Vehicle
--- NOTE | 2023-06-10 11:14 | PC.NURSE ---
Pt arousable, follows commands, offers no c/o. restful. FINA patent and intact.
--- NOTE | 2023-06-10 13:59 | P.PN_ITS ---
Subjective Subjective Interval history: She is doing okay today. She is still on a small amount of oxygen but denies dyspnea. She denies any pain or confusion. She is extremely weak. Exam Vital Signs (past 8 hours): - 06/10/23 06:00 06/10/23 07:39 06/10/23 08:00 Temperature 96.7 F L 97.5 F L Pulse Rate 84 90 Respiratory Rate 17 20 Blood Pressure 115/67 131/76 Pulse Oximetry 98 98 98 Oxygen Delivery Method Nasal Cannula Oxygen Flow Rate 1 0.5 0.5 Fraction of Inspired Oxygen 23 06/10/23 09:35 06/10/23 11:00 Temperature 97.4 F L Pulse Rate 90 93 H Respiratory Rate 20 Blood Pressure 131/76 117/67 Pulse Oximetry 97 Oxygen Delivery Method Oxygen Flow Rate 0 Fraction of Inspired Oxygen Fraction of Inspired Oxygen 23 SaO2/FiO2 Ratio 426 Oxygen Delivery Method Nasal Cannula Oxygen Flow Rate 0 Narrative Exam Narrative: NAD, alert and oriented. Fluent speech. Lungs are clear, normal rate and effort. Heart is regular, no murmur gallop or rub. Abdomen is soft, non distended. Extremities are free of edema. Objective Labs 06/10/23 05:14 06/10/23 05:14 Labs: Laboratory Results - last 24 hr 06/09/23 06/09/23 06/09/23 14:06 16:07 18:37 WBC 13.2 H RBC 3.52 L Hgb 10.5 L Hct 32.3 L MCV 91.6 MCH 29.7 MCHC 32.4 RDW 16.2 H Plt Count 207 Neut % (Auto) 86.6 H Lymph % (Auto) 4.9 L [place] % (Auto) 7.7 Eos % (Auto) 0.4 L Baso % (Auto) 0.4 Neut # (Auto) 65600 H Lymph # (Auto) 700 L [place] # (Auto) 1000 H Eos # (Auto) 100 Baso # (Auto) 100 PT 10.3 INR 0.9 APTT 25 L Sodium 138 Potassium 4.9 Chloride 106 Carbon Dioxide 26 BUN 30 H Creatinine 1.08 H Estimated GFR 51 L BUN/Creatinine Ratio 27.8 H Glucose 112 H Lactate 3.7 H 3.2 H Calcium 9.5 Total Bilirubin 0.6 AST 25 ALT 19 Alkaline Phosphatase 88 Troponin I < 0.012 NT-Pro-B Natriuret Pep 503 H Total Protein 6.7 Albumin 3.7 Globulin 3.0 Albumin/Globulin Ratio 1.2 Lipase 205 Procalcitonin 0.15 SARS-CoV-2 (PCR) Negative Influenza A (RT-PCR) Flu a negative Influenza B (RT-PCR) Flu b negative RSV (PCR) Negative 06/10/23 05:14 WBC 6.0 D RBC 2.87 L Hgb 8.6 L Hct 26.0 L MCV 90.7 MCH 29.9 MCHC 32.9 RDW 16.2 H Plt Count 163 Neut % (Auto) 91.2 H Lymph % (Auto) 5.0 L [place] % (Auto) 3.6 Eos % (Auto) 0.0 L Baso % (Auto) 0.2 Neut # (Auto) 5400 Lymph # (Auto) 300 L [place] # (Auto) 200 Eos # (Auto) 0 Baso # (Auto) 0 PT INR APTT Sodium 134 L Potassium 5.3 H Chloride 105 Carbon Dioxide 29 BUN 24 H Creatinine 0.80 Estimated GFR > 60 BUN/Creatinine Ratio 30.0 H Glucose 128 H Lactate Calcium 8.5 Total Bilirubin AST ALT Alkaline Phosphatase Troponin I NT-Pro-B Natriuret Pep Total Protein Albumin Globulin Albumin/Globulin Ratio Lipase Procalcitonin SARS-CoV-2 (PCR) Influenza A (RT-PCR) Influenza B (RT-PCR) RSV (PCR) [facility]LY [facility] Medical History On prednisone therapy Depression Cognitive changes No significant past medical history Surgical History History of knee surgery History of Family History Father Stroke Mother Diabetes mellitus Heart attack Social History marital status: unknown household members: none housing: assisted living facility occupational status: previously employed Smoking Status: Former smoker Tobacco: How many years used: 20 alcohol intake: former substance use type: does not use Assessment & Plan Assessment & Plan narrative: 1. Acute hypoxic respiratory failure, present on admission and active. -no evidence of pneumonia, pulmonary embolism or pulmonary edema on chest x-ray and CTA chest -suspect possible COPD exacerbation as patient is a former smoker (20 years) and per daughter she had some wheezing -continue prednisone 40 mg daily -duo nebs as needed -negative viral panel -check echo to look for pulm HTN as possible cause of hypoxia, complete with results pending. -home O2 eval as patient will likely need oxygen with exertion 2. Lactic acidemia, present on admission and improving. -LA 3.2 on admission -IVF and trend 3. Breast invasive ductal carcinoma s/p mastectomy with some wound dehiscence, present on admission and active. -underwent mastectomy on 06/[address] Pardo -tramadol PRN 4. Giant cell arteritis, present on admission and active. -continue prednisone, was weaning down slowly 5. HTN, present on admission and active. -continue lisinopril 6. Depression, present on admission and stable. -continue prozac and effexor Code status is full code. DVT prophylaxis with heparin subcutaneous. Proxy is daughter Gricelda. This patient will be admitted as observation and will require less than 2 midnights of hospital time to treat hypoxia. DISPO: [facility] facility for rehabilitation efforts.
[2023-06-10 15:05] LABS: Lactate (Lactic Acid) 3.8 mmol/L (0.7-2.1)
[2023-06-10 16:24] LABS: Reflexed Lactate in 2 Hours Y
[2023-06-10 17:07] LABS: Lactate 2HR (Lactic Acid Rflx) 3.2 mmol/L (0.7-2.1)
[2023-06-10] MEDS: SODIUM CHLORIDE 0.9% 1,000 ML 100 ML IV (17:15)
[2023-06-10] MEDS: MELATONIN 3 MG TABLET 6 MG PO (20:18)
[2023-06-10] MEDS: TRAMADOL 50 MG TABLET PO (20:24)
[2023-06-10 22:26] LABS: Lactate (Lactic Acid) 1.8 mmol/L (0.7-2.1)
[2023-06-11] VITALS (7 sets, daily range): BP systolic 109–124; BP diastolic 58–79; PULSE 88–108; RESP 16–20; TEMP 36.1–37.2; O2SAT 94–96
[2023-06-11] MEDS: SODIUM CHLORIDE 0.9% 1,000 ML 100 ML IV (02:40)
[2023-06-11 05:40] LABS: Add Manual Diff / Slide Review NO; Basophils Absolute Auto 0 /uL (0-100); Basophils Percent Auto 0.2 % (0-2); Eosinophils Absolute Auto 0 /uL (0-450); Eosinophils Percent Auto 0.4 % (2-4); Hematocrit 24.9 % (36-46); Hemoglobin 8.1 g/dL (12.0-16.0); Lymphocytes Absolute Auto 700 /uL (1100-4500); Lymphocytes Percent Auto 12.4 % (25-40); Mean Corpuscular HGB Conc 32.6 % (30-36); Monocytes Absolute Auto 600 /uL (0-900); Monocytes Percent Auto 10.7 % (3-14); Neutrophils Absolute Auto 4400 /uL (1500-7000); Neutrophils Percent Auto 76.3 % (50-75); Platelet Count 167 X10^3/uL (150-400); Red Blood Cell Count 2.71 X10^6/uL (4.0-5.2); Red Cell Distribution Width 16.5 % (11.6-14.8); White Blood Cell Count 5.8 X10^3/uL (4.5-11.0)
[2023-06-11 05:52] LABS: BUN Creatinine Ratio 27.8 (6-22); Blood Urea Nitrogen 22 mg/dL (7-17); Calcium 8.6 mg/dL (8.4-10.2); Carbon Dioxide 27 mmol/L (22-32); Chloride 108 mmol/L (98-107); Estimated Glomerular Filt Rate > 60 mL/min (>60); Glucose 157 mg/dL (80-110); HEMOLYSIS < 15 (0-50); Potassium 4.2 mmol/L (3.4-5.1); Sodium 136 mmol/L (137-145)
[2023-06-11] MEDS: HEPARIN 5,000 UNIT/ML VIAL 5000 UNIT SUBCUT (09:29)
[2023-06-11] MEDS: TRAMADOL 50 MG TABLET PO ×2 (09:29→17:52)
[2023-06-11] MEDS: lisinopriL 10 MG TABLET PO (09:31)
[2023-06-11] MEDS: NORTRIPTYLINE 10 MG CAPSULE PO (09:32)
[2023-06-11] MEDS: predniSONE 20 MG TABLET 40 MG PO (09:32)
[2023-06-11] MEDS: FLUoxetine 20 MG CAPSULE PO (09:33)
[2023-06-11] MEDS: VENLAFAXINE ER 37.5 MG CAP PO (09:36)
[2023-06-11] MEDS: ACETAMINOPHEN 325 MG TABLET 650 MG PO ×2 (09:36→17:52)
--- NOTE | 2023-06-11 11:45 | PT-IP ANOTE ---
Attempted to see pt at 11:45, pt was sleeping and woke easily however reported feeling very tired and weak today and asked to keep sleeping. Pt did express she feels she needs SNF at this time and is too weak to go home.
--- NOTE | 2023-06-11 14:10 | P.PN_ITS ---
Subjective Subjective Interval history: She was still weak and tired. She does feel better than yesterday. She received IV fluids overnight. She denies any dyspnea, chest pain, or abdominal pain. She is inpatient status after external review. The patient is currently awaiting for shelter facility placement for rehabilitation efforts. She is recovering from a left mastectomy. Exam Vital Signs (past 8 hours): - 06/11/23 08:00 06/11/23 08:15 06/11/23 08:39 Temperature 98.1 F Pulse Rate 88 Respiratory Rate 20 Blood Pressure 124/76 Pulse Oximetry 95 95 Oxygen Delivery Method Room Air Nasal Cannula Oxygen Flow Rate 0 0.5 06/11/23 12:30 Temperature 97.8 F Pulse Rate 93 H Respiratory Rate 16 Blood Pressure 124/79 Pulse Oximetry 94 Oxygen Delivery Method Oxygen Flow Rate 0 Fraction of Inspired Oxygen 23 SaO2/FiO2 Ratio 426 Oxygen Delivery Method Nasal Cannula Oxygen Flow Rate 0 Narrative Exam Narrative: Quite fatigued but no distress. Chronically ill in appearance. Neck is supple. Lungs are clear with normal rate and effort. Heart is regular. No murmur. Abdomen is distended but nontender. Extremities are free of edema. Skin is otherwise free of rash or lesions. Objective Labs 06/11/23 05:02 06/11/23 05:02 Labs: Laboratory Results - last 24 hr 06/10/23 06/10/23 06/10/23 14:45 16:50 22:08 WBC RBC Hgb Hct MCV MCH MCHC RDW Plt Count Neut % (Auto) Lymph % (Auto) [place] % (Auto) Eos % (Auto) Baso % (Auto) Neut # (Auto) Lymph # (Auto) [place] # (Auto) Eos # (Auto) Baso # (Auto) Sodium Potassium Chloride Carbon Dioxide BUN Creatinine Estimated GFR BUN/Creatinine Ratio Glucose Lactate 3.8 H 3.2 H 1.8 Calcium 06/11/23 05:02 WBC 5.8 RBC 2.71 L Hgb 8.1 L Hct 24.9 L MCV 92.0 MCH 30.0 MCHC 32.6 RDW 16.5 H Plt Count 167 Neut % (Auto) 76.3 H Lymph % (Auto) 12.4 L [place] % (Auto) 10.7 Eos % (Auto) 0.4 L Baso % (Auto) 0.2 Neut # (Auto) 4400 Lymph # (Auto) 700 L [place] # (Auto) 600 Eos # (Auto) 0 Baso # (Auto) 0 Sodium 136 L Potassium 4.2 Chloride 108 H Carbon Dioxide 27 BUN 22 H Creatinine 0.79 Estimated GFR > 60 BUN/Creatinine Ratio 27.8 H Glucose 157 H Lactate Calcium 8.6 PFSH Medical History On prednisone therapy Depression Cognitive changes No significant past medical history Surgical History History of knee surgery History of Family History Father Stroke Mother Diabetes mellitus Heart attack Social History marital status: unknown household members: none housing: assisted living facility occupational status: previously employed Smoking Status: Former smoker Tobacco: How many years used: 20 alcohol intake: former substance use type: does not use Assessment & Plan Assessment & Plan narrative: 1. Acute hypoxic respiratory failure, present on admission and active. -no evidence of pneumonia, pulmonary embolism or pulmonary edema on chest x-ray and CTA chest -suspect possible COPD exacerbation as patient is a former smoker (20 years) and per daughter she had some wheezing -continue prednisone 40 mg daily -duo nebs as needed -negative viral panel -postoperative atelectasis and general weakness may be the cause of her hypoxia. 2. Lactic acidemia, present on admission and resolved. -LA 3.2 on admission -this resolved with hydration on June 09. 3. Breast invasive ductal carcinoma s/p mastectomy with some wound dehiscence, present on admission and active. -underwent mastectomy on 06/[address] Pardo -tramadol PRN -she has a FINA drain in place and did have slight opening of the skin in the lateral aspect of her incision which was reinforced by Dr. Pardo. 4. Giant cell arteritis, present on admission and active. -continue prednisone, was weaning down slowly 5. HTN, present on admission and active. -continue lisinopril efforts. 6. Depression, present on admission and stable. -continue prozac and effexor 7. General debilitation, present on admission and active. -postoperative debilitation, requires rehabilitation Code status is full code. DVT prophylaxis with heparin subcutaneous. Proxy is daughter Gricelda. DISPO[facility]. Likely 06/11. Inpatient status.
--- NOTE | 2023-06-11 15:01 | CM.DPNOTE ---
DCP note EASEMENT MAN reviewed EMR. Per August at [facility], auth pending. Need new PN that reports on echo results and new PT note that reflects need for SNF placement. Per August at [facility], with pt's insurance an auth answer is known pretty quickly after submitting for auth. Per PT note, pt refused PT this morning. EASEMENT MAN attempted to meet with pt in room, pt sleeping and allowed to rest. Plan: CM team will encourage PT/OT to work with pt first thing Monday to attempt SNF placement auth. Hopeful for dc to [facility] Monday afternoon vs . CM team will follow closely. SHANNA Hernandez
[2023-06-11] MEDS: SODIUM CHLORIDE 0.9% FLUSH 10 ML IV (20:28)
--- NOTE | 2023-06-11 23:26 | PC.NURSE ---
Patient is alert and oriented although off on day of week/day of month by 1 day. Breath sounds CTA with RA sat of 94%; continuous oximetry in place. HRR but tachycardic with rate of 108. Denied nausea. BT present and reports having had BM earlier today. Denied dysuria with urination. Is able to turn herself in bed but is assisted out of bed with SBA + walker related to weakness. Aquacel dressing to left chest is intact with shadow drainage noted. FINA is intact and compressed; drainage is serosanguinous. Bruising noted on all extremities including large ecchymotic area on left medial upper arm; heparin held after discussion with coordinator, Milka. Noted to have skin tear within bruised area on left UE so tegaderm applied. Skin is very fragile. Is wearing bilateral calf SCD's. Denied pain. Fall risk score is high and bed alarm is activated.
[2023-06-12 03:00] VITALS: BP 126/71; PULSE 97; RESP 19; TEMP 36.6; O2SAT 96
[2023-06-12 05:07] LABS: Add Manual Diff / Slide Review NO; Basophils Absolute Auto 0 /uL (0-100); Basophils Percent Auto 0.1 % (0-2); Eosinophils Absolute Auto 0 /uL (0-450); Eosinophils Percent Auto 0.2 % (2-4); Hematocrit 24.1 % (36-46); Hemoglobin 8.1 g/dL (12.0-16.0); Lymphocytes Absolute Auto 900 /uL (1100-4500); Lymphocytes Percent Auto 10.2 % (25-40); Mean Corpuscular HGB Conc 33.8 % (30-36); Mean Corpuscular Hemoglobin 30.7 PG (26-34); Mean Corpuscular Volume 90.9 fL (80-100); Monocytes Absolute Auto 1100 /uL (0-900); Monocytes Percent Auto 12.9 % (3-14); Neutrophils Absolute Auto 6700 /uL (1500-7000); Neutrophils Percent Auto 76.6 % (50-75); Platelet Count 180 X10^3/uL (150-400); Red Blood Cell Count 2.64 X10^6/uL (4.0-5.2); Red Cell Distribution Width 15.8 % (11.6-14.8); White Blood Cell Count 8.7 X10^3/uL (4.5-11.0)
[2023-06-12 05:26] LABS: BUN Creatinine Ratio 32.1 (6-22); Blood Urea Nitrogen 25 mg/dL (7-17); Calcium 8.7 mg/dL (8.4-10.2); Carbon Dioxide 28 mmol/L (22-32); Chloride 110 mmol/L (98-107); Estimated Glomerular Filt Rate > 60 mL/min (>60); Glucose 80 mg/dL (80-110); HEMOLYSIS < 15 (0-50); Potassium 4.1 mmol/L (3.4-5.1); Sodium 138 mmol/L (137-145)
[2023-06-12 07:00] VITALS: BP 128/70; PULSE 97; RESP 18; TEMP 36.3; O2SAT 96
[2023-06-12 09:06] VITALS: BP 128/70; PULSE 97
[2023-06-12] MEDS: lisinopriL 10 MG TABLET PO (09:06)
[2023-06-12] MEDS: VENLAFAXINE ER 37.5 MG CAP PO (09:06)
[2023-06-12] MEDS: FLUoxetine 20 MG CAPSULE PO (09:06)
[2023-06-12] MEDS: NORTRIPTYLINE 10 MG CAPSULE PO (09:06)
[2023-06-12] MEDS: predniSONE 20 MG TABLET 40 MG PO (09:06)
[2023-06-12] MEDS: HEPARIN 5,000 UNIT/ML VIAL 5000 UNIT SUBCUT (09:06)
[2023-06-12] MEDS: SODIUM CHLORIDE 0.9% FLUSH 10 ML IV (09:07)
--- NOTE | 2023-06-12 09:07 | PT.IPTN ---
Physical Therapy Treatment Note M2 PT-IP Current Condition Start: 06/10/23 14:05 Freq: NEEDED Status: Active Protocol: Document 06/10/23 10:50 AB (Rec: 06/10/23 14:30 AB [id number]) Physical Therapy Current Condition Current Condition Evaluation Date 06/10/23 Treatment Diagnosis hypoxia; difficulty in walking Onset Date 06/09/23 M3 PT-IP Subjective Start: 06/10/23 14:05 Freq: NEEDED Status: Active Protocol: Document 06/12/23 08:16 MB (Rec: 06/12/23 09:06 MB [id number]) Subjective Physical Therapy Visit Type Type Treatment Note Visit Start Time 08:16 Visit Stop Time 08:39 Number of ASPHALT PAVING SUPERINTENDENT Visits 0 Physical Therapy Visit Comments Patient Comments Pt is agreeable to PT. Pt presents with some confusion and has trouble answering some questions. She is A&O to person, some place like a hospital or rehab center, month, date and year but not why she is in the hospital and she cannot report how she was mobilizing post-op mastectomy Therapy Pain Assessment Pain When Pain Assessed At Rest Pain Present Pain Present Denied Pain M4 PT-IP Mobility and Gait Start: 06/10/23 14:05 Freq: NEEDED Status: Active Protocol: Document 06/12/23 08:16 MB (Rec: 06/12/23 09:06 MB [id number]) PT-Bed Mobility Assessment Supine to Sit Supine to Sit Standby Assistance,Head of Bed Elevated,Bedrails Scooting Scooting to Edge of Bed Standby Assistance PT-Transfer Assessment Sit to and From Stand Sit to and from Stand Contact Guard Assistance,1 Person Assistance,Use of Upper Extremities Equipment Transfer Assistive Device Front Wheeled Walker Orthotic/Prosthetic Devices or Brace: No Transfers Transfer Destination Chair Transfer Technique ambulated Transfer Ability Level of Assist Contact Guard Assistance Comments Mobility Comments Pt's O2 sats are 92-95% at rest in hook lying and decrease to 86-88% with short mobility and she does fatigue easily and does not have severe MILLER. Sats remain no higher than 88% with short mobility with the RW: pt reports some discomfort in left pec area once up and unsure if capacitor repairer for walker or use of walker is the reason or not d/t pt is a poor historian and communicator. Can con't to work on LRAD including SBQC right hand or rollator that would take more pressure off LUE Gait Assessment Gait Gait Assistance Required: Contact Guard Assist Distance (Feet) 15 Able to Maintain Weight Bearing Status Yes During Gait Assistive Devices Assistive Device Gait Belt,Front Wheeled Walker ,4 Wheeled Walker Orthotic/Prosthetic Devices or Brace: No Gait Deviations General Gait Pattern Decreased Stride Length, Decreased Feet Clearance Factors Limiting Gait Function Factors Limiting Gait Function Decreased Activity Tolerance, Decreased Strength,Difficulty Following Directions,Poor Balance,Poor Safety Awareness Comments Gait Comments See comments above PT-Balance Assessment Sitting Balance and Reactions Static Sitting Balance Ability Normal Dynamic Sitting Balance Ability Good Standing Balance and Reactions Static Standing Balance Ability Good Dynamic Standing Balance Ability Fair Device Used RW M5 PT-IP Objective Assessments Start: 06/10/23 14:05 Freq: NEEDED Status: Active Protocol: Document 06/10/23 10:50 AB (Rec: 06/10/23 14:30 AB [id number]) Orientation Orientation/Cognition Level of Alertness Alert Language Function Ability Hard of Hearing Safety Awareness Decreased Safety Awareness Memory Description No Deficits Noted Comments with slight confusion Gross Range of Motion Lower Extremity ROM Assessment Within Functional Limits Strength Lower Extremity Strength Assessment Within Functional Limits Coordination Assessment Gross Coordination Gross Coordination WNL Muscle Tone Muscle Tone WNL Yes M6 PT-IP Treatment Start: 06/10/23 14:05 Freq: NEEDED Status: Active Protocol: Document 06/12/23 08:16 MB (Rec: 06/12/23 09:06 MB [id number]) Physical Therapy Treatment Education Education Provided Safety Other Treatments Other Treatment Performed Ed pt in being gentle with LUE and also in breathing once sitting up in chair M7 PT-IP Assessment and Plan Start: 06/10/23 14:05 Freq: NEEDED Status: Active Protocol: Document 06/12/23 08:16 MB (Rec: 06/12/23 09:06 MB [id number]) PT Summary Assessment and Plan Potential Rehabilitation Potential Fair Status of Condition at Evaluation Evolving Summary Impairments Pain,ROM,Strength,Balance, Coordination,Cognition,Bed Mobility,Transfers,Gait, Activity Tolerance Progress Towards Goals Slow Progress due to Activity Tolerance,Slow Progress - Other Assessment Summary Pt's O2 sats are 92-95% at rest in hook lying and decrease to 86-88% with short mobility and she does fatigue easily and does not have severe MILLER. Sats remain no higher than 88% with short mobility with the RW: pt reports some discomfort in left pec area once up and unsure if capacitor repairer for walker or use of walker is the reason or not d/t pt is a poor historian and communicator. Can con't to work on LRAD including SBQC right hand or rollator to decrease LUE pressure. PT communicates with nsg and SW about benefits of having respiratory checking O2 sats with mobility before d/c to SNF in case she needs O2 for mobility for rehabilitation and activity increase. Goals Bed Mobility Goal Independent Transfer Goal Independent,Four Wheeled Walker Gait Goal Independent,Four Wheel Walker Gait Distance 200 Other Goals improve ambulation without AD 300 ft mod I Days to Meet Goals 5 Frequency of Treatment Frequency Of Treatment Once a Day Treatment Plan Physical Therapy Treatment Plan Bed Mobility Training,Transfer Training,Gait Training, Therapeutic Exercise,Balance Retraining,Post Op Education, Discharge Planning,Hot or Cold Pack,Neuromuscular Re-ed, Coordination Retraining,Manual Therapy Precautions Other Precautions L mastectomy precaution Recommendations To Nursing Amount of Assist Needed 1 Person Assist Discharge Recommendations PT Discharge Recommendations SNF Rehab Transportation Needs at Discharge Private Vehicle,Wheelchair/ Cabulance
[2023-06-12 09:30] VITALS: O2SAT 95
[2023-06-12 11:00] VITALS: BP 114/61; PULSE 98; RESP 20; TEMP 37.1; O2SAT 93
--- NOTE | 2023-06-12 11:21 | CM.DPNOTE ---
Addendum entered by Talya Almeida, SHANNA 06/12/23 14:14: QUARRY SUPERVISOR DIMENSION STONE received notice from Rosa that pt's PASRR was not correct. QUARRY SUPERVISOR [employer] completed a new one, emailed Rosa a copy, and placed updated PASRR in chart. Pt updated on 330pm pickup. Pt in verbal agreement. SL Addendum entered by Talya Juan Pablo, SHANNA 06/12/23 13:33: Rosa from reports can take pt at 330pm today. Provider/RN/SENIOR CLINICAL DATA COORDINATOR updated. CC Margarita kindly agreed to send PASRR and signed med list to Rosa at . Place med list in chart. QUARRY SUPERVISOR [employer]ONE spoke with son to update him- son in agreement. Plan: dc to [facility] today 330pm. CM team will continue to follow as needed. EJ Original Note: DCP Note QUARRY SUPERVISOR [employer]ION STONE reviewed EMR. per Rosa at [facility], got SNF auth. Transport time pending. Per PT, pt needs O2 upon ambulation. Hospitalist aware and will place RT order. QUARRY SUPERVISOR [employer] STONE completed PASRR. QUARRY SUPERVISOR [employer]ONE met with pt and son Luis Miguel (p [phone]) and DIL in room. Excited and agreeable to go to [facility] today. Son will assist in transporting pt's things and assist with intake ppwk. QUARRY SUPERVISOR [employer]ION STONE answered questions to best of ability. Plan: dc to [facility], time pending. CM team will continue to follow closely. SHANNA Hernandez
--- NOTE | 2023-06-12 12:39 | P.DS_ITS ---
History of Present Illness History of Present Illness Chief complaint: post op problems, sob, weakness Narrative: Milka Ramirez is an 82yo F with PMH of invasive ductal carcinoma s/p L mastectomy on 06/06, giant cell arteritis on chronic prednisone, former smoker, depression, and HTN who presents with weakness and SOB. Patient just was discharged from [facility] on 06/06 after her mastectomy, then developed worsening weakness, dyspnea and wheezing. She is a former smoker but has no history of COPD. In the ED patient found to be hypoxic with exertion to 84% so put on 2L O2. CTA chest and CXR were normal. Patient states she is not sure why she is hypoxic. She did smoke for 20 years but quit several years ago. She denies SOB at rest. No CP, NV, abd pain or diarrhea. Discharge Providers Provider Date of admission: 06/09/23 17:00 Discharge Date: 06/12/23 Primary care physician: Angie Armas DO Consults: 06/09/23 14:11 Consult to WEDDING PHOTOGRAPHER - Hotbed Transfer Operator Stat Comment: 06/09/23 17:39 Consult to Occupational Therapy Evaluate & Treat Comment: Physician Instructions: Evaluate and treat Consult to Physical Therapy Evaluate & Treat Comment: Physician Instructions: Evaluate and Treat Discharge provider: Dameon Salgado DO Summary Hospital Course Discharge Diagnosis: 1. Acute hypoxic respiratory failure, present on admission and active. -no evidence of pneumonia, pulmonary embolism or pulmonary edema on chest x-ray and CTA chest -suspect possible COPD exacerbation as patient is a former smoker (20 years) and per daughter she had some wheezing -continue prednisone 40 mg daily, finished course -duo nebs as needed -negative viral panel -postoperative atelectasis and general weakness may be the cause of her hypoxia. -weaned off O2, satting 91% with RT when ambulating 2. Lactic acidemia, present on admission and resolved. -LA 3.2 on admission -this resolved with hydration on June 09. 3. Breast invasive ductal carcinoma s/p mastectomy with some wound dehiscence, present on admission and active. -underwent mastectomy on 06/[address] Pardo -tramadol PRN -she has a FINA drain in place and did have slight opening of the skin in the lateral aspect of her incision which was reinforced by Dr. Pardo. 4. Giant cell arteritis, present on admission and active. -continue prednisone, was weaning down slowly 5. HTN, present on admission and active. -continue lisinopril efforts. 6. Depression, present on admission and stable. -continue prozac and effexor 7. General debilitation, present on admission and active. -postoperative debilitation, requires rehabilitation Hospital Course: Admitted for weakness and hypoxia. Given supp O2 and prednisone for possible COPD exac vs atelectasis postop. PT rec SNF and patient discharged to [facility] after 2 days. Exam Vital Signs (past 8 hours): - 06/12/23 07:00 06/12/23 09:06 06/12/23 09:30 Temperature 97.3 F L Pulse Rate 97 H 97 H Respiratory Rate 18 Blood Pressure 128/70 128/70 Pulse Oximetry 96 95 Oxygen Delivery Method Room Air Oxygen Flow Rate 0 06/12/23 11:00 Temperature 98.7 F Pulse Rate 98 H Respiratory Rate 20 Blood Pressure 114/61 Pulse Oximetry 93 Oxygen Delivery Method Oxygen Flow Rate 0 Fraction of Inspired Oxygen 23 SaO2/FiO2 Ratio 426 Oxygen Delivery Method Room Air Oxygen Flow Rate 0 Narrative Exam Narrative: Quite fatigued but no distress. Chronically ill in appearance. Neck is supple. Lungs are clear with normal rate and effort. Heart is regular. No murmur. Abdomen is distended but nontender. Extremities are free of edema. Skin is otherwise free of rash or lesions. Objective Labs 06/12/23 04:37 06/12/23 04:37 Labs: Laboratory Results - last 24 hr 06/12/23 04:37 WBC 8.7 RBC 2.64 L Hgb 8.1 L Hct 24.1 L MCV 90.9 MCH 30.7 MCHC 33.8 RDW 15.8 H Plt Count 180 Neut % (Auto) 76.6 H Lymph % (Auto) 10.2 L [place] % (Auto) 12.9 Eos % (Auto) 0.2 L Baso % (Auto) 0.1 Neut # (Auto) 6700 Lymph # (Auto) 900 L [place] # (Auto) 1100 H Eos # (Auto) 0 Baso # (Auto) 0 Sodium 138 Potassium 4.1 Chloride 110 H Carbon Dioxide 28 BUN 25 H Creatinine 0.78 Estimated GFR > 60 BUN/Creatinine Ratio 32.1 H Glucose 80 Calcium 8.7 PFSH Medical History On prednisone therapy Depression Cognitive changes No significant past medical history Surgical History History of knee surgery History of Family History Father Stroke Mother Diabetes mellitus Heart attack Social History marital status: unknown household members: none housing: assisted living facility occupational status: previously employed Smoking Status: Former smoker Tobacco: How many years used: 20 alcohol intake: former substance use type: does not use Discharge Plan Discharge Plan Patient Disposition: Home Discharge orders & Medications Prescriptions: Continued venlafaxine 37.5 mg capsule,extended release 24hr See Rx Instructions .ROUTE .COMPLEX Qty: 90 2RF Dose Instruction: GIVE 1 CAPSULE ORALLY ONCE A DAY (DEPRESSION) Rx Instructions: GIVE 1 CAPSULE ORALLY ONCE A DAY (DEPRESSION) lisinopril 10 mg tablet See Rx Instructions .ROUTE .COMPLEX Qty: 90 2RF Dose Instruction: GIVE 1 TABLET ORALLY ONCE A DAY Rx Instructions: GIVE 1 TABLET ORALLY ONCE A DAY fluoxetine 20 mg capsule 20 mg PO DAILY Qty: 90 1RF latanoprost 0.005 % drops 1 drp EYE-BOTH QPM Qty: 7.5 3RF methenamine hippurate [Hiprex] 1 gram tablet 1 g PO BID Qty: 180 0RF PreserVision AREDS-2 250-90-40-1 mg capsule 1 cap PO BID Qty: 60 5RF nortriptyline 10 mg capsule 10 mg PO DAILY Qty: 90 0RF acetaminophen [Tylenol Extra Strength] 500 mg tablet 1,000 mg PO TID MDD 6 PRN (Reason: pain) Qty: 540 0RF ibuprofen [Advil] 200 mg tablet See Rx Instructions PO Q6H PRN (Reason: pain) Qty: 720 0RF Rx Instructions: 1 to 2 tabs orally every 6 hours PRN; lidocaine 5 % ointment 1 applic topical DAILY PRN (Reason: pain) Qty: 30 0RF Rx Instructions: use at least 10 minutes prior to biopsy Magnesium Citrate (CALM) 235 mg powder 117.5 mg PO DAILY MDD 3 doses PRN (Reason: headache) Qty: 16 11RF Rx Instructions: take 1/2 scoop (117.5mg) magnesium citrate daily as needed for headache. Can repeat two more times in 24 hour period if symptoms do not resolve in 1 hour. prednisone 10 mg tablet 10 mg PO DAILY tramadol 50 mg tablet 50 mg PO Q6H PRN (Reason: pain) Qty: 5 0RF Follow up/Referrals: Chucho Pardo MD [Physician] - Angie Armas DO [Primary Care Provider] - 2 Weeks Visit Report/Discharge Packet Stand Alone Forms: Patient Portal/API, Stroke Signs & Symptoms Discharge Data Primary Care Provider: Angie Armas
== END 2023-06-12 16:00 | DRG 981 ==
LOC: ED 17:00 → AC 17:30
PROVIDERS: Hospitalist; Admitting Provider Student in an Organized Health Care Education/Training Program; Emergency Provider Emergency Medicine; PCP Family Medicine; Referring Provider Emergency Medicine; Visit Provider Student in an Organized Health Care Education/Training Program
DX: J95.89 Other postprocedural complications and disorders of respiratory system, not elsewhere classified (principal); J96.01 Acute respiratory failure with hypoxia; J98.11 Atelectasis; J44.1 Chronic obstructive pulmonary disease with (acute) exacerbation; E87.20 Acidosis, unspecified; T81.31XA Disruption of external operation (surgical) wound, not elsewhere classified, initial encounter; M31.6 Other giant cell arteritis; I10 Essential (primary) hypertension; C50.912 Malignant neoplasm of unspecified site of left female breast; F32.A Depression, unspecified; Z17.0 Estrogen receptor positive status [ER+]; Z87.891 Personal history of nicotine dependence; Z79.52 Long term (current) use of systemic steroids
CPT/HCPCS: 0241U; 19303; 36415; 71045; 71275; 76098; 80048; 80053; 81003; 82962; 83605; 83690; 83880; 84145; 84484; 85025; 85610; 85730; 87040; 93005; 93306; 94762; 97116; 97162; 97530; 99285; J0136; J0171; J0690; J1170; J1644; J1650; J1720; J2405; J2704; J3010; Q9967

== ENCOUNTER 2023-06-27 10:39 | Emergency (ER) | payer MEDICARE, SELFPAY ==
[2023-06-09 18:42] VITALS: BMI 24.7
[2023-06-27] VITALS (34 sets, daily range): BP systolic 93–133; BP diastolic 51–68; PULSE 73–111; RESP 18–41; TEMP 36.6; O2SAT 86–98; BMI 23.8
--- NOTE | 2023-06-27 10:51 | DI.RAD.S_ITS ---
PROCEDURE: XR CHEST 1V INDICATIONS: suspected sepsis TECHNIQUE: One view of the chest was acquired. COMPARISON: [facility], CR, XR CHEST 1V, 06/09/2023, 13:35. FINDINGS: Surgical changes and devices: None. Lungs and pleura: Blunting of the left costophrenic angle. Mediastinum: Mediastinal contours appear normal. Heart size is prominent. Bones and chest wall: No suspicious bony lesions. Overlying soft tissues appear unremarkable. IMPRESSION: Left costophrenic angle blunting possibly related to small effusion. Dictated by: Jena Babin M.D. on 06/27/2023 at 11:43 Approved by: Jena Babin M.D. on 06/27/2023 at 11:45
[2023-06-27 11:19] LABS: Add Manual Diff / Slide Review NO; Basophils Absolute Auto 100 /uL (0-100); Basophils Percent Auto 0.6 % (0-2); Eosinophils Absolute Auto 100 /uL (0-450); Eosinophils Percent Auto 0.8 % (2-4); Hematocrit 34.3 % (36-46); Lymphocytes Absolute Auto 1700 /uL (1100-4500); Lymphocytes Percent Auto 12.5 % (25-40); Mean Corpuscular HGB Conc 32.1 % (30-36); Mean Corpuscular Hemoglobin 29.5 PG (26-34); Mean Corpuscular Volume 91.7 fL (80-100); Monocytes Absolute Auto 1700 /uL (0-900); Monocytes Percent Auto 12.2 % (3-14); Neutrophils Absolute Auto 10000 /uL (1500-7000); Neutrophils Percent Auto 73.9 % (50-75); Platelet Count 246 X10^3/uL (150-400); Red Blood Cell Count 3.74 X10^6/uL (4.0-5.2); Red Cell Distribution Width 15.7 % (11.6-14.8); White Blood Cell Count 13.6 X10^3/uL (4.5-11.0)
--- NOTE | 2023-06-27 11:23 | ED_ITS ---
HPI - SOB/Dyspnea General Chief Complaint: Shortness of Breath/Dyspnea Stated Complaint: oxygen levels down hr high poss fluid in lungs Time Seen by Provider: 06/27/23 11:12 Source: patient and family Mode of arrival: Wheelchair Limitations: no limitations History of Present Illness HPI Narrative: Patient brought here by family from home for shortness of breath. 86% room air. Feeling better on nasal cannula. Patient was admitted here and discharged to [facility] rehabilitation for suspected COPD exacerbation hypoxia end of last month. She was weaned off oxygen before going home yesterday. 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 He has been doing well with that. Shortness of breath started today. However patient states she thinks may have started yesterday. No weight gain or fluid retention. Denies any chest pain. Related Data Home Medications Medication Instructions Recorded Confirmed prednisone 10 mg tablet 10 mg PO DAILY 06/07/23 06/23/23 metoprolol tartrate 25 mg tablet 12.5 mg PO BID 06/23/23 06/23/23 Previous Rx's Medication Instructions Recorded acetaminophen 500 mg tablet 1,000 mg (2 x 500 mg) PO TID PRN 11/30/22 (Tylenol Extra Strength) pain #540 tabs ibuprofen 200 mg tablet (Advil) See Rx Instructions PO Q6H PRN 11/30/22 pain #720 tabs Magnesium Citrate (CALM) 117.5 mg PO DAILY PRN headache #16 12/02/22 oz lisinopril 10 mg tablet See Rx Instructions .Route 01/10/23 .COMPLEX #90 tabs venlafaxine 37.5 mg See Rx Instructions .Route 01/10/23 capsule,extended release 24 hr .COMPLEX #90 caps fluoxetine 20 mg capsule 20 mg PO DAILY #90 caps 02/21/23 lidocaine 5 % topical ointment 1 applic topical DAILY PRN pain 04/21/23 #30 grams latanoprost 0.005 % eye drops 1 drp EYE-BOTH QPM #7.5 mL 05/03/23 methenamine hippurate 1 gram 1 g PO BID #180 tabs 05/17/23 tablet (Hiprex) nortriptyline 10 mg capsule 10 mg PO DAILY #90 caps 06/07/23 vit C 250 mg-vit E 90 mg-zinc 40 1 cap PO BID #60 caps 06/07/23 mg-copper 1 yu-viklrs-vyepin capsule (PreserVision AREDS-2) tramadol 50 mg tablet 50 mg PO Q6H PRN pain #5 tabs 06/12/23 Allergies Allergy/AdvReac Type Severity Reaction Status Date / Time No Known Drug Allergies Allergy Verified 06/23/23 09:29 Review of Systems Review of Systems Narrative: GENERAL: negative chills, fatigue, malaise, fever, sweats. HEENT: negative sinus pain, ear pain, sore throat RESPIRATORY: Positive dyspnea, negative cough CARDIOVASCULAR: negative chest pain, palpitations GASTROINTESTINAL: negative nausea, vomiting, abdominal pain : negative dysuria, frequency, hematuria MUSCULOSKELETAL: negative muscle or bony pain SKIN: negative rash, skin lesions NEUROLOGIC: negative weakness, numbness Patient History Medical History On prednisone therapy Depression Cognitive changes No significant past medical history Surgical History History of knee surgery History of Family History Father Stroke Mother Diabetes mellitus Heart attack Social History marital status: unknown household members: none housing: assisted living facility occupational status: previously employed Smoking Status: Former smoker Tobacco: How many years used: 20 alcohol intake: former substance use type: does not use Smoking Status: Former smoker tobacco type: cigarettes alcohol intake frequency: a few times a month Alcohol type: wine Substance Use Type: does not use Exam Narrative Exam Narrative: GENERAL: in no distress, not toxic not dyspneic HEAD: Normocephalic. EYES: Pupils equal round ENT: Mucous membranes moist. NECK: Trachea midline. CARDIOVASCULAR: Regular rate and rhythm RESPIRATORY: Clear to auscultation. Breath sounds equal bilaterally. No wheezes, rales, or rhonchi. GASTROINTESTINAL: Abdomen soft, non-tender EXTREMITIES: No gross deformities. BACK: No flank tenderness. NEURO: AOx4. SKIN: Warm and dry PSYCH: Not anxious, is cooperative Initial Vital Signs Initial Vital Signs: Vital Signs Pulse Rate 111 H 06/27/23 10:47 Blood Pressure 104/56 L 06/27/23 10:47 Course Orders Ordered: Discontinued Medications Heparin Sodium (Porcine) (Heparin 5,000 Unit/Ml Vial) 5,000 unit 80 unit/kg (5000 unit) IV NOW ONE Stop: 06/27/23 12:35 Last Admin: 06/27/23 13:08 Dose: 5,000 unit Documented By: AVEL Sodium Chloride (Normal Saline 0.9%) 500 mls @ 1,000 mls/hr IV BOLUS ONE Stop: 06/27/23 11:52 Last Infusion: 06/27/23 13:24 Dose: Infused Documented By: Admin: 06/27/23 12:04 Dose: 1,000 mls/hr Documented By: JENN Heparin Sodium/Dextrose (Heparin Drip) 25,000 unit in 500 mls @ 21.228 mls/hr IV CONT TAYLOR; Protocol Last Titration: 06/27/23 18:17 Dose: 18 units/kg/hr, 21.228 mls/hr Documented By: JENN Co-signed By: AVEL Admin: 06/27/23 13:11 Dose: 18 units/kg/hr, 21.228 mls/hr Documented By: AVEL Co-signed By: ARACELY Ondansetron HCl (Ondansetron 4 Mg/2 Ml Inj) 4 mg IV NOW PRN PRN Reason: Nausea And Vomiting Ondansetron HCl (Ondansetron 4 Mg Odt) 4 mg SL NOW PRN PRN Reason: Nausea And Vomiting Vital Signs Vital signs: Vital Signs - 8 hr 06/27/23 10:47 06/27/23 10:47 06/27/23 10:52 Temperature 97.8 F Pulse Rate 111 H 90 Respiratory Rate 18 Blood Pressure 104/56 L 104/56 L Pulse Oximetry 86 L Oxygen Delivery Method Room Air Oxygen Flow Rate 06/27/23 11:00 06/27/23 11:00 06/27/23 11:15 Temperature Pulse Rate 85 82 Respiratory Rate 26 H 24 Blood Pressure 100/54 L Pulse Oximetry 95 93 Oxygen Delivery Method Oxygen Flow Rate 06/27/23 11:30 06/27/23 11:31 06/27/23 11:31 Temperature Pulse Rate 90 92 H Respiratory Rate 30 H 30 H Blood Pressure 93/51 L Pulse Oximetry 92 92 Oxygen Delivery Method Oxygen Flow Rate 06/27/23 11:45 06/27/23 11:58 06/27/23 11:58 Temperature Pulse Rate 90 79 Respiratory Rate 26 H 32 H Blood Pressure 130/59 L Pulse Oximetry 92 88 L Oxygen Delivery Method Oxygen Flow Rate 06/27/23 12:00 06/27/23 12:00 06/27/23 12:15 Temperature Pulse Rate 79 75 Respiratory Rate 25 H 24 Blood Pressure 117/58 L Pulse Oximetry 89 L 96 Oxygen Delivery Method Nasal Cannula Oxygen Flow Rate 2 06/27/23 12:30 06/27/23 12:30 06/27/23 12:45 Temperature Pulse Rate 73 76 Respiratory Rate 25 H 27 H Blood Pressure 106/57 L Pulse Oximetry 93 Oxygen Delivery Method Oxygen Flow Rate 2 MDM - SOB/Dyspnea Lab Data 06/27/23 11:10 06/27/23 11:10 Labs: Lab Results 06/27/23 06/27/23 06/27/23 Range/Units 11:10 11:47 13:10 WBC 13.6 H (4.5-11.0) X10^3/uL RBC 3.74 L (4.0-5.2) X10^6/uL Hgb 11.0 L (12.0-16.0) g/dL Hct 34.3 L (36-46) % MCV 91.7 (80-100) fL MCH 29.5 (26-34) PG MCHC 32.1 (30-36) % RDW 15.7 H (11.6-14.8) % Plt Count 246 (150-400) X10^3/uL Neut % (Auto) 73.9 (50-75) % Lymph % (Auto) 12.5 L (25-40) % [place] % (Auto) 12.2 (3-14) % Eos % (Auto) 0.8 L (2-4) % Baso % (Auto) 0.6 (0-2) % Neut # (Auto) 34460 H (6778-5908) /uL Lymph # (Auto) 1700 (7482-7661) /uL [place] # (Auto) 1700 H (0-900) /uL Eos # (Auto) 100 (0-450) /uL Baso # (Auto) 100 (0-100) /uL PT 11.2 (9.4-12.5) SECONDS INR 1.0 (0.9-1.3) APTT 31 (25.1-36.5) SECONDS Sodium 138 (137-145) mmol/L Potassium 4.0 (3.4-5.1) mmol/L Chloride 104 (98-107) mmol/L Carbon Dioxide 28 (22-32) mmol/L BUN 30 H (7-17) mg/dL Creatinine 1.02 (0.52-1.04) mg/dL Estimated GFR 54 L (>60) mL/min BUN/Creatinine Ratio 29.4 H (6-22) Glucose 96 (80-110) mg/dL Lactate 2.9 H 1.8 (0.7-2.1) mmol/L Calcium 9.8 (8.4-10.2) mg/dL Total Bilirubin 0.5 (0.2-1.3) mg/dL AST 21 (14-36) IU/L ALT 19 (<35) IU/L Alkaline Phosphatase 121 (38-126) U/L Total Creatine Kinase 32 (30-135) U/L Troponin I 0.056 H 0.049 H (0.01-0.034) ng/mL NT-Pro-B Natriuret Pep 1050 H (<450) pg/mL Total Protein 6.6 (6.3-8.2) g/dL Albumin 3.8 (3.5-5.0) g/dL Globulin 2.8 (1.7-4.1) g/dL Albumin/Globulin Ratio 1.4 (1.0-2.8) Lipase 209 (23-300) U/L Procalcitonin 0.09 (<0.5) ng/mL Urine RBC (0-5/HPF) Urine WBC (0-5/HPF) Ur Squamous Epith Cells (0-5/HPF) Urine Bacteria (None) Ur Culture Indicated? Vol Urine Centrifuged Chlamy pneumoniae PCR Not detected (Not Detect) Adenovirus (PCR) Not detected (Not Detect) B.parapertussis DNA PCR Not detected (Not Detecte) Coronavirus OC43 (PCR) Not detected (Not Detect) Coronavirus HKU1 (PCR) Not detected (Not Detect) Coronavirus 229E (PCR) Not detected (Not Detect) SARS-CoV-2 (PCR) Not detected (Not Detecte) Coronavirus NL63 (PCR) Not detected (Not Detect) Human Metapneumovir PCR Not detected (Not Detect) Influenza Type A (PCR) Not detected (Not Detect) Influenza Type B (PCR) Not detected (Not Detect) M. pneumoniae (PCR) Not detected (Not Detect) Parainfluenza 1 (PCR) Not detected (Not Detect) Parainfluenza 2 (PCR) Not detected (Not Detect) Parainfluenza 3 (PCR) Not detected (Not Detect) Parainfluenza 4 (PCR) Not detected (Not Detect) RSV (PCR) Not detected (Not Detect) Entero/Rhino (PCR) Not detected (Not Detect) 06/27/23 Range/Units 13:21 WBC (4.5-11.0) X10^3/uL RBC (4.0-5.2) X10^6/uL Hgb (12.0-16.0) g/dL Hct (36-46) % MCV (80-100) fL MCH (26-34) PG MCHC (30-36) % RDW (11.6-14.8) % Plt Count (150-400) X10^3/uL Neut % (Auto) (50-75) % Lymph % (Auto) (25-40) % [place] % (Auto) (3-14) % Eos % (Auto) (2-4) % Baso % (Auto) (0-2) % Neut # (Auto) (7366-4968) /uL Lymph # (Auto) (3205-0742) /uL [place] # (Auto) (0-900) /uL Eos # (Auto) (0-450) /uL Baso # (Auto) (0-100) /uL PT (9.4-12.5) SECONDS INR (0.9-1.3) APTT (25.1-36.5) SECONDS Sodium (137-145) mmol/L Potassium (3.4-5.1) mmol/L Chloride (98-107) mmol/L Carbon Dioxide (22-32) mmol/L BUN (7-17) mg/dL Creatinine (0.52-1.04) mg/dL Estimated GFR (>60) mL/min BUN/Creatinine Ratio (6-22) Glucose (80-110) mg/dL Lactate (0.7-2.1) mmol/L Calcium (8.4-10.2) mg/dL Total Bilirubin (0.2-1.3) mg/dL AST (14-36) IU/L ALT (<35) IU/L Alkaline Phosphatase (38-126) U/L Total Creatine Kinase (30-135) U/L Troponin I (0.01-0.034) ng/mL NT-Pro-B Natriuret Pep (<450) pg/mL Total Protein (6.3-8.2) g/dL Albumin (3.5-5.0) g/dL Globulin (1.7-4.1) g/dL Albumin/Globulin Ratio (1.0-2.8) Lipase (23-300) U/L Procalcitonin (<0.5) ng/mL Urine RBC None seen (0-5/HPF) Urine WBC 30-100/hpf H (0-5/HPF) Ur Squamous Epith Cells 5-10 /hpf H (0-5/HPF) Urine Bacteria Many (>30) H (None) Ur Culture Indicated? Specimen cultured Vol Urine Centrifuged 10ml (spun) Chlamy pneumoniae PCR (Not Detect) Adenovirus (PCR) (Not Detect) B.parapertussis DNA PCR (Not Detecte) Coronavirus OC43 (PCR) (Not Detect) Coronavirus HKU1 (PCR) (Not Detect) Coronavirus 229E (PCR) (Not Detect) SARS-CoV-2 (PCR) (Not Detecte) Coronavirus NL63 (PCR) (Not Detect) Human Metapneumovir PCR (Not Detect) Influenza Type A (PCR) (Not Detect) Influenza Type B (PCR) (Not Detect) M. pneumoniae (PCR) (Not Detect) Parainfluenza 1 (PCR) (Not Detect) Parainfluenza 2 (PCR) (Not Detect) Parainfluenza 3 (PCR) (Not Detect) Parainfluenza 4 (PCR) (Not Detect) RSV (PCR) (Not Detect) Entero/Rhino (PCR) (Not Detect) Urine Dip Bedside Urine Glucose Negative Bedside Urine Bilirubin - Negative Bedside Urine Ketone - Negative Urine Specific [place] 1.015 Bedside Urine Occult Blood +/- Bedside Urine pH 6.0 Bedside Urine Protein + 30 Bedside Urine Urobilinogen - Negative Bedside Urine Nitrite - Negative Bedside Urine Leukocytes + [address] scan - chest: Radiologist's Impression: [address] [address] [address] Scan Report Signed Patient: Milka Galdamez MR#: [id number] : 1940 Acct:[id number] Age/Sex: 82 / F Date of Service: 06/27/23 Loc: ED Accession Number: [id number] Procedure: CT angio chest PE protocol Ordering Provider: Tamir Gramajo MD PROCEDURE: CT ANGIO CHEST PE PROTOCOL INDICATIONS: dyspnea TECHNIQUE: After the administration of intravenous contrast, 2 mm thick sections acquired from the pulmonary apices to the posterior costophrenic angles. 3-dimensional maximum intensity projection (MIP) coronal and sagittal reformats were then acquired through the thorax. For radiation dose reduction, the following was used: automated exposure control, adjustment of mA and/or kV according to patient size. COMPARISON: [facility], CT, CT ANGIO CHEST PE PROTOCOL, 06/09/2023, 15:46. FINDINGS: Image quality: Diagnostic. Pulmonary arteries: Pulmonary arteries are normal in size. Thrombus is identified in the main pulmonary artery with extension into the right main pulmonary artery. Thrombus is identified in the segmental branches extending into the right upper, and middle lobes. There is a very small degree of clot burden extending into the proximal left main pulmonary artery. This is new compared to 06/09/2023. Lower Neck: No enlarged lymph nodes. Thyroid: No thyroid nodules which require sonographic follow up, per consensus guidelines. Axillae: No enlarged lymph nodes. Chest Wall: Unremarkable. Bones: Unremarkable. Lungs and Pleura: No pneumothorax or pleural effusions. Unchanged punctate lateral right upper lobe nodule. Dependent changes are present bilaterally. Heart: Heart size is mildly prominent. No right heart strain. No pericardial effusion. Thoracic Vessels: No aortic aneurysm. Mediastinum and Kayla: No enlarged lymph nodes. Esophagus: No wall thickening. Mild hiatal hernia. Upper Abdomen: Visualized upper abdomen solid organs and bowel loops appear normal. IMPRESSION: Saddle embolus with greatest degree of clot burden in the right main in and segmental pulmonary arteries. No heart strain on current exam. The above findings were discussed with Dr. Tamir Gramajo on 06/27/2023 at 12:28 p.m.. Dictated by: Jena Babin M.D. on 06/27/2023 at 12:16 Approved by: Jena Babin M.D. on 06/27/2023 at 12:29 Chest x-ray: Radiologist's Impression: [address] [address] XRay Report Signed Patient: Milka Galdamez MR#: [id number] : 1940 Acct:[id number] Age/Sex: 82 / F Date of Service: 06/27/23 Loc: ED Accession Number: [id number] Procedure: XR chest 1V Ordering Provider: Fatou Johnson D.O. PROCEDURE: XR CHEST 1V INDICATIONS: suspected sepsis TECHNIQUE: One view of the chest was acquired. COMPARISON: [facility], , XR CHEST 1V, 06/09/2023, 13:35. FINDINGS: Surgical changes and devices: None. Lungs and pleura: Blunting of the left costophrenic angle. Mediastinum: Mediastinal contours appear normal. Heart size is prominent. Bones and chest wall: No suspicious bony lesions. Overlying soft tissues appear unremarkable. IMPRESSION: Left costophrenic angle blunting possibly related to small effusion. Dictated by: Jena Babin M.D. on 06/27/2023 at 11:43 Approved by: Jena Babin M.D. on 06/27/2023 at 11:45 Echocardiogram: Radiologist's Impression: [address] [address] Echocardiography Report Signed Patient: Milka Galdamez MR#: [id number] : 1940 Acct:[id number] Age/Sex: 82 / F Date of Service: 06/27/23 Loc: ED Accession Number: [id number] Procedure: EC echo doppler complete Ordering Provider: Tamir Gramajo MD [place] +---------+ [facility] +---------+ : : [address] : : : [place], [place] : : : : [id number] : : : : Phone: [phone] Echocardiogram Report + + :Name: MILKA GALDAMEZ Study Date: 06/27/2023 Height: 62 in : :[facility] ReadingLocation: Weight: 130 lb : : Gender: Female BSA: 1.6 m2 : :: 1940 Age: 82 yrs BP: 125/58 mmHg: :Reason For Study: SHORTNES OF BREATH : :Ordering Physician: ROX, : :TAMIR Performed By: Michelle Chapin : :Referring: TAMIR GRAMAJO : + + Interpretation Summary 1) Normal left ventricular thickness, size, wall motion, and systolic function (EF 55-60%). 2) Normal right ventricular size with mildly reduced function. 3) No significant valvular abnormalities. 4) The right ventricular systolic pressure is estimated to be at least 50 mmHg based on an estimated right atrial pressure of 3 mm Hg. 5) Compared to the Echo done 06/10/2023, the current study is of better quality and showed pulmonary hypertension. Procedure: A two-dimensional transthoracic echocardiogram with color flow and Doppler was performed. The study quality was technically difficult. Comparison is made with the echocardiogram of 06/10/2023. The patient was in sinus rhythm with heart rates between 79-84 bpm during the exam. Left Ventricle: The left ventricle is normal in size and wall thickness. The ejection fraction is estimated to be 55-60%. Left ventricular systolic function appears normal without focal wall motion abnormalities. Right Ventricle: The right ventricle is normal size. Right ventricular systolic function is mildly reduced. Atria: The left atrial size is normal. Right atrial size is normal. There is no Doppler evidence for an interatrial shunt. Mitral Valve: The mitral valve is normal in structure and function. There is no mitral regurgitation noted. Aortic Valve: The aortic valve is trileaflet. The aortic valve is slightly calcified. The aortic valve opens well. There is no aortic valve stenosis. No aortic regurgitation is present. Tricuspid Valve: The tricuspid valve is normal in structure and function. There is mild tricuspid regurgitation. The right ventricular systolic pressure is estimated to be at least 50 mmHg based on an estimated right atrial pressure of 3 mm Hg. Pulmonic Valve: The pulmonic valve is not well seen, but is grossly normal. There is mild pulmonic regurgitation. Great Vessels: The aortic root is normal size. The dimensions of the ascending aorta are normal. The IVC is of normal diameter and collapses greater than 50% with a sniff. This suggests a low right atrial pressure of 3 mm Hg. Pericardium/ Pleura There is no pericardial effusion. There is no pleural effusion. MMode/2D Measurements & Calculations LVIDd: 3.7 cm LVOT diam: 2.0 cm LVIDs: 2.5 cm Ao root diam: 2.8 cm FS: 31.9 % asc Aorta Diam: 2.8 cm IVSd: 0.90 cm LVPWd: 0.98 cm LV fernandez. diameter/BSA (cm/m^2): 2.3 LV sys. diameter/BSA (cm/m^2): 1.6 LA A2 area: 11.4 cm2 RA long axis: 5.5 cm LA A4 area: 11.6 cm2 RA area: 11.8 cm2 LA length (vol): 4.7 cm RA vol: 21.4 ml LA vol: 24.0 ml RA : 13.4 ml/m2 LA vol index: 15.1 ml/m2 IVC diam: 1.6 cm RVD1 (basal): 3.4 cm RVD2 (mid): 2.9 cm TAPSE: 1.2 cm Doppler Measurements & Calculations Ao V2 max: 96.6 cm/sec LVOT Max Hardik: 62.4 cm/sec Ao V2 mean: 69.9 cm/sec LV V1 max P.6 mmHg Ao max P.7 mmHg LV V1 VTI: 13.5 cm Ao mean P.1 mmHg SREEKANTH(I,D): 2.1 cm2 Ao V2 VTI: 19.7 cm SREEKANTH(V,D): 1.9 cm2 sev ratio: 0.69 SREEKANTH indexed to BSA (cm^2/m^2): 1.3 MV E max hardik: 69.5 cm/sec TR max hardik: 341.4 cm/sec MV A max hardik: 65.4 cm/sec TR max P.6 mmHg MV E/A: 1.1 PA V2 max: 81.9 cm/sec Med Peak E' Hardik: 7.5 cm/sec PA V2 mean: 56.8 cm/sec E/E' med: 9.3 PA mean P.4 mmHg Lat Peak E' Hardik: 6.4 cm/sec PA pr(Accel): 51.6 mmHg E/E' lat: 10.8 E/e' average: 10.1 MV dec time: 0.20 sec SV(LVOT): 40.4 ml Reading Physician:03:47 PM [facility] Narrative Medical decision making narrative: Patient brought here by family from home for shortness of breath. 86% room air. Feeling better on nasal cannula. Patient was admitted here and discharged to [facility] rehabilitation for suspected COPD exacerbation hypoxia end of last month. She was weaned off oxygen before going home yesterday. 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 He has been doing well with that. Shortness of breath started today. However patient states she thinks may have started yesterday. No weight gain or fluid retention. Denies any chest pain. After history and exam CBC CMP troponin BNP EKG CT chest PE chest x-ray nasal cannula respiratory panel [facility] Medical records reviewed: Discharge summary from last month Differential considered: Includes but not limited to COPD pulmonary embolism CHF pulmonary effusion Lab Test results independently reviewed as above. Pertinent findings: WBC 13.6 hemoglobin 11 PT 11.2 INR 1.0 PTT 31 Independently reviewed EKG sinus rhythm rate [address] elevation or depression Imaging studies independently reviewed: CT chest positive saddle embolus Chest x-ray left costophrenic angle blunting Consultations: 12:[address] Light, radiologist, recommends echocardiogram and Doppler of both legs to determine for Interventional Radiology 12:45 p.m., s/w dr rubio, cardiology, no cardiology intervention indicated this time. Agrees with treatment plan with heparin. Enzymes likely due to saddle embolus and not coronary event 1:00 p.m.. Spoke with [facility] Interventional Radiology, dr baxter, she does not recommend interventional radiology at this time given clinical presentation and radiographic study results. No right heart strain 3:00 p.m.. Spoke with [facility] ICU, dr scott, she does not recommend interventional radiology or removal of clot/thrombectomy at this time given clinical presentation and radiographic results no right heart strain 4:[address] Alisia Wilcox and dr keller, they agree, Dr. Keller will accept patient for admission. Treatments: Heparin/normal saline Re-evaluations: 1:00 p.m.. Reviewed with patient and family results and need for transfer. May need Interventional Radiology/thrombectomy They do agree and understand Discussion: Appropriate for transfer for interventional radiology services we do not have here. Heparin has been started. Patient stable at this time. No distress. Diagnosis: Saddle embolus Critical Care Time Critical Care Time Attestation: Critical Care Time 35 minutes: Critical care time is separate from other billable procedures. This critical care time includes consultation with family and other consulting doctors, review of records, and interpretation of data from labs, EKGs, imaging, etc. Discharge Plan Departure Patient Disposition: [facility] Clinical Impression: Acute saddle pulmonary embolus Qualifiers: Acute cor pulmonale presence: unspecified Qualified Code(s): I26.92 - Saddle embolus of pulmonary artery without acute cor pulmonale Prescriptions: No Action venlafaxine 37.5 mg capsule,extended release 24hr See Rx Instructions .ROUTE .COMPLEX Qty: 90 2RF Dose Instruction: GIVE 1 CAPSULE ORALLY ONCE A DAY (DEPRESSION) Rx Instructions: GIVE 1 CAPSULE ORALLY ONCE A DAY (DEPRESSION) lisinopril 10 mg tablet See Rx Instructions .ROUTE .COMPLEX Qty: 90 2RF Dose Instruction: GIVE 1 TABLET ORALLY ONCE A DAY Rx Instructions: GIVE 1 TABLET ORALLY ONCE A DAY fluoxetine 20 mg capsule 20 mg PO DAILY Qty: 90 1RF latanoprost 0.005 % drops 1 drp EYE-BOTH QPM Qty: 7.5 3RF methenamine hippurate [Hiprex] 1 gram tablet 1 g PO BID Qty: 180 0RF PreserVision AREDS-2 250-90-40-1 mg capsule 1 cap PO BID Qty: 60 5RF nortriptyline 10 mg capsule 10 mg PO DAILY Qty: 90 0RF acetaminophen [Tylenol Extra Strength] 500 mg tablet 1,000 mg PO TID MDD 6 PRN (Reason: pain) Qty: 540 0RF ibuprofen [Advil] 200 mg tablet See Rx Instructions PO Q6H PRN (Reason: pain) Qty: 720 0RF Rx Instructions: 1 to 2 tabs orally every 6 hours PRN; lidocaine 5 % ointment 1 applic topical DAILY PRN (Reason: pain) Qty: 30 0RF Rx Instructions: use at least 10 minutes prior to biopsy Magnesium Citrate (CALM) 235 mg powder 117.5 mg PO DAILY MDD 3 doses PRN (Reason: headache) Qty: 16 11RF Rx Instructions: take 1/2 scoop (117.5mg) magnesium citrate daily as needed for headache. Can repeat two more times in 24 hour period if symptoms do not resolve in 1 hour. metoprolol tartrate 25 mg tablet 12.5 mg PO BID prednisone 10 mg tablet 10 mg PO DAILY tramadol 50 mg tablet 50 mg PO Q6H PRN (Reason: pain) Qty: 5 0RF Referrals: Angie Armas DO [Primary Care Provider] -
[2023-06-27 11:28] LABS: Prothrombin Time 11.2 SECONDS (9.4-12.5)
[2023-06-27 11:31] LABS: PTT Partial Thromboplastin Tim 31 SECONDS (25.1-36.5)
[2023-06-27 11:36] LABS: Lactate (Lactic Acid) 2.9 mmol/L (0.7-2.1)
[2023-06-27 11:37] LABS: Alanine Aminotransferase 19 IU/L (<35); Albumin 3.8 g/dL (3.5-5.0); Albumin Globulin Ratio 1.4 (1.0-2.8); Alkaline Phosphatase 121 U/L (38-126); Aspartate Aminotransferase 21 IU/L (14-36); BUN Creatinine Ratio 29.4 (6-22); Bilirubin Total 0.5 mg/dL (0.2-1.3); Blood Urea Nitrogen 30 mg/dL (7-17); Calcium 9.8 mg/dL (8.4-10.2); Carbon Dioxide 28 mmol/L (22-32); Chloride 104 mmol/L (98-107); Estimated Glomerular Filt Rate 54 mL/min (>60); Globulin 2.8 g/dL (1.7-4.1); Glucose 96 mg/dL (80-110); HEMOLYSIS < 15 (0-50); Lipase 209 U/L (23-300); Sodium 138 mmol/L (137-145); Total Protein 6.6 g/dL (6.3-8.2)
[2023-06-27 11:38] LABS: Creatine Kinase 32 U/L (30-135)
[2023-06-27 11:49] LABS: NT-proBNP (BNP-Adult 18+) 1050 pg/mL (<450); Troponin I 0.056 ng/mL (0.01-0.034)
[2023-06-27 11:53] LABS: Procalcitonin 0.09 ng/mL (<0.5)
--- NOTE | 2023-06-27 11:56 | DI.CT.S_ITS ---
PROCEDURE: CT ANGIO CHEST PE PROTOCOL INDICATIONS: dyspnea TECHNIQUE: After the administration of intravenous contrast, 2 mm thick sections acquired from the pulmonary apices to the posterior costophrenic angles. 3-dimensional maximum intensity projection (MIP) coronal and sagittal reformats were then acquired through the thorax. For radiation dose reduction, the following was used: automated exposure control, adjustment of mA and/or kV according to patient size. COMPARISON: [facility], CT, CT ANGIO CHEST PE PROTOCOL, 06/09/2023, 15:46. FINDINGS: Image quality: Diagnostic. Pulmonary arteries: Pulmonary arteries are normal in size. Thrombus is identified in the main pulmonary artery with extension into the right main pulmonary artery. Thrombus is identified in the segmental branches extending into the right upper, and middle lobes. There is a very small degree of clot burden extending into the proximal left main pulmonary artery. This is new compared to 06/09/2023. Lower Neck: No enlarged lymph nodes. Thyroid: No thyroid nodules which require sonographic follow up, per consensus guidelines. Axillae: No enlarged lymph nodes. Chest Wall: Unremarkable. Bones: Unremarkable. Lungs and Pleura: No pneumothorax or pleural effusions. Unchanged punctate lateral right upper lobe nodule. Dependent changes are present bilaterally. Heart: Heart size is mildly prominent. No right heart strain. No pericardial effusion. Thoracic Vessels: No aortic aneurysm. Mediastinum and Kayla: No enlarged lymph nodes. Esophagus: No wall thickening. Mild hiatal hernia. Upper Abdomen: Visualized upper abdomen solid organs and bowel loops appear normal. IMPRESSION: Saddle embolus with greatest degree of clot burden in the right main in and segmental pulmonary arteries. No heart strain on current exam. The above findings were discussed with Dr. Lauro Nelson on 06/27/2023 at 12:28 p.m.. Dictated by: Jena Babin M.D. on 06/27/2023 at 12:16 Approved by: Jena Babin M.D. on 06/27/2023 at 12:29
[2023-06-27] MEDS: SODIUM CHLORIDE 0.9% 500 ML 1000 ML IV (12:04)
--- NOTE | 2023-06-27 12:32 | DI.US.S_ITS ---
PROCEDURE: US PERIPH VENOUS LOW EXTREM BI INDICATIONS: soa TECHNIQUE: Real-time imaging, as well as color and pulse Doppler interrogation, were performed of the deep veins of both legs from the inguinal ligament to the popliteal fossa, with documentation of the visualized calf veins. COMPARISON: None. FINDINGS: Right: There is occlusive thrombus within the mid to distal superficial vein extending to the popliteal vein. Calf veins are not well visualized. Left: The common femoral, femoral, popliteal, and the visualized calf veins are normally compressible, and free of intraluminal thrombus. Color and pulse Doppler demonstrate normal phasic intravascular flow. There is normal augmentation response to distal compression maneuver. IMPRESSION: Positive deep venous thrombosis in the right superficial vein extending to the popliteal vein. Dictated by: Jena Babin M.D. on 06/27/2023 at 13:47 Approved by: Jena Babin M.D. on 06/27/2023 at 13:48
--- NOTE | 2023-06-27 12:32 | DI.ECHO.S_ITS ---
[place] +---------+ : : [address] : : : : [id number] : : : : Phone: [phone] Echocardiogram Report + + :Name: IRENE GALDAMEZ Study Date: 06/27/2023 Height: 62 in : :[facility] ReadingLocation: Weight: 130 lb : : Gender: Female BSA: 1.6 m2 : :: 1940 Age: 82 yrs BP: 125/58 mmHg: :Reason For Study: SHORTNES OF BREATH : :Ordering Physician: ROX, : :TAMIR Performed By: Michelle Chapin : :Referring: TAMIR GRAMAJO : + + Interpretation Summary 1) Normal left ventricular thickness, size, wall motion, and systolic function (EF 55-60%). 2) Normal right ventricular size with mildly reduced function. 3) No significant valvular abnormalities. 4) The right ventricular systolic pressure is estimated to be at least 50 mmHg based on an estimated right atrial pressure of 3 mm Hg. 5) Compared to the Echo done 06/10/2023, the current study is of better quality and showed pulmonary hypertension. Procedure: A two-dimensional transthoracic echocardiogram with color flow and Doppler was performed. The study quality was technically difficult. Comparison is made with the echocardiogram of 06/10/2023. The patient was in sinus rhythm with heart rates between 79-84 bpm during the exam. Left Ventricle: The left ventricle is normal in size and wall thickness. The ejection fraction is estimated to be 55-60%. Left ventricular systolic function appears normal without focal wall motion abnormalities. Right Ventricle: The right ventricle is normal size. Right ventricular systolic function is mildly reduced. Atria: The left atrial size is normal. Right atrial size is normal. There is no Doppler evidence for an interatrial shunt. Mitral Valve: The mitral valve is normal in structure and function. There is no mitral regurgitation noted. Aortic Valve: The aortic valve is trileaflet. The aortic valve is slightly calcified. The aortic valve opens well. There is no aortic valve stenosis. No aortic regurgitation is present. Tricuspid Valve: The tricuspid valve is normal in structure and function. There is mild tricuspid regurgitation. The right ventricular systolic pressure is estimated to be at least 50 mmHg based on an estimated right atrial pressure of 3 mm Hg. Pulmonic Valve: The pulmonic valve is not well seen, but is grossly normal. There is mild pulmonic regurgitation. Great Vessels: The aortic root is normal size. The dimensions of the ascending aorta are normal. The IVC is of normal diameter and collapses greater than 50% with a sniff. This suggests a low right atrial pressure of 3 mm Hg. Pericardium/ Pleura There is no pericardial effusion. There is no pleural effusion. MMode/2D Measurements & Calculations LVIDd: 3.7 cm LVOT diam: 2.0 cm LVIDs: 2.5 cm Ao root diam: 2.8 cm FS: 31.9 % asc Aorta Diam: 2.8 cm IVSd: 0.90 cm LVPWd: 0.98 cm LV fernandez. diameter/BSA (cm/m^2): 2.3 LV sys. diameter/BSA (cm/m^2): 1.6 LA A2 area: 11.4 cm2 RA long axis: 5.5 cm LA A4 area: 11.6 cm2 RA area: 11.8 cm2 LA length (vol): 4.7 cm RA vol: 21.4 ml LA vol: 24.0 ml RA : 13.4 ml/m2 LA vol index: 15.1 ml/m2 IVC diam: 1.6 cm RVD1 (basal): 3.4 cm RVD2 (mid): 2.9 cm TAPSE: 1.2 cm Doppler Measurements & Calculations Ao V2 max: 96.6 cm/sec LVOT Max Hardik: 62.4 cm/sec Ao V2 mean: 69.9 cm/sec LV V1 max P.6 mmHg Ao max P.7 mmHg LV V1 VTI: 13.5 cm Ao mean P.1 mmHg SREEKANTH(I,D): 2.1 cm2 Ao V2 VTI: 19.7 cm SREEKANTH(V,D): 1.9 cm2 sev ratio: 0.69 SREEKANTH indexed to BSA (cm^2/m^2): 1.3 MV E max hardik: 69.5 cm/sec TR max hardik: 341.4 cm/sec MV A max hardik: 65.4 cm/sec TR max P.6 mmHg MV E/A: 1.1 PA V2 max: 81.9 cm/sec Med Peak E' Hardik: 7.5 cm/sec PA V2 mean: 56.8 cm/sec E/E' med: 9.3 PA mean P.4 mmHg Lat Peak E' Hardik: 6.4 cm/sec PA pr(Accel): 51.6 mmHg E/E' lat: 10.8 E/e' average: 10.1 MV dec time: 0.20 sec SV(LVOT): 40.4 ml Reading Physician:03:47 PM
[2023-06-27 12:45] LABS: Adenovirus Not Detected (Not Detect); B. parapertussis Not Detected (Not Detecte); Bordetella pertussis Not Detected (Not Detect); Chlamydophila pneumoniae Not Detected (Not Detect); Coronavirus 229E Not Detected (Not Detect); Coronavirus HKU1 Not Detected (Not Detect); Coronavirus NL 63 Not Detected (Not Detect); Coronavirus OC43 Not Detected (Not Detect); Human Metapneumovirus Not Detected (Not Detect); Human Rhinovirus/Enterovirus Not Detected (Not Detect); Influenza A Not Detected (Not Detect); Influenza B Not Detected (Not Detect); Mycoplasma pneumoniae Not Detected (Not Detect); Parainfluenza Virus 1 Not Detected (Not Detect); Parainfluenza Virus 2 Not Detected (Not Detect); Parainfluenza Virus 3 Not Detected (Not Detect); Parainfluenza Virus 4 Not Detected (Not Detect); Respiratory Syncytial Virus Not Detected (Not Detect); SARS- CoV-2 Not Detected (Not Detecte)
[2023-06-27 12:50] LABS: Reflexed Lactate in 2 Hours Y
[2023-06-27] MEDS: HEPARIN 5,000 UNIT/ML VIAL 5000 UNIT IV (13:08)
[2023-06-27] MEDS: HEPARIN DRIP 25,000 UNIT/500 ML IV.SOLN 21.228 UNIT IV (13:11)
[2023-06-27 13:31] LABS: Lactate 2HR (Lactic Acid Rflx) 1.8 mmol/L (0.7-2.1)
[2023-06-27 13:43] LABS: Troponin I 0.049 ng/mL (0.01-0.034)
[2023-06-27 13:51] LABS: Urine Volume 10mL (spun)
[2023-06-27 13:52] LABS: Bacteria Urine Many (>30); Culture Indicated Urine Specimen Cultured; RBC Urine None Seen (0-5/HPF); Squamous Epithelial Cell Urine 5-10 /HPF (0-5/HPF); WBC Urine 30-100/HPF (0-5/HPF)
--- NOTE | 2023-06-27 18:18 | PC.NURSE ---
Patient leaving with heparin infusing.
== END 2023-06-27 18:18 | disposition short-term general hospital (02) ==
PROVIDERS: Emergency Medicine; Emergency Provider Emergency Medicine; PCP Family Medicine
DX: I26.92 Saddle embolus of pulmonary artery without acute cor pulmonale (principal)
CPT/HCPCS: 36415; 71045; 71275; 80053; 81003; 81015; 82550; 83605; 83690; 83880; 84145; 84484; 85025; 85610; 85730; 87040; 87077; 87086; 87186; 87633; 93005; 93010; 93306; 93970; 96365; 96366; 96376; 99285; 99291; J1644; Q9967

== ENCOUNTER → 2023-07-17 14:35 | Outpatient (CLI) | payer MEDICARE, SELFPAY ==
[2023-06-09 18:42] VITALS: BMI 24.7
== END ==
PROVIDERS: PCP Family Medicine; Visit Provider Urology
DX: N39.0 Urinary tract infection, site not specified (principal)
CPT/HCPCS: 87086

== ENCOUNTER 2023-07-18 14:18 | Emergency (ER) | payer MEDICARE, SELFPAY ==
[2023-06-09 18:42] VITALS: BMI 24.7
[2023-07-18 14:31] VITALS: BP 149/84; PULSE 83; RESP 18; TEMP 36.6; O2SAT 94; BMI 22.8
--- NOTE | 2023-07-18 14:34 | DI.RAD.S_ITS ---
PROCEDURE: XR CHEST 1V INDICATIONS: Shortness of breath TECHNIQUE: One view of the chest was acquired. COMPARISON: [facility], CR, XR CHEST 1V, 06/27/2023, 10:54. [facility], CR, XR CHEST 1V, 06/09/2023, 13:35. FINDINGS: Surgical changes and devices: None. Lungs and pleura: Low lung volumes. Ettb-gx-jsdxxnce bibasilar opacities. Possible left pleural effusion. Mediastinum: Cardiomediastinal contours are unchanged. Borderline cardiomegaly. Bones and chest wall: Degenerative findings. IMPRESSION: Limited single view radiograph with low lung volumes. Nvyk-cw-porcgdsr bibasilar opacities may represent atelectasis versus early airspace disease. Possible left pleural effusion. Consider future imaging surveillance to assess for resolution. Dictated by: Phuc Crowder M.D. on 07/18/2023 at 15:13 Approved by: Phuc Crowder M.D. on 07/18/2023 at 15:14
--- NOTE | 2023-07-18 14:45 | PC.NURSE ---
This RN to bedside to speak with pt and pts family for assessment. Questions about the pt and pts condition, care plan and situation answered. Pt and pts family verbalize understanding the plan of care and testing to be conducted.
[2023-07-18 15:01] LABS: Add Manual Diff / Slide Review NO; Basophils Absolute Auto 0 /uL (0-100); Basophils Percent Auto 0.3 % (0-2); Eosinophils Absolute Auto 0 /uL (0-450); Eosinophils Percent Auto 0.2 % (2-4); Hematocrit 36.9 % (36-46); Hemoglobin 11.9 g/dL (12.0-16.0); Lymphocytes Absolute Auto 600 /uL (1100-4500); Lymphocytes Percent Auto 5.2 % (25-40); Mean Corpuscular HGB Conc 32.1 % (30-36); Mean Corpuscular Hemoglobin 29.1 PG (26-34); Mean Corpuscular Volume 90.7 fL (80-100); Monocytes Absolute Auto 600 /uL (0-900); Monocytes Percent Auto 4.8 % (3-14); Neutrophils Absolute Auto 10900 /uL (1500-7000); Neutrophils Percent Auto 89.5 % (50-75); Platelet Count 334 X10^3/uL (150-400); Red Blood Cell Count 4.07 X10^6/uL (4.0-5.2); Red Cell Distribution Width 15.4 % (11.6-14.8); White Blood Cell Count 12.1 X10^3/uL (4.5-11.0)
[2023-07-18 15:04] LABS: INR 1.8 (0.9-1.3); Prothrombin Time 21.3 SECONDS (9.4-12.5)
[2023-07-18 15:11] LABS: Alanine Aminotransferase 22 IU/L (<35); Albumin 4.6 g/dL (3.5-5.0); Albumin Globulin Ratio 1.6 (1.0-2.8); Alkaline Phosphatase 87 U/L (38-126); Aspartate Aminotransferase 40 IU/L (14-36); BUN Creatinine Ratio 18.2 (6-22); Bilirubin Total 0.5 mg/dL (0.2-1.3); Blood Urea Nitrogen 28 mg/dL (7-17); Calcium 9.8 mg/dL (8.4-10.2); Carbon Dioxide 22 mmol/L (22-32); Chloride 101 mmol/L (98-107); Estimated Glomerular Filt Rate 33 mL/min (>60); Globulin 2.8 g/dL (1.7-4.1); Glucose 135 mg/dL (80-110); HEMOLYSIS 33 (0-50); Potassium 4.8 mmol/L (3.4-5.1); Sodium 135 mmol/L (137-145); Total Protein 7.4 g/dL (6.3-8.2)
[2023-07-18 15:13] LABS: Lactate (Lactic Acid) 5.2 mmol/L (0.7-2.1)
[2023-07-18 15:23] LABS: NT-proBNP (BNP-Adult 18+) 336 pg/mL (<450); Troponin I < 0.012 ng/mL (0.01-0.034)
[2023-07-18 16:32] LABS: Reflexed Lactate in 2 Hours Y
[2023-07-18 16:41] LABS: Lactate 2HR (Lactic Acid Rflx) 3.3 mmol/L (0.7-2.1)
--- NOTE | 2023-07-18 17:33 | DI.CT.S_ITS ---
PROCEDURE: CT ANGIO CHEST PE PROTOCOL INDICATIONS: recent saddle PE, short of breath TECHNIQUE: After the administration of intravenous contrast, 2 mm thick sections acquired from the pulmonary apices to the posterior costophrenic angles. 3-dimensional maximum intensity projection (MIP) coronal and sagittal reformats were then acquired through the thorax. For radiation dose reduction, the following was used: automated exposure control, adjustment of mA and/or kV according to patient size. COMPARISON: [facility], CT, CT ANGIO CHEST PE PROTOCOL, 06/27/2023, 11:46. [facility], CR, XR CHEST 1V, 07/18/2023, 14:34. [facility], CT, CT ANGIO CHEST PE PROTOCOL, 06/09/2023, 15:46. FINDINGS: Image quality: Diagnostic. Pulmonary arteries: There is a mild burden of pulmonary embolism seen on the right, including within the distal right main pulmonary artery. The burden of pulmonary embolism is clearly improved compared to the recent prior CT. Lower Neck: No enlarged lymph nodes. Thyroid: No thyroid nodules which require sonographic follow up, per consensus guidelines. Axillae: No enlarged lymph nodes. Chest Wall: Unremarkable. Bones: Multiple levels of anterior wedge deformity are seen, including at T7, T8, T9, T11, and T12. Lungs and Pleura: No pneumothorax or pleural effusions. No consolidation or suspicious nodules. Mild dependent atelectasis can be seen. Mild subpleural fibrotic change is seen. Heart: Heart size is normal. No pericardial effusion. Thoracic Vessels: No aortic aneurysm. Mediastinum and Kayla: No enlarged lymph nodes. Esophagus: No wall thickening. There is a moderate hiatal hernia. Upper Abdomen: Visualized upper abdomen solid organs and bowel loops appear normal. IMPRESSION: There is a mild burden of right-sided pulmonary embolism seen, which is clearly improved compared to the recent prior CT. No acute cardiopulmonary process. Multiple levels of thoracic spine compression deformity are seen, which are progressed compared to the recent priors. Additional findings: Pulmonary subpleural fibrotic change Moderate hiatal hernia Dictated by: Arnaud Gloria M.D. on 07/18/2023 at 18:25 Approved by: Arnaud Gloria M.D. on 07/18/2023 at 18:29
[2023-07-18] MEDS: SODIUM CHLORIDE 0.9% 1,000 ML 1000 ML IV (17:49)
[2023-07-18 18:52] LABS: Lactate (Lactic Acid) 2.8 mmol/L (0.7-2.1)
[2023-07-18 19:05] LABS: Troponin I < 0.012 ng/mL (0.01-0.034)
--- NOTE | 2023-07-18 19:32 | PC.NURSE ---
Pt report given to Hortensia CLEMENTS.
--- NOTE | 2023-07-18 19:41 | ED_ITS ---
HPI - General Adult General Chief complaint: Shortness of Breath/Dyspnea Stated complaint: SOB/dizzy Time Seen by Provider: 07/18/23 17:33 Source: patient and EMS Mode of arrival: EMS History of Present Illness HPI narrative: Patient is an 82-year-old female. Has a recent diagnosis of a saddle pulmonary embolism. [facility] within the past 48 hours. Had home health come over today and patient was complaining of being short of breath. There was some concern about decreased breath sounds and decreased oxygen saturations. She was on anticoagulation. She has not on home oxygen. She denies chest pain. At the time of my evaluation she states she is feeling much better. No lower extremity swelling. Related Data Home Medications Medication Instructions Recorded Confirmed metoprolol tartrate 25 mg tablet 12.5 mg PO BID 06/23/23 06/23/23 apixaban 5 mg tablet 5 mg PO BID 07/17/23 07/17/23 omeprazole 20 mg capsule,delayed 20 mg PO DAILY 07/17/23 07/17/23 release Previous Rx's Medication Instructions Recorded venlafaxine 37.5 mg See Rx Instructions .Route 01/10/23 capsule,extended release 24 hr .COMPLEX #90 caps latanoprost 0.005 % eye drops 1 drp EYE-BOTH QPM #7.5 mL 05/03/23 methenamine hippurate 1 gram 1 g PO BID #180 tabs 05/17/23 tablet (Hiprex) nortriptyline 10 mg capsule 10 mg PO DAILY #90 caps 06/07/23 tramadol 50 mg tablet 50 mg PO Q6H PRN pain #5 tabs 06/12/23 sulfamethoxazole 800 1 tab PO BID #30 tabs 07/17/23 mg-trimethoprim 160 mg tablet (Bactrim DS) albuterol sulfate 90 mcg/actuation 2 puff inhalation Q6H PRN 07/18/23 aerosol inhaler shortness of breath or wheezing #8.5 grams Allergies Allergy/AdvReac Type Severity Reaction Status Date / Time No Known Drug Allergies Allergy Verified 06/23/23 09:29 Review of Systems Review of Systems ROS Unobtainable: All systems reviewed & are unremarkable except as noted in HPI and below Patient History Medical History On prednisone therapy Depression Cognitive changes No significant past medical history Surgical History History of knee surgery History of Family History Father Stroke Mother Diabetes mellitus Heart attack Social History marital status: unknown household members: none housing: assisted living facility occupational status: previously employed Smoking Status: Former smoker Tobacco: How many years used: 20 alcohol intake: former substance use type: does not use Smoking Status: Former smoker tobacco type: cigarettes alcohol intake frequency: a few times a month Alcohol type: wine Substance Use Type: does not use Exam Initial Vital Signs Initial Vital Signs: Vital Signs Temperature 97.9 F 07/18/23 14:31 Pulse Rate 83 07/18/23 14:31 Respiratory Rate 18 07/18/23 14:31 Blood Pressure 149/84 H 07/18/23 14:31 Pulse Oximetry 94 07/18/23 14:31 Oxygen Delivery Method Room Air 07/18/23 14:31 HENMT Head: normal to inspection and normocephalic Resp Effort & Inspection: normal respiratory effort Auscultation: clear to auscultation bilaterally Cardio Rate: regular rate Rhythm: regular rhythm GI Inspection: normal to inspection and non-distended Palpation: soft and No tender Skin General: no rashes or lesions noted Neuro General: patient alert, patient awake, patient oriented x3 and moves all extremities Extrem General: No edema Course Orders Ordered: ED Orders 07/18/23 17:33 CT angio chest PE protocol Stat 07/18/23 18:26 Lactate (Lactic Acid) Stat 07/18/23 18:35 Trop I [Troponin I] Stat Discontinued Medications Sodium Chloride (Normal Saline 0.9%) 1,000 mls @ 1,000 mls/hr IV BOLUS ONE Stop: 07/18/23 18:32 Last Infusion: 07/18/23 20:45 Dose: Infused Documented By: Admin: 07/18/23 17:49 Dose: 1,000 mls/hr Documented By: MARVIN Vital Signs Vital signs: Vital Signs - 8 hr 07/18/23 20:42 Pulse Rate 80 Respiratory Rate 18 Blood Pressure 137/70 Pulse Oximetry 93 Oxygen Delivery Method Room Air Medical Decision Making Medical Records Medical records reviewed: Yes I reviewed the patient's medical records. Lab Data Lab results reviewed: Yes I reviewed the patient's lab results. 07/18/23 14:04 07/18/23 14:04 Labs: Lab Results 07/18/23 07/18/23 07/18/23 Range/Units 14:04 16:10 18:26 WBC 12.1 H (4.5-11.0) X10^3/uL RBC 4.07 (4.0-5.2) X10^6/uL Hgb 11.9 L (12.0-16.0) g/dL Hct 36.9 (36-46) % MCV 90.7 (80-100) fL MCH 29.1 (26-34) PG MCHC 32.1 (30-36) % RDW 15.4 H (11.6-14.8) % Plt Count 334 (150-400) X10^3/uL Neut % (Auto) 89.5 H (50-75) % Lymph % (Auto) 5.2 L (25-40) % [place] % (Auto) 4.8 (3-14) % Eos % (Auto) 0.2 L (2-4) % Baso % (Auto) 0.3 (0-2) % Neut # (Auto) 24341 H (8242-1581) /uL Lymph # (Auto) 600 L (1065-4487) /uL [place] # (Auto) 600 (0-900) /uL Eos # (Auto) 0 (0-450) /uL Baso # (Auto) 0 (0-100) /uL PT 21.3 H (9.4-12.5) SECONDS INR 1.8 H (0.9-1.3) Sodium 135 L (137-145) mmol/L Potassium 4.8 (3.4-5.1) mmol/L Chloride 101 (98-107) mmol/L Carbon Dioxide 22 (22-32) mmol/L BUN 28 H (7-17) mg/dL Creatinine 1.54 H (0.52-1.04) mg/dL Estimated GFR 33 L (>60) mL/min BUN/Creatinine Ratio 18.2 (6-22) Glucose 135 H (80-110) mg/dL Lactate 5.2 H* 3.3 H 2.8 H (0.7-2.1) mmol/L Calcium 9.8 (8.4-10.2) mg/dL Total Bilirubin 0.5 (0.2-1.3) mg/dL AST 40 H (14-36) IU/L ALT 22 (<35) IU/L Alkaline Phosphatase 87 (38-126) U/L Troponin I < 0.012 (0.01-0.034) ng/mL NT-Pro-B Natriuret Pep 336 (<450) pg/mL Total Protein 7.4 (6.3-8.2) g/dL Albumin 4.6 (3.5-5.0) g/dL Globulin 2.8 (1.7-4.1) g/dL Albumin/Globulin Ratio 1.6 (1.0-2.8) // Range/Units 18:35 WBC (4.5-11.0) X10^3/uL RBC (4.0-5.2) X10^6/uL Hgb (12.0-16.0) g/dL Hct (36-46) % MCV (80-100) fL MCH (26-34) PG MCHC (30-36) % RDW (11.6-14.8) % Plt Count (150-400) X10^3/uL Neut % (Auto) (50-75) % Lymph % (Auto) (25-40) % [place] % (Auto) (3-14) % Eos % (Auto) (2-4) % Baso % (Auto) (0-2) % Neut # (Auto) (2036-7373) /uL Lymph # (Auto) (8534-2691) /uL [place] # (Auto) (0-900) /uL Eos # (Auto) (0-450) /uL Baso # (Auto) (0-100) /uL PT (9.4-12.5) SECONDS INR (0.9-1.3) Sodium (137-145) mmol/L Potassium (3.4-5.1) mmol/L Chloride (98-107) mmol/L Carbon Dioxide (22-32) mmol/L BUN (7-17) mg/dL Creatinine (0.52-1.04) mg/dL Estimated GFR (>60) mL/min BUN/Creatinine Ratio (6-22) Glucose (80-110) mg/dL Lactate (0.7-2.1) mmol/L Calcium (8.4-10.2) mg/dL Total Bilirubin (0.2-1.3) mg/dL AST (14-36) IU/L ALT (<35) IU/L Alkaline Phosphatase (38-126) U/L Troponin I < 0.012 (0.01-0.034) ng/mL NT-Pro-B Natriuret Pep (<450) pg/mL Total Protein (6.3-8.2) g/dL Albumin (3.5-5.0) g/dL Globulin (1.7-4.1) g/dL Albumin/Globulin Ratio (1.0-2.8) Imaging Data Chest x-ray: Radiologist's Impression: PROCEDURE: XR CHEST 1V INDICATIONS: Shortness of breath TECHNIQUE: One view of the chest was acquired. COMPARISON: [facility], CR, XR CHEST 1V, 06/27/2023, 10:54. [facility], CR, XR CHEST 1V, 06/09/2023, 13:35. FINDINGS: Surgical changes and devices: None. Lungs and pleura: Low lung volumes. Pgna-uq-bdwnftnl bibasilar opacities. Possible left pleural effusion. Mediastinum: Cardiomediastinal contours are unchanged. Borderline cardiomegaly. Bones and chest wall: Degenerative findings. IMPRESSION: Limited single view radiograph with low lung volumes. Neda-fz-sbavygsl bibasilar opacities may represent atelectasis versus early airspace disease. Possible left pleural effusion. Consider future imaging surveillance to assess for resolution. CT scan - chest: Radiologist's Impression: PROCEDURE: CT ANGIO CHEST PE PROTOCOL INDICATIONS: recent saddle PE, short of breath TECHNIQUE: After the administration of intravenous contrast, 2 mm thick sections acquired from the pulmonary apices to the posterior costophrenic angles. 3-dimensional maximum intensity projection (MIP) coronal and sagittal reformats were then acquired through the thorax. For radiation dose reduction, the following was used: automated exposure control, adjustment of mA and/or kV according to patient size. COMPARISON: [facility], CT, CT ANGIO CHEST PE PROTOCOL, 06/27/2023, 11:46. [facility], CR, XR CHEST 1V, 07/18/2023, 14:34. [facility], CT, CT ANGIO CHEST PE PROTOCOL, 06/09/2023, 15:46. FINDINGS: Image quality: Diagnostic. Pulmonary arteries: There is a mild burden of pulmonary embolism seen on the right, including within the distal right main pulmonary artery. The burden of pulmonary embolism is clearly improved compared to the recent prior CT. Lower Neck: No enlarged lymph nodes. Thyroid: No thyroid nodules which require sonographic follow up, per consensus guidelines. Axillae: No enlarged lymph nodes. Chest Wall: Unremarkable. Bones: Multiple levels of anterior wedge deformity are seen, including at T7, T8, T9, T11, and T12. Lungs and Pleura: No pneumothorax or pleural effusions. No consolidation or suspicious nodules. Mild dependent atelectasis can be seen. Mild subpleural fibrotic change is seen. Heart: Heart size is normal. No pericardial effusion. Thoracic Vessels: No aortic aneurysm. Mediastinum and Kayla: No enlarged lymph nodes. Esophagus: No wall thickening. There is a moderate hiatal hernia. Upper Abdomen: Visualized upper abdomen solid organs and bowel loops appear normal. IMPRESSION: There is a mild burden of right-sided pulmonary embolism seen, which is clearly improved compared to the recent prior CT. No acute cardiopulmonary process. Multiple levels of thoracic spine compression deformity are seen, which are progressed compared to the recent priors. Additional findings: Pulmonary subpleural fibrotic change Moderate hiatal hernia ECG Data Attestation: I personally reviewed and interpreted this ECG as follows: Interpretation: Sinus rhythm Ventricular rate 87 Normal axis Normal QRS Nonspecific ST T wave changes MDM Narrative Medical decision making narrative: Patient was able to ambulate here in the emergency department without becoming hypoxic. The CT scan of the chest x-ray shows improvement of the clot burden although there is still a clot present. She was on anticoagulation for this. She was not requiring oxygen. There was no signs of pneumonia. She was not in acute heart failure. Low suspicion that this is ACS. No indication to change any of his current medications. This could very well just be deconditioning because she has been in the hospital quite a bit recently and also in a [facility] facility. Patient does not require home oxygen currently. Patient and family were given return precautions. They expressed understanding and agreement. Discharge Plan Departure Patient Disposition: Home Clinical Impression: Shortness of breath Instructions: How to Manage Shortness of Breath Activity Restrictions/Additional Instructions: You can go back to [facility]. Continue to take all of your medications as directed. Contact your primary care doctor for a follow-up. Return to the emergency department for new or worsening symptoms. Prescriptions: New albuterol sulfate 90 mcg/actuation HFA aerosol inhaler 2 puff inhalation Q6H PRN (Reason: shortness of breath or wheezing) Qty: 8.5 0RF No Action venlafaxine 37.5 mg capsule,extended release 24hr See Rx Instructions .ROUTE .COMPLEX Qty: 90 2RF Dose Instruction: GIVE 1 CAPSULE ORALLY ONCE A DAY (DEPRESSION) Rx Instructions: GIVE 1 CAPSULE ORALLY ONCE A DAY (DEPRESSION) latanoprost 0.005 % drops 1 drp EYE-BOTH QPM Qty: 7.5 3RF methenamine hippurate [Hiprex] 1 gram tablet 1 g PO BID Qty: 180 0RF nortriptyline 10 mg capsule 10 mg PO DAILY Qty: 90 0RF metoprolol tartrate 25 mg tablet 12.5 mg PO BID tramadol 50 mg tablet 50 mg PO Q6H PRN (Reason: pain) Qty: 5 0RF apixaban 5 mg tablet 5 mg PO BID omeprazole 20 mg capsule,delayed release(DR/EC) 20 mg PO DAILY sulfamethoxazole-trimethoprim [Bactrim DS] 800-160 mg tablet 1 tab PO BID Qty: 30 0RF Rx Instructions: Patient to hold the methenamine while on this medication Referrals: Angie Armas DO [Primary Care Provider] - Stand Alone Forms: Patient Portal/API
[2023-07-18 20:17] LABS: Reflexed Lactate in 2 Hours Y
[2023-07-18 20:42] VITALS: BP 137/70; PULSE 80; RESP 18; O2SAT 93
== END 2023-07-18 20:49 | disposition home or self-care (01) ==
PROVIDERS: Emergency Medicine; Emergency Provider Emergency Medicine; PCP Family Medicine
DX: R06.02 Shortness of breath (principal); Z79.01 Long term (current) use of anticoagulants
CPT/HCPCS: 71045; 71275; 80053; 83605; 83880; 84484; 85025; 85610; 93005; 96360; 96361; 99284; Q9967

== ENCOUNTER → 2023-08-01 11:19 | Outpatient (CLI) | payer MEDICARE, SELFPAY ==
[2023-06-09 18:42] VITALS: BMI 24.7
--- NOTE | 2023-08-01 11:20 | DI.RAD.S_ITS ---
PROCEDURE: XR DEXA AXIAL SKELETON INDICATIONS: OSTEOPENIA OF LUMBAR SPINE COMPARISON: None. FINDINGS: Lumbar Spine: Bone mineral density 1.068 g/cm2, T score 0.2, normal. Left Hip: Bone mineral density 0.75 a g/cm2, T score -1.5, osteopenia. Left Femoral Neck: Bone mineral density 0.0497 g/cm2, T score -3.2, osteoporosis. Right Hip: Bone mineral density 0.705 g/cm2, T score -1.9, osteopenia. Right Femoral Neck: Bone mineral density 0.466 g/cm2, T score -3.4, osteoporosis. (T score greater or equal to -1.0 to: NORMAL) (T score from -1.1 to -2.4: OSTEOPENIA) (T score less than or equal to -2.5: OSTEOPOROSIS) IMPRESSION: 1. Based on WHO criteria, the patient has osteoporosis. Follow-up guidelines as follows: Osteoporosis: Consider a repeat DEXA and Vertebral Fracture Assessment (VFA) exam in 2 years or sooner if medically necessary, to reassess this patient's status. Osteopenia: Consider a repeat DEXA in 2-3 years to reassess this patient's status, or if there is a new clinical indication. Normal: Consider a repeat DEXA in 5 years or sooner, or if there is a new clinical indication. Dictated by: Elif Beatty M.D. on 08/01/2023 at 16:47 Approved by: Elif Beatty M.D. on 08/01/2023 at 16:49
== END ==
LOC: RAD 11:19
PROVIDERS: PCP Family Medicine; Referring Provider Internal Medicine Hematology & Oncology; Visit Provider Internal Medicine Hematology & Oncology
DX: M81.0 Age-related osteoporosis without current pathological fracture (principal)
CPT/HCPCS: 77080

== ENCOUNTER → 2023-08-01 11:20 | Outpatient (CLI) | payer MEDICARE, SELFPAY ==
[2023-06-09 18:42] VITALS: BMI 24.7
--- NOTE | 2023-08-01 11:21 | DI.CT.S_ITS ---
PROCEDURE: CT IVP A/P W/WO INDICATIONS: RECURRENT E COLI UTI TECHNIQUE: Optional 5 mm thick noncontrast images acquired from the diaphragm to the symphysis pubis. After the administration of intravenous contrast, 5 mm thick images acquired from the diaphragm to the symphysis pubis after a 10-minute delay. 2 mm thick coronal and sagittal reformats were then performed of the kidneys and ureters. For radiation dose reduction, the following was used: automated exposure control, adjustment of mA and/or kV according to patient size. COMPARISON: None. FINDINGS: Image quality: Diagnostic. Kidneys and Ureters: Mild bilateral renal cortical thinning. No hydronephrosis or intrarenal calcifications. There are parapelvic cysts and subcentimeter cortical cysts, left more so than right. No solid renal mass. Opacified calices are normal without filling defects. Ureters are normal in course and caliber without calcifications. Bladder: Minor perivesicular inflammation along the serosal surface. Partially distended urinary bladder. No intraluminal filling defects or calcifications. OTHER: Lower chest: Mild cardiomegaly and moderate pericardial fat. Mild bibasilar reticulation and scar formation. Moderate-sized hiatal hernia. Liver: Left lobe hepatic cyst. No solid enhancing mass. Gallbladder: No wall thickening or calcified stones. Biliary ducts: No biliary dilation. Pancreas: Slightly diminutive pancreas with several small cysts in the neck and body. There is subtle decreased attenuation in the tail. Questionable ductal calcification measuring 5 mm near the pancreatic head. No peripancreatic inflammation. Spleen: Size is within normal limits. Adrenal Glands: No adrenal nodules. Stomach and Bowel: Stomach and small bowel loops are normal caliber. Moderate diverticulosis of the proximal sigmoid colon. Normal to slightly increased quantity of solid colonic stool. No wall thickening. Normal appendix. Peritoneum: No abnormal intraperitoneal fluid. No free air. Ventral Wall: No hernia. Abdominal Nodes: No retroperitoneal or mesenteric adenopathy by size criteria. Vessels: The abdominal aorta, IVC, and portal vein are of normal caliber. PELVIS: Pelvic Organs: Anteverted uterus with dystrophic myometrial calcifications. Normal CT appearance to residual ovarian tissue. No suspicious adnexal masses. Pelvic Nodes: No enlarged lymph nodes. Miscellaneous: Small bilateral fat containing inguinal hernias. Bones: Several lower thoracic and L1 compression fracture. Multilevel degenerative disc change. Prior bilateral inferior pubic rami fractures. Moderate bilateral femoroacetabular joint degeneration. IMPRESSION: Slight perivesicular serosal surface fat stranding of the urinary bladder is nonspecific in may indicate inflammation/cystitis, infectious or reactive. The upper urinary tract is negative for stones or suspicious mass. Subtle decreased pancreatic tail attenuation and several small pancreatic cysts. If not previously evaluated, contrast-enhanced MR imaging the pancreas for further evaluation is recommended. Dictated by: Lara Bowers M.D. on 08/01/2023 at 13:59 Approved by: Lara Bowers M.D. on 08/01/2023 at 14:14
== END ==
LOC: CT 11:21
PROVIDERS: PCP Family Medicine; Referring Provider Urology; Visit Provider Urology
DX: N39.0 Urinary tract infection, site not specified (principal); M81.0 Age-related osteoporosis without current pathological fracture; K76.89 Other specified diseases of liver; K86.2 Cyst of pancreas; K57.30 Diverticulosis of large intestine without perforation or abscess without bleeding; K40.20 Bilateral inguinal hernia, without obstruction or gangrene, not specified as recurrent; M48.55XA Collapsed vertebra, not elsewhere classified, thoracolumbar region, initial encounter for fracture
CPT/HCPCS: 74178; 77080; Q9967

== ENCOUNTER → 2023-08-09 13:45 | Outpatient (CLI) | payer MEDICARE, SELFPAY ==
[2023-06-09 18:42] VITALS: BMI 24.7
== END ==
PROVIDERS: PCP Family Medicine; Visit Provider Urology
DX: N39.0 Urinary tract infection, site not specified (principal); N95.2 Postmenopausal atrophic vaginitis
CPT/HCPCS: 51798; 52000; 81002; 87077; 87086; 87186

== ENCOUNTER → 2023-08-17 15:39 | Outpatient (CLI) | payer MEDICARE, SELFPAY ==
[2023-06-09 18:42] VITALS: BMI 24.7
[2023-08-17 18:53] LABS: BUN Creatinine Ratio 22.1 (6-22); Blood Urea Nitrogen 23 mg/dL (7-17); Calcium 8.8 mg/dL (8.4-10.2); Carbon Dioxide 22 mmol/L (22-32); Chloride 105 mmol/L (98-107); Estimated Glomerular Filt Rate 53 mL/min (>60); Glucose 151 mg/dL (80-110); HEMOLYSIS < 15 (0-50); Potassium 4.4 mmol/L (3.4-5.1); Sodium 136 mmol/L (137-145)
[2023-08-17 19:26] LABS: C-Reactive Protein Quant < 0.5 mg/dL (<1.0)
[2023-08-17 19:51] LABS: Erythrocyte Sedimentation Rate 15 MM/HR (0-20)
== END ==
LOC: LAB 15:41
PROVIDERS: Urology; PCP Family Medicine; Referring Provider Internal Medicine Rheumatology; Visit Provider Internal Medicine Rheumatology
DX: I26.99 Other pulmonary embolism without acute cor pulmonale (principal); M31.6 Other giant cell arteritis; Z79.899 Other long term (current) drug therapy; N39.0 Urinary tract infection, site not specified
CPT/HCPCS: 36415; 80048; 85651; 86140

== ENCOUNTER → 2023-09-05 14:25 | Outpatient (CLI) | payer MEDICARE, SELFPAY ==
[2023-06-09 18:42] VITALS: BMI 24.7
[2023-09-05 17:40] LABS: Influenza A - CEPHEID Flu A NEGATIVE (NEGATIVE); Influenza B - CEPHEID Flu B NEGATIVE (NEGATIVE); Respiratory Syncytial Virus Negative (Negative)
[2023-09-05 17:46] LABS: COVID-19 CEPHEID 4-PLEX PCR Negative (Negative)
== END ==
PROVIDERS: PCP Family Medicine; Visit Provider Family Medicine
DX: R19.7 Diarrhea, unspecified (principal); Z20.822 Contact with and (suspected) exposure to COVID-19
CPT/HCPCS: 0241U

== ENCOUNTER → 2023-09-12 14:24 | Outpatient (CLI) | payer MEDICARE, SELFPAY ==
[2023-06-09 18:42] VITALS: BMI 24.7
[2023-09-12 15:24] LABS: C-Reactive Protein Quant < 0.5 mg/dL (<1.0)
[2023-09-12 15:36] LABS: Erythrocyte Sedimentation Rate 13 MM/HR (0-20)
== END ==
PROVIDERS: PCP Family Medicine; Referring Provider Internal Medicine Rheumatology; Visit Provider Internal Medicine Rheumatology
DX: M31.6 Other giant cell arteritis (principal); I26.99 Other pulmonary embolism without acute cor pulmonale; Z79.899 Other long term (current) drug therapy
CPT/HCPCS: 36415; 85651; 86140

== ENCOUNTER 2023-10-17 19:00 | Emergency (ER) | payer MEDICARE, SELFPAY ==
[2023-06-09 18:42] VITALS: BMI 24.7
[2023-10-17 19:11] VITALS: BP 122/67; PULSE 91; RESP 24; TEMP 36.9; O2SAT 95; BMI 23.8
--- NOTE | 2023-10-17 20:57 | EKG_ITS ---
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
--- NOTE | 2023-10-17 20:57 | DI.RAD.S_ITS ---
PROCEDURE: XR CHEST 1V INDICATIONS: lower extremity edema, poss pulm edema TECHNIQUE: One view of the chest was acquired. COMPARISON: [facility], CR, XR CHEST 1V, 07/18/2023, 14:34. [facility], CR, XR CHEST 1V, 06/27/2023, 10:54. FINDINGS: Surgical changes and devices: None. Lungs and pleura: Low lung volumes are seen bilaterally with atelectasis at the left lung base. A consolidation is not excluded. No pleural effusion or pneumothorax. Mediastinum: Mediastinal contours appear normal. Heart size is normal. Bones and chest wall: No suspicious bony lesions. Overlying soft tissues appear unremarkable. IMPRESSION: Bilateral low lung volumes with bibasilar atelectasis versus less likely consolidation. Approved by: Humberto Snow M.D. on 10/17/2023 at 23:00
--- NOTE | 2023-10-17 21:01 | ED.EXTPRO ---
HPI - Extremity Problem General Chief complaint: Extremity Problem,Nontraumatic Stated complaint: adema ankles/crackling in chest/hx pulmon embolism Time Seen by Provider: 10/17/23 20:01 Source: family Mode of arrival: Wheelchair History of Present Illness HPI Narrative: 83-year-old female with history of giant cell arteritis on chronic prednisone, pulmonary embolism on Eliquis, breast CA s/p mastectomy on 06/07/23 presents for bilateral lower extremity swelling and ?crackling in her chest?. Family at bedside state that they went to visit the patient today and noticed some bruising on her lower left leg that seemed different than the usual bruising she gets from her prednisone. They took her to the walk-in clinic, where they heard crackling in her lungs, and referred her to the ER for evaluation. Patient denies any acute complaints at this time, she states she feels otherwise fine and denies shortness of breath or chest pain. She states she has been compliant with her Eliquis since her diagnosis of pulmonary embolism in June 2023. She states that she has never taken Lasix or seen a heart doctor. Related Data Home Medications Medication Instructions Recorded Confirmed acetaminophen 325 mg capsule 325 mg PO ONCE PRN 08/09/23 10/17/23 prednisone 5 mg tablet 5 mg PO DAILY 08/09/23 10/17/23 vitamins A,C,U-bvsu-gpgefc 1 cap PO BID 08/18/23 10/17/23 [PreserVision AREDS] tamoxifen 10 mg tablet 20 mg PO DAILY 09/05/23 10/17/23 calcium acetate(phosphat bind) 667 667 mg PO DAILY 10/17/23 10/17/23 mg tablet estradiol 0.01% (0.1 mg/gram) vaginal 10/17/23 10/17/23 vaginal cream prednisone 1 mg tablet mg PO 10/17/23 10/17/23 tamoxifen 20 mg tablet 20 mg PO DAILY 10/17/23 10/17/23 Previous Rx's Medication Instructions Recorded albuterol sulfate 90 mcg/actuation 2 puff inhalation Q6H PRN 07/18/23 aerosol inhaler shortness of breath or wheezing #8.5 grams apixaban 5 mg tablet 5 mg PO BID #180 tabs 08/04/23 vitamins A,C,P-yxrm-luttuw 4,296 1 cap PO QAM AND QPM #180 caps 09/12/23 mcg-226 mg-90 mg capsule (PreserVision AREDS) latanoprost 0.005 % eye drops 1 drp EYE-BOTH QPM #7.5 mL 09/26/23 methenamine hippurate 1 gram 1 g PO BID #180 tabs 09/27/23 tablet (Hiprex) omeprazole 20 mg capsule,delayed 20 mg PO DAILY #90 caps 09/27/23 release loperamide 2 mg capsule (Imodium 2 mg PO Q12H PRN loose stool #30 10/04/23 A-D) caps metoprolol tartrate 25 mg tablet 12.5 mg (1/2 x 25 mg) PO BID #30 10/04/23 tabs nortriptyline 10 mg capsule 10 mg PO DAILY #90 caps 10/04/23 venlafaxine 37.5 mg See Rx Instructions .Route 10/12/23 capsule,extended release 24 hr .COMPLEX #90 caps furosemide 20 mg tablet 20 mg PO DAILY #14 tabs 10/17/23 Allergies Allergy/AdvReac Type Severity Reaction Status Date / Time No Known Drug Allergies Allergy Verified 10/18/23 07:50 Patient History Medical History On prednisone therapy Depression Cognitive changes No significant past medical history Surgical History History of knee surgery History of Family History Father Stroke Mother Diabetes mellitus Heart attack Social History marital status: unknown household members: none housing: assisted living facility occupational status: previously employed Smoking Status: Former smoker Tobacco: How many years used: 20 alcohol intake: former substance use type: does not use Smoking Status: Former smoker tobacco type: cigarettes alcohol intake frequency: a few times a month Alcohol type: wine Substance Use Type: does not use Exam Initial Vital Signs Initial Vital Signs: Vital Signs Temperature 98.5 F 10/17/23 19:11 Pulse Rate 91 H 10/17/23 19:11 Respiratory Rate 24 10/17/23 19:11 Blood Pressure 122/67 10/17/23 19:11 Pulse Oximetry 95 07/30/24 19:11 Oxygen Delivery Method Room Air 10/17/23 19:11 Const: Awake, alert, frail, no acute distress Cardiac: regular rate, regular rhythm RESP: Speaking in complete sentences without dyspnea, faint bibasilar inspiratory crackles, faint end expiratory wheeze MSK: 2+ pitting edema to knees bilaterally, full range of motion, pulses palpable bilaterally Skin: Warm, Dry, intact, scattered bruising over bilateral lower extremities Neuro: AO x3, CN II-XII grossly intact, moves all extremities Course Orders Ordered: ED Orders 10/17/23 19:25 BNP [NT-proBNP (BNP-Adult 18+)] Stat CBC Auto Diff [Complete Blood Count AUTO DIFF] Stat CMP [Comprehensive Metabolic Panel] Stat PT [Prothrombin Time INR] Stat Troponin & CK Cardiac Panel Stat 10/17/23 20:57 Chest [XR chest 1V] Stat EKG-12 Lead Stat Vital Signs Vital signs: Vital Signs - 8 hr 10/17/23 19:11 Temperature 98.5 F Pulse Rate 91 H Respiratory Rate 24 Blood Pressure 122/67 Pulse Oximetry 95 Oxygen Delivery Method Room Air MDM - Extremity (Nontraumatic) Lab Data 10/17/23 19:25 10/17/23 19:25 Labs: Lab Results 10/17/23 Range/Units 19:25 WBC 8.7 (4.5-11.0) X10^3/uL RBC 4.09 (4.0-5.2) X10^6/uL Hgb 11.6 L (12.0-16.0) g/dL Hct 35.4 L (36-46) % MCV 86.5 (80-100) fL MCH 28.5 (26-34) PG MCHC 32.9 (30-36) % RDW 15.0 H (11.6-14.8) % Plt Count 205 (150-400) X10^3/uL Neut % (Auto) 82.8 H (50-75) % Lymph % (Auto) 9.6 L (25-40) % Faulk % (Auto) 6.9 (3-14) % Eos % (Auto) 0.3 L (2-4) % Baso % (Auto) 0.4 (0-2) % Neut # (Auto) 7200 H (9310-8989) /uL Lymph # (Auto) 800 L (6380-4742) /uL Faulk # (Auto) 600 (0-900) /uL Eos # (Auto) 0 (0-450) /uL Baso # (Auto) 0 (0-100) /uL PT 15.5 H (9.4-12.5) SECONDS INR 1.3 (0.9-1.3) Sodium 138 (137-145) mmol/L Potassium 4.6 (3.4-5.1) mmol/L Chloride 105 (98-107) mmol/L Carbon Dioxide 29 (22-32) mmol/L BUN 22 H (7-17) mg/dL Creatinine 0.95 (0.52-1.04) mg/dL Estimated GFR 59 L (>60) mL/min BUN/Creatinine Ratio 23.2 H (6-22) Glucose 130 H (80-110) mg/dL Calcium 9.6 (8.4-10.2) mg/dL Total Bilirubin 0.4 (0.2-1.3) mg/dL AST 30 (14-36) IU/L ALT 21 (<35) IU/L Alkaline Phosphatase 63 (38-126) U/L Total Creatine Kinase 46 (30-135) U/L Troponin I < 0.012 (0.01-0.034) ng/mL NT-Pro-B Natriuret Pep 266 (<450) pg/mL Total Protein 6.6 (6.3-8.2) g/dL Albumin 3.7 (3.5-5.0) g/dL Globulin 2.9 (1.7-4.1) g/dL Albumin/Globulin Ratio 1.3 (1.0-2.8) Imaging Data Chest x-ray: Radiologist's Impression: PROCEDURE: XR CHEST 1V INDICATIONS: lower extremity edema, poss pulm edema TECHNIQUE: One view of the chest was acquired. COMPARISON: [facility], CR, XR CHEST 1V, 07/18/2023, 14:34. [facility], CR, XR CHEST 1V, 06/27/2023, 10:54. FINDINGS: Surgical changes and devices: None. Lungs and pleura: Low lung volumes are seen bilaterally with atelectasis at the left lung base. A consolidation is not excluded. No pleural effusion or pneumothorax. Mediastinum: Mediastinal contours appear normal. Heart size is normal. Bones and chest wall: No suspicious bony lesions. Overlying soft tissues appear unremarkable. IMPRESSION: Bilateral low lung volumes with bibasilar atelectasis versus less likely consolidation. Approved by: Humberto Snow M.D. on 10/17/2023 at 23:00 ECG Data Interpretation: Normal sinus rhythm at 84 beats per minute, normal NV, QTC 430, no ST T wave changes MDM Narrative Medical decision making narrative: Nontoxic appearing patient with new lower extremity swelling and crackles in her lungs. Saturating well on room air, speaking in complete sentences without dyspnea. Patient does have edema bilaterally, some bruising noted. Family is concerned about DVT or PE, however swelling is symmetric, she was not short of breath and saturating well on room air. Patient has been compliant with Eliquis, PE provoked from cancer and recent surgery/hospitalization. Family also advised on the increased risk of bruising on blood thinning medication such as Eliquis. Laboratory work shows WBC count 8.7, hemoglobin 11.6, platelets 205, sodium 138, potassium 4.6, creatinine 0.95, troponin undetectable, BNP 266. Chest x-ray shows no acute process, cardiomegaly stable, possibly mildly atelectasis versus infiltrates at the bases, suspect more atelectasis with lack of fever or respiratory complaints. Patient and family counseled on all lab and imaging findings. Suspect this may be edema, may possibly be early congestive heart failure given the patient's cardiomegaly on previous chest x-rays and new edema, however BNP is not elevated. Patient to be started on low-dose furosemide. Family counseled on the importance of cardiology follow up in a referral was provided. They state that they will follow up with the patient's primary care physician as well. Discharge Plan Departure Patient Disposition: Home Clinical Impression: Swelling of both lower extremities Instructions: DI for Peripheral Edema -- Bilateral Activity Restrictions/Additional Instructions: Take 20mg of lasix daily for 1 week. If you continue to experience leg swelling you may continue to take 20mg lasix daily for another week. I recommend following up with Cardiology. A referral has been provided. Prescriptions: New furosemide 20 mg tablet 20 mg PO DAILY Qty: 14 0RF No Action prednisone 1 mg tablet PO tamoxifen 20 mg tablet 20 mg PO DAILY calcium acetate(phosphat bind) 667 mg tablet 667 mg PO DAILY estradiol 0.01 % (0.1 mg/gram) cream vaginal apixaban 5 mg tablet 5 mg PO BID Qty: 180 1RF vitamins A,C,N-pbde-kiauij [PreserVision AREDS] 1 cap PO BID PreserVision AREDS 4,296 mcg-226 mg-90 mg capsule 1 cap PO QAM AND QPM Qty: 180 3RF latanoprost 0.005 % drops 1 drp EYE-BOTH QPM Qty: 7.5 3RF methenamine hippurate [Hiprex] 1 gram tablet 1 g PO BID Qty: 180 0RF omeprazole 20 mg capsule,delayed release(DR/EC) 20 mg PO DAILY Qty: 90 2RF loperamide [Imodium A-D] 2 mg capsule 2 mg PO Q12H PRN (Reason: loose stool) Qty: 30 6RF metoprolol tartrate 25 mg tablet 12.5 mg PO BID Qty: 30 6RF nortriptyline 10 mg capsule 10 mg PO DAILY Qty: 90 1RF venlafaxine 37.5 mg capsule,extended release 24hr See Rx Instructions .ROUTE .COMPLEX Qty: 90 2RF Dose Instruction: GIVE 1 CAPSULE ORALLY ONCE A DAY (DEPRESSION) Rx Instructions: GIVE 1 CAPSULE ORALLY ONCE A DAY (DEPRESSION) tamoxifen 10 mg tablet 20 mg PO DAILY albuterol sulfate 90 mcg/actuation HFA aerosol inhaler 2 puff inhalation Q6H PRN (Reason: shortness of breath or wheezing) Qty: 8.5 0RF prednisone 5 mg tablet 5 mg PO DAILY acetaminophen 325 mg capsule 325 mg PO ONCE PRN Referrals: Dave Nguyen MD [Physician] - Angie Armas DO [Primary Care Provider] - Stand Alone Forms: Patient Portal/API
[2023-10-17 21:06] LABS: Add Manual Diff / Slide Review NO; Basophils Absolute Auto 0 /uL (0-100); Basophils Percent Auto 0.4 % (0-2); Eosinophils Absolute Auto 0 /uL (0-450); Eosinophils Percent Auto 0.3 % (2-4); Hematocrit 35.4 % (36-46); Hemoglobin 11.6 g/dL (12.0-16.0); Lymphocytes Absolute Auto 800 /uL (1100-4500); Lymphocytes Percent Auto 9.6 % (25-40); Mean Corpuscular HGB Conc 32.9 % (30-36); Mean Corpuscular Hemoglobin 28.5 PG (26-34); Mean Corpuscular Volume 86.5 fL (80-100); Monocytes Absolute Auto 600 /uL (0-900); Monocytes Percent Auto 6.9 % (3-14); Neutrophils Absolute Auto 7200 /uL (1500-7000); Neutrophils Percent Auto 82.8 % (50-75); Platelet Count 205 X10^3/uL (150-400); Red Blood Cell Count 4.09 X10^6/uL (4.0-5.2); White Blood Cell Count 8.7 X10^3/uL (4.5-11.0)
[2023-10-17 21:10] LABS: Alanine Aminotransferase 21 IU/L (<35); Albumin 3.7 g/dL (3.5-5.0); Albumin Globulin Ratio 1.3 (1.0-2.8); Alkaline Phosphatase 63 U/L (38-126); Aspartate Aminotransferase 30 IU/L (14-36); BUN Creatinine Ratio 23.2 (6-22); Bilirubin Total 0.4 mg/dL (0.2-1.3); Blood Urea Nitrogen 22 mg/dL (7-17); Calcium 9.6 mg/dL (8.4-10.2); Carbon Dioxide 29 mmol/L (22-32); Chloride 105 mmol/L (98-107); Creatine Kinase 46 U/L (30-135); Estimated Glomerular Filt Rate 59 mL/min (>60); Globulin 2.9 g/dL (1.7-4.1); Glucose 130 mg/dL (80-110); HEMOLYSIS < 15 (0-50); INR 1.3 (0.9-1.3); Potassium 4.6 mmol/L (3.4-5.1); Prothrombin Time 15.5 SECONDS (9.4-12.5); Sodium 138 mmol/L (137-145); Total Protein 6.6 g/dL (6.3-8.2)
[2023-10-17 21:14] VITALS: PULSE 83; RESP 29; O2SAT 93
[2023-10-17 21:21] LABS: NT-proBNP (BNP-Adult 18+) 266 pg/mL (<450); Troponin I < 0.012 ng/mL (0.01-0.034)
[2023-10-17 21:30] VITALS: PULSE 82; RESP 36; O2SAT 94
[2023-10-17 22:00] VITALS: PULSE 82; RESP 32; O2SAT 94
[2023-10-17 22:30] VITALS: PULSE 83; RESP 35; O2SAT 95
[2023-10-17 23:00] VITALS: PULSE 99; RESP 26; O2SAT 95
== END 2023-10-17 23:26 | disposition home or self-care (01) ==
PROVIDERS: Emergency Provider Emergency Medicine; PCP Family Medicine
DX: R60.0 Localized edema (principal); R07.9 Chest pain, unspecified; R79.89 Other specified abnormal findings of blood chemistry
CPT/HCPCS: 36415; 71045; 80053; 82550; 83880; 84484; 85025; 85610; 93005; 99283; 99284

== ENCOUNTER → 2023-10-21 11:49 | Outpatient (CLI) | payer MEDICARE, SELFPAY ==
[2023-06-09 18:42] VITALS: BMI 24.7
[2023-10-21 12:26] LABS: Erythrocyte Sedimentation Rate 10 MM/HR (0-20)
[2023-10-21 14:06] LABS: C-Reactive Protein Quant < 0.5 mg/dL (<1.0)
== END ==
PROVIDERS: PCP Family Medicine; Referring Provider Internal Medicine Rheumatology; Visit Provider Internal Medicine Rheumatology
DX: M31.6 Other giant cell arteritis (principal); Z79.899 Other long term (current) drug therapy; I26.99 Other pulmonary embolism without acute cor pulmonale
CPT/HCPCS: 36415; 85651; 86140

== ENCOUNTER → 2023-10-26 12:10 | Outpatient (CLI) | payer MEDICARE, SELFPAY ==
[2023-10-25 14:20] VITALS: BMI 24.7
--- NOTE | 2023-10-26 12:13 | DI.RAD.S_ITS ---
PROCEDURE: XR CHEST 2V INDICATIONS: r/o pneumonia, interval update atelectasis TECHNIQUE: 2 views of the chest were acquired. COMPARISON: [facility], CR, XR CHEST 1V, 10/17/2023, 22:03. FINDINGS: Surgical changes and devices: None. Lungs and pleura: Lungs show hypoaeration of the lung bases. This has progressed in the left lung base from the study of 10/17/2023 and may represent developing pneumonia. No pleural effusion or pneumothorax. Mediastinum: Heart is slightly enlarged. There is tortuosity in the aorta. Moderate-sized hiatal hernia is present. Bones and chest wall: In the main thoracolumbar region impression injury noted. This is somewhat sclerotic. 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 IMPRESSION: Increasing lower lung airspace disease which may represent developing pneumonia or atelectasis. Compression fracture in the thoracolumbar region. Cannot exclude a sclerotic lesion in the spine. Asymmetry of the breasts suggesting previous mastectomy on the left. Hiatal hernia. Dictated by: Javier Brock M.D. on 10/26/2023 at 16:32 Approved by: Javier Brock M.D. on 10/26/2023 at 16:39
== END ==
PROVIDERS: PCP Family Medicine; Referring Provider Family Medicine; Visit Provider Family Medicine
DX: J98.11 Atelectasis (principal); N63.20 Unspecified lump in the left breast, unspecified quadrant; K44.9 Diaphragmatic hernia without obstruction or gangrene; M48.55XA Collapsed vertebra, not elsewhere classified, thoracolumbar region, initial encounter for fracture
CPT/HCPCS: 71046

== ENCOUNTER → 2023-11-03 17:33 | Outpatient (CLI) | payer MEDICARE, SELFPAY ==
[2023-10-25 14:20] VITALS: BMI 24.7
[2023-11-03 18:06] LABS: Alanine Aminotransferase 42 IU/L (<35); Albumin 4.1 g/dL (3.5-5.0); Albumin Globulin Ratio 1.3 (1.0-2.8); Alkaline Phosphatase 64 U/L (38-126); Aspartate Aminotransferase 39 IU/L (14-36); BUN Creatinine Ratio 19.9 (6-22); Bilirubin Total 0.5 mg/dL (0.2-1.3); Blood Urea Nitrogen 28 mg/dL (7-17); Calcium 9.6 mg/dL (8.4-10.2); Carbon Dioxide 28 mmol/L (22-32); Chloride 98 mmol/L (98-107); Estimated Glomerular Filt Rate 37 mL/min (>60); Globulin 3.1 g/dL (1.7-4.1); Glucose 156 mg/dL (80-110); HEMOLYSIS < 15 (0-50); Potassium 3.8 mmol/L (3.4-5.1); Sodium 138 mmol/L (137-145); Total Protein 7.2 g/dL (6.3-8.2)
[2023-11-03 18:11] LABS: Erythrocyte Sedimentation Rate 10 MM/HR (0-20)
[2023-11-03 18:19] LABS: Appearance Urine UA CLEAR; Bilirubin Urine UA NEGATIVE (NEGATIVE); Color Urine UA YELLOW; Glucose Urine UA NEGATIVE (Negative); Ketones Urine UA NEGATIVE (NEGATIVE); Leukocyte Esterase Urine UA 2+ (NEGATIVE); Nitrite Urine UA NEGATIVE (Negative); Occult Blood Urine UA 2+ (Negative); Protein Urine UA 2+ (Negative); Urobilinogen Urine UA 0.2 E.U./dL (0.2)
[2023-11-03 18:31] LABS: pH Urine UA 5.5 (4.5-8.0)
[2023-11-03 18:42] LABS: C-Reactive Protein Quant < 0.5 mg/dL (<1.0)
[2023-11-03 18:47] LABS: Bacteria Urine Moderate (10-30); RBC Urine 0-1/HPF (0-5/HPF); Squamous Epithelial Cell Urine 5-10 /HPF (0-5/HPF); Urine Volume 10mL (spun); WBC Urine >100/HPF (0-5/HPF)
[2023-11-03 18:48] LABS: Culture Indicated Urine Specimen Cultured; Hyaline Casts Urine 0-1/LPF
== END ==
LOC: LAB 17:34
PROVIDERS: PCP Family Medicine; Referring Provider Internal Medicine Rheumatology; Visit Provider Internal Medicine Rheumatology
DX: M31.6 Other giant cell arteritis (principal); Z79.899 Other long term (current) drug therapy; N39.0 Urinary tract infection, site not specified
CPT/HCPCS: 36415; 80053; 81001; 85651; 86140; 87086

== ENCOUNTER → 2023-12-18 13:26 | Outpatient (CLI) | payer MEDICARE, SELFPAY ==
[2023-12-18 12:02] VITALS: BMI 24.7
[2023-12-18 14:59] LABS: Appearance Urine UA CLOUDY; Bilirubin Urine UA NEGATIVE (NEGATIVE); Color Urine UA YELLOW; Glucose Urine UA NEGATIVE (Negative); Ketones Urine UA NEGATIVE (NEGATIVE); Leukocyte Esterase Urine UA 3+ (NEGATIVE); Nitrite Urine UA NEGATIVE (Negative); Occult Blood Urine UA 1+ (Negative); Protein Urine UA 2+ (Negative); Urobilinogen Urine UA 0.2 E.U./dL (0.2)
[2023-12-18 15:12] LABS: Amorphous Sediment Urine 1+; Bacteria Urine Many (>30); Culture Indicated Urine Specimen Cultured; RBC Urine 1-5/HPF (0-5/HPF); Squamous Epithelial Cell Urine 5-10 /HPF (0-5/HPF); Urine Volume 10mL (spun); WBC Urine 10-30/HPF (0-5/HPF)
== END ==
PROVIDERS: PCP Family Medicine; Referring Provider Family Medicine; Visit Provider Family Medicine
DX: R30.0 Dysuria (principal); R41.0 Disorientation, unspecified
CPT/HCPCS: 81001; 87077; 87086; 87186

== ENCOUNTER → 2024-01-12 17:53 | Outpatient (CLI) | payer MEDICARE, SELFPAY ==
[2023-12-18 12:02] VITALS: BMI 24.7
[2024-01-12 18:13] LABS: Add Manual Diff / Slide Review NO; Basophils Absolute Auto 100 /uL (0-100); Basophils Percent Auto 0.9 % (0-2); Eosinophils Absolute Auto 200 /uL (0-450); Eosinophils Percent Auto 2.6 % (2-4); Hematocrit 36.8 % (36-46); Hemoglobin 11.8 g/dL (12.0-16.0); Lymphocytes Absolute Auto 1200 /uL (1100-4500); Lymphocytes Percent Auto 16.7 % (25-40); Mean Corpuscular HGB Conc 31.9 % (30-36); Mean Corpuscular Hemoglobin 27.5 PG (26-34); Monocytes Absolute Auto 900 /uL (0-900); Neutrophils Absolute Auto 5100 /uL (1500-7000); Neutrophils Percent Auto 67.8 % (50-75); Platelet Count 230 X10^3/uL (150-400); Red Blood Cell Count 4.28 X10^6/uL (4.0-5.2); Red Cell Distribution Width 15.3 % (11.6-14.8); White Blood Cell Count 7.4 X10^3/uL (4.5-11.0)
[2024-01-12 18:22] LABS: D Dimer 906 ng/ml (<500)
[2024-01-12 18:39] LABS: Alanine Aminotransferase 15 IU/L (<35); Albumin 3.8 g/dL (3.5-5.0); Albumin Globulin Ratio 1.5 (1.0-2.8); Alkaline Phosphatase 59 U/L (38-126); Aspartate Aminotransferase 23 IU/L (14-36); BUN Creatinine Ratio 14.2 (6-22); Bilirubin Total 0.3 mg/dL (0.2-1.3); Blood Urea Nitrogen 15 mg/dL (7-17); Calcium 9.7 mg/dL (8.4-10.2); Carbon Dioxide 26 mmol/L (22-32); Chloride 103 mmol/L (98-107); Estimated Glomerular Filt Rate 51 mL/min (>60); Globulin 2.6 g/dL (1.7-4.1); Glucose 131 mg/dL (80-110); HEMOLYSIS 21 (0-50); Potassium 3.8 mmol/L (3.4-5.1); Sodium 137 mmol/L (137-145); Total Protein 6.4 g/dL (6.3-8.2)
== END ==
PROVIDERS: PCP Family Medicine; Referring Provider Internal Medicine; Visit Provider Internal Medicine
DX: C50.412 Malignant neoplasm of upper-outer quadrant of left female breast (principal); Z17.0 Estrogen receptor positive status [ER+]
CPT/HCPCS: 36415; 80053; 85025; 85379

== ENCOUNTER → 2024-01-30 13:29 | Outpatient (CLI) | payer MEDICARE, SELFPAY ==
[2023-12-18 12:02] VITALS: BMI 24.7
--- NOTE | 2024-01-30 13:31 | DI.CT.S_ITS ---
PROCEDURE: CT ANGIO CHEST PE PROTOCOL INDICATIONS: SADDLE EMBOLUS OF PULM ARTERY TECHNIQUE: After the administration of intravenous contrast, 2 mm thick sections acquired from the pulmonary apices to the posterior costophrenic angles. 3-dimensional maximum intensity projection (MIP) coronal and sagittal reformats were then acquired through the thorax. For radiation dose reduction, the following was used: automated exposure control, adjustment of mA and/or kV according to patient size. COMPARISON: [facility], CT, CT ANGIO CHEST PE PROTOCOL, 07/18/2023, 18:09. FINDINGS: Image quality: Diagnostic. Pulmonary arteries: Pulmonary arteries are normal in size, and demonstrate no intraluminal filling defects to suggest central pulmonary embolism. Lower Neck: No enlarged lymph nodes. Thyroid: No thyroid nodules which require sonographic follow up, per consensus guidelines. Axillae: No enlarged lymph nodes. Chest Wall: Unremarkable. Bones: Unremarkable. Lungs and Pleura: No pneumothorax or pleural effusions. There is a apical scarring versus atelectasis with a solid nodule measuring 1 cm and the left apex (series 5, image 38). Mild bibasilar atelectasis. Heart: Heart size is at the upper limits of normal in size. No pericardial effusion. Thoracic Vessels: No aortic aneurysm. Mediastinum and Kayla: No enlarged lymph nodes. Esophagus: No wall thickening. Moderate to large sliding hiatal hernia. Upper Abdomen: Mild bilateral renal parenchymal atrophy. Otherwise, the partially visualized upper abdomen solid organs and bowel loops appear normal. IMPRESSION: 1. No pulmonary embolus. 2. There is a new 1 cm left apical solid nodule. Consider follow up CT at 3 months to evaluate for resolution. If there is a high suspicion for malignancy, PET-CT or tissue sampling may be performed. 3. Moderate sliding hiatal hernia. Dictated by: Braydon Dodge M.D. on 01/31/2024 at 9:35 Approved by: Braydon Dodge M.D. on 01/31/2024 at 9:53
== END ==
PROVIDERS: PCP Family Medicine; Referring Provider Internal Medicine; Visit Provider Internal Medicine
DX: I26.92 Saddle embolus of pulmonary artery without acute cor pulmonale (principal); R91.1 Solitary pulmonary nodule; K44.9 Diaphragmatic hernia without obstruction or gangrene
CPT/HCPCS: 71275; Q9967

== ENCOUNTER → 2024-03-11 06:46 | Outpatient (CLI) | payer MEDICARE, SELFPAY ==
[2023-12-18 12:02] VITALS: BMI 24.7
--- NOTE | 2024-03-11 06:47 | DI.ECHO.S_ITS ---
[facility] : : [address] : : [place] : : [id number] : : Phone: [phone] Echocardiogram Report + + :Name: IRENE GALDAMEZ Study Date: 03/11/2024 Height: 63 in : :[facility] ReadingLocation: Weight: 125 lb : : Gender: Female BSA: 1.6 m2 : :: 1940 Age: 83 yrs BP: 123/81 mmHg: :Reason For Study: SUSPECTED PULMONARY EMBOLISM : :Ordering Physician: JIM NGUYEN Performed By: Michelle Chapin : :Referring: SAMIR GOMEZ : + + Interpretation Summary 1. Normal LV contractility with EF > 60%. Septal bounce present. No LVH. Grade 1 diastolic dysfunction. 2. Normal RV contractility. 3. Normal chamber sizes. 4. No significant valvular abnormalities. 5. No obvious intracardiac shunts. 6. No obvious intracardiac masses/thrombi. 7. No hemodynamically significant pericardial effusion. 8. Low right sided filling pressures. Conclusion: Normal biventricular systolic function without significant valvular abnormalities. When compared with previous study, there is normalization of pulmonary arterial pressures. Procedure: A two-dimensional transthoracic echocardiogram with color flow and Doppler was performed. The study quality was technically difficult. Comparison is made with the echocardiogram of 06/27/2023. The patient was in sinus tachycardia with heart rates between 102-115 bpm during the exam. Left Ventricle: The left ventricular cavity is small. There is normal left ventricular wall thickness. The ejection fraction is estimated to be 60-65%. Septal motion is consistent with conduction abnormality. Right Ventricle: The right ventricle is normal size. The right ventricular systolic function is normal. Atria: The left atrial size is normal. Right atrial size is normal. There is no Doppler evidence for an interatrial shunt. Mitral Valve: The mitral valve leaflets appear to open well. There is trace mitral regurgitation. Aortic Valve: The aortic valve is trileaflet. The aortic valve opens well. There is no aortic valve stenosis. No aortic regurgitation is present. Tricuspid Valve: The tricuspid valve leaflets are thin and pliable. There is trace tricuspid regurgitation. Pulmonary artery pressures cannot be estimated because of the lack of a measurable TR jet velocity. Pulmonic Valve: The pulmonic valve leaflets are thin and pliable; valve motion is normal. There is trace pulmonic regurgitation. Great Vessels: The aortic root is normal size. The dimensions of the ascending aorta are normal. The IVC is of normal diameter and collapses greater than 50% with a sniff. This suggests a low right atrial pressure of 3 mm Hg. Pericardium/ Pleura There is an anterior echo-free space consistent with a fat pad. There is no pleural effusion. MMode/2D Measurements & Calculations LVIDd: 3.7 cm LVOT diam: 2.0 cm LVIDs: 2.5 cm Ao root diam: 2.7 cm FS: 31.9 % asc Aorta Diam: 3.0 cm IVSd: 0.88 cm Ao Arch Diam (Prox Trans): 2.1 cm LVPWd: 0.77 cm LV fernandez. diameter/BSA (cm/m^2): 2.3 LV sys. diameter/BSA (cm/m^2): 1.6 LA A2 area: 13.9 cm2 RA long axis: 5.0 cm LA A4 area: 14.3 cm2 RA area: 12.4 cm2 LA length (vol): 5.0 cm RA vol: 26.1 ml LA vol: 34.1 ml RA : 16.5 ml/m2 LA vol index: 21.6 ml/m2 IVC diam: 0.97 cm RVD1 (basal): 2.7 cm RVD2 (mid): 2.6 cm TAPSE: 1.4 cm Doppler Measurements & Calculations Ao V2 max: 121.5 cm/sec LVOT Max Hardik: 77.7 cm/sec Ao V2 mean: 85.9 cm/sec LV V1 max P.4 mmHg Ao max P.9 mmHg LV V1 VTI: 14.4 cm Ao mean P.3 mmHg SREEKANTH(I,D): 2.3 cm2 Ao V2 VTI: 19.6 cm SREEKANTH(V,D): 2.0 cm2 sev ratio: 0.74 SREEKANTH indexed to BSA (cm^2/m^2): 1.5 MV E max hardik: 50.9 cm/sec PA V2 max: 99.8 cm/sec MV A max hardik: 65.3 cm/sec PA V2 mean: 68.7 cm/sec MV E/A: 0.78 PA mean P.1 mmHg Med Peak E' Hardik: 5.6 cm/sec PA pr(Accel): 37.9 mmHg E/E' med: 9.1 Lat Peak E' Hardik: 6.8 cm/sec E/E' lat: 7.5 E/e' average: 8.3 MV dec time: 0.13 sec SV(LVOT): 45.6 ml Reading Physician:
== END ==
PROVIDERS: PCP Family Medicine; Referring Provider Internal Medicine; Visit Provider Internal Medicine
DX: R94.31 Abnormal electrocardiogram [ECG] [EKG] (principal); I27.20 Pulmonary hypertension, unspecified
CPT/HCPCS: 93306

== ENCOUNTER → 2024-03-19 12:15 | Outpatient (CLI) | payer MEDICARE, SELFPAY ==
[2023-12-18 12:02] VITALS: BMI 24.7
[2024-03-19 12:26] LABS: Appearance Urine UA CLOUDY; Bilirubin Urine UA NEGATIVE (NEGATIVE); Color Urine UA YELLOW; Glucose Urine UA NEGATIVE (Negative); Ketones Urine UA TRACE (NEGATIVE); Leukocyte Esterase Urine UA 2+ (NEGATIVE); Nitrite Urine UA POSITIVE (Negative); Occult Blood Urine UA 3+ (Negative); Protein Urine UA 2+ (Negative); Specific Gravity Urine UA 1.025 (1.000-1.035)
[2024-03-19 12:36] LABS: Bacteria Urine Many (>30); Culture Indicated Urine Specimen Cultured; RBC Urine 1-5/HPF (0-5/HPF); Squamous Epithelial Cell Urine 1-5 /HPF (0-5/HPF); Urine Volume Low Vol <10mL (spun); WBC Urine >100/HPF (0-5/HPF)
== END ==
PROVIDERS: PCP Family Medicine; Visit Provider Family Medicine
DX: N39.0 Urinary tract infection, site not specified (principal); F03.90 Unspecified dementia, unspecified severity, without behavioral disturbance, psychotic disturbance, mood disturbance, and anxiety
CPT/HCPCS: 81001; 87077; 87086; 87186

== ENCOUNTER → 2024-04-01 15:13 | Outpatient (CLI) | payer MEDICARE, SELFPAY ==
[2023-12-18 12:02] VITALS: BMI 24.7
[2024-04-01 16:57] LABS: Erythrocyte Sedimentation Rate 15 MM/HR (0-20)
[2024-04-01 17:09] LABS: C-Reactive Protein Quant < 0.5 mg/dL (<1.0)
== END ==
PROVIDERS: PCP Family Medicine; Referring Provider Internal Medicine Rheumatology; Visit Provider Internal Medicine Rheumatology
DX: M31.6 Other giant cell arteritis (principal); Z79.899 Other long term (current) drug therapy
CPT/HCPCS: 36415; 85651; 86140

== ENCOUNTER → 2024-04-03 13:24 | Outpatient (CLI) | payer MEDICARE, SELFPAY ==
[2023-12-18 12:02] VITALS: BMI 24.7
--- NOTE | 2024-04-03 14:18 | RT ---
Complete PFT and 6MWT ordered. Unable to be tested due to suboptimal technique, performance and function. Pt unable to exhale beyond 2 seconds for any attempt, making results invalid. Testing defered at this time. 6MWT completed with patient using a walker. Leroy Gallardo SECTION MAINTAINER/CPFT
== END ==
LOC: RESP 13:25
PROVIDERS: PCP Family Medicine; Referring Provider Internal Medicine; Visit Provider Internal Medicine
DX: J84.9 Interstitial pulmonary disease, unspecified (principal); C34.92 Malignant neoplasm of unspecified part of left bronchus or lung; I27.20 Pulmonary hypertension, unspecified; F17.210 Nicotine dependence, cigarettes, uncomplicated; R94.2 Abnormal results of pulmonary function studies
CPT/HCPCS: 94618

== ENCOUNTER → 2024-05-14 13:17 | Outpatient (CLI) | payer MEDICARE, SELFPAY ==
[2023-12-18 12:02] VITALS: BMI 24.7
[2024-05-14 14:09] LABS: BUN Creatinine Ratio 15.4 (6-22); Blood Urea Nitrogen 18 mg/dL (7-17); Calcium 9.9 mg/dL (8.4-10.2); Carbon Dioxide 26 mmol/L (22-32); Chloride 99 mmol/L (98-107); Estimated Glomerular Filt Rate 46 mL/min (>60); Glucose 100 mg/dL (80-110); HEMOLYSIS < 15 (0-50); Sodium 137 mmol/L (137-145)
== END ==
PROVIDERS: PCP Family Medicine; Referring Provider Internal Medicine; Visit Provider Internal Medicine
DX: I26.92 Saddle embolus of pulmonary artery without acute cor pulmonale (principal)
CPT/HCPCS: 36415; 80048

== ENCOUNTER → 2024-05-17 16:16 | Outpatient (CLI) | payer MEDICARE, SELFPAY ==
[2023-12-18 12:02] VITALS: BMI 24.7
[2024-05-17 17:38] LABS: Add Manual Diff / Slide Review NO; Basophils Absolute Auto 0 /uL (0-100); Basophils Percent Auto 0.3 % (0-2); Eosinophils Absolute Auto 200 /uL (0-450); Eosinophils Percent Auto 2.3 % (2-4); Hematocrit 40.4 % (36-46); Hemoglobin 13.2 g/dL (12.0-16.0); Lymphocytes Absolute Auto 1300 /uL (1100-4500); Lymphocytes Percent Auto 17.7 % (25-40); Mean Corpuscular HGB Conc 32.7 % (30-36); Mean Corpuscular Hemoglobin 28.2 PG (26-34); Mean Corpuscular Volume 86.5 fL (80-100); Monocytes Absolute Auto 900 /uL (0-900); Monocytes Percent Auto 12.3 % (3-14); Neutrophils Absolute Auto 5000 /uL (1500-7000); Neutrophils Percent Auto 67.4 % (50-75); Platelet Count 233 X10^3/uL (150-400); Red Blood Cell Count 4.68 X10^6/uL (4.0-5.2); Red Cell Distribution Width 15.8 % (11.6-14.8); White Blood Cell Count 7.4 X10^3/uL (4.5-11.0)
[2024-05-17 17:47] LABS: D Dimer 4136 ng/ml (<500)
[2024-05-17 18:03] LABS: Appearance Urine UA TURBID; Bilirubin Urine UA NEGATIVE (NEGATIVE); Color Urine UA YELLOW; Glucose Urine UA NEGATIVE (Negative); Ketones Urine UA TRACE (NEGATIVE); Leukocyte Esterase Urine UA 2+ (NEGATIVE); Nitrite Urine UA NEGATIVE (Negative); Occult Blood Urine UA 3+ (Negative); Protein Urine UA 2+ (Negative); Specific Gravity Urine UA >=1.030 (1.000-1.035); Urobilinogen Urine UA 0.2 E.U./dL (0.2)
[2024-05-17 18:05] LABS: Alanine Aminotransferase 15 IU/L (<35); Albumin Globulin Ratio 1.5 (1.0-2.8); Alkaline Phosphatase 81 U/L (38-126); Aspartate Aminotransferase 24 IU/L (14-36); BUN Creatinine Ratio 15.2 (6-22); Bilirubin Total 0.2 mg/dL (0.2-1.3); Blood Urea Nitrogen 16 mg/dL (7-17); Calcium 10.1 mg/dL (8.4-10.2); Carbon Dioxide 25 mmol/L (22-32); Chloride 103 mmol/L (98-107); Estimated Glomerular Filt Rate 52 mL/min (>60); Globulin 2.6 g/dL (1.7-4.1); Glucose 104 mg/dL (80-110); HEMOLYSIS < 15 (0-50); Potassium 3.9 mmol/L (3.4-5.1); Sodium 139 mmol/L (137-145); Total Protein 6.6 g/dL (6.3-8.2)
[2024-05-17 18:20] LABS: Bacteria Urine Many (>30); Culture Indicated Urine Specimen Cultured; RBC Urine 1-5/HPF (0-5/HPF); Squamous Epithelial Cell Urine 1-5 /HPF (0-5/HPF); Urine Volume 10mL (spun); WBC Urine >100/HPF (0-5/HPF)
== END ==
LOC: LAB 16:19
PROVIDERS: PCP Family Medicine; Referring Provider Internal Medicine; Visit Provider Internal Medicine
DX: C50.412 Malignant neoplasm of upper-outer quadrant of left female breast (principal); R41.0 Disorientation, unspecified; R39.9 Unspecified symptoms and signs involving the genitourinary system; Z17.0 Estrogen receptor positive status [ER+]
CPT/HCPCS: 36415; 80053; 81001; 85025; 85379; 87077; 87086; 87186

== ENCOUNTER 2025-03-11 12:26 | Emergency (ER) | payer MEDICARE, SELFPAY ==
[2023-12-18 12:02] VITALS: BMI 24.7
[2025-03-11] VITALS (12 sets, daily range): BP systolic 126–160; BP diastolic 65–89; PULSE 84–99; RESP 18; TEMP 37; O2SAT 89–94; BMI 20.4
--- OUTSIDE RECORDS SUMMARY | 2025-03-11 12:29 | XMS_ITS | Encounter Summary ---
Author Organization [facility] Address [address] [place] [address] Care Team Providers Care Pot Holder Binder Name Role Phone Angie Armas DO Primary Care Provider [phone] Encounter Details Date Type Department Care Team (Late st Contact Info) Description 05/15/2024 Orders Only [facility] Cardiology [address], [address] [place] [address] Dave Nguyen MD [address] [place] [address] [place] [address] Saddle embolus of pulmonary artery, unspecified chronicity, unspecified whether acute cor pulmonale present (CMS-HCC) Social History Tobacco Use Types Packs/Day Years Used Date Smoking Tobacco: Former Cigarettes Smokeless Tobacco: Never Alcohol Use Standard Drinks/Week Comments Yes 2 (1 standard drink = 0.6 oz pur e alcohol) Comments Unknown Sex and Gender Information Value Date Recorded Sex Assigned at Not on file Legal Sex Female 11:01 AM PDT Gender Identity Not on file Sexual Orientation Not on file documented as of this encounter Plan of Treatment Upcoming Encounters Date Type Department Care Team (Late st Contact Info) Description 03/20/2025 Hospital Encounter [facility] Radiation Oncology [address], [address] [place] [address] Voice Professor, General Arrived 04/10/2025 2:00 PM [facility] Appointment [facility] [address] [place] [id number] 04/18/2025 2:30 PM PST Appointment [facility] Radiation Oncology [place] [address] [place], [address] [place] [address] Voice Professor, General documented as of this encounter Procedures Procedure Name Priority Date/Time Associated Diagnosis Comments BASIC METABOLIC PANEL Routine 05/14/2024 Saddle embolus of pulmonary artery, unspecified chronicity, unspecified whether acute cor pulmonale present ([facility]-H[facility]) documented in this encounter Results * Basic Metabolic Panel Expires 12 Months (05/14/2024) Blood Venous blood / Unknown Dave Nguyen MD LAB BLOOD ORDERABLES Final Resul t documented in this encounter Visit Diagnoses Diagnosis Saddle embolus of pulmonary artery, unspecified chronicity, unspecified whether acute cor pulmonale present (CMS/HCC) documented in this encounter Care Teams Pot Holder Binder Relationship Specialty Start Date End Date Chanda, DO Angie [address] [place] [id number] PCP - General Family Medicine 10/08/24 documented as of this encounter
--- NOTE | 2025-03-11 12:48 | DI.RAD.S_ITS ---
PROCEDURE: XR CHEST 1V INDICATIONS: Chest Pain TECHNIQUE: One view of the chest was acquired. COMPARISON: [facility], CT, CT CHEST WITHOUT CONTRAST, 09/24/2024, 14:21. FINDINGS: Surgical changes and devices: None. Lungs and pleura: Diffuse interstitial prominence. Streaky left basilar opacities and blunting of the left costophrenic angle. No dense consolidation. No pneumothorax. Mediastinum: The cardiomediastinal contours remain stable with enlargement of the cardiac silhouette. Bones and chest wall: No suspicious bony lesions. Overlying soft tissues appear unremarkable. IMPRESSION: Cardiomegaly with findings consistent with mild pulmonary edema. Concurrent infectious or inflammatory process not excluded if clinically appropriate. No dense consolidation seen. Small left pleural effusion. Dictated by: Humberto Nichols M.D. on 03/11/2025 at 14:38 Approved by: Humberto Nichols M.D. on 03/11/2025 at 14:39
--- NOTE | 2025-03-11 13:46 | DI.CT.S_ITS ---
PROCEDURE: CT HEAD/BRAIN WO CON INDICATIONS: dizzy, see's black spots TECHNIQUE: Noncontrast 4.5 mm thick angled axial sections acquired from the foramen magnum to the vertex, with coronal and sagittal reformats. For radiation dose reduction, the following was used: automated exposure control, adjustment of mA and/or kV according to patient size. COMPARISON: [facility], CT, CT HEAD/BRAIN WO CON, 12/19/2022, 13:25. [facility], CT, CT HEAD/BRAIN WO CON, 12/01/2022, 21:56. FINDINGS: Image quality: Diagnostic. CSF spaces: Basal cisterns are patent. No extra-axial fluid collections. The ventricles are symmetric in size and shape. Brain: No intracranial bleeds or mass effect. There is cerebral volume loss, with resultant ventricular and sulcal prominence. There are periventricular and deep white matter chronic small vessel ischemic changes. There is intracranial internal carotid artery atherosclerosis. Skull and face: Calvarium and visualized facial bones appear intact, without suspicious lesions. Sinuses: Visualized sinuses and mastoids are clear. IMPRESSION: No acute intracranial pathology. Stable age related senescent changes and sequela of chronic small vessel ischemic disease. Dictated by: Humberto Nichols M.D. on 03/11/2025 at 14:05 Approved by: Humberto Nichols M.D. on 03/11/2025 at 14:06
[2025-03-11 14:22] LABS: Add Manual Diff / Slide Review NO; Hematocrit 41.1 % (36-46); Hemoglobin 13.5 g/dL (12.0-16.0); Lymphocytes Absolute Auto 1100 /uL (1100-4500); Mean Corpuscular HGB Conc 32.8 % (30-36); Mean Corpuscular Hemoglobin 27.7 PG (26-34); Mean Corpuscular Volume 84.4 fL (80-100); Platelet Count 191 X10^3/uL (150-400)
--- NOTE | 2025-03-11 14:29 | EKG_ITS ---
[address] [address] Test Date: 2025-03-11 Pat Name: Milka Ramirez Department: [facility] Room: Gender: Female [employer]: KALE : 1940 Requested By: Order Number: [id number] Reading MD: Amador Sherman MD Measurements Intervals [place] Rate: 85 P: -3 IA: 144 QRS: -34 QRSD: 72 T: 4 QT: 356 QTc: 423 Interpretive Statements Normal sinus rhythm Left axis deviation Inferior infarct , age undetermined Anterior infarct , age undetermined Electronically Signed On 03-11-2025 17:16:53 PST by Amador Sherman MD
[2025-03-11 14:33] LABS: INR 1.5 (0.9-1.3); Prothrombin Time 16.9 SECONDS (9.4-12.5)
[2025-03-11 14:36] LABS: PTT Partial Thromboplastin Tim 34 SECONDS (25.1-36.5)
[2025-03-11 14:37] LABS: Alanine Aminotransferase 14 IU/L (<35); Albumin 4.6 g/dL (3.5-5.0); Albumin Globulin Ratio 1.4 (1.0-2.8); Alkaline Phosphatase 109 U/L (38-126); Blood Urea Nitrogen 18 mg/dL (7-17); Calcium 9.8 mg/dL (8.4-10.2); Carbon Dioxide 27 mmol/L (22-32); Chloride 102 mmol/L (98-107); Creatine Kinase 56 U/L (30-135); Estimated Glomerular Filt Rate 47 mL/min (>60); Globulin 3.2 g/dL (1.7-4.1); Glucose 104 mg/dL (70-99); HEMOLYSIS < 15 (0-50); Lipase 208 U/L (23-300); Magnesium 1.8 mg/dL (1.6-2.3); Potassium 4.0 mmol/L (3.4-5.1); Sodium 138 mmol/L (137-145); Total Protein 7.8 g/dL (6.3-8.2)
[2025-03-11 14:48] LABS: NT-proBNP (BNP-Adult 18+) 102 pg/mL (<450); Troponin I < 0.012 ng/mL (0.01-0.034)
--- NOTE | 2025-03-11 15:36 | ED.DIZZY ---
HPI - Dizziness General Chief Complaint: Dizziness Stated Complaint: PC ref, Low BP, visual dist, dizzy, weak Time Seen by Provider: 03/11/25 13:46 Source: patient Mode of arrival: Ambulatory History of Present Illness HPI Narrative: 83-year-old female history of giant cell arteritis on chronic prednisone for 9 months no longer on steroids, pulmonary embolism on Eliquis, breast cancer status post mastectomy on 05/2023 presents with bilateral neck pain and seen mottled colors in both eyes worse on the left and dizziness described as lightheadedness but no headache nausea vomiting diarrhea chest pain shortness breath dyspnea on exertion neck pain. 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 Patient previously on Lasix as needed but not at this time. Other than what is stated 14 point review of systems negative. Related Data Home Medications ?Medication ?Instructions ?Recorded ?Confirmed white petrolatum (Vaseline jelly, 1 applic topical Q2H PRN 12/12/23 02/05/25 topical) Previous Rx's ?Medication ?Instructions ?Recorded loperamide 2 mg capsule (Imodium 2 mg PO Q12H PRN loose stool #30 10/04/23 A-D) caps calcium carbonate (Oyster Shell 500 mg PO DAILY #90 tabs 06/25/24 Calcium) methenamine hippurate 1 gram tablet 1 g PO BID #180 tabs 06/25/24 acetaminophen 325 mg capsule 650 mg (2 x 325 mg) PO Q4H PRN 07/17/24 fever or pain #1,080 caps vitamins A,C,T-qsbk-oyjzih 4,296 1 cap PO BID #180 caps 08/01/24 mcg-226 mg-90 mg capsule (PreserVision AREDS) cholecalciferol (vitamin D3) 25 25 mcg PO DAILY #90 caps 08/20/24 mcg (1,000 unit) capsule nitrofurantoin 100 mg PO BID #10 caps 11/01/24 monohydrate/macrocrystals 100 mg capsule (Macrobid) latanoprost 0.005 % eye drops 1 drp EYE-BOTH QPM #7.5 mL 11/11/24 apixaban 5 mg tablet 5 mg PO BID #180 tabs 11/19/24 nortriptyline 10 mg capsule 10 mg PO DAILY #90 caps 11/19/24 metoprolol tartrate 25 mg tablet See Rx Instructions .Route 12/05/24 .COMPLEX #90 tabs omeprazole 20 mg capsule,delayed 20 mg PO DAILY #90 caps 12/24/24 release venlafaxine 37.5 mg 37.5 mg PO DAILY for depressive 01/28/25 capsule,extended release 24 hr disorder #90 caps furosemide 40 mg tablet (Lasix) 40 mg PO DAILY #3 tabs 03/11/25 Allergies Allergy/AdvReac Type Severity Reaction Status Date / Time No Known Drug Allergies Allergy Verified 02/05/25 14:19 Review of Systems Review of Systems ROS Unobtainable: All systems reviewed & are unremarkable except as noted in HPI and below Patient History Medical History (Updated 03/11/25 @ 17:48 by Amador Hernández DO) Lichen simplex chronicus Actinic keratoses Alcohol use Psoriasis of scalp Skin lesion of left leg Temporal arteritis (~11/28/22) On prednisone therapy Depression Cognitive changes No significant past medical history Surgical History History of knee surgery History of Family History Father Stroke Mother Diabetes mellitus Heart attack Social History marital status: unknown household members: none housing: assisted living facility occupational status: previously employed Smoking Status: Former smoker Tobacco: How many years used: 20 alcohol intake: former substance use type: does not use Smoking Status: Former smoker tobacco type: cigarettes alcohol intake frequency: a few times a month Alcohol type: wine Exam Narrative Exam Narrative: GENERAL: [84] year old patient appears stated age. Well-developed patient, in mild distress. HEAD: Atraumatic. Normocephalic. EYES: Pupils equal round and reactive. Extraocular motions intact. No scleral icterus. No injection or drainage. ENT: Nose without bleeding, purulent drainage. Throat without erythema, tonsillar hypertrophy or exudate. Airway patent. NECK: Trachea midline. Non tender CARDIOVASCULAR: Regular rate and rhythm without murmurs, gallops, or rubs. RESPIRATORY crackles left base GASTROINTESTINAL: Abdomen soft, non-tender, nondistended. EXTREMITIES: No edema or joint tenderness. BACK: Nontender without deformity or crepitance. No flank tenderness. NEURO: AOx3. SKIN: No rash or erythema of visible areas Initial Vital Signs Initial Vital Signs: Vital Signs Temperature 98.6 F 03/11/25 12:38 Pulse Rate 97 H 03/11/25 12:38 Respiratory Rate 18 03/11/25 12:38 Blood Pressure 126/77 03/11/25 12:38 Pulse Oximetry 94 03/11/25 12:38 Oxygen Delivery Method Room Air 03/11/25 12:38 Course Orders Ordered: ED Orders 03/11/25 12:48 XR chest 1V Stat EKG-12 Lead Stat 03/11/25 13:46 CT head/brain wo con Stat 03/11/25 14:14 CRP [C-Reactive Protein Quant] Stat Complete Blood Count AUTO DIFF Stat Comprehensive Metabolic Panel Stat ESR [Erythrocyte Sedimentation Rate] Stat Lipase Stat Magnesium Stat NT-proBNP (BNP-Adult 18+) Stat PTT Partial Thromboplastin Jose Stat Prothrombin Time INR Stat Troponin & CK Cardiac Panel Stat 03/11/25 15:49 BNP [NT-proBNP (BNP-Adult 18+)] Stat Troponin I Stat Discontinued Medications Prednisone (Prednisone 20 Mg Tablet) 60 mg PO NOW ONE Stop: 03/11/25 16:14 Last Admin: 03/11/25 17:40 Dose: 60 mg Documented By: JONAH Vital Signs Vital signs: Vital Signs - 8 hr 03/11/25 12:38 Temperature 98.6 F Pulse Rate 97 H Respiratory Rate 18 Blood Pressure 126/77 Pulse Oximetry 94 Oxygen Delivery Method Room Air MDM - Dizziness Lab Data 03/11/25 14:14 03/11/25 14:14 Labs: Lab Results 03/11/25 03/11/25 Range/Units 14:14 15:49 WBC 7.0 (4.5-11.0) X10^3/uL RBC 4.87 (4.0-5.2) X10^6/uL Hgb 13.5 (12.0-16.0) g/dL Hct 41.1 (36-46) % MCV 84.4 (80-100) fL MCH 27.7 (26-34) PG MCHC 32.8 (30-36) % RDW 13.8 (11.6-14.8) % Plt Count 191 (150-400) X10^3/uL Neut % (Auto) 70.9 (50-75) % Lymph % (Auto) 16.3 L (25-40) % Glenn % (Auto) 11.1 (3-14) % Eos % (Auto) 1.2 L (2-4) % Baso % (Auto) 0.5 (0-2) % Neut # (Auto) 5000 (8050-5910) /uL Lymph # (Auto) 1100 (8761-1270) /uL Glenn # (Auto) 800 (0-900) /uL Eos # (Auto) 100 (0-450) /uL Baso # (Auto) 0 (0-100) /uL ESR 10 (0-20) MM/HR PT 16.9 H (9.4-12.5) SECONDS INR 1.5 H (0.9-1.3) APTT 34 (25.1-36.5) SECONDS Sodium 138 (137-145) mmol/L Potassium 4.0 (3.4-5.1) mmol/L Chloride 102 (98-107) mmol/L Carbon Dioxide 27 (22-32) mmol/L BUN 18 H (7-17) mg/dL Creatinine 1.13 H (0.52-1.04) mg/dL Estimated GFR 47 L (>60) mL/min BUN/Creatinine Ratio 15.9 (6-22) Glucose 104 H (70-99) mg/dL Calcium 9.8 (8.4-10.2) mg/dL Magnesium 1.8 (1.6-2.3) mg/dL Total Bilirubin 0.5 (0.2-1.3) mg/dL AST 25 (14-36) IU/L ALT 14 (<35) IU/L Alkaline Phosphatase 109 (38-126) U/L Total Creatine Kinase 56 (30-135) U/L Troponin I < 0.012 < 0.012 (0.01-0.034) ng/mL C-Reactive Protein < 0.5 (<1.0) mg/dL NT-Pro-B Natriuret Pep 102 102 (<450) pg/mL Total Protein 7.8 (6.3-8.2) g/dL Albumin 4.6 (3.5-5.0) g/dL Globulin 3.2 (1.7-4.1) g/dL Albumin/Globulin Ratio 1.4 (1.0-2.8) Lipase 208 (23-300) U/L Imaging Data CT scan - head: Radiologist's Impression: [address] [address] [address] Scan Report Signed Patient: Milka Ramirez MR#: [id number] : 1940 Acct:[id number] Age/Sex: 84 / F Date of Service: 03/11/25 Loc: ED Accession Number: [id number] Procedure: CT head/brain wo con Ordering Provider: Karla Quan D.O. PROCEDURE: CT HEAD/BRAIN WO CON INDICATIONS: dizzy, see's black spots TECHNIQUE: Noncontrast 4.5 mm thick angled axial sections acquired from the foramen magnum to the vertex, with coronal and sagittal reformats. For radiation dose reduction, the following was used: automated exposure control, adjustment of mA and/or kV according to patient size. COMPARISON: [facility], CT, CT HEAD/BRAIN WO CON, 12/19/2022, 13:25. [facility], CT, CT HEAD/BRAIN WO CON, 12/01/2022, 21:56. FINDINGS: Image quality: Diagnostic. CSF spaces: Basal cisterns are patent. No extra-axial fluid collections. The ventricles are symmetric in size and shape. Brain: No intracranial bleeds or mass effect. There is cerebral volume loss, with resultant ventricular and sulcal prominence. There are periventricular and deep white matter chronic small vessel ischemic changes. There is intracranial internal carotid artery atherosclerosis. Skull and face: Calvarium and visualized facial bones appear intact, without suspicious lesions. Sinuses: Visualized sinuses and mastoids are clear. IMPRESSION: No acute intracranial pathology. Stable age related senescent changes and sequela of chronic small vessel ischemic disease. Dictated by: Humberto Nichols M.D. on 03/11/2025 at 14:05 Approved by: uHmberto Nichols M.D. on 03/11/2025 at 14:06 ECG Data Interpretation: NSR HR 85 IN 144 QRS [address]-t wave change Unchanged from 10/17/23 MDM Narrative Medical decision making narrative: All lab work, vital signs, nurse triage note, medication list, previous ER visits, and all imaging studies reviewed. Two sets troponin normal BNP 102. CT head showed no acute process. C-reactive protein less than 0.5. Sed rate 10. BUN 18 creatinine 1.13 glucose 104 WBC 7.0 hemoglobin 13.5 platelet 191. Chest x-ray showed cardiomegaly with findings consistent with mild pulmonary edema no dense consolidation seen small left pleural effusion. Patient given Lasix 40 mg IV x1. Will d/c home on lasix 40mg q day x 3 days. Case d/w [employer] Operator in [place] who was not convinced this was Giant cell arteritis and to follow up with eye doctor. Differential diagnosis CVA hemorrhage aneurysm arteritis sepsis pneumonia CHF UTI Discharge Plan Departure Patient Disposition: Home Clinical Impression: CHF (congestive heart failure), Change in vision Activity Restrictions/Additional Instructions: Return with new or worsening symptoms. Take medication as directed. Follow up with eye md and PCP. Prescriptions: New furosemide [Lasix] 40 mg tablet 40 mg PO DAILY Qty: 3 0RF No Action loperamide [Imodium A-D] 2 mg capsule 2 mg PO Q12H PRN (Reason: loose stool) Qty: 30 6RF calcium carbonate [Oyster Shell Calcium] 500 mg calcium (1,250 mg) tablet 500 mg PO DAILY Qty: 90 3RF methenamine hippurate 1 gram tablet 1 g PO BID Qty: 180 3RF acetaminophen 325 mg capsule 650 mg PO Q4H MDD 3000 mg PRN (Reason: fever or pain) Qty: 1080 2RF Rx Instructions: not to exceed 3,000mg of acetaminophen in 24/hour period from all sources PreserVision AREDS 4,296 mcg-226 mg-90 mg capsule 1 cap PO BID Qty: 180 2RF cholecalciferol (vitamin D3) 25 mcg (1,000 unit) capsule 25 mcg PO DAILY Qty: 90 3RF nitrofurantoin monohyd/m-cryst [Macrobid] 100 mg capsule 100 mg PO BID Qty: 10 0RF Rx Instructions: Take one capsule by mouth twice a day for five days. Must administer with a meal/food latanoprost 0.005 % drops 1 drp EYE-BOTH QPM Qty: 7.5 3RF nortriptyline 10 mg capsule 10 mg PO DAILY Qty: 90 1RF apixaban 5 mg tablet 5 mg PO BID Qty: 180 1RF Rx Instructions: Ok to hold day before and day of oral surgery, then restart day after surgery unless bleeding persists metoprolol tartrate 25 mg tablet See Rx Instructions .ROUTE .COMPLEX Qty: 90 3RF Dose Instruction: GIVE 1/2 TABLET=12.5MG ORALLY 2 TIMES A DAY Rx Instructions: GIVE 1/2 TABLET=12.5MG ORALLY 2 TIMES A DAY. Hold for SBP <110 P<60 omeprazole 20 mg capsule,delayed release(DR/EC) 20 mg PO DAILY Qty: 90 2RF venlafaxine 37.5 mg capsule,extended release 24hr 37.5 mg PO DAILY Qty: 90 1RF white petrolatum [Vaseline] Gel 1 applic topical Q2H PRN Rx Instructions: apply to dry patches on head/scalp Referrals: Angie Armas DO [Primary Care Provider, Medical] Stand Alone Forms: Patient Portal/API
[2025-03-11 16:16] LABS: NT-proBNP (BNP-Adult 18+) 102 pg/mL (<450)
[2025-03-11 16:18] LABS: Troponin I < 0.012 ng/mL (0.01-0.034)
== END 2025-03-11 18:02 | disposition home or self-care (01) ==
PROVIDERS: Emergency Medicine; Emergency Provider Family Medicine; PCP Family Medicine
DX: I50.9 Heart failure, unspecified (principal); H53.9 Unspecified visual disturbance; R42 Dizziness and giddiness; I95.9 Hypotension, unspecified; R53.1 Weakness
CPT/HCPCS: 70450; 71045; 80053; 82550; 83690; 83735; 83880; 84484; 85025; 85610; 85651; 85730; 86140; 93005; 93010; 99283; 99284

== ENCOUNTER 2025-03-16 09:46 | Inpatient (IN) | payer MEDICARE, SELFPAY ==
[2023-12-18 12:02] VITALS: BMI 24.7
[2025-03-16] VITALS (37 sets, daily range): BP systolic 123–166; BP diastolic 58–98; PULSE 76–118; RESP 17–25; TEMP 36.8; O2SAT 91–98; BMI 21.9
--- NOTE | 2025-03-16 10:05 | ED_ITS ---
HPI - Chest Pain General Chief Complaint: Urogenital-Female Stated Complaint: neck pain vision changes Time Seen by Provider: 03/16/25 09:51 History of Present Illness HPI narrative: 84-year-old female history of giant cell arteritis previously on chronic prednisone, embolism on Eliquis, breast cancer status post mastectomy on 06/10 presents today with multiple complaints vision changes with eyes, lightheaded, bilateral neck pain, and also she is having left-sided chest pain that started earlier this morning. Patient denies any fever, chills, back pain, radiating symptoms, nausea, vomiting, shortness of breath, cough, sore throat, leg pain, leg swelling. Other than what is stated 14 point review of systems negative. Related Data Home Medications ?Medication ?Instructions ?Recorded ?Confirmed white petrolatum (Vaseline jelly, 1 applic topical Q2H dry skin 12/12/23 03/17/25 topical) hydrocodone 5 mg-acetaminophen 325 1 tab PO Q6H 03/17/25 mg tablet prednisone 20 mg tablet 60 mg PO DAILY 03/17/2502/18 Previous Rx's ?Medication ?Instructions ?Recorded loperamide 2 mg capsule (Imodium 2 mg PO Q12H PRN loos e stool #30 10/04/23 A-D) caps calcium carbonate (Oyster Shell 500 mg PO DAILY #90 ta bs 06/25/24 Calcium) methenamine hippurate 1 gram tablet 1 g PO BID #180 ta bs 06/25/24 acetaminophen 325 mg capsule 650 mg (2 x 325 mg) PO Q4 H PRN 07/17/24 fever or pain #1,080 caps vitamins A,C,S-ntyt-fniuko 4,296 1 cap PO BID #180 cap s 08/01/24 mcg-226 mg-90 mg capsule (PreserVision AREDS) cholecalciferol (vitamin D3) 25 25 mcg PO DAILY #90 ca ps 08/20/24 mcg (1,000 unit) capsule latanoprost 0.005 % eye drops 1 drp EYE-BOTH QPM #7.5 mL 11/11/24 apixaban 5 mg tablet 5 mg PO BID #180 tabs nortriptyline 10 mg capsule 10 mg PO DAILY #90 caps metoprolol tartrate 25 mg tablet See Rx Instructions . Route 12/05/24 .COMPLEX #90 tabs omeprazole 20 mg capsule,delayed 20 mg PO DAILY #90 ca ps 12/24/24 release venlafaxine 37.5 mg 37.5 mg PO DAILY for depress [place] 01/28/25 capsule,extended release 24 hr disorder #90 caps Allergies Allergy/AdvReac Type Severity Reaction Status Date / Time No Known Drug Allergies Allergy Verified 03/16/25 10:01 Review of Systems Review of Systems ROS Unobtainable: All systems reviewed & are unremarkable except as noted in HPI and below Patient History Medical History (Updated 03/17/25 @ 00:53 by Kaylee Rojo RN) Lichen simplex chronicus Actinic keratoses Alcohol use Psoriasis of scalp Skin lesion of left leg Temporal arteritis (~11/28/22) On prednisone therapy Depression Cognitive changes No significant past medical history Surgical History History of knee surgery History of Family History Father Stroke Mother Diabetes mellitus Heart attack Social History marital status: unknown household members: none housing: assisted living facility occupational status: previously employed Tobacco: How many years used: 20 alcohol intake: former substance use type: does not use tobacco type: cigarettes alcohol intake frequency: a few times a month Alcohol type: wine Exam Narrative Exam Narrative: GENERAL: [84] year old patient appears stated age. Well-developed patient, in mild distress. HEAD: Atraumatic. Normocephalic. EYES: Pupils equal round and reactive. Extraocular motions intact. No scleral icterus. No injection or drainage. ENT: Nose without bleeding, purulent drainage. Throat without erythema, tonsillar hypertrophy or exudate. Airway patent. NECK: Trachea midline. Non tender CARDIOVASCULAR: Tachycardia Regular rate and rhythm without murmurs, gallops, or rubs. RESPIRATORY: Clear to auscultation. Breath sounds equal bilaterally. No wheezes, rales, or rhonchi. GASTROINTESTINAL: Abdomen soft, non-tender, nondistended. EXTREMITIES: No edema or joint tenderness. BACK: Nontender without deformity or crepitance. No flank tenderness. NEURO: AOx3. SKIN: No rash or erythema of visible areas Initial Vital Signs Initial Vital Signs: Vital Signs Pulse Rate 112 H 03/16/25 09:58 Pulse Oximetry 91 03/16/25 09:58 Course Orders Ordered: Acetaminophen (Acetaminophen 325 Mg Tablet) 650 mg PO Q6H PRN PRN Reason: Fever/Mild Pain (1-3) Hydrocodone Bitart/Acetaminophen (Hydrocodone/Acet 5/325 Tablet) 1 tab PO Q4H PRN PRN Reason: Pain, Moderate (4-6) Hydrocodone Bitart/Acetaminophen (Hydrocodone/Acet 5/325 Tablet) 2 tab PO Q4H PRN PRN Reason: Pain, Severe (7-10) Al Hydrox/Mg Hydrox/Simethicone (Mag Hydrox/Alum/Simeth 30 Ml Udc) 30 ml PO Q6HR PRN PRN Reason: Dyspepsia Apixaban (Apixaban 5 Mg Tablet) 5 mg PO BID [facility] Last Admin: 03/17/25 09:01 Dose: 5 mg Documented By: Admin: 03/16/25 21:52 Dose: 5 mg Documented By: KAYLA Lactated Ringer's (Lactated Ringers) 1,000 mls @ 150 mls/hr IV CONT [facility] Last Infusion: 03/17/25 10:14 Dose: Infused Documented By: Admin: 03/17/25 01:22 Dose: 150 mls/hr Documented By: Infusion: 03/17/25 01:12 Dose: Infused Documented By: Admin: 03/16/25 18:31 Dose: 150 mls/hr Documented By: SHEELA Ceftriaxone Sodium 2,000 mg/ (Sodium Chloride) 100 mls @ 200 mls/hr IV Q24H [facility] Last Infusion: 03/17/25 10:09 Dose: Infused Documented By: Admin: 03/17/25 09:10 Dose: 200 mls/hr Documented By: BISI Latanoprost (Latanoprost 0.005% Ophth 2.5 Ml) 1 drops EYE-BOTH QPM [facility] Last Admin: 03/16/25 18:31 Dose: 1 drops Documented By: SHEELA Lutein (Vit C/E/Zn/Coppr/Lutein/Zeaxan Capsule) 1 cap PO BID [facility] Last Admin: 03/17/25 09:01 Dose: 1 cap Documented By: Admin: 03/17/25 07:40 Dose: Not Given Documented By: LUIS ENRIQUEV Magnesium Hydroxide (Magnesium Hydroxide 30 Ml Udc) 30 ml PO DAILY PRN PRN Reason: Constipation Metoprolol Tartrate (Metoprolol Ir 25 Mg Tablet) 12.5 mg PO BID [facility] Last Admin: 03/17/25 09:01 Dose: 12.5 mg Documented By: Admin: 03/16/25 21:51 Dose: 12.5 mg Documented By: KAYLA Naloxone HCl (Naloxone 0.4 Mg/Ml Vial) 0.2 mg IV Q2MIN PRN PRN Reason: Opiate Reversal Nf - Methenamine Hippurate 1 Gram Tablet 1 gram PO BID [facility] Last Admin: 03/17/25 08:59 Dose: Not Given Documented By: Admin: 03/16/25 22:14 Dose: Not Given Documented By: KAYLA Nortriptyline HCl (Nortriptyline 10 Mg Capsule) 10 mg PO DAILY [facility] Last Admin: 03/17/25 09:01 Dose: 10 mg Documented By: BISI Ondansetron HCl (Ondansetron 4 Mg/2 Ml Inj) 4 mg IV NOW PRN PRN Reason: Nausea And Vomiting Ondansetron HCl (Ondansetron 4 Mg Odt) 4 mg PO NOW PRN PRN Reason: Nausea And Vomiting Ondansetron HCl (Ondansetron 4 Mg/2 Ml Inj) 4 mg IV Q8HR PRN PRN Reason: Nausea And Vomiting Pantoprazole Sodium (Pantoprazole Dr 20 Mg Tablet) 20 mg PO 0600 [facility] Last Admin: 03/17/25 05:40 Dose: 20 mg Documented By: MICHELLE Sennosides (Sennosides 8.6 Mg Tablet) 17.2 mg PO BEDTIME [facility] Last Admin: 03/16/25 22:07 Dose: 17.2 mg Documented By: KAYLA Venlafaxine HCl (Venlafaxine Er 37.5 Mg Cap) 37.5 mg PO DAILY [facility] Last Admin: 03/17/25 09:01 Dose: 37.5 mg Documented By: BISI Discontinued Medications Heparin Sodium (Porcine) (Heparin 5,000 Unit/Ml Vial) 5,000 unit SUBCUT Q12HR [facility] Hydrocortisone (Hydrocortisone 100 Mg/2 Ml Vial) 100 mg IV STAT [facility] Hydrocortisone (Hydrocortisone 100 Mg/2 Ml Vial) 100 mg IV NOW ONE Stop: 03/16/25 15:16 Last Admin: 03/16/25 15:05 Dose: 100 mg Documented By: SHEELA Lactated Ringer's (Lactated Ringers) 1,000 mls @ 1,000 mls/hr IV BOLUS ONE Stop: 03/16/25 12:10 Last Infusion: 03/16/25 12:06 Dose: Infused Documented By: Admin: 03/16/25 11:21 Dose: 1,000 mls/hr Documented By: SHEELA Ceftriaxone Sodium 2,000 mg/ (Sodium Chloride) 100 mls @ 200 mls/hr IV NOW ONE Stop: 03/16/25 11:12 Last Infusion: 03/16/25 12:21 Dose: Infused Documented By: Admin: 03/16/25 11:20 Dose: 200 mls/hr Documented By: SHEELA Lactated Ringer's (Lactated Ringers) 1,000 mls @ 1,000 mls/hr IV BOLUS ONE Stop: 03/16/25 13:04 Last Infusion: 03/16/25 13:32 Dose: Infused Documented By: Admin: 03/16/25 12:08 Dose: 1,000 mls/hr Documented By: SHEELA Lactated Ringer's (Lactated Ringers) 1,632.93 mls @ 1,088.62 mls/hr 30 ml/kg infuse over 90 min (1632.93 ml) IV NOW ONE Stop: 03/16/25 16:22 Last Admin: 03/16/25 20:58 Dose: Not Given Documented By: KAYLA Lactated Ringer's (Lactated Ringers) 2,000 mls @ 1,000 mls/hr IV NOW ONE Stop: 03/16/25 17:14 Last Infusion: 03/16/25 19:36 Dose: Infused Documented By: Admin: 03/16/25 15:03 Dose: 1,000 mls/hr Documented By: SHEELA Lactated Ringer's (Lactated Ringers) 1,000 mls @ 1,000 mls/hr IV CONT ONE Stop: 03/16/25 16:06 Last Admin: 03/16/25 20:58 Dose: Not Given Documented By: KAYLA Methylprednisolone 500 mg/ (Sodium Chloride) 250 mls @ 250 mls/hr IV Q12H [facility]OR Stop: 03/17/25 05:59 Last Infusion: 03/17/25 06:29 Dose: Infused Documented By: Admin: 03/17/25 05:29 Dose: 250 mls/hr Documented By: Infusion: 03/16/25 18:34 Dose: Infused Documented By: Admin: 03/16/25 17:01 Dose: 250 mls/hr Documented By: SHEELA Vital Signs Vital signs: Vital Signs - 8 hr 03/16/25 09:58 03/16/25 10:00 03/16/25 10:01 Temperature 98.2 F Pulse Rate 112 H 109 H 118 H Respiratory Rate 17 Blood Pressure 141/98 H Pulse Oximetry 91 91 94 Oxygen Delivery Method Room Air 03/16/25 10:30 Temperature Pulse Rate 112 H Respiratory Rate 23 Blood Pressure Pulse Oximetry 93 Oxygen Delivery Method MDM - Chest Pain Lab Data 03/17/25 04:18 03/17/25 04:18 Labs: Lab Results 03/16/25 03/16/25 03/16/25 Range/Units 10:19 11:55 12:40 WBC 6.9 (4.5-11.0) X10^3/uL RBC 5.06 (4.0-5.2) X10^6/uL Hgb 14.1 (12.0-16.0) g/dL Hct 42.7 (36-46) % MCV 84.3 (80-100) fL MCH 27.9 (26-34) PG MCHC 33.1 (30-36) % RDW 13.8 (11.6-14.8) % Plt Count 217 (150-400) X10^3/uL Neut % (Auto) 92.2 H (50-75) % Lymph % (Auto) 6.3 L (25-40) % [place] % (Auto) 1.2 L (3-14) % Eos % (Auto) 0.0 L (2-4) % Baso % (Auto) 0.3 (0-2) % Neut # (Auto) 6400 (6430-1691) /uL Lymph # (Auto) 400 L (0728-9598) /uL [place] # (Auto) 100 (0-900) /uL Eos # (Auto) 0 (0-450) /uL Baso # (Auto) 0 (0-100) /uL ESR 8 (0-20) MM/HR Sodium 137 (137-145) mmol/L Potassium 4.0 (3.4-5.1) mmol/L Chloride 98 (98-107) mmol/L Carbon Dioxide 25 (22-32) mmol/L BUN 29 H (7-17) mg/dL Creatinine 1.04 (0.52-1.04) mg/dL Estimated GFR 52 L (>60) mL/min BUN/Creatinine Ratio 27.9 H (6-22) Glucose 214 H D (70-99) mg/dL Lactate 4.6 H* 5.1 H* (0.7-2.1) mmol/L Calcium 10.1 (8.4-10.2) mg/dL Total Bilirubin 0.5 (0.2-1.3) mg/dL AST 33 (14-36) IU/L ALT 26 (<35) IU/L Alkaline Phosphatase 100 (38-126) U/L Troponin I < 0.012 < 0.012 (0.01-0.034) ng/mL C-Reactive Protein 0.9 (<1.0) mg/dL NT-Pro-B Natriuret Pep 152 (<450) pg/mL Total Protein 7.9 (6.3-8.2) g/dL Albumin 4.7 (3.5-5.0) g/dL Globulin 3.2 (1.7-4.1) g/dL Albumin/Globulin Ratio 1.5 (1.0-2.8) Lipase 156 (23-300) U/L Urine Color Yellow Urine Appearance Sl cloudy Urine pH 6.0 (4.5-8.0) Ur Specific [place] 1.015 (1.000-1.035) Urine Protein Negative (Negative) Urine Glucose (UA) Negative (Negative) g/dL Urine Ketones Negative (NEGATIVE) Urine Occult Blood 1+ H (Negative) Urine Nitrate Negative (Negative) Urine Bilirubin Negative (NEGATIVE) Urine Urobilinogen 0.2 (0.2) E.U./dL Ur Leukocyte Esterase 2+ H (NEGATIVE) Urine RBC 1-5/hpf (0-5/HPF) Urine WBC 30-100/hpf H (0-5/HPF) Ur Squamous Epith Cells 1-5 /hpf (0-5/HPF) Urine Bacteria Moderate (10-30) H (None) Ur Culture Indicated? Specimen cultured Vol Urine Centrifuged 10ml (spun) Imaging Data CT scan - head: Radiologist's Impression: [address] [address] [address] Scan Report Signed Patient: Milka Ramirez MR#: [id number] : 1940 Acct:[id number] Age/Sex: 84 / F Date of Service: 03/16/25 Loc: ED Accession Number: [id number] Procedure: CT head/brain wo con Ordering Provider: Amador Hernández D.O. PROCEDURE: CT HEAD/BRAIN WO CON INDICATIONS: vision change/ TECHNIQUE: Noncontrast 4.5 mm thick angled axial sections acquired from the foramen magnum to the vertex, with coronal and sagittal reformats. For radiation dose reduction, the following was used: automated exposure control, adjustment of mA and/or kV according to patient size. COMPARISON: [facility], CT, CT HEAD/BRAIN WO CON, 03/11/2025, 13:47. FINDINGS: Image quality: Diagnostic. CSF spaces: Basal cisterns are patent. No extra-axial fluid collections. The ventricles are symmetric in size and shape. Brain: No intracranial bleeds or mass effect. There is cerebral volume loss, with resultant ventricular and sulcal prominence. There are periventricular and deep white matter chronic small vessel ischemic changes. There is intracranial internal carotid artery atherosclerosis. Skull and face: Calvarium and visualized facial bones appear intact, without suspicious lesions. Sinuses: Visualized sinuses and mastoids are clear. IMPRESSION: No acute intracranial pathology. Dictated by: Henry Valdovions M.D. on 03/16/2025 at 10:08 Approved by: Henry Valdovinos M.D. on 03/16/2025 at 10:08 Chest x-ray: Radiologist's Impression: [address] [address] XRay Report Signed Patient: Milka Ramirez MR#: [id number] : 1940 Acct:[id number] Age/Sex: 84 / F Date of Service: 03/16/25 Loc: ED Accession Number: [id number] Procedure: XR chest 1V Ordering Provider: Amador Hernández D.O. PROCEDURE: XR CHEST 1V INDICATIONS: chest pain TECHNIQUE: One view of the chest was acquired. COMPARISON: [facility], CT, CT CHEST WITHOUT CONTRAST, 09/24/2024, 14:21. [facility], CR, XR CHEST 1V, 03/11/2025, 13:35. [facility], CR, XR CHEST 2V, 10/26/2023, 12:12. FINDINGS: Surgical changes and devices: None. Lungs and pleura: Stable left upper lobe mass. Mediastinum: Mediastinal contours appear normal. Heart size is normal. Bones and chest wall: No suspicious bony lesions. Overlying soft tissues appear unremarkable. IMPRESSION: No acute cardiopulmonary abnormality is seen. Stable left upper lobe mass. ECG Data Interpretation: Sinus Tach HR 106 [place] 156 QRS [address]-t wave change Change from 03/11/25 MDM Narrative Medical decision making narrative: All lab work, vital signs, nurse triage note, medication list, previous ER visits, and all imaging studies reviewed. CBC normal BUN 29 creatinine 1.04 lactic acid 4.6 glucose 214 LFTs normal troponin 1st set less than 0.012 C- reactive protein 0.9. Chest x-ray showed no acute process stable left upper lobe mass. CT head showed no acute process. Pt given rocephin 2G IV x1, LR 1L bolus x2. Lactate 4.6, gluc 214, bun 29 cr 1.04, wbc 6.9 hg 14.1 [id number] bun 29, cr 1.04 glu 214. Differential dx - sepsis, gca flare up, uti, stemi, nstemi, dehyration, pneumonia. Case d/w who has graciously accepted pt for inpatient admission Discharge Plan Departure Patient Disposition: Admitted As Inpatient Clinical Impression: Sepsis due to urinary tract infection Admit Date/Time: 03/16/25 12:44 Admit Provider: Anthony Jones
--- NOTE | 2025-03-16 10:06 | EKG_ITS ---
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
--- NOTE | 2025-03-16 10:08 | DI.RAD.S_ITS ---
PROCEDURE: XR CHEST 1V INDICATIONS: chest pain TECHNIQUE: One view of the chest was acquired. COMPARISON: [facility], CT, CT CHEST WITHOUT CONTRAST, 09/24/2024, 14:21. [facility], CR, XR CHEST 1V, 03/11/2025, 13:35. [facility], CR, XR CHEST 2V, 10/26/2023, 12:12. FINDINGS: Surgical changes and devices: None. Lungs and pleura: Stable left upper lobe mass. Mediastinum: Mediastinal contours appear normal. Heart size is normal. Bones and chest wall: No suspicious bony lesions. Overlying soft tissues appear unremarkable. IMPRESSION: No acute cardiopulmonary abnormality is seen. Stable left upper lobe mass. Dictated by: Henry Valdovinos M.D. on 03/16/2025 at 9:45 Approved by: Henry Valdovinos M.D. on 03/16/2025 at 9:47
[2025-03-16 10:30] LABS: Add Manual Diff / Slide Review NO; Hematocrit 42.7 % (36-46); Hemoglobin 14.1 g/dL (12.0-16.0); Lymphocytes Absolute Auto 400 /uL (1100-4500); Mean Corpuscular HGB Conc 33.1 % (30-36); Mean Corpuscular Hemoglobin 27.9 PG (26-34); Mean Corpuscular Volume 84.3 fL (80-100); Platelet Count 217 X10^3/uL (150-400)
--- NOTE | 2025-03-16 10:34 | PC.NURSE ---
IV placed by another nurse. Labs obtained. pt stated she was having neck, shoulder pain, and chest pain, as well as vision changes as of yesterday.
[2025-03-16 10:43] LABS: Alanine Aminotransferase 26 IU/L (<35); Albumin 4.7 g/dL (3.5-5.0); Albumin Globulin Ratio 1.5 (1.0-2.8); Alkaline Phosphatase 100 U/L (38-126); Blood Urea Nitrogen 29 mg/dL (7-17); Calcium 10.1 mg/dL (8.4-10.2); Carbon Dioxide 25 mmol/L (22-32); Chloride 98 mmol/L (98-107); Estimated Glomerular Filt Rate 52 mL/min (>60); Globulin 3.2 g/dL (1.7-4.1); Glucose 214 mg/dL (70-99); HEMOLYSIS 17 (0-50); Lipase 156 U/L (23-300); Potassium 4.0 mmol/L (3.4-5.1); Sodium 137 mmol/L (137-145); Total Protein 7.9 g/dL (6.3-8.2)
[2025-03-16 10:44] LABS: Lactate (Lactic Acid) 4.6 mmol/L (0.7-2.1)
[2025-03-16 10:55] LABS: Troponin I < 0.012 ng/mL (0.01-0.034)
--- NOTE | 2025-03-16 10:59 | PC.NURSE ---
Patient states she thought she was wet in her brief. Brief was checked and she is not wet. Pure wick in place. Call light in reach.
[2025-03-16] MEDS: cefTRIAXone 2,000 MG in SODIUM CHLORIDE 0.9% 100 ML 200 MG IV (11:20)
[2025-03-16] MEDS: LACTATED RINGERS 1,000 ML 1000 ML IV ×2 (11:21→12:08)
[2025-03-16 12:00] LABS: Reflexed Lactate in 2 Hours Y
[2025-03-16 12:06] LABS: Appearance Urine UA SL CLOUDY; Bilirubin Urine UA NEGATIVE (NEGATIVE); Color Urine UA YELLOW; Glucose Urine UA NEGATIVE (Negative); Ketones Urine UA NEGATIVE (NEGATIVE); Leukocyte Esterase Urine UA 2+ (NEGATIVE); Nitrite Urine UA NEGATIVE (Negative); Occult Blood Urine UA 1+ (Negative); Protein Urine UA NEGATIVE (Negative); Specific Gravity Urine UA 1.015 (1.000-1.035); Urobilinogen Urine UA 0.2 E.U./dL (0.2)
[2025-03-16 12:08] LABS: NT-proBNP (BNP-Adult 18+) 152 pg/mL (<450)
[2025-03-16 12:11] LABS: pH Urine UA 6.0 (4.5-8.0)
[2025-03-16 12:15] LABS: Culture Indicated Urine Specimen Cultured
[2025-03-16 13:16] LABS: Troponin I < 0.012 ng/mL (0.01-0.034)
[2025-03-16 13:18] LABS: Lactate 2HR (Lactic Acid Rflx) 5.1 mmol/L (0.7-2.1)
--- NOTE | 2025-03-16 14:25 | PC.NURSE ---
Pt repeat lactate elevated. Admitting doc messaged on webex. Awaiting response. Patient not in distress. Vitals unchanged.
--- NOTE | 2025-03-16 14:28 | P.HP_ITS ---
History of Present Illness History of Present Illness Date Patient Seen: 03/16/25 Time Patient Seen: 13:00 Chief complaint: neck pain vision changes Narrative: Chief complaint: Weakness secondary to sepsis with dehydration secondary to UTI with lactic acidosis History of present illness: 03/16: 84-year-old female history of giant cell arteritis previously on chronic prednisone, pulmonary embolism on Eliquis, breast cancer status post mastectomy on 06/10 presents today with multiple complaints vision changes with eyes, lightheaded, bilateral neck pain, and also she is having left-sided chest pain that started earlier this morning. Findings in the emergency department: White blood cell count of 6.9 with 92% neutrophils BUN 29 escalated from 18 Lactate 4.6 escalated to 5.1 Pyuria and bacteriuria The remainder of the hemogram and metabolic profile are unremarkable Chest x-ray and CT of the head are unremarkable Review of systems: No cough shortness for breath No fever or chills rigors No nausea vomiting diarrhea Paresthesia paresis No urinary symptom Physical examination: Elderly female alert and oriented HEENT very dry oropharynx Heart rate and rhythm regular no murmurs Lungs clear from apices to bases Abdomen nontender bowel sounds present scaphoid Extremities no edema Assessment and plan: Sepsis with lactic acidosis likely secondary to urinary tract infection suspect that patient is hypo adrenal because of extensive use of steroids for her giant cell arteritis * Blood culture * Urinalysis and urine culture * Ceftriaxone empiric * High volume resuscitation due to lactic acidosis * Stress dose steroids Giant cell arteritis * ER provider discussed with patient's type copy examiner who did not feel that there was acute inflammation of arteritis at this time Breast cancer status post mastectomy * Follows up with oncologist History of pulmonary embolism * On Eliquis DVT prophylaxis: * Covered with Eliquis Disposition: * Inpatient anticipate 3 days or more of hospitalization Time based billing: * 55 minutes were involved in evaluation of this patient including [id number] evaluation physical examination discussion with other providers review of previous medical records including outside records review of objective laboratory and imaging findings including direct visualization of imaging and discussion with care team [facility] Medical History (Updated 03/11/25 @ 17:48 by Amador Hernández DO) Lichen simplex chronicus Actinic keratoses Alcohol use Psoriasis of scalp Skin lesion of left leg Temporal arteritis (~11/28/22) On prednisone therapy Depression Cognitive changes No significant past medical history Surgical History History of knee surgery History of Family History Father Stroke Mother Diabetes mellitus Heart attack Social History marital status: unknown household members: none housing: assisted living facility occupational status: previously employed Tobacco: How many years used: 20 alcohol intake: former substance use type: does not use Meds Home Medications and Allergies Home Medications ?Medication ?Instructions ?Recorded ?Confirmed ?Type loperamide 2 mg capsule (Imodium 2 mg PO Q12H PRN loos e stool #30 10/04/23 02/05/25 Rx A-D) caps white petrolatum (Vaseline jelly, 1 applic topical Q2H PRN 12/12/23 02/05/25 History topical) calcium carbonate (Oyster Shell 500 mg PO DAILY #90 ta bs 06/25/24 02/05/25 Rx Calcium) methenamine hippurate 1 gram tablet 1 g PO BID #180 ta bs 06/25/24 02/05/25 Rx acetaminophen 325 mg capsule 650 mg (2 x 325 mg) PO Q4 H PRN 07/17/24 02/05/25 Rx fever or pain #1,080 caps vitamins A,C,R-qrsg-vophot 4,296 1 cap PO BID #180 cap s 08/01/24 02/05/25 Rx mcg-226 mg-90 mg capsule (PreserVision AREDS) cholecalciferol (vitamin D3) 25 25 mcg PO DAILY #90 ca ps 08/20/24 02/05/25 Rx mcg (1,000 unit) capsule nitrofurantoin 100 mg PO BID #10 caps 11/0102/05/25 Rx monohydrate/macrocrystals 100 mg capsule (Macrobid) latanoprost 0.005 % eye drops 1 drp EYE-BOTH QPM #7.5 mL 11/11/24 02/05/25 Rx apixaban 5 mg tablet 5 mg PO BID #180 tabs 02/05/25 Rx nortriptyline 10 mg capsule 10 mg PO DAILY #90 caps 02/05/25 Rx metoprolol tartrate 25 mg tablet See Rx Instructions . Route 12/05/24 02/05/25 Rx .COMPLEX #90 tabs omeprazole 20 mg capsule,delayed 20 mg PO DAILY #90 ca ps 12/24/24 02/05/25 Rx release venlafaxine 37.5 mg 37.5 mg PO DAILY for depress [place] 01/28/25 02/05/25 Rx capsule,extended release 24 hr disorder #90 caps furosemide 40 mg tablet (Lasix) 40 mg PO DAILY #3 tabs 03/11/25 Rx Allergies Allergy/AdvReac Type Severity Reaction Status Date / Time No Known Drug Allergies Allergy Verified 03/16/25 10:01 Exam Vital Signs (past 8 hours): - 03/16/25 09:58 03/16/25 10:00 03/16/25 10:01 Temperature 98.2 F Pulse Rate 112 H 109 H 118 H Respiratory Rate 17 Blood Pressure 141/98 H Pulse Oximetry 91 91 94 Oxygen Delivery Method Room Air 03/16/25 10:30 03/16/25 10:59 03/16/25 10:59 Temperature Pulse Rate 112 H 111 H Respiratory Rate 23 25 H Blood Pressure 128/65 Pulse Oximetry 93 93 Oxygen Delivery Method 03/16/25 11:00 03/16/25 11:00 03/16/25 11:30 Temperature Pulse Rate 110 H Respiratory Rate 20 Blood Pressure 123/58 L 142/65 H Pulse Oximetry 92 Oxygen Delivery Method 03/16/25 11:30 03/16/25 12:00 03/16/25 12:00 Temperature Pulse Rate 110 H 100 H Respiratory Rate 24 Blood Pressure 151/63 H Pulse Oximetry 97 97 Oxygen Delivery Method 03/16/25 12:30 03/16/25 12:30 Temperature Pulse Rate 101 H Respiratory Rate 22 Blood Pressure 128/59 L Pulse Oximetry 96 Oxygen Delivery Method Oxygen Delivery Method Room Air Objective Labs 03/16/25 10:19 03/16/25 10:19 Labs: Laboratory Results - last 24 hr 03/16/25 03/16/25 03/16/25 10:19 11:55 12:40 WBC 6.9 RBC 5.06 Hgb 14.1 Hct 42.7 MCV 84.3 MCH 27.9 MCHC 33.1 RDW 13.8 Plt Count 217 Neut % (Auto) 92.2 H Lymph % (Auto) 6.3 L [place] % (Auto) 1.2 L Eos % (Auto) 0.0 L Baso % (Auto) 0.3 Neut # (Auto) 6400 Lymph # (Auto) 400 L [place] # (Auto) 100 Eos # (Auto) 0 Baso # (Auto) 0 ESR 8 Sodium 137 Potassium 4.0 Chloride 98 Carbon Dioxide 25 BUN 29 H Creatinine 1.04 Estimated GFR 52 L BUN/Creatinine Ratio 27.9 H Glucose 214 H D Lactate 4.6 H* 5.1 H* Calcium 10.1 Total Bilirubin 0.5 AST 33 ALT 26 Alkaline Phosphatase 100 Troponin I < 0.012 < 0.012 C-Reactive Protein 0.9 NT-Pro-B Natriuret Pep 152 Total Protein 7.9 Albumin 4.7 Globulin 3.2 Albumin/Globulin Ratio 1.5 Lipase 156 Urine Color Yellow Urine Appearance Sl cloudy Urine pH 6.0 Ur Specific [place] 1.015 Urine Protein Negative Urine Glucose (UA) Negative Urine Ketones Negative Urine Occult Blood 1+ H Urine Nitrate Negative Urine Bilirubin Negative Urine Urobilinogen 0.2 Ur Leukocyte Esterase 2+ H Urine RBC 1-5/hpf Urine WBC 30-100/hpf H Ur Squamous Epith Cells 1-5 /hpf Urine Bacteria Moderate (10-30) H Ur Culture Indicated? Specimen cultured Vol Urine Centrifuged 10ml (spun) Assessment & Plan Time-Based Coding :: [TOTAL MINUTES] spent with patient and on the chart (including review of chart, obtaining history, exam, reviewing outside data, placing orders, documenting exam and treatment plan, and counseling patient) on [DATE].
[2025-03-16] MEDS: LACTATED RINGERS 2,000 ML 1000 ML IV (15:03)
[2025-03-16] MEDS: HYDROCORTISONE 100 MG/2 ML VIAL IV (15:05)
--- NOTE | 2025-03-16 16:34 | PC.NURSE ---
Patient's daughter called in. Reffered to Dr. Baker.
[2025-03-16 16:45] LABS: Lactate (Lactic Acid) 4.5 mmol/L (0.7-2.1)
--- NOTE | 2025-03-16 17:41 | PC.NURSE ---
Dr. Jones ordered steroids for GCA. Patient blind in right eye and having visual disturbances in left eye. Patient BG was taken prior to starting steroids.
[2025-03-16 17:50] LABS: Reflexed Lactate in 2 Hours Y
[2025-03-16] MEDS: LATANOPROST 0.005% OPHTH 2.5 ML 1 DROPS EYE-BOTH (18:31)
[2025-03-16] MEDS: LACTATED RINGERS 1,000 ML 150 ML IV (18:31)
[2025-03-16 19:55] LABS: Lactate 2HR (Lactic Acid Rflx) 4.5 mmol/L (0.7-2.1)
[2025-03-16] MEDS: METOPROLOL IR 25 MG TABLET 12.5 MG PO (21:51)
[2025-03-16] MEDS: APIXABAN 5 MG TABLET PO (21:52)
--- NOTE | 2025-03-16 21:52 | PC.NURSE ---
senna and methenamine not in ER pyxis, actively acquiring from acute care department then will give to pt
[2025-03-16] MEDS: SENNOSIDES 8.6 MG TABLET 17.2 MG PO (22:07)
[2025-03-17] VITALS: BP 168/84; PULSE 88; RESP 20; TEMP 36.4; O2SAT 97
[2025-03-17 00:18] VITALS: BMI 21.9
[2025-03-17] MEDS: LACTATED RINGERS 1,000 ML 150 ML IV ×3 (01:22→21:58)
[2025-03-17 04:41] LABS: Lactate (Lactic Acid) 2.8 mmol/L (0.7-2.1)
[2025-03-17 04:45] LABS: Alanine Aminotransferase 21 IU/L (<35); Albumin 3.5 g/dL (3.5-5.0); Albumin Globulin Ratio 1.3 (1.0-2.8); Alkaline Phosphatase 82 U/L (38-126); Blood Urea Nitrogen 20 mg/dL (7-17); Calcium 9.4 mg/dL (8.4-10.2); Carbon Dioxide 30 mmol/L (22-32); Chloride 104 mmol/L (98-107); Estimated Glomerular Filt Rate > 60 mL/min (>60); Globulin 2.7 g/dL (1.7-4.1); Glucose 142 mg/dL (70-99); HEMOLYSIS 24 (0-50); Potassium 3.4 mmol/L (3.4-5.1); Sodium 140 mmol/L (137-145); Total Protein 6.2 g/dL (6.3-8.2)
[2025-03-17 04:46] LABS: Add Manual Diff / Slide Review NO; Hematocrit 35.8 % (36-46); Hemoglobin 11.9 g/dL (12.0-16.0); Lymphocytes Absolute Auto 600 /uL (1100-4500); Mean Corpuscular HGB Conc 33.3 % (30-36); Mean Corpuscular Hemoglobin 27.7 PG (26-34); Mean Corpuscular Volume 83.3 fL (80-100); Platelet Count 173 X10^3/uL (150-400)
[2025-03-17] MEDS: PANTOPRAZOLE DR 20 MG TABLET PO (05:40)
[2025-03-17 06:08] LABS: Reflexed Lactate in 2 Hours Y
[2025-03-17 06:58] LABS: Lactate 2HR (Lactic Acid Rflx) 5.2 mmol/L (0.7-2.1)
--- NOTE | 2025-03-17 07:36 | PM.PN.1 ---
Subjective Subjective Interval history: Chief complaint: Weakness secondary to sepsis with dehydration secondary to UTI with lactic acidosis History of present illness: 03/16: 84-year-old female history of giant cell arteritis previously on chronic prednisone, pulmonary embolism on Eliquis, breast cancer status post mastectomy on 06/10 presents today with multiple complaints vision changes with eyes, lightheaded, bilateral neck pain, and also she is having left-sided chest pain that started earlier this morning. Findings in the emergency department: White blood cell count of 6.9 with 92% neutrophils BUN 29 escalated from 18 Lactate 4.6 escalated to 5.1 Pyuria and bacteriuria The remainder of the hemogram and metabolic profile are unremarkable Chest x-ray and CT of the head are unremarkable Overnight events: Her lactic acid has increased to 5.2 on a.m. drop. S: She feels pretty good this morning. She was had really no vision in the right eye for about 2 years in the left eye is about 80% of what she thinks is normal. She denies recent urinary symptoms, or cough. No diarrhea. O: Last vitals included a BP of 168 over a, pulse 88, it was, SpO2 97% room air. NAD, alert and oriented. Fluent speech. Lungs are clear, normal rate and effort. Heart is regular, no murmur gallop or rub. Abdomen is soft, non distended. Extremities are free of edema. Imaging: CXR: No acute cardiopulmonary abnormality is seen. Stable left upper lobe mass. Head CT: No acute intracranial pathology. A/P: 1. Sepsis, active. 2. Urinary tract infection, active. 3. Lactic acidosis, active. 4. Temporal arteritis, active. 5. Pulmonary embolism on chronic anticoagulation, stable. 6. History of breast cancer with mastectomy. Plan: -continue IV fluids and IV antibiotics. -monitor lactic acid and vital signs. -monitor vision. -continue steroids. She needs another night in the hospital for IV antibiotics and monitoring of vision and lactic acidosis. Exam Vital Signs (past 8 hours): - 03/16/25 23:55 03/17/25 00:00 03/17/25 00:31 Temperature 97.6 F Pulse Rate 88 Respiratory Rate 20 Blood Pressure 168/84 H Pulse Oximetry 97 Oxygen Delivery Method Room Air Room Air Oxygen Flow Rate 0 Oxygen Delivery Method Room Air Oxygen Flow Rate 0 Objective Labs 03/17/25 04:18 03/17/25 04:18 Labs: Laboratory Results - last 24 hr 03/16/25 03/16/25 03/16/25 10:19 11:55 12:40 WBC 6.9 RBC 5.06 Hgb 14.1 Hct 42.7 MCV 84.3 MCH 27.9 MCHC 33.1 RDW 13.8 Plt Count 217 Neut % (Auto) 92.2 H Lymph % (Auto) 6.3 L [place] % (Auto) 1.2 L Eos % (Auto) 0.0 L Baso % (Auto) 0.3 Neut # (Auto) 6400 Lymph # (Auto) 400 L [place] # (Auto) 100 Eos # (Auto) 0 Baso # (Auto) 0 ESR 8 Sodium 137 Potassium 4.0 Chloride 98 Carbon Dioxide 25 BUN 29 H Creatinine 1.04 Estimated GFR 52 L BUN/Creatinine Ratio 27.9 H Glucose 214 H D POC Whole Bld Glucose Lactate 4.6 H* 5.1 H* Calcium 10.1 Total Bilirubin 0.5 AST 33 ALT 26 Alkaline Phosphatase 100 Troponin I < 0.012 < 0.012 C-Reactive Protein 0.9 NT-Pro-B Natriuret Pep 152 Total Protein 7.9 Albumin 4.7 Globulin 3.2 Albumin/Globulin Ratio 1.5 Lipase 156 Urine Color Yellow Urine Appearance Sl cloudy Urine pH 6.0 Ur Specific [place] 1.015 Urine Protein Negative Urine Glucose (UA) Negative Urine Ketones Negative Urine Occult Blood 1+ H Urine Nitrate Negative Urine Bilirubin Negative Urine Urobilinogen 0.2 Ur Leukocyte Esterase 2+ H Urine RBC 1-5/hpf Urine WBC 30-100/hpf H Ur Squamous Epith Cells 1-5 /hpf Urine Bacteria Moderate (10-30) H Ur Culture Indicated? Specimen cultured Vol Urine Centrifuged 10ml (spun) 03/16/25 03/16/25 03/16/25 16:05 17:11 19:19 WBC RBC Hgb Hct MCV MCH MCHC RDW Plt Count Neut % (Auto) Lymph % (Auto) [place] % (Auto) Eos % (Auto) Baso % (Auto) Neut # (Auto) Lymph # (Auto) [place] # (Auto) Eos # (Auto) Baso # (Auto) ESR Sodium Potassium Chloride Carbon Dioxide BUN Creatinine Estimated GFR BUN/Creatinine Ratio Glucose POC Whole Bld Glucose 172 H Lactate 4.5 H* 4.5 H* Calcium Total Bilirubin AST ALT Alkaline Phosphatase Troponin I C-Reactive Protein NT-Pro-B Natriuret Pep Total Protein Albumin Globulin Albumin/Globulin Ratio Lipase Urine Color Urine Appearance Urine pH Ur Specific [place] Urine Protein Urine Glucose (UA) Urine Ketones Urine Occult Blood Urine Nitrate Urine Bilirubin Urine Urobilinogen Ur Leukocyte Esterase Urine RBC Urine WBC Ur Squamous Epith Cells Urine Bacteria Ur Culture Indicated? Vol Urine Centrifuged 03/17/25 03/17/25 04:18 06:30 WBC 6.5 RBC 4.30 Hgb 11.9 L Hct 35.8 L MCV 83.3 MCH 27.7 MCHC 33.3 RDW 14.1 Plt Count 173 Neut % (Auto) 88.9 H Lymph % (Auto) 8.9 L [place] % (Auto) 1.9 L Eos % (Auto) 0.2 L Baso % (Auto) 0.1 Neut # (Auto) 5800 Lymph # (Auto) 600 L [place] # (Auto) 100 Eos # (Auto) 0 Baso # (Auto) 0 ESR Sodium 140 Potassium 3.4 Chloride 104 Carbon Dioxide 30 BUN 20 H Creatinine 0.74 Estimated GFR > 60 BUN/Creatinine Ratio 27.0 H Glucose 142 H POC Whole Bld Glucose Lactate 2.8 H 5.2 H* Calcium 9.4 Total Bilirubin 0.2 AST 32 ALT 21 Alkaline Phosphatase 82 Troponin I C-Reactive Protein NT-Pro-B Natriuret Pep Total Protein 6.2 L Albumin 3.5 Globulin 2.7 Albumin/Globulin Ratio 1.3 Lipase Urine Color Urine Appearance Urine pH Ur Specific [place] Urine Protein Urine Glucose (UA) Urine Ketones Urine Occult Blood Urine Nitrate Urine Bilirubin Urine Urobilinogen Ur Leukocyte Esterase Urine RBC Urine WBC Ur Squamous Epith Cells Urine Bacteria Ur Culture Indicated? Vol Urine Centrifuged [facility] Medical History (Updated 03/17/25 @ 00:53 by Kaylee Rojo RN) Lichen simplex chronicus Actinic keratoses Alcohol use Psoriasis of scalp Skin lesion of left leg Temporal arteritis (~11/28/22) On prednisone therapy Depression Cognitive changes No significant past medical history Surgical History History of knee surgery History of Family History Father Stroke Mother Diabetes mellitus Heart attack Social History marital status: unknown household members: none housing: assisted living facility occupational status: previously employed Tobacco: How many years used: 20 alcohol intake: former substance use type: does not use Assessment & Plan Time-Based Coding :: [TOTAL MINUTES] spent with patient and on the chart (including review of chart, obtaining history, exam, reviewing outside data, placing orders, documenting exam and treatment plan, and counseling patient) on [DATE]. Quality VTE Deep Vein Thrombosis/Pulmonary Embolism Present on Admission: No
[2025-03-17] MEDS: METOPROLOL IR 25 MG TABLET 12.5 MG PO ×2 (09:01→21:08)
[2025-03-17] MEDS: VENLAFAXINE ER 37.5 MG CAP PO (09:01)
[2025-03-17] MEDS: VIT C/E/ZN/COPPR/LUTEIN/ZEAXAN CAPSULE 1 CAP PO ×2 (09:01→21:08)
[2025-03-17] MEDS: NORTRIPTYLINE 10 MG CAPSULE PO (09:01)
[2025-03-17] MEDS: APIXABAN 5 MG TABLET PO ×2 (09:01→21:08)
[2025-03-17] MEDS: cefTRIAXone 2,000 MG in SODIUM CHLORIDE 0.9% 100 ML 200 MG IV (09:10)
[2025-03-17 09:45] VITALS: BP 112/61; PULSE 97; RESP 16; TEMP 36.6; O2SAT 97
[2025-03-17 09:57] LABS: Lactate (Lactic Acid) 4.3 mmol/L (0.7-2.1)
[2025-03-17 11:18] LABS: Reflexed Lactate in 2 Hours Y
[2025-03-17 12:09] LABS: Lactate 2HR (Lactic Acid Rflx) 4.0 mmol/L (0.7-2.1)
--- NOTE | 2025-03-17 16:39 | CM.DANOTE ---
DCP Assessment note brief Pt is an 84yo F admitted with Sepsis/UTI. getting IV fluids and IV abx. SHANNA reviewed EMR. per provider, another day or so. per RN in afternoon, could potential benefit from PT/OT.? Per chart/Rn, pt lives at [facility]. supportive dtr Gricelda main contact. per dtr, pt refusing services at but pt pays for assisted side? P: anticipate return to tomorrow, may be a good HH candidate/start therapies at . will continue to follow closely for DCP coordination SHANNA Hernandez Discharge Planning/Care Management CM Discharge Assessment Start: 03/16/25 12:48 Freq: Status: Active Protocol: Document 03/17/25 16:32 SL (Rec: 03/17/25 16:39 SL [id number]) Discharge Planning Assessment Assigned Discharge SHANNA Babin Superintendent [employer]illing And [employer] Provider Angie Armas [facility] DPOA/Assigned amada [place] Designee Name Contact Information [phone] Advance Directives? Yes Advance Directives No on File History Provided By Patient,Family Member,Medical Record Prior Living Assisted Living Arrangements Household Members none Facility Name [facility] Admitted From: Comment SNF auth from [facility] Discharge Plan Assisted Living Facility Transportation facility transport pending Arrangement Additional Comment hx of SV? If patient plan is Yes home with home health: Has signed face to face form been completed? Review Status In Process Please Provide Date 03/17/25 Initial DC Assessment Was Performed Next Review Type Continued Stay Review
[2025-03-17] MEDS: LATANOPROST 0.005% OPHTH 2.5 ML 1 DROPS EYE-BOTH (18:11)
[2025-03-17 19:51] VITALS: BP 164/86; PULSE 100; RESP 16; TEMP 36.3; O2SAT 96
[2025-03-17] MEDS: SENNOSIDES 8.6 MG TABLET 17.2 MG PO (21:08)
[2025-03-17 23:08] LABS: Lactate (Lactic Acid) 2.3 mmol/L (0.7-2.1)
[2025-03-17 23:21] VITALS: BP 144/88; PULSE 95
[2025-03-18 00:32] LABS: Reflexed Lactate in 2 Hours Y
[2025-03-18 02:07] LABS: Lactate 2HR (Lactic Acid Rflx) 2.3 mmol/L (0.7-2.1)
[2025-03-18] MEDS: LACTATED RINGERS 1,000 ML 150 ML IV ×2 (04:35→12:13)
[2025-03-18 05:04] LABS: Add Manual Diff / Slide Review NO; Hematocrit 34.1 % (36-46); Hemoglobin 11.4 g/dL (12.0-16.0); Lymphocytes Absolute Auto 600 /uL (1100-4500); Mean Corpuscular HGB Conc 33.3 % (30-36); Mean Corpuscular Hemoglobin 27.8 PG (26-34); Mean Corpuscular Volume 83.5 fL (80-100); Platelet Count 182 X10^3/uL (150-400)
[2025-03-18 05:18] LABS: Lactate (Lactic Acid) 2.3 mmol/L (0.7-2.1)
[2025-03-18 05:19] LABS: Alanine Aminotransferase 19 IU/L (<35); Albumin 3.5 g/dL (3.5-5.0); Albumin Globulin Ratio 1.4 (1.0-2.8); Alkaline Phosphatase 70 U/L (38-126); Blood Urea Nitrogen 24 mg/dL (7-17); Calcium 9.0 mg/dL (8.4-10.2); Carbon Dioxide 32 mmol/L (22-32); Chloride 101 mmol/L (98-107); Estimated Glomerular Filt Rate > 60 mL/min (>60); Globulin 2.5 g/dL (1.7-4.1); Glucose 111 mg/dL (70-99); HEMOLYSIS < 15 (0-50); Potassium 2.9 mmol/L (3.4-5.1); Sodium 140 mmol/L (137-145); Total Protein 6.0 g/dL (6.3-8.2)
[2025-03-18] MEDS: PANTOPRAZOLE DR 20 MG TABLET PO (05:42)
--- NOTE | 2025-03-18 06:12 | PC.NURSE ---
Throughout this shift patient remained pleasantly confused, asking several times where she was, how she got here, and what the plan is. Pt reassurable, but demonstrates significant short-term memory loss. ? Pt exhibits impulsive behaviour, getting out of bed unassisted on two occasions in spite of redirection and safety education. Patient monitored closely for safety, with fall precautions maintained per protocol. During the shift, pt pulled IV out and it was successfully replaced using ultrasound guidance, with good blood return and patency noted.? Lactate levels continue to trend downward during shift.? Pt resting comfortably and looking forward to breakfast.
[2025-03-18 06:35] LABS: Reflexed Lactate in 2 Hours Y
[2025-03-18 07:13] LABS: Lactate 2HR (Lactic Acid Rflx) 2.2 mmol/L (0.7-2.1)
[2025-03-18 08:10] VITALS: BP 132/65; PULSE 77; RESP 18; TEMP 37.2; O2SAT 93
[2025-03-18] MEDS: NORTRIPTYLINE 10 MG CAPSULE PO (08:32)
[2025-03-18] MEDS: APIXABAN 5 MG TABLET PO ×2 (08:32→21:51)
[2025-03-18] MEDS: VENLAFAXINE ER 37.5 MG CAP PO (08:32)
[2025-03-18] MEDS: VIT C/E/ZN/COPPR/LUTEIN/ZEAXAN CAPSULE 1 CAP PO ×2 (08:33→21:51)
[2025-03-18] MEDS: POTASSIUM CHLORIDE 20 MEQ TAB 40 MEQ PO ×2 (08:33→13:30)
[2025-03-18] MEDS: METOPROLOL IR 25 MG TABLET 12.5 MG PO ×2 (08:33→21:53)
[2025-03-18] MEDS: cefTRIAXone 2,000 MG in SODIUM CHLORIDE 0.9% 100 ML 200 MG IV (10:26)
--- NOTE | 2025-03-18 11:29 | P.PN_ITS ---
Subjective Subjective Interval history: A/P: 1. Sepsis, improved. 2. Urinary tract infection, active. E coli chan-sensitive. 3. Lactic acidosis, active. 4. Temporal arteritis, active. 5. Pulmonary embolism on chronic anticoagulation, stable. 6. History of breast cancer with mastectomy. Plan: -continue IV fluids and IV antibiotics. -recheck lactate. -monitor vision. -continue steroids. Summary: Weakness secondary to sepsis with dehydration secondary to UTI with lactic acidosis History of present illness: 03/16: 84-year-old female history of giant cell arteritis previously on chronic prednisone, pulmonary embolism on Eliquis, breast cancer status post mastectomy on 06/10 presents today with multiple complaints vision changes with eyes, lightheaded, bilateral neck pain, and also she is having left-sided chest pain that started earlier this morning. Findings in the emergency department: White blood cell count of 6.9 with 92% neutrophils BUN 29 escalated from 18 Lactate 4.6 escalated to 5.1 Pyuria and bacteriuria The remainder of the hemogram and metabolic profile are unremarkable Chest x-ray and CT of the head are unremarkable Overnight events: Her lactic acid has increased to 5.2 on a.m. drop. S: She feels better, left eye vision is improved. O: T 99?, BP 132/65, pulse 77, respiration 18, SpO2 93% room air. NAD, alert and oriented. Fluent speech. Lungs are clear, normal rate and effort. Heart is regular, no murmur gallop or rub. Abdomen is soft, non distended. Extremities are free of edema. No temporal artery tenderness. Imaging: CXR: No acute cardiopulmonary abnormality is seen. Stable left upper lobe mass. Head CT: No acute intracranial pathology. Exam Vital Signs (past 8 hours): - 03/18/25 08:10 Temperature 99.0 F Pulse Rate 77 Respiratory Rate 18 Blood Pressure 132/65 Pulse Oximetry 93 Oxygen Flow Rate 0 Oxygen Delivery Method Room Air Oxygen Flow Rate 0 Objective Labs 03/18/25 04:42 03/18/25 04:42 Labs: Laboratory Results - last 24 hr 03/17/25 03/17/25 03/18/25 11:48 22:41 01:04 WBC RBC Hgb Hct MCV MCH MCHC RDW Plt Count Neut % (Auto) Lymph % (Auto) [place] % (Auto) Eos % (Auto) Baso % (Auto) Neut # (Auto) Lymph # (Auto) [place] # (Auto) Eos # (Auto) Baso # (Auto) Sodium Potassium Chloride Carbon Dioxide BUN Creatinine Estimated GFR BUN/Creatinine Ratio Glucose Lactate 4.0 H 2.3 H 2.3 H Calcium Total Bilirubin AST ALT Alkaline Phosphatase Total Protein Albumin Globulin Albumin/Globulin Ratio 03/18/25 03/18/25 04:42 06:48 WBC 9.0 RBC 4.09 Hgb 11.4 L Hct 34.1 L MCV 83.5 MCH 27.8 MCHC 33.3 RDW 13.7 Plt Count 182 Neut % (Auto) 83.2 H Lymph % (Auto) 6.7 L [place] % (Auto) 10.0 Eos % (Auto) 0.0 L Baso % (Auto) 0.1 Neut # (Auto) 7500 H Lymph # (Auto) 600 L [place] # (Auto) 900 Eos # (Auto) 0 Baso # (Auto) 0 Sodium 140 Potassium 2.9 L Chloride 101 Carbon Dioxide 32 BUN 24 H Creatinine 0.82 Estimated GFR > 60 BUN/Creatinine Ratio 29.3 H Glucose 111 H Lactate 2.3 H 2.2 H Calcium 9.0 Total Bilirubin 0.1 L AST 25 ALT 19 Alkaline Phosphatase 70 Total Protein 6.0 L Albumin 3.5 Globulin 2.5 Albumin/Globulin Ratio 1.4 [facility] Medical History (Updated 03/17/25 @ 00:53 by Kaylee Rojo RN) Lichen simplex chronicus Actinic keratoses Alcohol use Psoriasis of scalp Skin lesion of left leg Temporal arteritis (~11/28/22) On prednisone therapy Depression Cognitive changes No significant past medical history Surgical History History of knee surgery History of Family History Father Stroke Mother Diabetes mellitus Heart attack Social History marital status: unknown household members: none housing: assisted living facility occupational status: previously employed Tobacco: How many years used: 20 alcohol intake: former substance use type: does not use Assessment & Plan Time-Based Coding :: [TOTAL MINUTES] spent with patient and on the chart (including review of chart, obtaining history, exam, reviewing outside data, placing orders, documenting exam and treatment plan, and counseling patient) on [DATE]. Quality VTE Deep Vein Thrombosis/Pulmonary Embolism Present on Admission: No
--- NOTE | 2025-03-18 12:20 | PT.IIE ---
Current Diagnoses Sepsis, unspecified organism (03/16/25) Surgical History (Last Reviewed 10/20/23 @ 04:39 by Karla Hanson MD) History of History of knee surgery Medical History (Last Updated 02/05/25 @ 19:11 by Angie Armas DO) Actinic keratoses Alcohol use Cognitive changes Depression Lichen simplex chronicus No significant past medical history On prednisone therapy Psoriasis of scalp Skin lesion of left leg Temporal arteritis (~11/28/22) Physical Therapy Inpatient Evaluation/Re-Eval M1 PT IP Prior Functional Status Start: 03/18/25 12:22 Freq: NEEDED Status: Active Protocol: Document 03/18/25 12:20 DLM (Rec: 03/18/25 12:37 DLM Desktop) Medical Review Prior Functional Status Medical History Yes Reviewed Diet/Fluid Regular Consistency Communication low vision with left eye blindness, she has glasses but does not feel they help much Mobility and Gait Independent gait with 4WW. Activities of Daily She has help for ADL's but often does not use it. She Living and IADL's gets meals delivered to her room. She no longer drives. Prior Functional Her Daughter is involved in her care Level (Other details ) Social History Household Members none Living Arrangements Assisted Living Number of Floors ( One Floor Floors) Number of Stairs To elevator Enter/Railing? Home Environment High Toilet,Walk in Shower Home Equipment Four Wheel Walker,Shower Seat with Backrest,Hand Held Shower,Grab Bars Near Toilet,Grab Bars In Shower Employment Status Retired M2 PT-IP Current Condition Start: 03/18/25 12:22 Freq: NEEDED Status: Active Protocol: Document 03/18/25 12:20 DLM (Rec: 03/18/25 12:37 DLM Desktop) Physical Therapy Current Condition Current Condition Evaluation Date 03/18/25 Treatment Diagnosis Septic UTI, weakness, decreased activity tolerance Onset Date 03/16/25 M3 PT-IP Subjective Start: 03/18/25 12:22 Freq: NEEDED Status: Active Protocol: Document 03/18/25 12:20 DLM (Rec: 03/18/25 12:37 DLM Desktop) Subjective Physical Therapy Visit Type Type Initial Evaluation Visit Start Time 11:40 Visit Stop Time 12:20 Notes 40 min Number of SWITCH OPERATOR Visits 0 Physical Therapy Visit Comments Patient Comments She reports not feeling ready to go home. She thinks she will feel better tomorrow. She describes feeling weak and tired today. Patient Goals Discharge back to her A.L apt. Therapy Pain Assessment Pain When Pain Assessed During Mobility Pain Present Pain Present Denied Pain M4 PT-IP Mobility and Gait Start: 03/18/25 12:22 Freq: NEEDED Status: Active Protocol: Document 03/18/25 12:20 DLM (Rec: 03/18/25 12:37 DLM Desktop) PT-Bed Mobility Assessment Supine to Sit Supine to Sit Independent Scooting Scooting to Edge of Independent Bed PT-Transfer Assessment Sit to and From Stand Sit to and from Standby Assistance Stand Equipment Transfer Assistive Gait Belt,Front Wheeled Walker Device Transfers Transfer Destination Chair,Toilet Transfer Technique Stand Step Pivot Transfer Ability Level of Assist Standby Assistance Comments Mobility Comments she needs cues to keep FWW with her when turning to chair Gait Assessment Gait Gait Assistance Standby Assistance Required: Distance (Feet) 100 Assistive Devices Assistive Device Gait Belt,Front Wheeled Walker Factors Limiting Gait Function Factors Limiting Decreased Activity Tolerance Gait Function Comments Gait Comments she reports decreased balance but no losses of balance observed with use of fWW for gait PT-Balance Assessment Sitting Balance and Reactions Static Sitting Normal Balance Ability Dynamic Sitting Good Balance Ability Standing Balance and Reactions Static Standing Good Balance Ability Dynamic Standing Good Balance Ability Device Used FWW M5 PT-IP Objective Assessments Start: 03/18/25 12:22 Freq: NEEDED Status: Active Protocol: Document 03/18/25 12:20 DLM (Rec: 03/18/25 12:37 DLM Desktop) Orientation Orientation/Cognition Level of Alertness Alert Orientation Name,Age,Birthday,Place Language Function Hard of Hearing Ability Safety Awareness Decreased Safety Awareness Comments She is cooperative and follows instructions well. She is not aware of why she is hospitalized other than she did not feel well. Gross Range of Motion Upper Extremity ROM Assessment Within Functional Limits Lower Extremity ROM Assessment Within Functional Limits Strength Upper Extremity Strength Assessment Within Functional Limits Lower Extremity Strength Assessment Within Functional Limits Coordination Assessment Gross Coordination Gross Coordination WNL Sensation Assessment Sensation Gross Sensation WNL Muscle Tone Muscle Tone WNL Yes M6 PT-IP Treatment Start: 03/18/25 12:22 Freq: NEEDED Status: Active Protocol: Document 03/18/25 12:20 DLM (Rec: 03/18/25 12:37 DLM Desktop) Physical Therapy Treatment Education Education Provided Safety Other Treatments Other Treatment educated pt to avoid leaving FWW behind when Performed approaching chair Pt attempted to stand and step out of wet depends, holding rail on wall instead of sitting to complete this task. M7 PT-IP Assessment and Plan Start: 03/18/25 12:22 Freq: NEEDED Status: Active Protocol: Document 03/18/25 12:20 DLM (Rec: 03/18/25 12:37 DLM Desktop) PT Summary Assessment and Plan Potential Rehabilitation Good Potential Status of Condition Evolving at Evaluation Summary Impairments Strength,Balance,Gait,Activity Tolerance Assessment Summary Milka was admitted for septic UTI. She reports feeling tired and weak today. She was able to ambulate to the toilet then ambulate in the rahman with FWW and stand by assist. She reports fatigue limits her distance of gait today. She reports mild light-headedness with getting up but it improved with brief rest in static standing and did not prevent mobility. Pt aware she is wet with urine at this time and she was cleaned up when she got out of bed. External conley in use. Pt left up in recliner at the end of this visit with chair alarm in place and nursing aware. Recommend discharge back to assisted living apt with home health PT. Recommend home safety assessment to decrease her fall risks. She needs repetition of education to improve her safety awareness and decrease her fall risk. Goals Gait Goal Independent,Front Wheel Walker Gait Distance 200 feet Days to Meet Goals 2 Frequency of Treatment Frequency Of Once a Day Treatment Treatment Plan Physical Therapy Gait Training,Therapeutic Exercise,Balance Retraining, Treatment Plan Discharge Planning,Neuromuscular Re-ed Precautions Other Precautions decreased vision, fall risk Recommendations To Nursing Amount of Assist Standby Assistance Needed Discharge Recommendations PT Discharge Home with Assistance,Home Health Recommendations Other Discharge Return to her assisted living apt. Recommendations Transportation Needs Private Vehicle,Wheelchair/Cabulance at Discharge - PT assist 1
[2025-03-18 12:44] LABS: Lactate (Lactic Acid) 3.9 mmol/L (0.7-2.1)
[2025-03-18 13:39] LABS: Reflexed Lactate in 2 Hours Y
[2025-03-18 14:19] LABS: Lactate 2HR (Lactic Acid Rflx) 3.2 mmol/L (0.7-2.1)
--- NOTE | 2025-03-18 14:24 | CM.DPNOTE ---
DCP note IMPORT CUSTOMER SERVICE MANAGER reviewed EMR per provider, dc to [facility] tomorrow. per PT rec home with HH. IMPORT CUSTOMER SERVICE MANAGER spoke with dtr Gricelda via phone ([phone]) reviewed plan. in agreement with home to [facility] with [facility] ([facility] of [facility]). pt has hx of politely refusing services, has not been wanting to get out of bed/refusing care. IMPORT CUSTOMER SERVICE MANAGER briefly mentioned hospice as an option if pt were to continue to refuse care/have a terminal diagnosis. dtr open to it due tto hx of breast cancer. agreeable to taking pt back to [facility] tomorrow. IMPORT CUSTOMER SERVICE MANAGER spoke with Claire at [facility], can accept pt back. IMPORT CUSTOMER SERVICE MANAGER to send clinicals tomorrow. IMPORT CUSTOMER SERVICE MANAGER to send [facility] ref tomorrow. P:DC to [facility] tomorrow with HH to follow and dtr to transport will continue to follow closely for DCP Coordination SHANNA Hernandez
[2025-03-18] MEDS: LATANOPROST 0.005% OPHTH 2.5 ML 1 DROPS EYE-BOTH (17:32)
[2025-03-18 20:05] VITALS: BP 120/72; PULSE 71; RESP 19; TEMP 36.3; O2SAT 93
[2025-03-18] MEDS: SENNOSIDES 8.6 MG TABLET 17.2 MG PO (21:51)
[2025-03-18 22:09] LABS: Lactate (Lactic Acid) 1.7 mmol/L (0.7-2.1)
[2025-03-19] MEDS: PANTOPRAZOLE DR 20 MG TABLET PO (06:59)
[2025-03-19 07:44] VITALS: BP 150/66; PULSE 72; RESP 16; TEMP 36.4; O2SAT 94
[2025-03-19] MEDS: METOPROLOL IR 25 MG TABLET 12.5 MG PO (08:30)
[2025-03-19] MEDS: APIXABAN 5 MG TABLET PO (08:31)
[2025-03-19] MEDS: VIT C/E/ZN/COPPR/LUTEIN/ZEAXAN CAPSULE 1 CAP PO (08:31)
[2025-03-19] MEDS: NORTRIPTYLINE 10 MG CAPSULE PO (08:31)
[2025-03-19] MEDS: VENLAFAXINE ER 37.5 MG CAP PO (08:31)
[2025-03-19] MEDS: cefTRIAXone 2,000 MG in SODIUM CHLORIDE 0.9% 100 ML 200 MG IV (10:15)
--- NOTE | 2025-03-19 10:36 | P.DS_ITS ---
History of Present Illness History of Present Illness Chief complaint: neck pain vision changes Narrative: From H&P: Chief complaint: Weakness secondary to sepsis with dehydration secondary to UTI with lactic acidosis History of present illness: 03/16: 84-year-old female history of giant cell arteritis previously on chronic prednisone, pulmonary embolism on Eliquis, breast cancer status post mastectomy on 06/10 presents today with multiple complaints vision changes with eyes, lightheaded, bilateral neck pain, and also she is having left-sided chest pain that started earlier this morning. Findings in the emergency department: White blood cell count of 6.9 with 92% neutrophils BUN 29 escalated from 18 Lactate 4.6 escalated to 5.1 Pyuria and bacteriuria The remainder of the hemogram and metabolic profile are unremarkable Chest x-ray and CT of the head are unremarkable Hospital course: She was near complete loss of right eye vision and was initially noticing some changes of her left eye vision. For this reason she was given a pulse of IV Solu-Medrol. Was in contact with the high school mathematics teacher, who treats her giant cell arteritis. Ultimately she was treated with IV steroids while in the hospital and we will transitioned to 60 mg of prednisone a day until being followed up with by her high school mathematics teacher. Her visual changes are somewhat vague in her description but she notes a purplish hue. She did have normal visual alegria on testing on a daily basis while in the hospital. Her weakness improved with treatment of a urinary tract infection, her urine culture revealed a pansensitive E coli. She was stable for discharge on 03/19 back to her facility. A/P: 1. Sepsis, improved. 2. Urinary tract infection, active. E coli chan-sensitive. 3. Lactic acidosis, active. 4. Temporal arteritis, active. 5. Pulmonary embolism on chronic anticoagulation, stable. 6. History of breast cancer with mastectomy. 7. Chronic right eye vision loss. 8. Possible acute left visual symptoms, treated with IV steroids while in the hospital. Communicated with her high school mathematics teacher and she will be discharged on 60 mg a day of prednisone with close follow up with Dr. Harding in [place]. PLAN: -discharge home with 5 additional days of oral antibiotics and prednisone 60 a day, 14 days given as well as expedited follow up with Dr. Harding in [place]. [N], the patient has documentation of a left ventricle ejection fracture less than or equal to 40%, or moderately or severely reduced left ventricle systolic function. [N], the patient has a history of heart transplant or left ventricular assist device (LVAD). [N], the patient was prescribed an SANTOS inhibitor at discharge or is already being taken. The patient was not prescribed an SANTOS-inhibitor because of the following exception: NA. [N], the patient was prescribed Metoprolol succinate, bisoprolol, or carvedilol at discharge. The patient was not prescribed Metoprolol succinate, bisoprolol, or carvedilol at discharge because of the following exception: NA. Discharge Providers Provider Date of admission: 03/16/25 12:44 Discharge Date: 03/19/25 Primary care physician: Angie Armas DO Consults: 03/17/25 00:29 Consult to Pharmacy Routine Comment: New admit 03/18/25 08:10 Consult to Physical Therapy Evaluate & Treat Comment: Physician Instructions: Evaluate and Treat 03/19/25 09:39 Consult to Home Health Routine Comment: Reason For Exam: RN/PT Discharge provider: Be Romero MD Summary Status at Discharge Cognitive/behavioral status at discharge: oriented Functional status at discharge: uses cane/walker Overall status at discharge: patient is back to baseline Time Spent with Patient Time spent: Greater than 30 minutes Exam Vital Signs (past 8 hours): - 03/19/25 07:44 Temperature 97.5 F L Pulse Rate 72 Respiratory Rate 16 Blood Pressure 150/66 H Pulse Oximetry 94 Oxygen Delivery Method Room Air Oxygen Flow Rate 0 Narrative Exam Narrative: NAD, alert and oriented. Fluent speech. Lungs are clear, normal rate and effort. Heart is regular, no murmur gallop or rub. Abdomen is soft, non distended. Extremities are free of edema. Full visual field in the left eye. She does have a purplish hue but can otherwise see things at about 90% of normal from her report. Objective Labs 03/18/25 04:42 03/18/25 04:42 Labs: Laboratory Results - last 24 hr 03/18/25 03/18/25 03/18/25 12:00 14:00 21:44 Lactate 3.9 H 3.2 H 1.7 PFSH Medical History Lichen simplex chronicus Actinic keratoses Alcohol use Psoriasis of scalp Skin lesion of left leg Temporal arteritis (~11/28/22) On prednisone therapy Depression Cognitive changes No significant past medical history Surgical History History of knee surgery History of Family History Father Stroke Mother Diabetes mellitus Heart attack Social History marital status: unknown household members: none housing: assisted living facility occupational status: previously employed Tobacco: How many years used: 20 alcohol intake: former substance use type: does not use Discharge Plan Discharge Plan Patient Disposition: Assisted Living Other facility: [facility] Provider Discharge Comment: Stable for discharge home. Recommend seeing your high school mathematics teacher, Dr. Harding, within the next 10 days. Please call for appointment. Discharge orders & Medications Discharge Orders: Discharge (Order); Ordered 03/19/25 Ordered By: Be Romero Prescriptions: New cephalexin 500 mg capsule 500 mg PO QID Qty: 20 0RF prednisone 20 mg tablet 60 mg PO DAILY Qty: 52 0RF Continued loperamide [Imodium A-D] 2 mg capsule 2 mg PO Q12H PRN (Reason: loose stool) Qty: 30 6RF calcium carbonate [Oyster Shell Calcium] 500 mg calcium (1,250 mg) tablet 500 mg PO DAILY Qty: 90 3RF methenamine hippurate 1 gram tablet 1 g PO BID Qty: 180 3RF acetaminophen 325 mg capsule 650 mg PO Q4H MDD 3000 mg PRN (Reason: fever or pain) Qty: 1080 2RF Rx Instructions: not to exceed 3,000mg of acetaminophen in 24/hour period from all sources PreserVision AREDS 4,296 mcg-226 mg-90 mg capsule 1 cap PO BID Qty: 180 2RF cholecalciferol (vitamin D3) 25 mcg (1,000 unit) capsule 25 mcg PO DAILY Qty: 90 3RF latanoprost 0.005 % drops 1 drp EYE-BOTH QPM Qty: 7.5 3RF nortriptyline 10 mg capsule 10 mg PO DAILY Qty: 90 1RF apixaban 5 mg tablet 5 mg PO BID Qty: 180 1RF Rx Instructions: Ok to hold day before and day of oral surgery, then restart day after surgery unless bleeding persists metoprolol tartrate 25 mg tablet See Rx Instructions .ROUTE .COMPLEX Qty: 90 3RF Dose Instruction: GIVE 1/2 TABLET=12.5MG ORALLY 2 TIMES A DAY Rx Instructions: GIVE 1/2 TABLET=12.5MG ORALLY 2 TIMES A DAY. Hold for SBP <110 P<60 omeprazole 20 mg capsule,delayed release(DR/EC) 20 mg PO DAILY Qty: 90 2RF venlafaxine 37.5 mg capsule,extended release 24hr 37.5 mg PO DAILY Qty: 90 1RF white petrolatum [Vaseline] Gel 1 applic topical Q2H Rx Instructions: apply to dry patches on head/scalp prednisone 20 mg tablet 60 mg PO DAILY hydrocodone-acetaminophen 5-325 mg tablet 1 tab PO Q6H Patient Comments: 0.5-1tab Follow up/Referrals: Angie Armas DO [Primary Care Provider, Medical] Diet/Activity/Treatments Diet: Diet as Tolerated Skin/Wound/Dressing Care Report to your healthcare provider any signs of infection, such as:: chills, fever and night sweats Visit Report/Discharge Packet Instructions: Giant Cell Arteritis, DI for Urinary Tract Infection (UTI) Stand Alone Forms: [employer], Patient Portal/API, Influenza Vaccine Info, Notice of Privacy Practices, Inpatient vs Outpatient, Pneumococcal Vaccine Info, Pt. Rights & Responsibilities Discharge Data Primary Care Provider: Angie Armas VTE Deep Vein Thrombosis/Pulmonary Embolism Present on Admission: No
--- NOTE | 2025-03-19 11:04 | CM.DPNOTE ---
DCP note REELER OPERATOR reviewed EMR per provider cleared to dc home today. REELER OPERATOR sent ref to [facility]. per [facility] able to accept. send f2f and order. need to send DC Sum when completed. REELER OPERATOR spoke with pt in room. agreeable to plan. asked this REELER OPERATOR to call dtr. REELER OPERATOR spoke with dtr. will pick her up today. will keep an eye out for [facility] to call. pref for meds to be sent to [facility] in [place]. REELER OPERATOR updated RN. SHANNA Arias KINDLY assisted in sending clinicals to [facility] at . Per [facility] can accept pt back today no issue. P: dc today to . dtr to transport. [facility] to follow for RN/PT. will continue to follow as needed in case additional DCP needs should arise SHANNA Hernandez
--- NOTE | 2025-03-19 13:26 | PC.NURSE ---
IV removed. D/c instructions reviewed with pt and dtr at bedside. Dtr is POA. All questions answered. Pt exited via w/c to private vehicle.
== END 2025-03-19 13:27 | disposition home health service (06) | DRG 872 ==
LOC: ED 10:03 → AC 12:45
PROVIDERS: Hospitalist; Internal Medicine; Admitting Provider Internal Medicine; Emergency Provider Family Medicine; PCP Family Medicine; Referring Provider Family Medicine; Visit Provider Internal Medicine
DX: A41.9 Sepsis, unspecified organism (principal); N39.0 Urinary tract infection, site not specified; E87.20 Acidosis, unspecified; M31.6 Other giant cell arteritis; H54.62 Unqualified visual loss, left eye, normal vision right eye; E86.0 Dehydration; B96.20 Unspecified Escherichia coli [E. coli] as the cause of diseases classified elsewhere; H53.8 Other visual disturbances; F32.A Depression, unspecified; M54.2 Cervicalgia; Z86.711 Personal history of pulmonary embolism; Z79.01 Long term (current) use of anticoagulants; Z85.3 Personal history of malignant neoplasm of breast; Z79.52 Long term (current) use of systemic steroids; Z90.12 Acquired absence of left breast and nipple; Z87.891 Personal history of nicotine dependence
CPT/HCPCS: 36415; 70450; 71045; 80053; 81001; 82962; 83605; 83690; 83880; 84484; 85025; 85651; 86140; 87040; 87077; 87086; 87186; 93005; 96361; 96365; 96366; 96367; 96375; 97162; 99284; 99285; J0696; J1720; J2919; J7050; J7120